=== PATIENT | male | born 1935 | race African-American/Black ===

== ENCOUNTER 2016-10-10 08:58 | Inpatient (IN) | payer OTHER, MEDICARE ==
--- NOTE | 2016-10-10 09:45 | PDOC ---
Attending Attestation - Resident Resident Name: Jamarcus Francisco - ED Attending Attestation I have performed the following: I have examined & evaluated the patient, The case was reviewed & discussed with the resident - HPI HPI: 10/10/16 09:41 80 yo M with h;o CAD ( stents) COPD, recent thyroidectomy ( 06/20), HTN COPD prior PE, here today with episodic bradycardia at physical therapy. pt was found to be bradycardic in 30's at physical therapy. did feel mild sob, but has had sob ever since his thyroid surgery. no recent leg swelling, no f/c no cough. no syncope. no chest pain. pt had recent cardiac cath around time of his surgery and stent was patent. 06/20. pt also on coumadin for h/o PE, had subdural many years ago 2003. 10/10/16 10:01 10/10/16 10:[address] Perez, and David ( supervisor advice) - Physicial Exam PE: 10/10/16 09:47 awake alert lungs clear heart regular, occas irreg beat. abd soft NT ND. skin warm and dry. nuero alert oriented x 3. - Medical Decision Making 10/10/16 09:48 differential: hypothyroid, electrolyte abnormality, heart block. med side effect from beta [place], [place], plan labs cxr coags. tsh. john admit to tele 10/10/16 10:01 Heart Score/ECG Review #1 ECG reviewed & interpreted by me at: 09:00 General ECG Interpretation: Sinus Rhythm, Normal Rate (97, occas pvc), Normal Intervals, No acute ischemic changes Compared to previous ECG there are: No significant change (TWI I, AVL, V4 - V6)
[2016-10-10 10:27] LABS: BASOPHIL 0.3 % (0-2.0); EOSINOPHIL 0.8 % (0-4.5); MCH 27.5 pg (25.7-33.7); MCHC 31.7 g/dl (32.0-35.9); MEAN CELL VOLUME 86.9 fl (80-96); MEAN PLT VOLUME 9.4 fl (7.5-11.1); NEUTROPHILS 79.1 % (42.8-82.8); PLATELET COUNT 163 K/MM3 (134-434); RDW 18.8 % (11.9-15.9)
[2016-10-10 10:42] LABS: INR 2.22 (0.82-1.09); PROTHROMBIN TIME (PATIENT) 24.8 SEC (9.98-11.88)
[2016-10-10 10:45] LABS: ACTIVATED PTT 32.8 SECONDS (26.9-34.4)
--- NOTE | 2016-10-10 11:20 | PDOC ---
History of Present Illness <Radha Montes - Last Filed: 10/10/16 12:36> - General History Source: Patient Exam Limitations: No Limitations - History of Present Illness Presenting Symptoms: Short of Breath, Other (weakness) Timing/Duration: reports: intermittent <Jamarcus Francisco - Last Filed: 10/10/16 14:21> - General Chief Complaint: Irregular Heart Beat Stated Complaint: IRREGULAR HEART RATE Time Seen by Provider: 10/10/16 09:07 - History of Present Illness Initial Comments: 10/10/16 11:13 80M with pmh of HTN COPD PE s/p lobectomy, CAD s/p CABG and thyroidectomy present with recent onset of generalized weakness and sent to ED by PT this morning for episode of bradycardia at 30bpm. PAtient denies dizziness, chest pain, confusion, sweating, fever, recent medication change. (Jamarcus Francisco) Past History <Radha Montes - Last Filed: 10/10/16 12:36> - Travel Traveled outside of the country in the last 30 days: No - Past Medical History Asthma: Yes Cardiac Disorders: Yes (CAD, S/P PTCI) COPD: Yes (2LPM N/C CONTINUOUS.) GI Disorders: Yes (GERD) HTN: Yes Hypercholesterolemia: Yes Suicide Attempt (Hx): No Other medical history: Pneumonia, Subdural hematoma(2003), PE, total thyroidectomy - Surgical History Abdominal Surgery: Yes (h.hernia, ing.hernia with a mass) Cardiac Surgery: Yes (angioplasty with stent 2003) Lung Surgery: Yes (LOBECTOMY) - Psycho/Social/Smoking Cessation Hx Anxiety: No Suicidal Ideation: No Smoking History: Former smoker Have you smoked in the past 12 months: No Number of Cigarettes Smoked Daily: 0 If you are a former smoker, when did you quit?: 1980 Information on smoking cessation initiated: No 'Breaking Loose' booklet given: 09/08/13 Hx Alcohol Use: No Drug/Substance Use Hx: No Hx Substance Use Treatment: No <Jamarcus Francisco - Last Filed: 10/10/16 14:21> - Past Medical History Allergies/Adverse Reactions: Allergies Allergy/AdvReac Type Severity Reaction Status Date / Time No Known Allergies Allergy Verified 10/10/16 09:00 Home Medications: Ambulatory Orders Albuterol 2.5/Ipratropium 0.5 [Duoneb -] 1 neb IH QID 09/06/13 Aspirin [ASA -] 81 mg PO DAILY 09/06/13 Potassium Chloride [K-Dur] 20 meq PO BID 09/06/13 Allopurinol [Zyloprim -] 100 mg PO DAILY 01/21/14 Esomeprazole Mag Trihydrate [Nexium] 40 mg PO DAILY 01/21/14 Furosemide [Lasix -] 40 mg PO DAILY 01/21/14 Simvastatin [Zocor -] 40 mg PO HS 01/21/14 Metoprolol Succinate [Toprol Xl -] 25 mg PO DAILY 10/10/16 Valsartan [Diovan] 160 mg PO DAILY 10/10/16 Warfarin Na [Coumadin -] 2.5 mg PO Q2D 10/10/16 Warfarin Sodium [Coumadin] 5 mg PO Q2D 10/10/16 Review of Systems - Review of Systems Able to Perform ROS?: Yes Constitutional: No: Diaphoresis, Fever, Loss of Appetite, Night Sweats, Unexplained wgt Loss HEENTM: No: Recent change in vision Respiratory: Yes: See HPI. No: Cough Cardiac (ROS): Yes: See HPI. No: Lightheadedness, Palpitations Musculoskeletal: Yes: Muscle Weakness <Jamarcus Francisco - Last Filed: 10/10/16 14:21> *Physical Exam - Physical Exam General Appearance: Yes: Nourished, Appropriately Dressed HEENT: positive: EOMI Respiratory/Chest: positive: Crackles (b/l). negative: Chest Tender Cardiovascular: positive: Regular Rhythm, Regular Rate, S1, S2 Vascular Pulses: Dorsalis-Pedis (R): 1+, Doralis-Pedis (L): 1+ Gastrointestinal/Abdominal: positive: Normal Bowel Sounds, Distended Integumentary: positive: Normal Color <Jamarcus Francisco - Last Filed: 10/10/16 14:21> - Vital Signs Last Vital Signs Temp Pulse Resp BP Pulse Ox 97.9 F 97 H 22 109/56 98 10/10/16 09:00 10/10/16 12:20 10/10/16 12:20 10/10/16 12:20 10/10/16 12:20 ED Treatment Course - LABORATORY CBC & Chemistry Diagram: 10/10/16 10:15 10/10/16 10:15 <Radha Montes - Last Filed: 10/10/16 12:36> - LABORATORY CBC & Chemistry Diagram: 10/10/16 10:15 10/10/16 10:15 <Jamarcus Francisco - Last Filed: 10/10/16 14:21> - ADDITIONAL ORDERS Additional order review: Laboratory Results 10/10/16 10/10/16 10/10/16 10:15 10:15 10:15 INR 2.22 H D PTT (Actin FS) 32.8 Sodium 142 Potassium 4.4 Chloride 107 Carbon Dioxide 25 Anion Gap 10 BUN 27 H Creatinine 1.2 Creat Clearance w eGFR 58.26 Random Glucose 105 D Calcium 8.5 Total Bilirubin 0.5 D AST 19 D ALT 45 D Alkaline Phosphatase 70 Creatine Kinase Cancelled 141 Troponin I Cancelled 0.04 D Total Protein 6.1 L Albumin 3.4 TSH 0.13 L 10/10/16 10:15 RBC 4.62 MCV 86.9 MCHC 31.7 L RDW 18.8 H MPV 9.4 Neutrophils % 79.1 D Lymphocytes % 11.5 D Monocytes % 8.3 Eosinophils % 0.8 Basophils % 0.3 Medical Decision Making <Radha Montes - Last Filed: 10/10/16 12:36> <Jamarcus Francisco - Last Filed: 10/10/16 14:21> - Medical Decision Making 10/10/16 12:[address] perez, requested ED evaluation by his hog counter dr. Hernandez. awaiting call back. THS low, will add free T4 (Radha Montes) 10/10/16 11:54 80M with pmh of HTN COPD PE s/p lobectomy, CAD s/p CABG and thyroidectomy present with episode of 30bpm bradycardia. Evaluated for Hypothyroidism, medication error, Electrolyte imbalance, IL on diff. EKG unchanged from previous. Ordered labs, lytes and chest xray. Low TSH.. 12:13 Call to Chris 12:15 Dr Hernandez paged overhead 12:30 Dr Hernandez 2nd page overhead 12:37 Paged [facility] office Spoke to Dr Perez and David who to let him know Mr. Rodriguez is to be admitted to Dr Diaz to be admitted for observation in telemetry 10/10/16 14:20 (Jamarcus Francisco) *DC/Admit/Observation/Transfer <Radha Montes - Last Filed: 10/10/16 12:36> - Discharge Dispostion Admit: Yes <Jamarcus Francisco - Last Filed: 10/10/16 14:21> Diagnosis at time of Disposition: Bradycardia - Discharge Dispostion Decision to Admit order Date/Time: Decision to Admit Order Category Date Time Status Decision to Admit to Hospital Routine Admission 10/10/16 14:18 Active - Referrals Referrals: Boris Perez MD [Primary Care Provider] -
[2016-10-10 11:32] LABS: ALK PHOS 70 U/L (45-117); TROPONIN I 0.04 ng/ml (0.00-0.05)
[2016-10-10 11:33] LABS: ALBUMIN 3.4 g/dl (3.4-5.0); ANION GAP 10 (8-16); BILIRUBIN,TOTAL 0.5 mg/dL (0.2-1.0); CALCIUM 8.5 mg/dL (8.5-10.1); CO2 25 mmol/L (21-32); CREATININE 1.2 mg/dL (0.7-1.3); GLUCOSE,RANDOM 105 mg/dL (74-106); SGOT/AST 19 U/L (15-37); SGPT/ALT 45 U/L (12-78); TOT PROT 6.1 g/dl (6.4-8.2)
[2016-10-10 11:41] LABS: THYROID STIMULATING HORMONE 0.13 uIU/ml (0.358-3.74)
[2016-10-10] MEDS ORDERED: ONDANSETRON 4 MG/2 ML VIAL IVPB PRN (14:55)
[2016-10-10] MEDS ORDERED: ACETAMINOPHEN 325 MG TABLET (FP) PO PRN (14:55)
--- NOTE | 2016-10-10 15:02 | HP ---
Admitting History and Physical - Primary Care Physician PCP: Boris Perez - Admission Chief Complaint: My heart rate was low History of Present Illness: Mr Rodriguez is a pleasant 80 year old male who comes in with symptomatic bradycardia. He was at PT today when he began to feel short of breath and lightheaded. He says his heart rate was checked by machines and it was fluctuating between the 30s-40s. It was confirmed with a second machine and also manually. Because of that he was sent to the ED. His symptoms had resolved when he presented to the ED and he was more tachycardic here. He denies fevers, chills, lightheadedness, dizziness, passing out, chest pain, abdominal pain, nausea, vomiting, diarrhea, constipation, difficulty or pain on urination, or swelling. He says he feels fine currently. History Source: Patient Limitations to Obtaining History: No Limitations - Past Medical History Cardiovascular: Yes: CAD (s/p PTCI), HTN, Hyperlipdemia Pulmonary: Yes: COPD, Pneumonia (s/p lobectomy for lung abscess), Pulmonary Embolus Gastrointestinal: Yes: GERD - Past Surgical History Past Surgical History: Yes: Joint Replacement (knee) - Smoking History Smoking history: Former smoker Have you smoked in the past 12 months: No Aproximately how many cigarettes per day: 0 If you are a former smoker, when did you quit?: 1980 - Alcohol/Substance Use Hx Alcohol Use: No - Social History Usual Living Arrangement: Yes: With Spouse ADL: Independent 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, 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 [employer] History of Recent Travel: No Home Medications - Allergies Allergies/Adverse Reactions: Allergies Allergy/AdvReac Type Severity Reaction Status Date / Time No Known Allergies Allergy Verified 10/10/16 09:00 - Home Medications Home Medications: Ambulatory Orders Albuterol 2.5/Ipratropium 0.5 [Duoneb -] 1 neb IH QID 09/06/13 Aspirin [ASA -] 81 mg PO DAILY 09/06/13 Potassium Chloride [K-Dur] 20 meq PO BID 09/06/13 Allopurinol [Zyloprim -] 100 mg PO DAILY 01/21/14 Esomeprazole Mag Trihydrate [Nexium] 40 mg PO DAILY 01/21/14 Furosemide [Lasix -] 40 mg PO DAILY 01/21/14 Simvastatin [Zocor -] 40 mg PO HS 01/21/14 Levothyroxine [Synthroid -] 150 mcg PO DAILY 10/10/16 Metoprolol Succinate [Toprol Xl -] 25 mg PO DAILY 10/10/16 Montelukast Na [Singulair -] 10 mg PO HS 10/10/16 Prednisone 15 mg PO DAILY 10/10/16 Theophylline Anhydrous [Theophylline] 300 tablet PO BID 10/10/16 Valsartan [Diovan] 160 mg PO DAILY 10/10/16 Warfarin Na [Coumadin -] 2.5 mg PO Q2D 10/10/16 Warfarin Sodium [Coumadin] 5 mg PO Q2D 10/10/16 Family Disease History - Family Disease History Family Disease History: Other: Father ( of GSW when patient was 3 mos old), Mother ( in car accident when patient was 16 yo) Review of Systems Findings/Remarks: full review of systems obtained, as per HPI and otherwise negative Physical Examination Vital Signs: Vital Signs Temperature 97.9 F 10/10/16 09:00 Pulse Rate 97 H 10/10/16 12:20 Respiratory Rate 22 10/10/16 12:20 Blood Pressure 109/56 10/10/16 12:20 O2 Sat by Pulse Oximetry (%) 98 10/10/16 12:20 Constitutional: Yes: No Distress, Calm, Obese Eyes: Yes: Conjunctiva Clear, EOM Intact, PERRL HENT: Yes: Atraumatic, Normocephalic Cardiovascular: Yes: Tachycardia, Pulse Irregular. No: Gallop, Murmur, Rub Respiratory: Yes: Regular, CTA Bilaterally. No: Rales, Rhonchi, Wheezes Gastrointestinal: Yes: Normal Bowel Sounds, Soft. No: Distention, Tenderness Extremities: Yes: WNL Edema: No Labs: Laboratory Results - last 24 hr 10/10/16 10/10/16 10/10/16 10:15 10:15 10:15 WBC 8.0 RBC 4.62 Hgb 12.7 Hct 40.1 MCV 86.9 MCHC 31.7 L RDW 18.8 H Plt Count 163 MPV 9.4 Neutrophils % 79.1 D Lymphocytes % 11.5 D Monocytes % 8.3 Eosinophils % 0.8 Basophils % 0.3 INR 2.22 H D PTT (Actin FS) 32.8 Sodium 142 Potassium 4.4 Chloride 107 Carbon Dioxide 25 Anion Gap 10 BUN 27 H Creatinine 1.2 Creat Clearance w eGFR 58.26 Random Glucose 105 D Calcium 8.5 Total Bilirubin 0.5 D AST 19 D ALT 45 D Alkaline Phosphatase 70 Creatine Kinase 141 Troponin I 0.04 D Total Protein 6.1 L Albumin 3.4 TSH 0.13 L 10/10/16 10:15 WBC RBC Hgb Hct MCV MCHC RDW Plt Count MPV Neutrophils % Lymphocytes % Monocytes % Eosinophils % Basophils % INR PTT (Actin FS) Sodium Potassium Chloride Carbon Dioxide Anion Gap BUN Creatinine Creat Clearance w eGFR Random Glucose Calcium Total Bilirubin AST ALT Alkaline Phosphatase Creatine Kinase Cancelled Troponin I Cancelled Total Protein Albumin TSH Imaging - Results Chest X-ray: Report Reviewed, Image Reviewed EKG: Report Reviewed Problem List - Problems (1) Bradycardia Assessment/Plan: -patient presented with symptomatic bradycardia -now in afib with slight tachycardia -symptoms resolved -cardiology aware and will see the patent -admit under observation to telemetry Code(s): R00.1 - BRADYCARDIA, UNSPECIFIED (2) Coronary artery disease Assessment/Plan: -without complaint of chest pain -first set cardiac enzymes negative -will check 3 sets -continue home regimen Code(s): I25.10 - ATHSCL HEART DISEASE OF [place] CORONARY ARTERY W/O ANG PCTRS (3) GERD (gastroesophageal reflux disease) Assessment/Plan: -stable -continue PPI Code(s): K21.9 - GASTRO-ESOPHAGEAL REFLUX DISEASE WITHOUT ESOPHAGITIS (4) HTN (hypertension) Assessment/Plan: -well controlled -continue diovan, toprol xl, and lasix Code(s): I10 - ESSENTIAL (PRIMARY) HYPERTENSION (5) Pulmonary embolism Assessment/Plan: -continue coumadin at home dose -daily INR Code(s): I26.99 - OTHER PULMONARY EMBOLISM WITHOUT ACUTE COR PULMONALE (6) Renal insufficiency, mild Assessment/Plan: -at baseline Code(s): N28.9 - DISORDER OF KIDNEY AND URETER, UNSPECIFIED (7) COPD (chronic obstructive pulmonary disease) Assessment/Plan: -continue home regimen -not in exacerbation Code(s): 496 - CHR AIRWAY OBSTRUCT NEC (8) Hypothyroid Assessment/Plan: -secondary to thyroidectomy -TSH very depressed, ? to high synthroid dose -awaiting FT4 results -continue home dose currently -would expect tachycardia and not bradycardia if hyperthyroid Code(s): E03.9 - HYPOTHYROIDISM, UNSPECIFIED Assessment/Plan Dispo -possible discharge tomorrow pending cardiology recommendations
--- NOTE | 2016-10-10 15:48 | EKG ---
Test Reason : Blood Pressure : / mmHG Vent. Rate : 097 BPM Atrial Rate : 097 BPM P-R Int : 156 ms QRS Dur : 102 ms QT Int : 364 ms P-R-T Axes : 054 -21 100 degrees QTc Int : 462 ms SINUS RHYTHM WITH OCCASIONAL PREMATURE VENTRICULAR COMPLEXES BIATRIAL ENLARGEMENT T WAVE ABNORMALITY, CONSIDER ANTEROLATERAL ISCHEMIA ABNORMAL ECG WHEN COMPARED WITH ECG OF 25-APR-2016 11:03, T WAVE INVERSION MORE EVIDENT IN ANTERIOR LEADS T WAVE INVERSION LESS EVIDENT IN LATERAL LEADS Confirmed by CASH SANTOS MD ([id number]) on 10/10/2016 3:47:26 PM Referred By: Confirmed By:CASH SANTOS MD
[2016-10-10 16:37] VITALS: BMI 30.9
[2016-10-10] MEDS: WARFARIN NA 2.5 MG TABLET (FP) PO SCH (17:05)
[2016-10-10] MEDS: ALBUTEROL SO4 2.5/IPRATROPIUM 0.5 INH SOL 3 ML VIAL.NEB. NEB SCH ×2 (18:00→23:10)
[2016-10-10 18:57] LABS: TROPONIN I 0.03 ng/ml (0.00-0.05)
[2016-10-10] MEDS: ATORVASTATIN CA 20 MG TABLET (FP) PO SCH (21:32)
[2016-10-10] MEDS: METOPROLOL SUCCINATE 25 MG TAB.SR.24H (FP) PO SCH (21:32)
[2016-10-10] MEDS: POTASSIUM CHLORIDE TABS 20 MEQ TABLET.ER (FP) PO SCH (21:32)
[2016-10-10] MEDS ORDERED: MONTELUKAST NA 5 MG TAB.CHEW PO SCH (22:00)
[2016-10-10] MEDS ORDERED: THEOPHYLLINE ANHYDROUS 200 MG PO SCH (22:00)
[2016-10-10] MEDS ORDERED: PATIENT'S OWN MEDICATION (NON-FORMULARY) (Simvastatin 40 MG) PO SCH (22:00)
[2016-10-10] MEDS: THEOPHYLLINE ANHYDROUS 100 MG CAP.ER.24H PO SCH (22:05)
[2016-10-10] MEDS ORDERED: MONTELUKAST NA 10 MG TABLET PO SCH (22:42)
[2016-10-11] MEDS: ALBUTEROL SO4 2.5/IPRATROPIUM 0.5 INH SOL 3 ML VIAL.NEB. NEB SCH ×4 (06:44→23:57)
[2016-10-11] MEDS ORDERED: LEVOTHYROXINE NA 150 MCG TABLET PO SCH (07:00)
[2016-10-11 07:45] LABS: BASOPHIL 0.4 % (0-2.0); EOSINOPHIL 1.7 % (0-4.5); MCH 28.1 pg (25.7-33.7); MCHC 32.7 g/dl (32.0-35.9); MEAN CELL VOLUME 86.1 fl (80-96); MEAN PLT VOLUME 9.4 fl (7.5-11.1); NEUTROPHILS 62.8 % (42.8-82.8); PLATELET COUNT 170 K/MM3 (134-434); RDW 18.5 % (11.9-15.9); WHITE BLOOD COUNT 9.4 K/mm3 (4.0-10.0)
[2016-10-11 08:03] LABS: INR 2.34 (0.82-1.09); PROTHROMBIN TIME (PATIENT) 26.2 SEC (9.98-11.88)
[2016-10-11 08:09] LABS: ANION GAP 7 (8-16); CALCIUM 7.8 mg/dL (8.5-10.1); CO2 27 mmol/L (21-32); CREATININE 1.1 mg/dL (0.7-1.3); GLUCOSE,RANDOM 94 mg/dL (74-106); MAGNESIUM 2.5 mg/dL (1.8-2.4); PHOSPHOROUS 4.8 mg/dL (2.5-4.9)
[2016-10-11 08:11] LABS: TROPONIN I 0.05 ng/ml (0.00-0.05)
--- NOTE | 2016-10-11 09:00 | PN ---
Progress Note (short form) - Note Progress Note: PATIENT ADMITTED FROM PT RX WITH WEAKNESS / BRADYCARDIA. WHEN IN ER EKG SHOWED NSR / HR 93 WITH PVC'S. HE HAS A GENERALIZED WEAK FEELING / FEELS FATIGUED . ADMITTED TO TELEMETRY FOR OBSERVATION. HE HAS COUGH / HY OF COPD FOLLOWED BY PULMONARY DR TOMLIN. CARDIOLOGY CONSULT HAS BEEN PLACED AND AWAITING EVALUATION. HE HAS HYPOTHYROIDISM ON SYNTHROID . TSH WAS LOW WITH ELEVATED FREE T4 ON ADMISSION. Selected Entries 10/11/16 10/11/16 05:00 06:00 Temperature 97.9 F Pulse Rate 100 H Respiratory 21 Rate Blood Pressure 98/68 O2 Sat by Pulse 94 L Oximetry (%) Laboratory Tests 10/10/16 10/10/16 10/10/16 10:15 13:40 17:15 WBC RBC Hgb Hct Plt Count INR Sodium Potassium Chloride Carbon Dioxide Anion Gap BUN Creatinine Random Glucose Calcium Phosphorus Magnesium Creatine Kinase 141 112 Troponin I 0.04 D 0.03 Free T4 Gregory 1.84 H TSH 0.13 L 10/11/16 10/11/16 10/11/16 06:00 06:00 06:00 WBC 9.4 RBC 4.41 Hgb 12.4 Hct 38.0 Plt Count 170 INR Sodium 142 Potassium 4.2 Chloride 108 H Carbon Dioxide 27 Anion Gap 7 L BUN 31 H Creatinine 1.1 Random Glucose 94 Calcium 7.8 L Phosphorus 4.8 D Magnesium 2.5 H Creatine Kinase 127 Troponin I 0.05 D Free T4 Gregory TSH 10/11/16 06:00 WBC RBC Hgb Hct Plt Count INR 2.34 H Sodium Potassium Chloride Carbon Dioxide Anion Gap BUN Creatinine Random Glucose Calcium Phosphorus Magnesium Creatine Kinase Troponin I Free T4 Gregory TSH P/E <> AWAKE / NO DISTRESS HEENT <> NECK SUPPLE / NO CAROTID BRUITS COR <> S 1 S 2 HS DISTANT / NSR CHEST <> RHONCHI AT BASES . ABD <> SOFT / OBESE / NONTENDER. EXT <> NO CALF TENDERNESS IMP : BRADYCARDIA REPORTED AT PHYSICAL RX . CAD PAF HTN / LOW BP COPD CKD HYPOTHYROIDISM PLAN : AWAIT CARDIOLOGY EVALUATION MONITOR ON TELEMETRY LOWER SYNTHROID DOSE TO 125 MCG DAILY. ENDOCRINE CONSULT WITH DR CALIX. A/C WITH COUMADIN / MONITOR INR PULMONARY CONSULT WITH COPD DECREASE DIOVAN TO 80 MG OD . MONITOR BP .
[2016-10-11] MEDS: PANTOPRAZOLE 40 MG TABLET (FP) PO SCH (09:17)
[2016-10-11] MEDS: POTASSIUM CHLORIDE TABS 20 MEQ TABLET.ER (FP) PO SCH (09:17)
[2016-10-11] MEDS: ASPIRIN 81 MG CHEWABLE TABLETS PO SCH (09:17)
[2016-10-11] MEDS: ALLOPURINOL 100 MG TABLET (FP) PO SCH (09:17)
[2016-10-11] MEDS: predniSONE 10 MG TABLET (UD) PO SCH (09:18)
[2016-10-11] MEDS: VALSARTAN 80 MG TABLET (UD) PO SCH (09:18)
[2016-10-11] MEDS: THEOPHYLLINE ANHYDROUS 100 MG CAP.ER.24H PO SCH ×2 (09:43→23:10)
[2016-10-11] MEDS ORDERED: FUROSEMIDE 40 MG TABLET (FP) PO SCH (10:00)
[2016-10-11] MEDS ORDERED: VALSARTAN 160 MG TABLET (UD) PO SCH (10:00)
[2016-10-11] MEDS ORDERED: PATIENT'S OWN MEDICATION (NON-FORMULARY) (Esomeprazole Mag Trihydrate [Nexium] 40 MG) PO SCH (10:00)
[2016-10-11] MEDS ORDERED: METOPROLOL SUCCINATE 25 MG TAB.SR.24H (FP) PO SCH (10:00)
--- NOTE | 2016-10-11 13:57 | CON.CARD ---
Cardiology Consult (text) - Consultation Consultation Note: CC: bradycardia 80 yo with h/o CAD (s/p PCI), systolic cardiomyopathy, mild asc ao dilation, mod mr, htn, hl, hypothyroid, COPD, Pneumonia (s/p lobectomy for lung abscess), Pulmonary Embolus on coumadin p/w bradycardia. Patient states before starting PT on routine vitals, he was noted to have HR's in the 30's-40's. No EKG done. Walked over to ER and minutes later EKG not c/ w bradycardia. Per family on telemetry, HR's intermittently reading low in the 30's -50's for seconds at a time and then going back up to 70's-100's. On arrival to PT always with weakness and sob that improves as he does PT. SOB has recently been worse due to humidity. Weakness stable. + sx's mainly with changing position and improve with ongoing ambulation. No additional symptoms above baseline while HR's low. Patient with worsened weakness and sob since thyroid surgery earlier this year. He denies fevers, chills, sweats, abdominal pain, nausea, vomiting, diarrhea, rashes, cough, congestion, decreased po intake. No chest pain, orthopnea, pnd, le edema, palps, claudication, bleeding. PMHx/PShx: per hpi, Joint Replacement (knee) Social hx: Former smoker, Independent Family Disease History: Father ( of GSW when patient was 3 mos old), Mother ( in car accident when patient was 16 yo) ROS: Per hpi Ambulatory Orders Albuterol 2.5/Ipratropium 0.5 [Duoneb -] 1 neb IH QID 09/06/13 Aspirin [ASA -] 81 mg PO DAILY 09/06/13 Potassium Chloride [K-Dur] 20 meq PO BID 09/06/13 Allopurinol [Zyloprim -] 100 mg PO DAILY 01/21/14 Esomeprazole Mag Trihydrate [Nexium] 40 mg PO DAILY 01/21/14 Furosemide [Lasix -] 40 mg PO DAILY 01/21/14 Simvastatin [Zocor -] 40 mg PO HS 01/21/14 Levothyroxine [Synthroid -] 150 mcg PO DAILY 10/10/16 Metoprolol Succinate [Toprol Xl -] 25 mg PO DAILY 10/10/16 Montelukast Na [Singulair -] 10 mg PO HS 10/10/16 Prednisone 15 mg PO DAILY 10/10/16 Theophylline Anhydrous [Theophylline] 300 tablet PO BID 10/10/16 Valsartan [Diovan] 160 mg PO DAILY 10/10/16 Warfarin Na [Coumadin -] 2.5 mg PO Q2D 10/10/16 Warfarin Sodium [Coumadin] 5 mg PO Q2D 10/10/16 Current Medications Acetaminophen (Tylenol -) 650 mg PO Q4H PRN PRN Reason: FEVER OR PAIN Albuterol/Ipratropium (Duoneb -) 1 amp NEB QIDR [facility] Last Admin: 10/11/16 11:21 Dose: 1 amp Allopurinol (Zyloprim -) 100 mg PO DAILY [facility] Last Admin: 10/11/16 09:17 Dose: 100 mg Aspirin (Asa -) 81 mg PO DAILY [facility] Last Admin: 10/11/16 09:17 Dose: 81 mg Atorvastatin Calcium (Lipitor -) 20 mg PO [facility] Last Admin: 10/10/16 21:32 Dose: 20 mg Furosemide (Lasix -) 40 mg PO DAILY [facility] Last Admin: 10/11/16 09:17 Dose: 40 mg Levothyroxine Sodium (Synthroid -) 125 mcg PO DAILY@0700 [facility] Metoprolol Succinate (Toprol Xl -) 25 mg PO [facility] Last Admin: 10/10/16 21:32 Dose: 25 mg Montelukast Sodium (Singulair -) 10 mg PO [facility] Ondansetron HCl (Zofran Injection) 4 mg IVPB Q6H PRN PRN Reason: NAUSEA Pantoprazole Sodium (Protonix -) 40 mg PO DAILY [facility] Last Admin: 10/11/16 09:17 Dose: 40 mg Potassium Chloride (K-Dur -) 20 meq PO BID [facility] Last Admin: 10/11/16 09:17 Dose: 20 meq Prednisone (Deltasone -) 15 mg PO DAILY [facility] Last Admin: 10/11/16 09:18 Dose: 15 mg Theophylline (Shai-24) 300 mg PO BID [facility] Last Admin: 10/11/16 09:43 Dose: 300 mg Valsartan (Diovan -) 80 mg PO DAILY [facility] Last Admin: 10/11/16 09:18 Dose: Not Given Warfarin Sodium (Coumadin -) 2.5 mg PO Q2D@1800 [facility] Last Admin: 10/10/16 17:05 Dose: 2.5 mg Warfarin Sodium (Coumadin -) 5 mg PO Q2D@1800 [facility] Vital Signs - 24 hr 10/10/16 10/10/16 10/10/16 15:00 15:02 17:39 Temperature 98.2 F 97.6 F 97.9 F Pulse Rate 96 H 101 H Pulse Rate [ 92 H Apical] Respiratory 20 22 18 Rate Blood Pressure 113/70 126/69 Blood Pressure 105/66 [Right Arm] O2 Sat by Pulse 98 100 Oximetry (%) 10/10/16 10/10/16 10/10/16 21:00 22:00 22:56 Temperature 97.8 F Pulse Rate 100 H Pulse Rate [ Apical] Respiratory 20 18 Rate Blood Pressure 113/54 Blood Pressure [Right Arm] O2 Sat by Pulse 94 L 94 L Oximetry (%) 10/11/16 10/11/16 10/11/16 01:00 05:00 06:00 Temperature 98.1 F 97.9 F Pulse Rate 106 H 100 H Pulse Rate [ Apical] Respiratory 20 21 21 Rate Blood Pressure 124/84 98/68 Blood Pressure [Right Arm] O2 Sat by Pulse 94 L Oximetry (%) 10/11/16 09:00 Temperature 98.1 F Pulse Rate 93 H Pulse Rate [ Apical] Respiratory 18 Rate Blood Pressure 101/61 Blood Pressure [Right Arm] O2 Sat by Pulse 95 Oximetry (%) Intake & Output 10/09/16 10/10/16 10/11/16 10/12/16 07:59 07:59 07:59 07:59 Intake Total 70 350 Balance 70 350 Weight 203 lb NAD, calm jvd flat, neck supple diminished breath sounds, nl effort RRR nl s1, s2 2/6 murmur at sternal border and apex + bs soft nt nd ext without e/c/c + dp/pt aaox3 no carotid bruits no jaundice, diaphoresis CBC, BMP 10/11/16 06:00 10/11/16 06:00 Laboratory Tests 10/10/16 10/10/16 10/10/16 10:15 10:15 13:40 INR 2.22 H D Calcium Magnesium Total Bilirubin 0.5 D AST 19 D ALT 45 D Alkaline Phosphatase 70 Troponin I 0.04 D Albumin 3.4 Free T4 1.84 H TSH 0.13 L 10/10/16 10/11/16 10/11/16 17:15 06:00 06:00 INR Calcium 7.8 L Magnesium 2.5 H Total Bilirubin AST ALT Alkaline Phosphatase Troponin I 0.03 0.05 D Albumin Free T4 Himrod TSH 10/11/16 06:00 INR 2.34 H Calcium Magnesium Total Bilirubin AST ALT Alkaline Phosphatase Troponin I Albumin Free T4 TSH EKG: sr, 97 bpm. anterolateral twi. Previously twi more prominent in lateral leads. tele: SR, Sinus tach. Frequent pvc's. 09/2016 office echo: Moderate global HK, EF 40%. nl rv. mod mr, CXR: wnl Had preop cath 05/2016 at [facility] and per dc summary the cath showed patent prior stents and non obs residual dz. LHC/PCI 2010: prox RCA NICOLE, residual OM1 50-60%, patent mid LAD stent, normal right heart pressures, normal LVF Dobut Stress MPI 08/2010: small, mild apical anterior and LV apex ischemia--( PCI after this) MIBI 12/13: small/mild infer ischemia vs GI tracer confounding, EF 41% ct chest 02/2016: ascd aorta 4.3 cm 80 yo with h/o CAD (s/p PCI), systolic cardiomyopathy, mild asc ao dilation, mod mr, htn, hl, hypothyroid, COPD, Pneumonia (s/p lobectomy for lung abscess), Pulmonary Embolus on coumadin p/w bradycardia. bradycardia - Based on history it does not appeart that patient was symptomatic beyond his baseline symptoms during episode. - No documentation of bradycardia on tele or ekg. May have been artifactual reading but need to rule out true bradyarrhythmia. Recommend telemetry monitoring for a full 24 hours and then can d/c home with holter tomorrow if no arrhythmias detected on tele. - OK to continue low dose metoprolol for now as patient remains borderline tachycardic on theophylline. - Recent cath in May with no residual disease so low suspicion for ischemic bradyarrhythmia. - had recent echo in September that was stable, no need to repeat. weakness/dizziness - Con't to monitor for bradyarrhythmia as above - + orthostatics. would decrease dose of lasix. (decrease potassium dose as well). Diovan dose decreased here due to low bp's. In light of cardiomyopathy would uptitrate again once bp improves. - stable echo as mentioned. CAD (s/p PCI) - Con't medical therapy with ASA, statin. Stable. No angina. CE's negative here and recent cath in may with no residual disease syst chf: - Over the years his echos have shown variations in lvef, at times reduced. Recent echo at [facility] 05/2016 reports lvef 20% (per dc summary). During that admit he was seen by cardio and had repeat cath showing patent stents and non obs residual dz. He was noted to have NSVT on tele there and given lifevest but pt/ declined. Was started on toprol as well. He has been on bb/arb for several mos now so will send for updated echo to monitor lvef. - euvolemic/hypovolemic. Decreasing lasix as mentioned. HTN, - adjustments as above Hyperlipdemia, - con't statin COPD, - on home o2 and theophylline. sob stable. mgm't per pmd PE 2010 - coumadin. dosing per inr. ascending thoracic aneurysm, small: - Stable on recent ct scan. Cont bb. thyroid abnormalities - per pmd If no events on tele. Ok to d/c tomorrow from CV perspective after holter monitor is placed.
[2016-10-11] MEDS: WARFARIN NA 5 MG TABLET (UD) PO SCH (17:27)
[2016-10-11] MEDS ORDERED: PT OWN MED DRAWER 7, Y5N ONE ×2 (20:01→23:01)
[2016-10-11] MEDS: MONTELUKAST NA 5 MG TAB.CHEW PO SCH (23:09)
[2016-10-11] MEDS: METOPROLOL SUCCINATE 25 MG TAB.SR.24H (FP) PO SCH (23:09)
[2016-10-11] MEDS: ATORVASTATIN CA 20 MG TABLET (FP) PO SCH (23:09)
[2016-10-12] MEDS: ALBUTEROL SO4 2.5/IPRATROPIUM 0.5 INH SOL 3 ML VIAL.NEB. NEB SCH ×3 (06:46→17:19)
[2016-10-12] MEDS: LEVOTHYROXINE NA 125 MCG TABLET (FP) PO SCH (06:54)
--- NOTE | 2016-10-12 08:41 | PN ---
Progress Note (short form) - Note Progress Note: PATIENT FEELS BETTER . WEAKNESS IMPROVED. BP STILL LOW . DR COATS'S NOTE APPRECIATED . NO DOCUMENTED BRADYCARDIA. PER DR COATS'S NOTE BRADYCARDIA ON EKG AT PHYSIOTHERAPY MAY HAVE BEEN AN ARTIFACT. Selected Entries 10/12/16 06:00 Temperature 97.9 F Pulse Rate 101 H Respiratory 18 Rate Blood Pressure 96/61 Laboratory Tests 10/11/16 10/11/16 10/11/16 06:00 06:00 06:00 WBC 9.4 RBC 4.41 Hgb 12.4 Hct 38.0 Plt Count 170 Sodium 142 Potassium 4.2 Chloride 108 H Carbon Dioxide 27 Anion Gap 7 L BUN 31 H Creatinine 1.1 Random Glucose 94 Calcium 7.8 L Phosphorus 4.8 D Magnesium 2.5 H Creatine Kinase 127 Troponin I 0.05 D Laboratory Tests P/E <> AWAKE / ALERT / NO DISTRESS HEENT <> NECK SUPPLE / NO CAROTID BRUITS COR <> S 1 S 2 HS DISTANT / NSR CHEST <> SCATTERED RHONCHI AT BASES . ABD <> SOFT / NONTENDER. EXT <> NO CALF TENDERNESS IMP : BRADYCARDIA REPORTED AT PT. CAD PAF HTN <> PRESENTLY WITH LOW BP COPD CKD HYPOTHYROIDISM PLAN : CONTINUE TO MONITOR ON TELEMETRY HOLD DIOVAN TODAY . OBSERVE BP . CONTINUE WITH LOWER SYNTHROID DOSE . REPEAT TSH OUT PATIENT. ENDOCRINE CONSULT PENDING. MONITOR INR ON COUMADIN. THEOPHYLLINE LEVEL ORDERED. PULMONARY CONSULT REQUESTED.
[2016-10-12] MEDS ORDERED: POTASSIUM CHLORIDE TABS 20 MEQ TABLET.ER (FP) PO SCH (10:00)
[2016-10-12] MEDS ORDERED: FUROSEMIDE 20 MG TABLET (FP) PO SCH (10:00)
[2016-10-12] MEDS: ALLOPURINOL 100 MG TABLET (FP) PO SCH (10:27)
[2016-10-12] MEDS: predniSONE 10 MG TABLET (UD) PO SCH (10:27)
[2016-10-12] MEDS: PANTOPRAZOLE 40 MG TABLET (FP) PO SCH (10:27)
[2016-10-12] MEDS: ASPIRIN 81 MG CHEWABLE TABLETS PO SCH (10:27)
[2016-10-12] MEDS: THEOPHYLLINE ANHYDROUS 100 MG CAP.ER.24H PO SCH ×2 (10:29→22:07)
--- NOTE | 2016-10-12 13:25 | PN ---
Progress Note (short form) - Note Progress Note: CC: bradycardia S: Bp con't to be low. diovan dose decreased yesterday. lasix also decreased (first lower dose received this am). No chest pain, palps, dizziness. cp and weakness at baseline. denies infectious symptoms. holter monitor placed this am. Current Medications Acetaminophen (Tylenol -) 650 mg PO Q4H PRN PRN Reason: FEVER OR PAIN Albuterol/Ipratropium (Duoneb -) 1 amp NEB QIDR [facility] Last Admin: 10/12/16 11:03 Dose: 1 amp Allopurinol (Zyloprim -) 100 mg PO DAILY [facility] Last Admin: 10/12/16 10:27 Dose: 100 mg Aspirin (Asa -) 81 mg PO DAILY [facility] Last Admin: 10/12/16 10:27 Dose: 81 mg Atorvastatin Calcium (Lipitor -) 20 mg PO [facility] Last Admin: 10/11/16 23:09 Dose: 20 mg Furosemide (Lasix -) 20 mg PO DAILY [facility] Last Admin: 10/12/16 10:27 Dose: 20 mg Levothyroxine Sodium (Synthroid -) 125 mcg PO DAILY@0700 [facility] Last Admin: 10/12/16 06:54 Dose: 125 mcg Metoprolol Succinate (Toprol Xl -) 25 mg PO HS [facility] Last Admin: 10/11/16 23:09 Dose: 25 mg Montelukast Sodium (Singulair -) 10 mg PO HS [facility] Last Admin: 10/11/16 23:09 Dose: 10 mg Ondansetron HCl (Zofran Injection) 4 mg IVPB Q6H PRN PRN Reason: NAUSEA Pantoprazole Sodium (Protonix -) 40 mg PO DAILY [facility] Last Admin: 10/12/16 10:27 Dose: 40 mg Potassium Chloride (K-Dur -) 20 meq PO DAILY [facility] Last Admin: 10/12/16 10:27 Dose: 20 meq Prednisone (Deltasone -) 15 mg PO DAILY [facility] Last Admin: 10/12/16 10:27 Dose: 15 mg Theophylline (Shai-24) 300 mg PO BID [facility] Last Admin: 10/12/16 10:29 Dose: 300 mg Valsartan (Diovan -) 80 mg PO DAILY [facility] Last Admin: 10/11/16 09:18 Dose: Not Given Warfarin Sodium (Coumadin -) 2.5 mg PO Q2D@1800 [facility] Last Admin: 10/10/16 17:05 Dose: 2.5 mg Warfarin Sodium (Coumadin -) 5 mg PO Q2D@1800 [facility] Last Admin: 10/11/16 17:27 Dose: 5 mg Vital Signs - 24 hr 10/11/16 10/12/16 10/12/16 22:00 01:38 06:00 Temperature 97.7 F 98.3 F 97.9 F Pulse Rate 101 H 98 H 101 H Respiratory 18 18 18 Rate Blood Pressure 105/67 97/69 96/61 O2 Sat by Pulse 95 Oximetry (%) 10/12/16 10/12/16 10/12/16 10:00 14:00 15:01 Temperature 98.5 F 98.7 F Pulse Rate 105 H 112 H Respiratory 18 18 18 Rate Blood Pressure 112/75 119/62 O2 Sat by Pulse 95 Oximetry (%) 10/12/16 17:14 Temperature 98.6 F Pulse Rate 105 H Respiratory 20 Rate Blood Pressure 101/67 O2 Sat by Pulse Oximetry (%) Intake & Output 10/10/16 10/11/16 10/12/16 10/13/16 07:59 07:59 07:59 07:59 Intake Total 70 1010 Balance 70 1010 Weight 203 lb 203 lb 4 oz NAD, calm jvd flat, neck supple diminished breath sounds/exp wheezes, nl effort tachycardic, regular nl s1, s2 2/6 murmur at sternal border and apex + bs soft nt nd ext without e/c/c. + varicosities + dp/pt aaox3 no carotid bruits no jaundice, diaphoresis CBC, BMP 10/11/16 06:00 10/11/16 06:00 Laboratory Tests 10/12/16 12:05 INR 2.49 H EKG: sr, 97 bpm. anterolateral twi. Previously twi more prominent in lateral leads. tele: Sinus tach up to the 120's. Frequent pvc's. recurrent nsvt, mostly 5- beat runs. 09/2016 office echo: Moderate global HK, EF 40%. nl rv. mod mr, CXR: wnl Had preop cath 05/2016 at [facility] and per dc summary the cath showed patent prior stents and non obs residual dz. LHC/PCI 2010: prox RCA NICOLE, residual OM1 50-60%, patent mid LAD stent, normal right heart pressures, normal LVF Dobut Stress MPI 08/2010: small, mild apical anterior and LV apex ischemia--( PCI after this) MIBI 12/13: small/mild infer ischemia vs GI tracer confounding, EF 41% ct chest 02/2016: ascd aorta 4.3 cm 80 yo with h/o CAD (s/p PCI), systolic cardiomyopathy, mild asc ao dilation, mod mr, htn, hl, hypothyroid, COPD, Pneumonia (s/p lobectomy for lung abscess), Pulmonary Embolus on coumadin p/w bradycardia. bradycardia - Based on history it does not appear that patient was symptomatic beyond his baseline symptoms during episode. - No documentation of bradycardia on tele or ekg. May have been artifactual reading but need to rule out true bradyarrhythmia. s/p telemetry monitoring x 48 hours with frequent ventricular ectopy and nsvt, but no bradyarrhythmia. In anticipation of d/c today ordered holter monitor. - OK to continue outpatient low dose metoprolol for now as tachycardia slightly worse today and patient with cardiomyopathy. Of note patient chronically bline tachycardic (HR 100's) on theophylline. - Recent cath in May with no residual disease so low suspicion for ischemic bradyarrhythmia. - had recent echo in September that was stable, no need to repeat. weakness/dizziness - monitoring for bradyarrhythmia as above - stable echo as mentioned. - 10/11 + orthostatics. would decrease dose of lasix. (decrease potassium dose as well). Diovan dose decreased here due to low bp's. In light of cardiomyopathy would uptitrate again once bp improves. - 10/12: bp continues to trend down. will hold lasix dose. CAD (s/p PCI) - Con't medical therapy with ASA, statin. Stable. No angina. CE's negative here and recent cath in may with no residual disease syst chf/nsvt: - Over the years his echos have shown variations in lvef, at times reduced. Recent echo at [facility] 05/2016 reports lvef 20% (per dc summary). During that admit he was seen by cardio and had repeat cath showing patent stents and non obs residual dz. He was noted to have NSVT on tele there and given lifevest but pt/ declined. Was started on toprol as well. He has been on bb/arb for several mos now --> improvement in EF --> cont - 10/12 with increased frequency of nsvt. (has prior hx as mentioned) recent ischemic and structural eval unremarkable as mentioned. con't to monitor. can consider uptitration of metoprolol if bp improves tomorrow and no bradyarrhythmia. - euvolemic/hypovolemic. stopping lasix as mentioned - thyroid abnormalities per pmd - lyte repletion prn HTN, - adjustments as above. - new hypotension, orthostatic vitals + on admit. monitor for improvement with stopping diuresis. Hyperlipdemia, - con't statin COPD, - on home o2 and theophylline. sob stable. mgm't per pmd PE 2010 - coumadin. dosing per inr. hgb stable even with additional asa. - if tachycardia/hypotension persists tomorrow despite stopping lasix, need to consider whether need to look for recurrent PE. Otherwise low suspicion, recent echo with nl RV. INR's have been well controlled. ascending thoracic aneurysm, small: - Stable on recent ct scan. Cont bb. thyroid abnormalities - per pmd
[2016-10-12 16:39] LABS: INR 2.49 (0.82-1.09); PROTHROMBIN TIME (PATIENT) 27.9 SEC (9.98-11.88)
[2016-10-12] MEDS: WARFARIN NA 2.5 MG TABLET (FP) PO SCH (18:21)
[2016-10-12] MEDS ORDERED: PT OWN MED DRAWER 7, Y5N ONE (21:38)
[2016-10-12] MEDS: ATORVASTATIN CA 20 MG TABLET (FP) PO SCH (21:42)
[2016-10-12] MEDS: METOPROLOL SUCCINATE 25 MG TAB.SR.24H (FP) PO SCH (21:42)
[2016-10-12] MEDS: MONTELUKAST NA 5 MG TAB.CHEW PO SCH (21:43)
[2016-10-13] MEDS: ALBUTEROL SO4 2.5/IPRATROPIUM 0.5 INH SOL 3 ML VIAL.NEB. NEB SCH ×5 (00:28→23:48)
[2016-10-13] MEDS: LEVOTHYROXINE NA 125 MCG TABLET (FP) PO SCH (06:18)
[2016-10-13 07:21] LABS: BASOPHIL 0.2 % (0-2.0); MCHC 32.2 g/dl (32.0-35.9); MEAN PLT VOLUME 9.3 fl (7.5-11.1); NEUTROPHILS 64.2 % (42.8-82.8); PLATELET COUNT 176 K/MM3 (134-434); RDW 18.4 % (11.9-15.9); WHITE BLOOD COUNT 9.3 K/mm3 (4.0-10.0)
[2016-10-13 07:45] LABS: ALBUMIN 3.2 g/dl (3.4-5.0); ANION GAP 8 (8-16); BILIRUBIN,TOTAL 0.5 mg/dL (0.2-1.0); CALCIUM 7.8 mg/dL (8.5-10.1); CO2 26 mmol/L (21-32); CREATININE 1.1 mg/dL (0.7-1.3); GLUCOSE,RANDOM 91 mg/dL (74-106); MAGNESIUM 2.4 mg/dL (1.8-2.4); SGOT/AST 15 U/L (15-37); SGPT/ALT 32 U/L (12-78); TOT PROT 5.6 g/dl (6.4-8.2)
[2016-10-13 07:46] LABS: ALK PHOS 63 U/L (45-117)
[2016-10-13 07:53] LABS: INR 2.59 (0.82-1.09)
[2016-10-13] MEDS ORDERED: PT OWN MED DRAWER 7, Y5N ONE ×2 (09:17→21:56)
[2016-10-13] MEDS: ASPIRIN 81 MG CHEWABLE TABLETS PO SCH (09:25)
[2016-10-13] MEDS: predniSONE 10 MG TABLET (UD) PO SCH (09:25)
--- NOTE | 2016-10-13 09:25 | PN ---
Progress Note, Physician Chief Complaint: bradycardia History of Present Illness: phlegmy cough frequently--feels like his asthma no cp, no sob otherwise, no syncope - Current Medication List Current Medications: Active Medications Acetaminophen (Tylenol -) 650 mg PO Q4H PRN PRN Reason: FEVER OR PAIN Albuterol/Ipratropium (Duoneb -) 1 amp NEB QIDR [facility] Last Admin: 10/13/16 06:49 Dose: 1 amp Allopurinol (Zyloprim -) 100 mg PO DAILY [facility] Last Admin: 10/12/16 10:27 Dose: 100 mg Aspirin (Asa -) 81 mg PO DAILY [facility] Last Admin: 10/12/16 10:27 Dose: 81 mg Atorvastatin Calcium (Lipitor -) 20 mg PO [facility] Last Admin: 10/12/16 21:42 Dose: 20 mg Levothyroxine Sodium (Synthroid -) 125 mcg PO DAILY@0700 [facility] Last Admin: 10/13/16 06:18 Dose: 125 mcg Metoprolol Succinate (Toprol Xl -) 25 mg PO [facility] Last Admin: 10/12/16 21:42 Dose: 25 mg Montelukast Sodium (Singulair -) 10 mg PO [facility] Last Admin: 10/12/16 21:43 Dose: 10 mg Ondansetron HCl (Zofran Injection) 4 mg IVPB Q6H PRN PRN Reason: NAUSEA Pantoprazole Sodium (Protonix -) 40 mg PO DAILY [facility] Last Admin: 10/12/16 10:27 Dose: 40 mg Prednisone (Deltasone -) 15 mg PO DAILY [facility] Last Admin: 10/12/16 10:27 Dose: 15 mg Theophylline (Shai-24) 300 mg PO BID [facility] Last Admin: 10/12/16 22:07 Dose: 300 mg Valsartan (Diovan -) 80 mg PO DAILY [facility] Last Admin: 10/11/16 09:18 Dose: Not Given Warfarin Sodium (Coumadin -) 2.5 mg PO Q2D@1800 [facility] Last Admin: 10/12/16 18:21 Dose: 2.5 mg Warfarin Sodium (Coumadin -) 5 mg PO Q2D@1800 [facility] Last Admin: 10/11/16 17:27 Dose: 5 mg - Objective Vital Signs: Vital Signs Temperature 98.1 F 10/13/16 05:34 Pulse Rate 101 H 10/13/16 05:34 Respiratory Rate 18 10/13/16 05:34 Blood Pressure 110/64 10/13/16 05:34 O2 Sat by Pulse Oximetry (%) 98 10/13/16 05:31 Constitutional: Yes: Well Nourished, No Distress, Calm Cardiovascular: Yes: Regular Rate and Rhythm, JVD, S1, S2. No: Gallop, Murmur Respiratory: Yes: Regular, CTA Bilaterally. No: Accessory Muscle Use, Rales, Wheezes Extremities: No: Cold Edema: No Neurological: Yes: Alert, Oriented Psychiatric: No: Agitated Labs: CBC, BMP 10/13/16 05:40 10/13/16 05:40 INR, PTT INR 2.59 (0.82-1.09) H 10/13/16 05:40 - ....Imaging EKG: Other (tele: NSR with sinus tach) Assessment/Plan EKG: sr, 97 bpm. anterolateral twi. Previously twi more prominent in lateral leads. Echo 09/2016 office: Moderate global HK, EF 40%. nl rv. mod mr, CXR: wnl LHC 05/2016 at [facility]--per dc summary, patent prior stents and non obs residual dz. LHC/PCI 2010: prox RCA NICOLE, residual OM1 50-60%, patent mid LAD stent, normal right heart pressures, normal LVF Dobut Stress MPI 08/2010: small, mild apical anterior and LV apex ischemia--( PCI after this) MIBI 12/13: small/mild infer ischemia vs GI tracer confounding, EF 41% ct chest 02/2016: ascd aorta 4.3 cm bradycardia - no ekg documentation of episodes. (on routine vitals prior to starting P.T. he was noted to have HR's in the 30's-40's-->to ER where normal HR. per family on telemetry in ER, HR's intermittently were reading 30's -50's for seconds at a time and then going back up to 70's-100's.) - doubt artifactual from PVCs, given was also apparently reading low HR on tele in ER (no strips) - pt states noted to have same problem 05/23 when preop for thyroid in [facility] and cardio had to clear him first, that was apparently resolved to everyone's satisfaction--will review those records - he had no sx's at home or here of presyncope/syncope (generalized weakness on DOA is apparently a chronic, stable condition which improves acutely with PT) - recent cath unremarkable, echo in september EF 40%, stable vs priors apparently - telemetry monitoring x > 48 hours has shown no bradyarrhythmia (frequent ventricular ectopy and nsvt). - home low dose metoprolol continued in hospital weakness, orthostatic hypotension - 10/11 + orthostatics-->decreased dose of lasix and diovan (at times resting BPs low trend here). - 10/12: lasix held for low bp's - bp stable at rest--observe BP and sx's with upright position and ambulation prior to discharge CAD (s/p PCI) - Con't medical therapy with ASA, statin. Stable. No angina. CE's negative here and recent cath in may with no residual disease syst chf/nsvt: - Over the years his echos have shown variations in lvef, at times reduced. Recent echo at [facility] 05/2016 reports lvef 20% (per dc summary). During that admit he was seen by cardio and had repeat cath showing patent stents and non obs residual dz. He was noted to have NSVT on tele there and given lifevest but pt/ declined. Was started on toprol as well. He has been on bb/arb for several mos now --> improvement in EF --> cont - wt 203 yest, 206 today (office wts vary 195-210 since 04/22). - lasix held here over weekend for + orthostatics - JVD noted on exam today - will give dose of lasix IV today and assess labs and wt in am - cont home metoprolol 25mg (doubt contributing to asthma) - cont reduced diovan dose as doing for now, though will change 80 qd to 40 bid for syst chf dosing (orthostasis, though unclear he's been symptomatic or had profound systolic bp drops ever) - cont monitoring orthostatics - mgmt of thyroid abnormalities per pmd HTN, - adjustments as above. - baseline office bp's run 105-110 systolic - new hypotension, orthostatic vitals + on admit. monitor for improvement with stopping diuresis. Hyperlipdemia, - con't statin a.e. COPD - on home o2 and theophylline - per pmd PE 2010 - coumadin. dosing per inr. hgb stable even with additional asa. - tachycardia is chronic (likely related to theophylline and standing RCT duonebs here at least), ranging 105-109 on office visits since 04/22--INR therapeutic here, no other s/sx suggestive of PE--extremely unlikely dx so no need further w/u ascending thoracic aneurysm, small: - Stable on recent ct scan. Cont bb. thyroid abnormalities - per pmd
[2016-10-13] MEDS: ALLOPURINOL 100 MG TABLET (FP) PO SCH (09:26)
[2016-10-13] MEDS: VALSARTAN 80 MG TABLET (UD) PO SCH (09:26)
[2016-10-13] MEDS: PANTOPRAZOLE 40 MG TABLET (FP) PO SCH (09:26)
[2016-10-13] MEDS: THEOPHYLLINE ANHYDROUS 100 MG CAP.ER.24H PO SCH ×2 (09:27→21:58)
--- NOTE | 2016-10-13 09:45 | PN ---
Progress Note, Physician Chief Complaint: Coughing and some SOB. History of Present Illness: Patient with admission for ossible Bradycardia while in respiratory PT not troubled by Tachycardia but he is also complaining of Coughing, mild SOB and some wheezing. He is treated for COPD and Bronchiectasis in the past. With possible new infiltrate I will call Pulmonary MD and start antibiotic. Re: thoughts of ?PE by Dr. Vieira he is therapeutic on Coumadin and ? what would change re: current Rx. he had V. Tach at time of recent Thyroid surgery. - Current Medication List Current Medications: Active Medications Acetaminophen (Tylenol -) 650 mg PO Q4H PRN PRN Reason: FEVER OR PAIN Albuterol/Ipratropium (Duoneb -) 1 amp NEB QIDR [facility] Last Admin: 10/13/16 06:49 Dose: 1 amp Allopurinol (Zyloprim -) 100 mg PO DAILY [facility] Last Admin: 10/13/16 09:26 Dose: 100 mg Aspirin (Asa -) 81 mg PO DAILY [facility] Last Admin: 10/13/16 09:25 Dose: 81 mg Atorvastatin Calcium (Lipitor -) 20 mg PO [facility] Last Admin: 10/12/16 21:42 Dose: 20 mg Levothyroxine Sodium (Synthroid -) 125 mcg PO DAILY@0700 [facility] Last Admin: 10/13/16 06:18 Dose: 125 mcg Metoprolol Succinate (Toprol Xl -) 25 mg PO [facility] Last Admin: 10/12/16 21:42 Dose: 25 mg Montelukast Sodium (Singulair -) 10 mg PO [facility] Last Admin: 10/12/16 21:43 Dose: 10 mg Ondansetron HCl (Zofran Injection) 4 mg IVPB Q6H PRN PRN Reason: NAUSEA Pantoprazole Sodium (Protonix -) 40 mg PO DAILY [facility] Last Admin: 10/13/16 09:26 Dose: 40 mg Prednisone (Deltasone -) 15 mg PO DAILY [facility] Last Admin: 10/13/16 09:25 Dose: 15 mg Theophylline (Shai-24) 300 mg PO BID [facility] Last Admin: 10/13/16 09:27 Dose: 300 mg Valsartan (Diovan -) 80 mg PO DAILY [facility] Last Admin: 10/13/16 09:26 Dose: 80 mg Warfarin Sodium (Coumadin -) 2.5 mg PO Q2D@1800 [facility] Last Admin: 10/12/16 18:21 Dose: 2.5 mg Warfarin Sodium (Coumadin -) 5 mg PO Q2D@1800 [facility] Last Admin: 10/11/16 17:27 Dose: 5 mg - Objective Vital Signs: Vital Signs Temperature 98.1 F 10/13/16 05:34 Pulse Rate 101 H 10/13/16 05:34 Respiratory Rate 18 10/13/16 05:34 Blood Pressure 110/64 10/13/16 05:34 O2 Sat by Pulse Oximetry (%) 98 10/13/16 05:31 Constitutional: Yes: Anxious Cardiovascular: No: Murmur Respiratory: Yes: Cough, On Nasal O2, Rhonchi, Wheezes Gastrointestinal: Yes: Soft Genitourinary: No: Carpenter Present Edema: No Neurological: Yes: Alert Labs: CBC, BMP 10/13/16 05:40 10/13/16 05:40 INR, PTT INR 2.59 (0.82-1.09) H 10/13/16 05:40 Problem List - Problems (1) COPD (chronic obstructive pulmonary disease) Assessment/Plan: Possible acute exacerbation but ? RLL infiltrate. Will have Pulmonary ID see patient and add Rocephin. Code(s): 496 - CHR AIRWAY OBSTRUCT NEC (2) HTN (hypertension) Assessment/Plan: Stable on lower dose Valsartan. Code(s): I10 - ESSENTIAL (PRIMARY) HYPERTENSION (3) Murali-tachy syndrome Assessment/Plan: ? will need EP studies Code(s): I49.5 - SICK SINUS SYNDROME (4) Pneumonia Assessment/Plan: Possible RLL infiltrate. WBC OK Cough worse; will treat. Code(s): J18.9 - PNEUMONIA, UNSPECIFIED ORGANISM
[2016-10-13] MEDS ORDERED: FUROSEMIDE 40 MG/4 ML INJECTABLE VIAL IVPUSH ONE (11:06)
[2016-10-13] MEDS: CEFTRIAXONE 100 ML IVPB SCH (11:52)
--- NOTE | 2016-10-13 14:14 | CON.PULM ---
Consult Consult Specialty:: PULMONARY Referred by:: Dr. Perez Reason for Consultation:: COPD - History of Present Illness Chief Complaint: shortness of breath History of Present Illness: 80yo male with h/o HTN, COPD, CAD, h/o PE who was sent from rehab after he was found to be bradycardic to 30s during the vitals check. He denies any chest pain but did experience leg weakness and shortness of breath. No fevers, chills or sweats. Reports a cough productive of brown sputum and wheezing. 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 Also maintained on Breo, Singulair and albuterol MDI/nebulizers at home. Was previously on Advair which he felt better on. - History Source History Provided By: Patient, Family Member, Medical Record Limitations to Obtaining History: No Limitations - Past Medical History Cardio/Vascular: Yes: CAD (s/p PTCI), HTN, Hyperlipdemia Pulmonary: Yes: COPD, Pneumonia (s/p lobectomy for lung abscess), Pulmonary Embolus Gastrointestinal: Yes: GERD - Past Surgical History Past Surgical History: Yes: Joint Replacement (knee) - Alcohol/Substance Use Hx Alcohol Use: No - Smoking History Smoking history: Former smoker Have you smoked in the past 12 months: No Aproximately how many cigarettes per day: 0 If you are a former smoker, when did you quit?: 1980 - Social History ADL: Independent 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, 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 [employer] History of Recent Travel: No Home Medications - Allergies Allergies/Adverse Reactions: Allergies Allergy/AdvReac Type Severity Reaction Status Date / Time No Known Allergies Allergy Verified 10/10/16 09:00 - Home Medications Home Medications: Ambulatory Orders Albuterol 2.5/Ipratropium 0.5 [Duoneb -] 1 neb IH QID 09/06/13 Aspirin [ASA -] 81 mg PO DAILY 09/06/13 Potassium Chloride [K-Dur] 20 meq PO BID 09/06/13 Allopurinol [Zyloprim -] 100 mg PO DAILY 01/21/14 Esomeprazole Mag Trihydrate [Nexium] 40 mg PO DAILY 01/21/14 Furosemide [Lasix -] 40 mg PO DAILY 01/21/14 Simvastatin [Zocor -] 40 mg PO HS 01/21/14 Levothyroxine [Synthroid -] 150 mcg PO DAILY 10/10/16 Metoprolol Succinate [Toprol Xl -] 25 mg PO DAILY 10/10/16 Montelukast Na [Singulair -] 10 mg PO HS 10/10/16 Prednisone 15 mg PO DAILY 10/10/16 Theophylline Anhydrous [Theophylline] 300 tablet PO BID 10/10/16 Valsartan [Diovan] 160 mg PO DAILY 10/10/16 Warfarin Na [Coumadin -] 2.5 mg PO Q2D 10/10/16 Warfarin Sodium [Coumadin] 5 mg PO Q2D 10/10/16 Family Disease History - Family Disease History Family Disease History: Other: Father ( of GSW when patient was 3 mos old), Mother ( in car accident when patient was 16 yo) Review of Systems - Review of Systems Constitutional: reports: Weakness. denies: Chills, Fever Eyes: denies: Recent Change in Vision HENT: denies: Nasal Congestion, Throat Pain Neck: denies: Stiffness, Tenderness Cardiovascular: reports: Shortness of Breath. denies: Chest Pain, Edema, Palpitations Respiratory: reports: Cough, Exercise Intolerance, SOB on Exertion, Wheezing. denies: Hemoptysis Gastrointestinal: denies: Abdominal Pain, Nausea, Vomiting Genitourinary: denies: Dysuria, Hematuria Neurological: denies: Dizziness, Headache Endocrine: denies: Unexplained Weight Gain, Unexplained Weight Loss Physical Exam Vital Sings: Vital Signs Temperature 98.5 F 10/13/16 10:00 Pulse Rate 107 H 10/13/16 10:20 Respiratory Rate 20 10/13/16 10:00 Blood Pressure 113/62 10/13/16 10:00 O2 Sat by Pulse Oximetry (%) 95 10/13/16 10:20 Constitutional: Yes: No Distress, Calm Eyes: Yes: Conjunctiva Clear, EOM Intact HENT: Yes: Atraumatic, Normocephalic Neck: Yes: Supple, Trachea Midline Cardiovascular: Yes: Regular Rate and Rhythm Respiratory: Yes: Rhonchi (scattered), Wheezes (scattered) ...Clubbing: No Gastrointestinal: Yes: Normal Bowel Sounds, Soft. No: Tenderness Edema: No Neurological: Yes: Alert, Oriented Labs: CBC, BMP 10/13/16 05:40 10/13/16 05:40 Imaging - Results Chest X-ray: Report Reviewed, Image Reviewed (RLL infiltrate) Problem List - Problems (1) Bradycardia Code(s): R00.1 - BRADYCARDIA, UNSPECIFIED (2) Pneumonia Code(s): J18.9 - PNEUMONIA, UNSPECIFIED ORGANISM (3) COPD exacerbation Code(s): J44.1 - CHRONIC OBSTRUCTIVE PULMONARY DISEASE W (ACUTE) EXACERBATION (4) Coronary artery disease Code(s): I25.10 - ATHSCL HEART DISEASE OF [place] CORONARY ARTERY W/O ANG PCTRS (5) HTN (hypertension) Code(s): I10 - ESSENTIAL (PRIMARY) HYPERTENSION Assessment/Plan Bradycardia Acute COPD Exacerbation r/o Pneumonia vs Acute Bronchitis LV Systolic Dysfunction CAD h/o PE - agree with antibiotics - send sputum culture - will change prednisone to medrol 40mg q8h - will reassess daily need for medrol pending clinical course - inhaled bronchodilators - O2 to keep SpO2 >90% - repeat CXR in AM - continue anticoagulation Thank you for this consult Shahid Yao MD
[2016-10-13] MEDS: WARFARIN NA 5 MG TABLET (UD) PO SCH (18:13)
[2016-10-13] MEDS: methylPREDNISolone NA SUCC 40 MG/1 ML VIAL IVPB SCH (18:14)
[2016-10-13] MEDS: METOPROLOL SUCCINATE 25 MG TAB.SR.24H (FP) PO SCH (21:58)
[2016-10-13] MEDS: MONTELUKAST NA 5 MG TAB.CHEW PO SCH (21:59)
[2016-10-13] MEDS: ATORVASTATIN CA 20 MG TABLET (FP) PO SCH (21:59)
[2016-10-13] MEDS: VALSARTAN 40 MG TABLET (FP) PO SCH (21:59)
[2016-10-14] MEDS: methylPREDNISolone NA SUCC 40 MG/1 ML VIAL IVPB SCH ×3 (03:00→17:04)
[2016-10-14] MEDS: LEVOTHYROXINE NA 125 MCG TABLET (FP) PO SCH (06:37)
[2016-10-14] MEDS: ALBUTEROL SO4 2.5/IPRATROPIUM 0.5 INH SOL 3 ML VIAL.NEB. NEB SCH ×4 (06:44→23:22)
[2016-10-14 07:09] LABS: BASOPHIL 0.2 % (0-2.0); MCH 27.6 pg (25.7-33.7); MCHC 31.9 g/dl (32.0-35.9); MEAN CELL VOLUME 86.4 fl (80-96); MEAN PLT VOLUME 9.1 fl (7.5-11.1); NEUTROPHILS 89.8 % (42.8-82.8); PLATELET COUNT 178 K/MM3 (134-434); RDW 18.6 % (11.9-15.9); WHITE BLOOD COUNT 7.1 K/mm3 (4.0-10.0)
[2016-10-14 07:51] LABS: CALCIUM 8.1 mg/dL (8.5-10.1)
[2016-10-14 07:59] LABS: ANION GAP 9 (8-16); CO2 24 mmol/L (21-32); CREATININE 1.2 mg/dL (0.7-1.3); FREE T4 1.25 ng/dl (0.76-1.16); GLUCOSE,RANDOM 145 mg/dL (74-106)
[2016-10-14 08:35] LABS: INR 2.49 (0.82-1.09); PROTHROMBIN TIME (PATIENT) 27.9 SEC (9.98-11.88)
[2016-10-14] MEDS ORDERED: PT OWN MED DRAWER 7, Y5N ONE ×2 (08:49→21:21)
[2016-10-14] MEDS: ASPIRIN 81 MG CHEWABLE TABLETS PO SCH (09:04)
[2016-10-14] MEDS: VALSARTAN 40 MG TABLET (FP) PO SCH ×2 (09:04→21:24)
[2016-10-14] MEDS: PANTOPRAZOLE 40 MG TABLET (FP) PO SCH (09:04)
[2016-10-14] MEDS: ALLOPURINOL 100 MG TABLET (FP) PO SCH (09:04)
[2016-10-14] MEDS: CEFTRIAXONE 100 ML IVPB SCH (09:04)
[2016-10-14] MEDS: THEOPHYLLINE ANHYDROUS 100 MG CAP.ER.24H PO SCH ×2 (09:04→21:24)
--- NOTE | 2016-10-14 10:23 | PN ---
Progress Note (short form) - Note Progress Note: CC: bradycardia History of Present Illness: sob improving, weakness stable. no cp, no palps s/p lasix 40 mg IV x 1 yesterday. cr very slightly up today. Current Medications Acetaminophen (Tylenol -) 650 mg PO Q4H PRN PRN Reason: FEVER OR PAIN Albuterol Sulfate (Ventolin 0.083% Nebulizer Soln -) 1 amp NEB Q4H PRN PRN Reason: SHORT OF BREATH/WHEEZING Albuterol/Ipratropium (Duoneb -) 1 amp NEB QIDR [facility] Last Admin: 10/14/16 06:44 Dose: 1 amp Allopurinol (Zyloprim -) 100 mg PO DAILY [facility] Last Admin: 10/14/16 09:04 Dose: 100 mg Aspirin (Asa -) 81 mg PO DAILY [facility] Last Admin: 10/14/16 09:04 Dose: 81 mg Atorvastatin Calcium (Lipitor -) 20 mg PO HS [facility] Last Admin: 10/13/16 21:59 Dose: 20 mg Ceftriaxone Sodium (Rocephin 2gm Ivpb (Pre-Docked)) 100 mls @ 200 mls/hr IVPB DAILY [facility] Last Admin: 10/14/16 09:04 Dose: 200 mls/hr Levothyroxine Sodium (Synthroid -) 125 mcg PO DAILY@0700 [facility] Last Admin: 10/14/16 06:37 Dose: 125 mcg Methylprednisolone Sodium Succinate (Solu-Medrol -) 40 mg IVPB Q8H-IV [facility] Last Admin: 10/14/16 09:04 Dose: 40 mg Metoprolol Succinate (Toprol Xl -) 25 mg PO [facility] Last Admin: 10/13/16 21:58 Dose: 25 mg Montelukast Sodium (Singulair -) 10 mg PO [facility] Ondansetron HCl (Zofran Injection) 4 mg IVPB Q6H PRN PRN Reason: NAUSEA Pantoprazole Sodium (Protonix -) 40 mg PO DAILY [facility] Last Admin: 10/14/16 09:04 Dose: 40 mg Theophylline (Shai-24) 300 mg PO BID [facility] Last Admin: 10/14/16 09:04 Dose: 300 mg Valsartan (Diovan -) 40 mg PO BID [facility] Last Admin: 10/14/16 09:04 Dose: 40 mg Warfarin Sodium (Coumadin -) 2.5 mg PO Q2D@1800 [facility] Last Admin: 10/12/16 18:21 Dose: 2.5 mg Warfarin Sodium (Coumadin -) 5 mg PO Q2D@1800 [facility] Last Admin: 10/13/16 18:13 Dose: 5 mg Vital Signs - 24 hr 10/13/16 10/13/16 10/13/16 10:20 14:00 17:29 Temperature 97.9 F 98 F Pulse Rate 107 H 104 H Pulse Rate [ 114 H Right side Sitting] Pulse Rate [ 122 H Right side Standing] Pulse Rate [ 110 H Right side Supine] Respiratory 20 Rate Blood Pressure 112/67 Blood Pressure 102/72 [Right side Sitting] Blood Pressure 115/65 [Right side Standing] Blood Pressure 93/60 [Right side Supine] O2 Sat by Pulse 95 96 Oximetry (%) 10/13/16 10/14/16 10/14/16 22:00 02:00 06:00 Temperature 97.7 F 97.6 F 98.2 F Pulse Rate 107 H 106 H 98 H Pulse Rate [ Right side Sitting] Pulse Rate [ Right side Standing] Pulse Rate [ Right side Supine] Respiratory 18 20 20 Rate Blood Pressure 137/67 139/78 115/62 Blood Pressure [Right side Sitting] Blood Pressure [Right side Standing] Blood Pressure [Right side Supine] O2 Sat by Pulse 96 Oximetry (%) Intake & Output 10/12/16 10/13/16 10/14/16 10/15/16 07:59 07:59 07:59 07:59 Intake Total 1010 210 Balance 1010 210 Weight 203 lb 4 oz 206 lb 2 oz 206 lb 6.4 oz NAD, calm jvd flat, neck supple diminished breath sounds/exp wheezes, nl effort tachycardic, regular nl s1, s2 2/6 murmur at sternal border and apex + bs soft nt nd ext without e/c/c. + varicosities + dp/pt aaox3 no carotid bruits no jaundice, diaphoresis Labs: CBC, BMP 10/14/16 05:35 10/14/16 05:35 - ....Imaging EKG: Other (tele: NSR with sinus tach, trigeminy, frequent pvcs) Assessment/Plan EKG: sr, 97 bpm. anterolateral twi. Previously twi more prominent in lateral leads. Echo 09/2016 office: Moderate global HK, EF 40%. nl rv. mod mr, CXR: wnl C 05/2016 at [facility]--per dc summary, patent prior stents and non obs residual dz. LHC/PCI 2010: prox RCA NICOLE, residual OM1 50-60%, patent mid LAD stent, normal right heart pressures, normal LVF Dobut Stress MPI 08/2010: small, mild apical anterior and LV apex ischemia--( PCI after this) MIBI 12/13: small/mild infer ischemia vs GI tracer confounding, EF 41% ct chest 02/2016: ascd aorta 4.3 cm 80 yo with h/o CAD (s/p PCI), systolic cardiomyopathy, mild asc ao dilation, mod mr, htn, hl, hypothyroid, COPD, Pneumonia (s/p lobectomy for lung abscess), Pulmonary Embolus on coumadin p/w bradycardia. bradycardia - no ekg documentation of episodes. (on routine vitals prior to starting P.T. he was noted to have HR's in the 30's-40's-->to ER where normal HR. per family on telemetry in ER, HR's intermittently were reading 30's -50's for seconds at a time and then going back up to 70's-100's.) - ? artifactual has known h/o sinus tach and has remained in sinus tach here. - he had no sx's at home or here of presyncope/syncope (generalized weakness on DOA is apparently a chronic, stable condition which improves acutely with PT) - recent cath unremarkable, echo in september EF 40%, stable vs priors apparently - telemetry monitoring x > 48 hours has shown no bradyarrhythmia (frequent ventricular ectopy and nsvt). Holter monitor report still pending but prelim review shows high burden of ventricular ectopy (13%). 48 episodes of 3-5 beat runs of nsvt. minimum HR 88. no pauses - home low dose metoprolol continued in hospital. considering high burden of ectopy on holter and known cardiomyopathy there may be benefit to uptitrating metoprolol. Will defer to pt outpatient cards Dr. Hernandez who will be seeing patient tomorrow. weakness, orthostatic hypotension - 7/8 + orthostatics-->decreased dose of lasix and diovan (at times resting BPs low trend here). - 10/12: lasix held for low bp's - 10/13: bp stable at rest. orthostatics neg. given IV lasix. - 10/14: bp stable, will resume po lasix at lower dose tomorrow. CAD (s/p PCI) - Con't medical therapy with ASA, statin. Stable. No angina. CE's negative here and recent cath in may with no residual disease syst chf/nsvt: - Over the years his echos have shown variations in lvef, at times reduced. Recent echo at [facility] 05/2016 reports lvef 20% (per dc summary). During that admit he was seen by cardio and had repeat cath showing patent stents and non obs residual dz. He was noted to have NSVT on tele there and given lifevest but pt/ declined. Was started on toprol as well. He has been on bb/arb for several mos now --> improvement in EF --> cont - wt 203 yest, 206 today (office wts vary 195-210 since 04/22). - lasix held here over weekend for + orthostatics - 10/13 JVD noted on exam --> lasix 40 mg IV x 1 - 10/14: resume po lasix as above - cont home metoprolol 25mg (doubt contributing to asthma) - cont reduced diovan dose as doing for now, --> note changed 80 qd to 40 bid for syst chf dosing (orthostasis, though unclear he's been symptomatic or had profound systolic bp drops ever) - orthostatic vitals now negative. - mgmt of thyroid abnormalities per pmd HTN, - baseline office bp's run 105-110 systolic - new hypotension, orthostatic vitals + on admit improved with adjustment downtitration of diuretics. Hyperlipdemia, - con't statin a.e. COPD - on home o2 and theophylline - per pmd, pulm PE 2010 - coumadin. dosing per inr. hgb stable even with additional asa. - tachycardia is chronic (likely related to theophylline and standing RCT duonebs here at least), ranging 105-109 on office visits since 04/22--INR therapeutic here, no other s/sx suggestive of PE--extremely unlikely dx so no need further w/u ascending thoracic aneurysm, small: - Stable on recent ct scan. Cont bb. thyroid abnormalities - per pmd
--- NOTE | 2016-10-14 11:30 | PN ---
Progress Note, Physician History of Present Illness: PULMONARY ALERT,FEELING BETTER,LESS DYSPNEIC,OOB-CHAIR - Current Medication List Current Medications: Active Medications Acetaminophen (Tylenol -) 650 mg PO Q4H PRN PRN Reason: FEVER OR PAIN Albuterol Sulfate (Ventolin 0.083% Nebulizer Soln -) 1 amp NEB Q4H PRN PRN Reason: SHORT OF BREATH/WHEEZING Albuterol/Ipratropium (Duoneb -) 1 amp NEB QIDR [facility] Last Admin: 10/14/16 06:44 Dose: 1 amp Allopurinol (Zyloprim -) 100 mg PO DAILY [facility] Last Admin: 10/14/16 09:04 Dose: 100 mg Aspirin (Asa -) 81 mg PO DAILY [facility] Last Admin: 10/14/16 09:04 Dose: 81 mg Atorvastatin Calcium (Lipitor -) 20 mg PO HS [facility] Last Admin: 10/13/16 21:59 Dose: 20 mg Ceftriaxone Sodium (Rocephin 2gm Ivpb (Pre-Docked)) 100 mls @ 200 mls/hr IVPB DAILY [facility] Last Admin: 10/14/16 09:04 Dose: 200 mls/hr Levothyroxine Sodium (Synthroid -) 100 mcg PO DAILY@0700 [facility] Methylprednisolone Sodium Succinate (Solu-Medrol -) 40 mg IVPB Q8H-IV [facility] Last Admin: 10/14/16 09:04 Dose: 40 mg Metoprolol Succinate (Toprol Xl -) 25 mg PO HS [facility] Last Admin: 10/13/16 21:58 Dose: 25 mg Montelukast Sodium (Singulair -) 10 mg PO [facility] Ondansetron HCl (Zofran Injection) 4 mg IVPB Q6H PRN PRN Reason: NAUSEA Pantoprazole Sodium (Protonix -) 40 mg PO DAILY [facility] Last Admin: 10/14/16 09:04 Dose: 40 mg Theophylline (Shai-24) 300 mg PO BID [facility] Last Admin: 10/14/16 09:04 Dose: 300 mg Valsartan (Diovan -) 40 mg PO BID [facility] Last Admin: 10/14/16 09:04 Dose: 40 mg Warfarin Sodium (Coumadin -) 2.5 mg PO Q2D@1800 [facility] Last Admin: 10/12/16 18:21 Dose: 2.5 mg Warfarin Sodium (Coumadin -) 5 mg PO Q2D@1800 [facility] Last Admin: 10/13/16 18:13 Dose: 5 mg - Objective Vital Signs: Vital Signs Temperature 98.2 F 10/14/16 06:00 Pulse Rate 98 H 10/14/16 06:00 Respiratory Rate 20 10/14/16 06:00 Blood Pressure 115/62 10/14/16 06:00 O2 Sat by Pulse Oximetry (%) 96 10/13/16 22:00 Constitutional: Yes: Well Nourished, Calm Eyes: Yes: WNL HENT: Yes: WNL Neck: Yes: WNL Cardiovascular: Yes: Pulse Irregular, S1, S2 Respiratory: Yes: Rhonchi (FEW SCATTTERED RHONCHI) Gastrointestinal: Yes: Normal Bowel Sounds, Soft Extremities: Yes: WNL Edema: No Labs: CBC, BMP 10/14/16 05:35 10/14/16 05:35 INR, PTT INR 2.49 (0.82-1.09) H 10/14/16 07:20 Assessment/Plan Imaging - Results Chest X-ray: Report Reviewed, Image Reviewed (RLL infiltrate) Problem List - Problems (1) Bradycardia Code(s): R00.1 - BRADYCARDIA, UNSPECIFIED (2) Pneumonia Code(s): J18.9 - PNEUMONIA, UNSPECIFIED ORGANISM (3) COPD exacerbation Code(s): J44.1 - CHRONIC OBSTRUCTIVE PULMONARY DISEASE W (ACUTE) EXACERBATION (4) Coronary artery disease Code(s): I25.10 - ATHSCL HEART DISEASE OF [place] CORONARY ARTERY W/O ANG PCTRS (5) HTN (hypertension) Code(s): I10 - ESSENTIAL (PRIMARY) HYPERTENSION Assessment/Plan Bradycardia Acute COPD Exacerbation r/o Pneumonia vs Acute Bronchitis LV Systolic Dysfunction CAD h/o PE - antibiotics - medrol 40mg q8h - inhaled bronchodilators - O2 to keep SpO2 >90% - continue anticoagulation DR DORADO
--- NOTE | 2016-10-14 12:33 | PN ---
Progress Note, Physician Chief Complaint: Less SOB and coughing after IV antibiotics and IV Steroids added yesterday. History of Present Illness: Patient was admitted with possible Bradycardia and hypoxia while in Respiratory PT. In hospital he has been tachycardic with multiple PVC's. O2 Sat 96 today. CXR showed possible infiltrate right base and he was placed on antibiotics with CXR slightly improved today. Sitting at bedside. Seen by Pulmonary and Cardiology. - Current Medication List Current Medications: Active Medications Acetaminophen (Tylenol -) 650 mg PO Q4H PRN PRN Reason: FEVER OR PAIN Albuterol Sulfate (Ventolin 0.083% Nebulizer Soln -) 1 amp NEB Q4H PRN PRN Reason: SHORT OF BREATH/WHEEZING Albuterol/Ipratropium (Duoneb -) 1 amp NEB QIDR [facility] Last Admin: 10/14/16 11:33 Dose: 1 amp Allopurinol (Zyloprim -) 100 mg PO DAILY [facility] Last Admin: 10/14/16 09:04 Dose: 100 mg Aspirin (Asa -) 81 mg PO DAILY [facility] Last Admin: 10/14/16 09:04 Dose: 81 mg Atorvastatin Calcium (Lipitor -) 20 mg PO HS [facility] Last Admin: 10/13/16 21:59 Dose: 20 mg Ceftriaxone Sodium (Rocephin 2gm Ivpb (Pre-Docked)) 100 mls @ 200 mls/hr IVPB DAILY [facility] Last Admin: 10/14/16 09:04 Dose: 200 mls/hr Levothyroxine Sodium (Synthroid -) 100 mcg PO DAILY@0700 [facility] Methylprednisolone Sodium Succinate (Solu-Medrol -) 40 mg IVPB Q8H-IV [facility] Last Admin: 10/14/16 09:04 Dose: 40 mg Metoprolol Succinate (Toprol Xl -) 25 mg PO HS [facility] Last Admin: 10/13/16 21:58 Dose: 25 mg Montelukast Sodium (Singulair -) 10 mg PO HS [facility] Ondansetron HCl (Zofran Injection) 4 mg IVPB Q6H PRN PRN Reason: NAUSEA Pantoprazole Sodium (Protonix -) 40 mg PO DAILY [facility] Last Admin: 10/14/16 09:04 Dose: 40 mg Theophylline (Shai-24) 300 mg PO BID [facility] Last Admin: 10/14/16 09:04 Dose: 300 mg Valsartan (Diovan -) 40 mg PO BID [facility] Last Admin: 10/14/16 09:04 Dose: 40 mg Warfarin Sodium (Coumadin -) 2.5 mg PO Q2D@1800 [facility] Last Admin: 10/12/16 18:21 Dose: 2.5 mg Warfarin Sodium (Coumadin -) 5 mg PO Q2D@1800 [facility] Last Admin: 10/13/16 18:13 Dose: 5 mg - Objective Vital Signs: Vital Signs Temperature 99.1 F 10/14/16 10:00 Pulse Rate 78 10/14/16 11:32 Respiratory Rate 20 10/14/16 10:00 Blood Pressure 113/75 10/14/16 10:00 O2 Sat by Pulse Oximetry (%) 97 10/14/16 11:32 Constitutional: Yes: Calm Cardiovascular: Yes: Pulse Irregular Respiratory: Yes: Diminished, Rhonchi (few rhonchi at the bases) Gastrointestinal: Yes: Soft. No: Tenderness Genitourinary: No: Carpenter Present Edema: No Neurological: Yes: Alert, Oriented Labs: CBC, BMP 10/14/16 05:35 10/14/16 05:35 INR, PTT INR 2.49 (0.82-1.09) H 10/14/16 07:20 - ....Imaging Chest X-ray: Report Reviewed Problem List - Problems (1) COPD (chronic obstructive pulmonary disease) Assessment/Plan: Better on aerosols, IV Steroids and antibiotics Code(s): 496 - CHR AIRWAY OBSTRUCT NEC (2) HTN (hypertension) Assessment/Plan: Stable on Rx. Code(s): I10 - ESSENTIAL (PRIMARY) HYPERTENSION (3) Murali-tachy syndrome Assessment/Plan: Currently tachycardic with pvc's but thyroid function labs are elevated post thyoidectomy and I will lower dose synthroid from 125mcg to 100mcg a day. Code(s): I49.5 - SICK SINUS SYNDROME (4) Pneumonia Assessment/Plan: RLL infiltrate improved on today's CXR.+ Code(s): J18.9 - PNEUMONIA, UNSPECIFIED ORGANISM (5) Bronchiectasis with (acute) exacerbation Assessment/Plan: On IV antibiotics and aerosol Rx and IV steroids with improvement. He occ visits [employer] Ro[employer] Helper: Lily Lynch MD in [place]. Code(s): J47.1 - BRONCHIECTASIS WITH (ACUTE) EXACERBATION
[2016-10-14] MEDS: WARFARIN NA 2.5 MG TABLET (FP) PO SCH (17:04)
[2016-10-14] MEDS: ATORVASTATIN CA 20 MG TABLET (FP) PO SCH (21:24)
[2016-10-14] MEDS: MONTELUKAST NA 10 MG TABLET PO SCH (21:24)
[2016-10-14] MEDS: METOPROLOL SUCCINATE 25 MG TAB.SR.24H (FP) PO SCH (21:24)
[2016-10-15] MEDS: methylPREDNISolone NA SUCC 40 MG/1 ML VIAL IVPB SCH ×3 (01:59→17:20)
[2016-10-15] MEDS: ALBUTEROL SO4 2.5/IPRATROPIUM 0.5 INH SOL 3 ML VIAL.NEB. NEB SCH ×4 (06:18→21:52)
[2016-10-15] MEDS: LEVOTHYROXINE NA 100 MCG TABLET (FP) PO SCH (06:29)
[2016-10-15 08:37] LABS: ANION GAP 13 (8-16); CALCIUM 8.1 mg/dL (8.5-10.1); CO2 23 mmol/L (21-32); GLUCOSE,RANDOM 182 mg/dL (74-106)
[2016-10-15 08:38] LABS: CREATININE 1.2 mg/dL (0.7-1.3)
--- NOTE | 2016-10-15 08:46 | PN ---
Progress Note, Physician Chief Complaint: Slept better; coughing less. History of Present Illness: Patient with admission for ? Bradycardia not documented and probable pulmonary infiltrate and COPD and Bronchiectasis is improved on IV antibiotics and steroids. Tachycardia has been noted and Thyroid function tests were elevated so dose of synthroid was lowered to 100mcg a day. Followed by Pulmonary and Cardiology MD's. - Current Medication List Current Medications: Active Medications Acetaminophen (Tylenol -) 650 mg PO Q4H PRN PRN Reason: FEVER OR PAIN Albuterol Sulfate (Ventolin 0.083% Nebulizer Soln -) 1 amp NEB Q4H PRN PRN Reason: SHORT OF BREATH/WHEEZING Albuterol/Ipratropium (Duoneb -) 1 amp NEB QIDR [facility] Last Admin: 10/15/16 06:18 Dose: 1 amp Allopurinol (Zyloprim -) 100 mg PO DAILY [facility] Last Admin: 10/14/16 09:04 Dose: 100 mg Aspirin (Asa -) 81 mg PO DAILY [facility] Last Admin: 10/14/16 09:04 Dose: 81 mg Atorvastatin Calcium (Lipitor -) 20 mg PO HS [facility] Last Admin: 10/14/16 21:24 Dose: 20 mg Ceftriaxone Sodium (Rocephin 2gm Ivpb (Pre-Docked)) 100 mls @ 200 mls/hr IVPB DAILY [facility] Last Admin: 10/14/16 09:04 Dose: 200 mls/hr Levothyroxine Sodium (Synthroid -) 100 mcg PO DAILY@0700 [facility] Last Admin: 10/15/16 06:29 Dose: 100 mcg Methylprednisolone Sodium Succinate (Solu-Medrol -) 40 mg IVPB Q8H-IV [facility] Last Admin: 10/15/16 01:59 Dose: 40 mg Metoprolol Succinate (Toprol Xl -) 25 mg PO HS [facility] Last Admin: 10/14/16 21:24 Dose: 25 mg Montelukast Sodium (Singulair -) 10 mg PO HS [facility] Last Admin: 10/14/16 21:24 Dose: 10 mg Ondansetron HCl (Zofran Injection) 4 mg IVPB Q6H PRN PRN Reason: NAUSEA Pantoprazole Sodium (Protonix -) 40 mg PO DAILY [facility] Last Admin: 10/14/16 09:04 Dose: 40 mg Theophylline (Shai-24) 300 mg PO BID [facility] Last Admin: 10/14/16 21:24 Dose: 300 mg Valsartan (Diovan -) 40 mg PO BID [facility] Last Admin: 10/14/16 21:24 Dose: 40 mg Warfarin Sodium (Coumadin -) 2.5 mg PO Q2D@1800 [facility] Last Admin: 10/14/16 17:04 Dose: 2.5 mg Warfarin Sodium (Coumadin -) 5 mg PO Q2D@1800 [facility] Last Admin: 10/13/16 18:13 Dose: 5 mg - Objective Vital Signs: Vital Signs Temperature 97.9 F 10/15/16 06:00 Pulse Rate 104 H 10/15/16 06:00 Respiratory Rate 20 10/15/16 06:00 Blood Pressure 106/70 10/15/16 06:00 O2 Sat by Pulse Oximetry (%) 96 10/14/16 21:00 Constitutional: Yes: Calm Eyes: Yes: Conjunctiva Clear Cardiovascular: Yes: Regular Rate and Rhythm Respiratory: Yes: Diminished, Rhonchi (few rhonchi at bases.). No: Wheezes Gastrointestinal: Yes: Soft. No: Tenderness Genitourinary: No: Carpenter Present Edema: No Neurological: Yes: Alert, Oriented Labs: CBC, BMP 10/14/16 05:35 10/15/16 05:35 INR, PTT INR 2.49 (0.82-1.09) H 10/14/16 07:20 Problem List - Problems (1) COPD (chronic obstructive pulmonary disease) Assessment/Plan: Improved on IV steroids and antibiotics. Code(s): 496 - CHR AIRWAY OBSTRUCT NEC (2) HTN (hypertension) Assessment/Plan: On RX and stable Code(s): I10 - ESSENTIAL (PRIMARY) HYPERTENSION (3) Murali-tachy syndrome Assessment/Plan: Still tachycardiabut dose of synthroid lowered; ? Increase metoprolol dose? Code(s): I49.5 - SICK SINUS SYNDROME (4) Pneumonia Assessment/Plan: On IV Ceftriaxone Code(s): J18.9 - PNEUMONIA, UNSPECIFIED ORGANISM (5) Bronchiectasis with (acute) exacerbation Assessment/Plan: ON aerosol, antibiotics and steroids. Sputum C/S ordered Pulmonary MD seeing patient. Code(s): J47.1 - BRONCHIECTASIS WITH (ACUTE) EXACERBATION
--- NOTE | 2016-10-15 10:02 | PN ---
Progress Note (short form) - Note Progress Note: History of Present Illness: sob improving, no cp, no palps no dizzy Current Medications Generic Name Dose Route Start Last Admin Trade Name Freq PRN Reason Stop Dose Admin Acetaminophen 650 mg 10/10/16 14:55 Tylenol - PO Q4H PRN FEVER OR PAIN Albuterol Sulfate 1 amp 10/13/16 14:18 Ventolin 0.083% Nebulizer Soln - NEB Q4H PRN SHORT OF BREATH/WHEEZING Albuterol/Ipratropium 1 amp 10/10/16 18:00 10/15/16 06:18 Duoneb - NEB 1 amp QIDR [facility] Administration Allopurinol 100 mg 10/11/16 10:00 10/14/16 09:04 Zyloprim - PO 100 mg DAILY [facility] Administration Aspirin 81 mg 10/11/16 10:00 10/14/16 09:04 Asa - PO 81 mg DAILY [facility] Administration Atorvastatin Calcium 20 mg 10/10/16 22:00 10/14/16 21:24 Lipitor - PO 20 mg HS [facility] Administration Furosemide 20 mg 10/15/16 10:00 Lasix - PO DAILY [facility] Ceftriaxone Sodium 100 mls @ 200 mls/hr 10/13/16 10:45 10/14/16 09:04 Rocephin 2gm Ivpb (Pre-Docked) IVPB 200 mls/hr DAILY [facility] Administration Levothyroxine Sodium 100 mcg 10/15/16 07:00 10/15/16 06:29 Synthroid - PO 100 mcg DAILY@0700 [facility] Administration Methylprednisolone Sodium Succinate 40 mg 10/13/16 18:00 10/15/16 01:59 Solu-Medrol - IVPB 40 mg Q8H-IV [facility] Administration Metoprolol Succinate 25 mg 10/10/16 22:00 10/14/16 21:24 Toprol Xl - PO 25 mg HS [facility] Administration Montelukast Sodium 10 mg 10/14/16 22:00 10/14/16 21:24 Singulair - PO 10 mg HS [facility] Administration Ondansetron HCl 4 mg 10/10/16 14:55 Zofran Injection IVPB Q6H PRN NAUSEA Pantoprazole Sodium 40 mg 10/11/16 10:00 10/14/16 09:04 Protonix - PO 40 mg DAILY [facility] Administration Theophylline 300 mg 10/10/16 22:00 10/14/16 21:24 Shai-24 PO 300 mg BID [facility] Administration Valsartan 40 mg 10/13/16 22:00 10/14/16 21:24 Diovan - PO 40 mg BID [facility] Administration Warfarin Sodium 2.5 mg 10/10/16 18:00 10/14/16 17:04 Coumadin - PO 2.5 mg Q2D@1800 [facility] Administration Warfarin Sodium 5 mg 10/11/16 18:00 10/13/16 18:13 Coumadin - PO 5 mg Q2D@1800 [facility] Administration Vital Signs Period Temp Pulse Resp BP Sys/Martinez Pulse Ox Last 24 Hr 97.6 F-99.1 F 78-106 18-20 106-119/54-75 96-97 NAD, calm jvd flat, neck supple diminished breath sounds/exp wheezes, nl effort tachycardic, regular nl s1, s2 2/6 murmur at sternal border and apex + bs soft nt nd ext without e/c/c. + varicosities aaox3 no jaundice, diaphoresis CBC, BMP 10/14/16 05:35 10/15/16 05:35 - ....Imaging EKG: Other (tele: SR with sinus tach, occ pvcs) EKG: sr, 97 bpm. anterolateral twi. Previously twi more prominent in lateral leads. Echo 09/2016 office: Moderate global HK, EF 40%. nl rv. mod mr, CXR: wnl [facility] 05/2016 at [facility]--per dc summary, patent prior stents and non obs residual dz. LHC/PCI 2010: prox RCA NICOLE, residual OM1 50-60%, patent mid LAD stent, normal right heart pressures, normal LVF Dobut Stress MPI 08/2010: small, mild apical anterior and LV apex ischemia--( PCI after this) MIBI 12/13: small/mild infer ischemia vs GI tracer confounding, EF 41% ct chest 02/2016: ascd aorta 4.3 cm a/p: 80 yo with h/o CAD (s/p PCI), systolic cardiomyopathy, mild asc ao dilation, mod mr, htn, hl, hypothyroid, COPD, Pneumonia (s/p lobectomy for lung abscess), Pulmonary Embolus on coumadin p/w bradycardia. bradycardia - no ekg documentation of episodes. (on routine vitals prior to starting P.T. he was noted to have HR's in the 30's-40's-->to ER where normal HR. per family on telemetry in ER, HR's intermittently were reading 30's -50's for seconds at a time and then going back up to 70's-100's.) - ? artifactual has known h/o sinus tach and has remained in sinus tach here. - he had no sx's at home or here of presyncope/syncope (generalized weakness on DOA is apparently a chronic, stable condition which improves acutely with PT) - recent cath unremarkable, echo in september EF 40%, stable vs priors apparently - telemetry monitoring x > 48 hours has shown no bradyarrhythmia (frequent ventricular ectopy and nsvt). Holter monitor report still pending but prelim review shows high burden of ventricular ectopy (13%). 48 episodes of 3-5 beat runs of nsvt. minimum HR 88. no pauses - home low dose metoprolol continued in hospital. weakness, orthostatic hypotension - 10/11 + orthostatics-->decreased dose of lasix and diovan (at times resting BPs low trend here). - 10/12: lasix held for low bp's - 10/13: bp stable at rest. orthostatics neg. given IV lasix. - 10/14: bp stable, will resume po lasix at lower dose tomorrow. - 10/15: resumed lasix 20 po qd CAD (s/p PCI) - Con't medical therapy with ASA, statin. Stable. No angina. CE's negative here and recent cath in may with no residual disease syst chf/nsvt: - Over the years his echos have shown variations in lvef, at times reduced. Recent echo at [facility] 05/2016 reports lvef 20% (per dc summary). During that admit he was seen by cardio and had repeat cath showing patent stents and non obs residual dz. He was noted to have NSVT on tele there and given lifevest but pt/ declined. Was started on toprol as well. He has been on bb/arb for several mos now --> improvement in EF --> cont - wt 203 yest, 206 today (office wts vary 195-210 since 04/22). - lasix held here over weekend for + orthostatics - 10/13 JVD noted on exam --> lasix 40 mg IV x 1 - 10/14-12: resumed po lasix as above - cont home metoprolol 25mg - cont reduced diovan dose as doing for now, --> note changed 80 qd to 40 bid for syst chf dosing HTN: - new hypotension, orthostatic vitals + on admit improved with downtitration of diuretics. Hyperlipdemia, - con't statin a.e. COPD - on home o2 and theophylline - on abx, steroids, pulm following PE 2010 - coumadin. dosing per inr. hgb stable even with additional asa. - tachycardia is chronic (likely related to theophylline and standing RCT duonebs here at least), ranging 105-109 on office visits since 04/22--INR therapeutic here, no other s/sx suggestive of PE--extremely unlikely dx so no need further w/u ascending thoracic aneurysm, small: - Stable on recent ct scan. Cont bb.
[2016-10-15] MEDS: FUROSEMIDE 20 MG TABLET (FP) PO SCH (10:04)
[2016-10-15] MEDS: PANTOPRAZOLE 40 MG TABLET (FP) PO SCH (10:04)
[2016-10-15] MEDS: VALSARTAN 40 MG TABLET (FP) PO SCH ×2 (10:04→21:14)
[2016-10-15] MEDS: ASPIRIN 81 MG CHEWABLE TABLETS PO SCH (10:04)
[2016-10-15] MEDS: ALLOPURINOL 100 MG TABLET (FP) PO SCH (10:04)
[2016-10-15] MEDS: THEOPHYLLINE ANHYDROUS 100 MG CAP.ER.24H PO SCH ×2 (10:05→21:14)
[2016-10-15] MEDS: CEFTRIAXONE 100 ML IVPB SCH (10:05)
[2016-10-15 10:37] LABS: INR 2.76 (0.82-1.09)
[2016-10-15] MEDS ORDERED: PT OWN MED DRAWER 7, Y5N ONE ×2 (10:51→21:02)
[2016-10-15] MEDS: WARFARIN NA 5 MG TABLET (UD) PO SCH (17:20)
[2016-10-15] MEDS: guaiFENesin/CODEINE 5 ML UNIT-DOSE CUPS PO PRN (17:20)
[2016-10-15] MEDS: ATORVASTATIN CA 20 MG TABLET (FP) PO SCH (21:14)
[2016-10-15] MEDS: MONTELUKAST NA 10 MG TABLET PO SCH (21:14)
[2016-10-15] MEDS: METOPROLOL SUCCINATE 25 MG TAB.SR.24H (FP) PO SCH (21:14)
[2016-10-16] MEDS: guaiFENesin/CODEINE 5 ML UNIT-DOSE CUPS PO PRN ×2 (01:14→21:04)
[2016-10-16] MEDS: methylPREDNISolone NA SUCC 40 MG/1 ML VIAL IVPB SCH ×2 (01:14→09:43)
[2016-10-16] MEDS: ALBUTEROL SO4 0.083% IH SOL 2.5 MG/3 ML VIAL.NEB. NEB PRN (02:39)
[2016-10-16] MEDS: LEVOTHYROXINE NA 100 MCG TABLET (FP) PO SCH (06:01)
--- NOTE | 2016-10-16 07:22 | HOL ---
Hook-up date: 2016-10-12 10:03:00 Duration: 24:00:00 Test Indications: BRADYCARDIA Medications: 379135 QRS complexes 45175 Ventricular ectopics which represent 12 % of total QRS comp. 186 Supraventricular ectopics which represent <1 % of total QRS comp. * Paced QRS complexs which represent % of total QRS comp. * % of Time Classified as Noise VENTRICULAR ECTOPY 38282 Isolated 12 Bigeminal Cycles 295 Couplets 48 Runs 148 Beats in Runs 5 Beats LONGEST at 131 BPM at 12:47:50 2016-10-12 3 Beats FASTEST at 163 BPM at 18:37:51 2016-10-12 SUPRAVENTRICULAR ECTOPY 160 Isolated 3 Couplets 3 Runs 20 Beats in Runs 14 Beats LONGEST at 165 BPM at 17:46:20 2016-10-12 3 Beats FASTEST at 178 BPM at 02:30:48 2016-10-13 HEART RATES 88 MIN at 05:17:55 2016-10-13 108 AVG 132 MAX at 23:22:01 2016-10-12 LONGEST RR 0.976 secs at 05:47:58 2016-10-13 SCANNED BY RAMAN ELKINS 10/14/2016 1. Basic rhythm was sinus tachyycardia with minimum heart rate of 88 BPM and maximum of 132 BPM . Average heart rate was 108 BPM 2. There were very frequent VPB's at times successive, 3 in a row, bidirectional and 5 in a row at 12:47 3. There were occasional SPB's at times successive, 3 in a row and a run of SVT at 17:46 consisting of 14 beats in a row at a rate of [address] -T abnormalitieis were recorded and were more pronounced during rapid heart rate. 5. No diary was submitted. Confirmed by ESPERANZA ENGEL MD ([id number]), content editor SHANE YOST ([id number]) on 10/16/2016 7:22:04 AM Referred By: Overread By: ESPERANZA ENGEL MD
[2016-10-16 07:48] LABS: ANION GAP 13 (8-16); CO2 23 mmol/L (21-32); CREATININE 1.3 mg/dL (0.7-1.3); GLUCOSE,RANDOM 162 mg/dL (74-106)
[2016-10-16 07:53] LABS: INR 3.25 (0.82-1.09); PROTHROMBIN TIME (PATIENT) 36.6 SEC (9.98-11.88)
--- NOTE | 2016-10-16 08:48 | PN ---
Progress Note, Physician Chief Complaint: Couldn't sleep well last nite with cough. History of Present Illness: Patient with chronic Bronchiectasis and pulmonary infiltrate is still having some issues with coughing and SOB and couldn't sleep well last nite.Also asking for O2 in shower. Weight higher and moving bowels ? fluid accumulation. On IV Cetriaxone and IV steroids. Will repeat CXR and switch Lasix to IV 40mg for 1 day and observe weight and breathing. - Current Medication List Current Medications: Active Medications Acetaminophen (Tylenol -) 650 mg PO Q4H PRN PRN Reason: FEVER OR PAIN Albuterol Sulfate (Ventolin 0.083% Nebulizer Soln -) 1 amp NEB Q4H PRN PRN Reason: SHORT OF BREATH/WHEEZING Last Admin: 10/16/16 02:39 Dose: 1 amp Albuterol/Ipratropium (Duoneb -) 1 amp NEB QID [facility] Last Admin: 10/15/16 21:52 Dose: 1 amp Allopurinol (Zyloprim -) 100 mg PO DAILY [facility] Last Admin: 10/15/16 10:04 Dose: 100 mg Aspirin (Asa -) 81 mg PO DAILY [facility] Last Admin: 10/15/16 10:04 Dose: 81 mg Atorvastatin Calcium (Lipitor -) 20 mg PO HS [facility] Last Admin: 10/15/16 21:14 Dose: 20 mg Furosemide (Lasix -) 20 mg PO DAILY [facility] Last Admin: 10/15/16 10:04 Dose: 20 mg Guaifenesin/Codeine Phosphate (Robitussin Ac -) 5 ml PO TID PRN PRN Reason: COUGH Last Admin: 10/16/16 01:14 Dose: 5 ml Ceftriaxone Sodium (Rocephin 2gm Ivpb (Pre-Docked)) 100 mls @ 200 mls/hr IVPB DAILY [facility] Last Admin: 10/15/16 10:05 Dose: 200 mls/hr Levothyroxine Sodium (Synthroid -) 100 mcg PO DAILY@0700 [facility] Last Admin: 10/16/16 06:01 Dose: 100 mcg Methylprednisolone Sodium Succinate (Solu-Medrol -) 40 mg IVPB Q8H-IV [facility] Last Admin: 10/16/16 01:14 Dose: 40 mg Metoprolol Succinate (Toprol Xl -) 25 mg PO HS [facility] Last Admin: 10/15/16 21:14 Dose: 25 mg Montelukast Sodium (Singulair -) 10 mg PO HS [facility] Last Admin: 10/15/16 21:14 Dose: 10 mg Ondansetron HCl (Zofran Injection) 4 mg IVPB Q6H PRN PRN Reason: NAUSEA Pantoprazole Sodium (Protonix -) 40 mg PO DAILY [facility] Last Admin: 10/15/16 10:04 Dose: 40 mg Theophylline (Shai-24) 300 mg PO BID [facility] Last Admin: 10/15/16 21:14 Dose: 300 mg Valsartan (Diovan -) 40 mg PO BID [facility] Last Admin: 10/15/16 21:14 Dose: 40 mg Warfarin Sodium (Coumadin -) 2.5 mg PO Q2D@1800 [facility] - Objective Vital Signs: Vital Signs Temperature 97.8 F 10/16/16 06:00 Pulse Rate 101 H 10/16/16 06:00 Respiratory Rate 20 10/16/16 06:00 Blood Pressure 107/61 10/16/16 06:00 O2 Sat by Pulse Oximetry (%) 95 10/15/16 20:42 Constitutional: Yes: Mild Distress Eyes: Yes: Conjunctiva Clear Cardiovascular: Yes: Regular Rate and Rhythm, Other (occ. PVC's) Respiratory: Yes: Dullness, Rales (few rales at bases) Gastrointestinal: Yes: Soft Genitourinary: No: Carpenter Present Edema: LLE: Trace, RLE: Trace Neurological: Yes: Alert, Oriented Labs: CBC, BMP 10/14/16 05:35 10/16/16 05:35 INR, PTT INR 3.25 (0.82-1.09) H 10/16/16 05:35 Problem List - Problems (1) COPD (chronic obstructive pulmonary disease) Assessment/Plan: On Aerosol and IV steroids; still some coughing and SOB. Code(s): 496 - CHR AIRWAY OBSTRUCT NEC (2) HTN (hypertension) Assessment/Plan: Stable BP 107/61 Code(s): I10 - ESSENTIAL (PRIMARY) HYPERTENSION (3) Murali-tachy syndrome Assessment/Plan: Just seeing multiple pvc's on monitor Code(s): I49.5 - SICK SINUS SYNDROME (4) Pneumonia Assessment/Plan: Will compare CXR today. Code(s): J18.9 - PNEUMONIA, UNSPECIFIED ORGANISM (5) Bronchiectasis with (acute) exacerbation Assessment/Plan: Chronic with acute exacerbation; on aerosol and steroids with antibiotics. Code(s): J47.1 - BRONCHIECTASIS WITH (ACUTE) EXACERBATION
[2016-10-16] MEDS ORDERED: FUROSEMIDE 40 MG/4 ML INJECTABLE VIAL IVPUSH ONE (09:15)
--- NOTE | 2016-10-16 09:35 | PN ---
Progress Note, Physician History of Present Illness: Recent events reviewed. Pt this A.M. says he feels better with decreased dyspnea and sputum production. Sputum which was yellow is now white. No chest pain or palpitations. - Current Medication List Current Medications: Active Medications Acetaminophen (Tylenol -) 650 mg PO Q4H PRN PRN Reason: FEVER OR PAIN Albuterol Sulfate (Ventolin 0.083% Nebulizer Soln -) 1 amp NEB Q4H PRN PRN Reason: SHORT OF BREATH/WHEEZING Last Admin: 10/16/16 02:39 Dose: 1 amp Albuterol/Ipratropium (Duoneb -) 1 amp NEB QID [facility] Last Admin: 10/15/16 21:52 Dose: 1 amp Allopurinol (Zyloprim -) 100 mg PO DAILY [facility] Last Admin: 10/15/16 10:04 Dose: 100 mg Aspirin (Asa -) 81 mg PO DAILY [facility] Last Admin: 10/15/16 10:04 Dose: 81 mg Atorvastatin Calcium (Lipitor -) 20 mg PO HS [facility] Last Admin: 10/15/16 21:14 Dose: 20 mg Furosemide (Lasix -) 20 mg PO DAILY [facility] Last Admin: 10/15/16 10:04 Dose: 20 mg Guaifenesin/Codeine Phosphate (Robitussin Ac -) 5 ml PO TID PRN PRN Reason: COUGH Last Admin: 10/16/16 01:14 Dose: 5 ml Ceftriaxone Sodium (Rocephin 2gm Ivpb (Pre-Docked)) 100 mls @ 200 mls/hr IVPB DAILY [facility] Last Admin: 10/15/16 10:05 Dose: 200 mls/hr Levothyroxine Sodium (Synthroid -) 100 mcg PO DAILY@0700 [facility] Last Admin: 10/16/16 06:01 Dose: 100 mcg Methylprednisolone Sodium Succinate (Solu-Medrol -) 40 mg IVPB Q8H-IV [facility] Last Admin: 10/16/16 01:14 Dose: 40 mg Metoprolol Succinate (Toprol Xl -) 25 mg PO HS [facility] Last Admin: 10/15/16 21:14 Dose: 25 mg Montelukast Sodium (Singulair -) 10 mg PO HS [facility] Last Admin: 10/15/16 21:14 Dose: 10 mg Ondansetron HCl (Zofran Injection) 4 mg IVPB Q6H PRN PRN Reason: NAUSEA Pantoprazole Sodium (Protonix -) 40 mg PO DAILY [facility] Last Admin: 10/15/16 10:04 Dose: 40 mg Theophylline (Shai-24) 300 mg PO BID [facility] Last Admin: 10/15/16 21:14 Dose: 300 mg Valsartan (Diovan -) 40 mg PO BID [facility] Warfarin Sodium (Coumadin -) 2.5 mg PO Q2D@1800 [facility] - Objective Vital Signs: Vital Signs Temperature 97.8 F 10/16/16 06:00 Pulse Rate 101 H 10/16/16 06:00 Respiratory Rate 20 10/16/16 06:00 Blood Pressure 107/61 10/16/16 06:00 O2 Sat by Pulse Oximetry (%) 95 10/15/16 20:42 Constitutional: Yes: No Distress Eyes: No: Sclera Icterus HENT: Yes: Atraumatic Neck: Yes: Trachea Midline Cardiovascular: Yes: Regular Rate and Rhythm. No: JVD Respiratory: Yes: CTA Bilaterally Gastrointestinal: Yes: Soft. No: Tenderness Edema: Yes Edema: LLE: 1+, RLE: 1+ Neurological: Yes: Alert, Oriented Labs: CBC, BMP 10/14/16 05:35 10/16/16 05:35 INR, PTT INR 3.25 (0.82-1.09) H 10/16/16 05:35 - ....Imaging Chest X-ray: Report Reviewed, Image Reviewed (No infiltrates or CHF. Compared to 10/12 the coarse markings at right baser have cleared.) Assessment/Plan Assessment: Transient bradycardia-improved. Acute bronchitis/pneumonia: improved. Respiratory status is also better with no wheezing on exam. Pt does have mild pedal edema. Plan: Decrease steroid and switch to P.O. Prednisone as steroids may be contributing to fluid retention. Lasix today Continue antibiotic, bronchodilators O2 to maintain SaO2>90
[2016-10-16] MEDS: CEFTRIAXONE 100 ML IVPB SCH (09:42)
[2016-10-16] MEDS: VALSARTAN 40 MG TABLET (FP) PO SCH ×2 (09:42→21:04)
[2016-10-16] MEDS: THEOPHYLLINE ANHYDROUS 100 MG CAP.ER.24H PO SCH ×2 (09:43→21:05)
[2016-10-16] MEDS: ALLOPURINOL 100 MG TABLET (FP) PO SCH (09:43)
[2016-10-16] MEDS: PANTOPRAZOLE 40 MG TABLET (FP) PO SCH (09:43)
[2016-10-16] MEDS: ASPIRIN 81 MG CHEWABLE TABLETS PO SCH (09:43)
[2016-10-16] MEDS: ALBUTEROL SO4 2.5/IPRATROPIUM 0.5 INH SOL 3 ML VIAL.NEB. NEB SCH ×4 (09:45→22:40)
--- NOTE | 2016-10-16 10:19 | PN ---
Progress Note (short form) - Note Progress Note: History of Present Illness: sob improving, no cp, no palps no dizzy Current Medications Generic Name Dose Route Start Last Admin Trade Name Freq PRN Reason Stop Dose Admin Acetaminophen 650 mg 10/10/16 14:55 Tylenol - PO Q4H PRN FEVER OR PAIN Albuterol Sulfate 1 amp 10/13/16 14:18 10/16/16 02:39 Ventolin 0.083% Nebulizer Soln - NEB 1 amp Q4H PRN Administration SHORT OF BREATH/WHEEZING Albuterol/Ipratropium 1 amp 10/15/16 22:00 10/15/16 21:52 Duoneb - NEB 1 amp QID FAM Administration Allopurinol 100 mg 10/11/16 10:00 10/16/16 09:43 Zyloprim - PO 100 mg DAILY FAM Administration Aspirin 81 mg 10/11/16 10:00 10/16/16 09:43 Asa - PO 81 mg DAILY FAM Administration Atorvastatin Calcium 20 mg 10/10/16 22:00 10/15/16 21:14 Lipitor - PO 20 mg HS FAM Administration Furosemide 20 mg 10/15/16 10:00 10/15/16 10:04 Lasix - PO 20 mg DAILY FAM Administration Guaifenesin/Codeine Phosphate 5 ml 10/15/16 14:20 10/16/16 01:14 Robitussin Ac - PO 5 ml TID PRN Administration COUGH Ceftriaxone Sodium 100 mls @ 200 mls/hr 10/13/16 10:45 10/16/16 09:42 Rocephin 2gm Ivpb (Pre-Docked) IVPB 200 mls/hr DAILY FAM Administration Levothyroxine Sodium 100 mcg 10/15/16 07:00 10/16/16 06:01 Synthroid - PO 100 mcg DAILY@0700 FAM Administration Metoprolol Succinate 25 mg 10/10/16 22:00 10/15/16 21:14 Toprol Xl - PO 25 mg HS FAM Administration Montelukast Sodium 10 mg 10/14/16 22:00 10/15/16 21:14 Singulair - PO 10 mg HS FAM Administration Ondansetron HCl 4 mg 10/10/16 14:55 Zofran Injection IVPB Q6H PRN NAUSEA Pantoprazole Sodium 40 mg 10/11/16 10:00 10/16/16 09:43 Protonix - PO 40 mg DAILY FAM Administration Prednisone 40 mg 10/16/16 10:00 Deltasone - PO DAILY FAM Theophylline 300 mg 10/10/16 22:00 10/16/16 09:43 Shai-24 PO 300 mg BID FAM Administration Valsartan 40 mg 10/16/16 08:56 10/16/16 09:42 Diovan - PO Not Given BID [facility] Warfarin Sodium 2.5 mg 10/16/16 18:00 Coumadin - PO Q2D@1800 [facility] Vital Signs Period Temp Pulse Resp BP Sys/Martinez Pulse Ox Last 24 Hr 97.4 F-98.7 F 98-107 18- 101-133/60-72 95 NAD, calm jvd flat, neck supple diminished breath sounds/exp wheezes, nl effort tachycardic, regular nl s1, s2 2/6 murmur at sternal border and apex + bs soft nt nd ext without e/c/c. + varicosities aaox3 no jaundice, diaphoresis CBC, BMP 10/14/16 05:35 10/16/16 05:35 - ....Imaging EKG: Other (tele: SR with sinus tach, occ pvcs) EKG: sr, 97 bpm. anterolateral twi. Previously twi more prominent in lateral leads. Echo 09/2016 office: Moderate global HK, EF 40%. nl rv. mod mr, CXR: wnl [facility] 05/2016 at [facility]--per dc summary, patent prior stents and non obs residual dz. LHC/PCI 2010: prox RCA NICOLE, residual OM1 50-60%, patent mid LAD stent, normal right heart pressures, normal LVF Dobut Stress MPI 08/2010: small, mild apical anterior and LV apex ischemia--( PCI after this) MIBI 12/13: small/mild infer ischemia vs GI tracer confounding, EF 41% ct chest 02/2016: ascd aorta 4.3 cm a/p: 80 yo with h/o CAD (s/p PCI), systolic cardiomyopathy, mild asc ao dilation, mod mr, htn, hl, hypothyroid, COPD, Pneumonia (s/p lobectomy for lung abscess), Pulmonary Embolus on coumadin p/w bradycardia. bradycardia - no ekg documentation of episodes. (on routine vitals prior to starting P.T. he was noted to have HR's in the 30's-40's-->to ER where normal HR. per family on telemetry in ER, HR's intermittently were reading 30's -50's for seconds at a time and then going back up to 70's-100's.) - ? artifactual has known h/o sinus tach and has remained in sinus tach here. - he had no sx's at home or here of presyncope/syncope (generalized weakness on DOA is apparently a chronic, stable condition which improves acutely with PT) - recent cath unremarkable, echo in september EF 40%, stable vs priors apparently - telemetry monitoring x > 48 hours has shown no bradyarrhythmia (frequent ventricular ectopy and nsvt). Holter monitor shows high burden of ventricular ectopy (13%). 48 episodes of 3-5 beat runs of nsvt. minimum HR 88. no pauses - home low dose metoprolol continued in hospital. weakness, orthostatic hypotension - 10/11 + orthostatics-->decreased dose of lasix and diovan (at times resting BPs low trend here). - 10/12: lasix held for low bp's - 10/13: bp stable at rest. orthostatics neg. given IV lasix. - 10/14: bp stable, will resume po lasix at lower dose tomorrow. - 10/15-13: cont lasix 20 po qd CAD (s/p PCI) - Con't medical therapy with ASA, statin. Stable. No angina. CE's negative here and recent cath in may with no residual disease syst chf/nsvt: - Over the years his echos have shown variations in lvef, at times reduced. Recent echo at [facility] 05/2016 reports lvef 20% (per dc summary). During that admit he was seen by cardio and had repeat cath showing patent stents and non obs residual dz. He was noted to have NSVT on tele there and given lifevest but pt/ declined. Was started on toprol as well. He has been on bb/arb for several mos now --> improvement in EF --> cont - wt 203 yest, 206 today (office wts vary 195-210 since 04/22). - lasix held here over weekend for + orthostatics - 10/13 JVD noted on exam --> lasix 40 mg IV x 1 - 10/14-13: resumed po lasix as above - cont home metoprolol 25mg - cont reduced diovan dose as doing for now, --> note changed 80 qd to 40 bid for syst chf dosing HTN: - new hypotension, orthostatic vitals + on admit improved with downtitration of diuretics. Hyperlipdemia, - con't statin a.e. COPD - on home o2 and theophylline - on abx, steroids, pulm following, symptoms improving PE 2010 - coumadin. dosing per inr. hgb stable even with additional asa. - tachycardia is chronic (likely related to theophylline and standing RCT duonebs here at least), ranging 105-109 on office visits since 04/22--INR therapeutic here, no other s/sx suggestive of PE--extremely unlikely dx so no need further w/u ascending thoracic aneurysm, small: - Stable on recent ct scan. Cont bb.
[2016-10-16] MEDS: predniSONE 20 MG TABLET (UD) PO SCH (10:49)
[2016-10-16] MEDS ORDERED: WARFARIN NA 2.5 MG TABLET (FP) PO SCH (18:00)
[2016-10-16] MEDS ORDERED: PT OWN MED DRAWER 7, Y5N ONE (20:54)
[2016-10-16] MEDS: METOPROLOL SUCCINATE 25 MG TAB.SR.24H (FP) PO SCH (21:04)
[2016-10-16] MEDS: MONTELUKAST NA 10 MG TABLET PO SCH (21:04)
[2016-10-16] MEDS: ATORVASTATIN CA 20 MG TABLET (FP) PO SCH (21:04)
[2016-10-17] MEDS: ALBUTEROL SO4 0.083% IH SOL 2.5 MG/3 ML VIAL.NEB. NEB PRN (02:02)
[2016-10-17] MEDS: LEVOTHYROXINE NA 100 MCG TABLET (FP) PO SCH (06:28)
[2016-10-17 06:36] LABS: BASOPHIL 0.1 % (0-2.0); MCH 27.5 pg (25.7-33.7); MEAN CELL VOLUME 85.8 fl (80-96); MEAN PLT VOLUME 8.9 fl (7.5-11.1); NEUTROPHILS 83.4 % (42.8-82.8); PLATELET COUNT 190 K/MM3 (134-434); RDW 18.4 % (11.9-15.9); WHITE BLOOD COUNT 12.5 K/mm3 (4.0-10.0)
[2016-10-17 06:45] LABS: INR 3.96 (0.82-1.09); PROTHROMBIN TIME (PATIENT) 44.8 SEC (9.98-11.88)
[2016-10-17 06:53] LABS: ANION GAP 9 (8-16); CO2 26 mmol/L (21-32); CREATININE 1.6 mg/dL (0.7-1.3); GLUCOSE,RANDOM 142 mg/dL (74-106)
--- NOTE | 2016-10-17 07:10 | PN ---
Progress Note (short form) - Note Progress Note: Pt's theophylline level 12.446. While the "official" therapeutic level is listed at 10-20, toxicity increases at these levels (especially in elderly patients with heart disease) and there is little added therapeutic effect with serum levels higher than single digits. There is a subset of COPD and asthmatic patients who derive benefit from Theophylline as a supplemental drug to control symptoms but I would keep the serum level below 8. Plan: Theophylline discontinued. Check Theophylline level today. If Theophylline is eventually re-introduced would use lower doses and check serum levels and keep the level below 8.
--- NOTE | 2016-10-17 09:32 | PN ---
Progress Note (short form) - Note Progress Note: Patient having some Coughing again with some wheezing today. CXR shows clearing of infiltrate. Will D/C antibiotics. INR 3.96: to hold coumadin and BUN rising so I will decrease valsartan to 40mg daily.Dr. Franco's notes reviewed; he also switched patient to PO steroids. On Exam: Vital Signs Temp 98.0 F 10/17/16 06:00 Pulse 103 H 10/17/16 06:00 Resp 16 10/17/16 06:00 BP 109/66 10/17/16 06:00 Pulse Ox 95 10/16/16 22:00 Intake & Output 10/16/16 10/16/16 10/17/16 11:59 23:59 11:59 Intake Total 370 520 240 Balance 370 520 240 Weight 210 lb 212 lb 8 oz Intake: Oral 370 520 240 Other: Voiding Method Toilet Toilet # Unmeasured Voids Void 1 1 1 Bowel Movement No No Weight Measurement Method Standing Scale Standing Scale Alert Some coughing Chest: a few wheezes bilaterally Cor :Occ irregular Ext:Trace edema Bilaterally Abnormal Lab Results 10/16/16 10/17/16 10/17/16 05:35 05:40 05:40 WBC 12.5 H D Hgb 11.5 L RDW 18.4 H Neutrophils % 83.4 H Lymphocytes % 4.8 L Monocytes % 11.7 H D INR Chloride 108 H BUN 52 H Creatinine 1.6 H D Random Glucose 142 H Hemoglobin A1c % 6.6 H D Calcium 8.0 L 10/17/16 05:40 WBC Hgb RDW Neutrophils % Lymphocytes % Monocytes % INR 3.96 H Chloride BUN Creatinine Random Glucose Hemoglobin A1c % Calcium IMP: Bronchiectasis and COPD with acute exacerbation Pulmonary Infiltrate resolved Hx:PE ASHD Renal failure PVC's Mild pedal edema and weight gain TAA Plan: F/U Lab Renal MD Hold Coumadin Aerosol Rx. Problem List - Problems (1) COPD (chronic obstructive pulmonary disease) Code(s): 496 - CHR AIRWAY OBSTRUCT NEC (2) HTN (hypertension) Code(s): I10 - ESSENTIAL (PRIMARY) HYPERTENSION (3) Murali-tachy syndrome Code(s): I49.5 - SICK SINUS SYNDROME (4) Pneumonia Code(s): J18.9 - PNEUMONIA, UNSPECIFIED ORGANISM (5) Bronchiectasis with (acute) exacerbation Code(s): J47.1 - BRONCHIECTASIS WITH (ACUTE) EXACERBATION
[2016-10-17] MEDS: ASPIRIN 81 MG CHEWABLE TABLETS PO SCH (09:43)
[2016-10-17] MEDS: predniSONE 20 MG TABLET (UD) PO SCH (09:44)
[2016-10-17] MEDS: PANTOPRAZOLE 40 MG TABLET (FP) PO SCH (09:44)
[2016-10-17] MEDS: ALLOPURINOL 100 MG TABLET (FP) PO SCH (09:44)
[2016-10-17] MEDS ORDERED: VALSARTAN 40 MG TABLET (FP) PO SCH (10:00)
[2016-10-17] MEDS: ALBUTEROL SO4 2.5/IPRATROPIUM 0.5 INH SOL 3 ML VIAL.NEB. NEB SCH ×4 (10:20→22:05)
--- NOTE | 2016-10-17 10:48 | PN ---
Progress Note (short form) - Note Progress Note: History of Present Illness: sob persists no cp, no palps no dizzy increased le edema Current Medications Generic Name Dose Route Start Last Admin Trade Name Freq PRN Reason Stop Dose Admin Acetaminophen 650 mg 10/10/16 14:55 Tylenol - PO Q4H PRN FEVER OR PAIN Albuterol Sulfate 1 amp 10/13/16 14:18 10/17/16 02:02 Ventolin 0.083% Nebulizer Soln - NEB 1 amp Q4H PRN Administration SHORT OF BREATH/WHEEZING Albuterol/Ipratropium 1 amp 10/15/16 22:00 10/16/16 22:40 Duoneb - NEB 1 amp QID FAM Administration Allopurinol 100 mg 10/11/16 10:00 10/17/16 09:44 Zyloprim - PO 100 mg DAILY FAM Administration Aspirin 81 mg 10/11/16 10:00 10/17/16 09:43 Asa - PO 81 mg DAILY FAM Administration Atorvastatin Calcium 20 mg 10/10/16 22:00 10/16/16 21:04 Lipitor - PO 20 mg HS FAM Administration Furosemide 20 mg 10/15/16 10:00 10/15/16 10:04 Lasix - PO 20 mg DAILY FAM Administration Guaifenesin/Codeine Phosphate 5 ml 10/17/16 09:22 Robitussin Ac - PO Q4H PRN COUGH Levothyroxine Sodium 100 mcg 10/15/16 07:00 10/17/16 06:28 Synthroid - PO 100 mcg DAILY@0700 FAM Administration Metoprolol Succinate 25 mg 10/10/16 22:00 10/16/16 21:04 Toprol Xl - PO 25 mg HS FAM Administration Montelukast Sodium 10 mg 10/14/16 22:00 10/16/16 21:04 Singulair - PO 10 mg HS FAM Administration Ondansetron HCl 4 mg 10/10/16 14:55 Zofran Injection IVPB Q6H PRN NAUSEA Pantoprazole Sodium 40 mg 10/11/16 10:00 10/17/16 09:44 Protonix - PO 40 mg DAILY FAM Administration Prednisone 40 mg 10/16/16 10:00 10/17/16 09:44 Deltasone - PO 40 mg DAILY FAM Administration Valsartan 40 mg 10/17/16 10:00 10/17/16 09:44 Diovan - PO Not Given DAILY [facility] Warfarin Sodium 2.5 mg 10/16/16 18:00 Coumadin - PO Q2D@1800 [facility] Vital Signs Period Temp Pulse Resp BP Sys/Martinez Pulse Ox Last 24 Hr 97.4 F-98.6 F 88-113 16-22 109-121/65-75 95-98 NAD, calm jvd flat, neck supple diminished breath sounds/exp wheezes, nl effort tachycardic, regular nl s1, s2 2/6 murmur at sternal border and apex + bs soft nt nd 1+ le edema bl aaox3 no jaundice, diaphoresis CBC, BMP 10/17/16 05:40 10/17/16 05:40 - ....Imaging EKG: Other (tele: SR, occ pvcs) EKG: sr, 97 bpm. anterolateral twi. Previously twi more prominent in lateral leads. Echo 09/2016 office: Moderate global HK, EF 40%. nl rv. mod mr, LHC 05/2016 at [facility]--per dc summary, patent prior stents and non obs residual dz. LHC/PCI 2010: prox RCA NICOLE, residual OM1 50-60%, patent mid LAD stent, normal right heart pressures, normal LVF Dobut Stress MPI 08/2010: small, mild apical anterior and LV apex ischemia--( PCI after this) MIBI 12/13: small/mild infer ischemia vs GI tracer confounding, EF 41% ct chest 02/2016: ascd aorta 4.3 cm a/p: 80 yo with h/o CAD (s/p PCI), systolic cardiomyopathy, mild asc ao dilation, mod mr, htn, hl, hypothyroid, COPD, Pneumonia (s/p lobectomy for lung abscess), Pulmonary Embolus on coumadin p/w bradycardia. bradycardia - no ekg documentation of episodes. (on routine vitals prior to starting P.T. he was noted to have HR's in the 30's-40's-->to ER where normal HR. per family on telemetry in ER, HR's intermittently were reading 30's -50's for seconds at a time and then going back up to 70's-100's.) - ? artifactual has known h/o sinus tach and has remained in sinus tach here. - he had no sx's at home or here of presyncope/syncope (generalized weakness on DOA is apparently a chronic, stable condition which improves acutely with PT) - recent cath unremarkable, echo in september EF 40%, stable vs priors apparently - telemetry monitoring x > 48 hours has shown no bradyarrhythmia (frequent ventricular ectopy and nsvt). Holter monitor shows high burden of ventricular ectopy (13%). 48 episodes of 3-5 beat runs of nsvt. minimum HR 88. no pauses - home low dose metoprolol continued in hospital. weakness, orthostatic hypotension -improving CAD (s/p PCI) - Con't medical therapy with ASA, statin. Stable. No angina. CE's negative here and recent cath in may with no residual disease syst chf/nsvt: - Over the years his echos have shown variations in lvef, at times reduced. Recent echo at [facility] 05/2016 reports lvef 20% (per dc summary). During that admit he was seen by cardio and had repeat cath showing patent stents and non obs residual dz. He was noted to have NSVT on tele there and given lifevest but pt/ declined. Was started on toprol as well. He has been on bb/arb for several mos now --> improvement in EF --> cont - wt 203 yest, 206 today (office wts vary 195-210 since 04/22). - lasix held here over weekend for + orthostatics - 10/13 JVD noted on exam --> lasix 40 mg IV x 1 - 10/14-13: resumed po lasix as above - 10/17: wt rising and starting to develop le edema. Got lasix 40 iv yesterday and today still vol up and cr bumped up. Given that he appears volume up he may need more iv lasix which may help cr as well. Renal consulted today, will discuss. - cont home metoprolol 25mg - cont reduced diovan dose as doing for now, --> note changed 80 qd to 40 bid for syst chf dosing HTN: - new hypotension, orthostatic vitals + on admit, now improved Hyperlipdemia, - con't statin a.e. COPD - on home o2 and theophylline - on abx, steroids, pulm following, symptoms improving PE 2010 - coumadin. dosing per inr. hgb stable even with additional asa. - tachycardia is chronic (likely related to theophylline and standing RCT duonebs here at least), ranging 105-109 on office visits since 04/22--INR therapeutic here, no other s/sx suggestive of PE--extremely unlikely dx so no need further w/u ascending thoracic aneurysm, small: - Stable on recent ct scan. Cont bb.
[2016-10-17] MEDS: FUROSEMIDE 20 MG TABLET (FP) PO SCH (11:00)
--- NOTE | 2016-10-17 12:19 | CONSULT ---
Consult Consult Specialty:: Nephrology ( [place]/ [place]) Referred by:: Dr. Perez Reason for Consultation:: Abnormal kidney functions - History of Present Illness Chief Complaint: Many thanks for the kind courtesy of this consult. This is an 80 y/o male admitted with symptomatic bradycardia. History of Present Illness: The patient has severe COPD, Coronary artery disease, HLD, Pneumonia, Lung abscess, s/p Pulmonary lobectomy, Pulmonary Embolism, Hypothyroidism. Has h/o Systolic heart failure. The patient was treated with IV steroids, and now switched to oral steroids. The patient's respiratory symptoms worse since switching to Prednisone. Was given one dose of Lasix yesterday, and 20 mg of Lasix orally today. The patient's urine output reportedly declined since the past 48 hours. Denies any chest pain. Has some degree of abdominal discomfort. - History Source History Provided By: Patient, Medical Record - Past Medical History Cardio/Vascular: Yes: CAD (s/p PTCI), HTN, Hyperlipdemia Pulmonary: Yes: COPD, Pneumonia (s/p lobectomy for lung abscess), Pulmonary Embolus Gastrointestinal: Yes: GERD, Other (Feeling of fullness) Infectious Disease: Yes: Other - Past Surgical History Past Surgical History: Yes: Joint Replacement (knee) - Alcohol/Substance Use Hx Alcohol Use: No - Smoking History Smoking history: Former smoker Have you smoked in the past 12 months: No Aproximately how many cigarettes per day: 0 If you are a former smoker, when did you quit?: 1980 - Social History ADL: Independent 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, 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 [employer] History of Recent Travel: No Home Medications - Allergies Allergies/Adverse Reactions: Allergies Allergy/AdvReac Type Severity Reaction Status Date / Time No Known Allergies Allergy Verified 10/10/16 09:00 - Home Medications Home Medications: Ambulatory Orders Albuterol 2.5/Ipratropium 0.5 [Duoneb -] 1 neb IH QID 09/06/13 Aspirin [ASA -] 81 mg PO DAILY 09/06/13 Potassium Chloride [K-Dur] 20 meq PO BID 09/06/13 Allopurinol [Zyloprim -] 100 mg PO DAILY 01/21/14 Esomeprazole Mag Trihydrate [Nexium] 40 mg PO DAILY 01/21/14 Furosemide [Lasix -] 40 mg PO DAILY 01/21/14 Simvastatin [Zocor -] 40 mg PO HS 01/21/14 Levothyroxine [Synthroid -] 150 mcg PO DAILY 10/10/16 Metoprolol Succinate [Toprol Xl -] 25 mg PO DAILY 10/10/16 Montelukast Na [Singulair -] 10 mg PO HS 10/10/16 Prednisone 15 mg PO DAILY 10/10/16 Theophylline Anhydrous [Theophylline] 300 tablet PO BID 10/10/16 Valsartan [Diovan] 160 mg PO DAILY 10/10/16 Warfarin Na [Coumadin -] 2.5 mg PO Q2D 10/10/16 Warfarin Sodium [Coumadin] 5 mg PO Q2D 10/10/16 Family Disease History - Family Disease History Family Disease History: Other: Father ( of GSW when patient was 3 mos old), Mother ( in car accident when patient was 16 yo) Review of Systems - Review of Systems Constitutional: reports: Loss of Appetite, Malaise, Weakness Neck: reports: No Symptoms Cardiovascular: reports: Edema, Shortness of Breath Respiratory: reports: Cough, Exercise Intolerance, Orthopnea, SOB, SOB on Exertion Gastrointestinal: reports: Abdominal Pain. denies: Diarrhea, Nausea, Vomiting Genitourinary: reports: Pain, Other (oliguria) Musculoskeletal: reports: Back Pain Integumentary: reports: No Symptoms Neurological: reports: No Symptoms Physical Exam Vital Signs: Vital Signs Temperature 98.0 F 10/17/16 06:00 Pulse Rate 103 H 10/17/16 06:00 Respiratory Rate 16 10/17/16 06:00 Blood Pressure 109/66 10/17/16 06:00 O2 Sat by Pulse Oximetry (%) 95 10/16/16 22:00 Constitutional: Yes: Anxious, Moderate Distress HENT: Yes: Normocephalic Neck: Yes: Supple Cardiovascular: Yes: Regular Rate and Rhythm, S1, S2 Respiratory: Yes: Accessory Muscle Use, Cough, Hyperresonant, On Nasal O2, Poor Air Entry, Rales, Rhonchi, SOB, Tachypnea, Wheezes Gastrointestinal: Yes: Distention, Other (There is marked dullness from the suprapubic to the umbilicus region. ? Bladder. The rest of the abdomen is tympanic.) Renal/: Yes: Oliguria. No: CVA Tenderness - Left, CVA Tenderness - Right Musculoskeletal: Yes: Back Pain Edema: Yes Edema: LLE: 1+, RLE: 1+ Neurological: Yes: Alert, Oriented Labs: CBC, BMP 10/17/16 05:40 10/17/16 05:40 Problem List - Problems (1) COPD exacerbation Code(s): J44.1 - CHRONIC OBSTRUCTIVE PULMONARY DISEASE W (ACUTE) EXACERBATION (2) Coronary artery disease Code(s): I25.10 - ATHSCL HEART DISEASE OF [place] CORONARY ARTERY W/O ANG PCTRS (3) HTN (hypertension) Code(s): I10 - ESSENTIAL (PRIMARY) HYPERTENSION (4) Hypothyroid Code(s): E03.9 - HYPOTHYROIDISM, UNSPECIFIED (5) Pneumonia Code(s): J18.9 - PNEUMONIA, UNSPECIFIED ORGANISM (6) Renal failure Code(s): 586 - RENAL FAILURE NOS (7) Acute kidney failure Code(s): N17.9 - ACUTE KIDNEY FAILURE, UNSPECIFIED (8) Obstructive uropathy Code(s): N13.9 - OBSTRUCTIVE AND REFLUX UROPATHY, UNSPECIFIED Assessment/Plan Mr Rodriguez is an 80 y/o male with 1. Exacerbation of COPD, was on IV steroids. Now on PO Prednisone. 2. Acute Oliguric Renal failure: Possibly multifactorial in etiology. With the h/o reduced urine output, and the finding of suprapubic fullness and dullness, I am hard pressed to believe that he has an obstructive component to the acute renal failure. Also the the patient's tendency for hypotension, and being on ARB, was a pefect scenario fro renal Hypoperfusion. Some degree of azotemia is Steroid dependent. Plan: Bladder scan. If significant urine retention, will try voiding trial..> Straight cath.....> ? Carpenter cath. D/C Diovan. ?? Restart IV Solumedrol. If the dyspnea gets worse, will try IV Lasix infusion. But would prefer this after placement of the Carpenter catheter. Discussed with the patient and family. Discussd with Dr. Perez. Thank you. Will follow with you. Devora Hannah MD
[2016-10-17] MEDS: guaiFENesin/CODEINE 5 ML UNIT-DOSE CUPS PO PRN ×2 (12:25→21:08)
[2016-10-17] MEDS: MONTELUKAST NA 10 MG TABLET PO SCH (21:08)
[2016-10-17] MEDS: ATORVASTATIN CA 20 MG TABLET (FP) PO SCH (21:08)
[2016-10-17] MEDS: METOPROLOL SUCCINATE 25 MG TAB.SR.24H (FP) PO SCH (21:08)
[2016-10-18] MEDS: LEVOTHYROXINE NA 100 MCG TABLET (FP) PO SCH (06:15)
[2016-10-18 08:04] LABS: INR 3.53 (0.82-1.09); PROTHROMBIN TIME (PATIENT) 39.8 SEC (9.98-11.88)
[2016-10-18 08:07] LABS: ALBUMIN 3.1 g/dl (3.4-5.0); ALK PHOS 78 U/L (45-117); ANION GAP 9 (8-16); BILIRUBIN,TOTAL 0.3 mg/dL (0.2-1.0); CALCIUM 8.5 mg/dL (8.5-10.1); CO2 25 mmol/L (21-32); CREATININE 1.4 mg/dL (0.7-1.3); GLUCOSE,RANDOM 103 mg/dL (74-106); MAGNESIUM 2.9 mg/dL (1.8-2.4); SGOT/AST 21 U/L (15-37); SGPT/ALT 63 U/L (12-78); TOT PROT 5.7 g/dl (6.4-8.2); URIC ACID 8.5 mg/dL (2.6-7.2)
[2016-10-18] MEDS ORDERED: PT OWN MED DRAWER 7, Y5N ONE (08:55)
[2016-10-18] MEDS: ALLOPURINOL 100 MG TABLET (FP) PO SCH (09:40)
[2016-10-18] MEDS: ASPIRIN 81 MG CHEWABLE TABLETS PO SCH (09:40)
[2016-10-18] MEDS: predniSONE 20 MG TABLET (UD) PO SCH (09:40)
[2016-10-18] MEDS: PANTOPRAZOLE 40 MG TABLET (FP) PO SCH (09:40)
[2016-10-18] MEDS: FUROSEMIDE 20 MG TABLET (FP) PO SCH (09:40)
--- NOTE | 2016-10-18 10:03 | PN ---
Progress Note (short form) - Note Progress Note: Patient feels better today; urinating better and less SOB. Yesterday there was a new problem with rising BUN and increased pedal edema. Renal and Cardiology evaluated the patient. His Diovan 40mg BID was hels and only Lasix 20mg was given yet today his lab, edema and urinary output is better. On exam: Vital Signs Temp 97.9 F 10/18/16 06:00 Pulse 98 H 10/18/16 06:00 Resp 18 10/18/16 06:00 BP 125/71 10/18/16 06:00 Pulse Ox 96 10/17/16 21:00 Intake & Output 10/17/16 10/17/16 10/18/16 11:59 23:59 11:59 Intake Total 240 150 Output Total 1100 550 Balance 240 -1100 -400 Weight 212 lb 8 oz 212 lb 4 oz Intake: Oral 240 150 Output: Urine 1100 550 Void 1100 550 Other: Voiding Method Toilet Urinal # Unmeasured Voids Void 1 Bowel Movement No No Weight Measurement Method Standing Scale Standing Scale Alert Chest: few rhonchi at bases Cor: Occ pvc's Abd :Nontender Ext: Trace edema only Abnormal Lab Results 10/18/16 10/18/16 06:00 06:00 INR 3.53 H Chloride 109 H BUN 47 H Creatinine 1.4 H Uric Acid 8.5 H D Magnesium 2.9 H D Total Protein 5.7 L Albumin 3.1 L IMP: COPD and Bronchiectasis with acute exacerbation Renal Failure Hx PE PVC's ASHD Hypertension TAA PLAN: F/U lab Monitor Iand O Hold Coumadin again. Hole ARB for now Problem List - Problems (1) COPD (chronic obstructive pulmonary disease) Code(s): 496 - CHR AIRWAY OBSTRUCT NEC (2) HTN (hypertension) Code(s): I10 - ESSENTIAL (PRIMARY) HYPERTENSION (3) Murali-tachy syndrome Code(s): I49.5 - SICK SINUS SYNDROME (4) Pneumonia Code(s): J18.9 - PNEUMONIA, UNSPECIFIED ORGANISM (5) Bronchiectasis with (acute) exacerbation Code(s): J47.1 - BRONCHIECTASIS WITH (ACUTE) EXACERBATION
[2016-10-18] MEDS: ALBUTEROL SO4 2.5/IPRATROPIUM 0.5 INH SOL 3 ML VIAL.NEB. NEB SCH ×4 (10:27→22:10)
--- NOTE | 2016-10-18 10:42 | PN ---
Progress Note (short form) - Note Progress Note: History of Present Illness: sob better no cp, no palps no dizzy le edema better Current Medications Generic Name Dose Route Start Last Admin Trade Name Freq PRN Reason Stop Dose Admin Acetaminophen 650 mg 10/10/16 14:55 Tylenol - PO Q4H PRN FEVER OR PAIN Albuterol Sulfate 1 amp 10/13/16 14:18 10/17/16 02:02 Ventolin 0.083% Nebulizer Soln - NEB 1 amp Q4H PRN Administration SHORT OF BREATH/WHEEZING Albuterol/Ipratropium 1 amp 10/15/16 22:00 10/18/16 10:27 Duoneb - NEB 1 amp QID FAM Administration Allopurinol 100 mg 10/11/16 10:00 10/18/16 09:40 Zyloprim - PO 100 mg DAILY FAM Administration Aspirin 81 mg 10/11/16 10:00 10/18/16 09:40 Asa - PO 81 mg DAILY FAM Administration Atorvastatin Calcium 20 mg 10/10/16 22:00 10/17/16 21:08 Lipitor - PO 20 mg HS FAM Administration Furosemide 20 mg 10/15/16 10:00 10/18/16 09:40 Lasix - PO 20 mg DAILY FAM Administration Guaifenesin/Codeine Phosphate 5 ml 10/17/16 09:22 10/17/16 21:08 Robitussin Ac - PO 5 ml Q4H PRN Administration COUGH Levothyroxine Sodium 100 mcg 10/15/16 07:00 10/18/16 06:15 Synthroid - PO 100 mcg DAILY@0700 FAM Administration Metoprolol Succinate 25 mg 10/10/16 22:00 10/17/16 21:08 Toprol Xl - PO 25 mg HS FAM Administration Montelukast Sodium 10 mg 10/14/16 22:00 10/17/16 21:08 Singulair - PO 10 mg HS FAM Administration Ondansetron HCl 4 mg 10/10/16 14:55 Zofran Injection IVPB Q6H PRN NAUSEA Pantoprazole Sodium 40 mg 10/11/16 10:00 10/18/16 09:40 Protonix - PO 40 mg DAILY FAM Administration Prednisone 40 mg 10/16/16 10:00 10/18/16 09:40 Deltasone - PO 40 mg DAILY FAM Administration Warfarin Sodium 2.5 mg 10/16/16 18:00 Coumadin - PO Q2D@1800 [facility] Vital Signs Period Temp Pulse Resp BP Sys/Martinez Pulse Ox Last 24 Hr 97.8 F-98.4 F 95-104 16-20 106-128/66-76 96 NAD, calm jvd flat, neck supple diminished breath sounds/exp wheezes (improved), nl effort tachycardic, regular nl s1, s2 2/6 murmur at sternal border and apex + bs soft nt nd trace le edema bl aaox3 no jaundice, diaphoresis CBC, BMP 10/17/16 05:40 10/18/16 06:00 - ....Imaging EKG: Other (tele: SR, occ pvcs) EKG: sr, 97 bpm. anterolateral twi. Previously twi more prominent in lateral leads. Echo 09/2016 office: Moderate global HK, EF 40%. nl rv. mod mr, LHC 05/2016 at [facility]--per dc summary, patent prior stents and non obs residual dz. LHC/PCI 2010: prox RCA NICOLE, residual OM1 50-60%, patent mid LAD stent, normal right heart pressures, normal LVF Dobut Stress MPI 08/2010: small, mild apical anterior and LV apex ischemia--( PCI after this) MIBI 12/13: small/mild infer ischemia vs GI tracer confounding, EF 41% ct chest 02/2016: ascd aorta 4.3 cm a/p: 80 yo with h/o CAD (s/p PCI), systolic cardiomyopathy, mild asc ao dilation, mod mr, htn, hl, hypothyroid, COPD, Pneumonia (s/p lobectomy for lung abscess), Pulmonary Embolus on coumadin p/w bradycardia. bradycardia - no ekg documentation of episodes. (on routine vitals prior to starting P.T. he was noted to have HR's in the 30's-40's-->to ER where normal HR. per family on telemetry in ER, HR's intermittently were reading 30's -50's for seconds at a time and then going back up to 70's-100's.) - ? artifactual has known h/o sinus tach and has remained in sinus tach here. - he had no sx's at home or here of presyncope/syncope (generalized weakness on DOA is apparently a chronic, stable condition which improves acutely with PT) - recent cath unremarkable, echo in september EF 40%, stable vs priors apparently - telemetry monitoring x > 48 hours has shown no bradyarrhythmia (frequent ventricular ectopy and nsvt). Holter monitor shows high burden of ventricular ectopy (13%). 48 episodes of 3-5 beat runs of nsvt. minimum HR 88. no pauses - home metoprolol continued in hospital. weakness, orthostatic hypotension -improving CAD (s/p PCI) - Con't medical therapy with ASA, statin. Stable. No angina. CE's negative here and recent cath in may with no residual disease syst chf/nsvt: - Over the years his echos have shown variations in lvef, at times reduced. Recent echo at [facility] 05/2016 reports lvef 20% (per dc summary). During that admit he was seen by cardio and had repeat cath showing patent stents and non obs residual dz. He was noted to have NSVT on tele there and given lifevest but pt/ declined. Was started on toprol as well. He has been on bb/arb for several mos now --> improvement in EF --> cont - wt 203 yest, 206 today (office wts vary 195-210 since 04/22). - lasix held here over weekend for + orthostatics - 10/13 JVD noted on exam --> lasix 40 mg IV x 1 - 10/14-13: resumed po lasix as above - 10/17: wt rising and starting to develop le edema. Got lasix 40 iv yesterday and today still vol up and cr bumped up. Given that he appears volume up he may need more iv lasix which may help cr as well. Renal consulted today, will discuss. -10/18: seen by renal, rec'd stopping arb and monitoring for now w/o aggressive diuresis. Today le edema improved and cr improved. Cont with po lasix for now. - cont home metoprolol 25mg HTN: - stable Hyperlipdemia, - con't statin a.e. COPD - on home o2 and theophylline - on abx, steroids, pulm following, symptoms improving PE 2010 - coumadin. dosing per inr. hgb stable even with additional asa. - tachycardia is chronic (likely related to theophylline and standing RCT duonebs here at least), ranging 105-109 on office visits since 04/22--INR therapeutic here, no other s/sx suggestive of PE--extremely unlikely dx so no need further w/u ascending thoracic aneurysm, small: - Stable on recent ct scan. Cont bb.
[2016-10-18 12:56] LABS: BASOPHIL 0.3 % (0-2.0); EOSINOPHIL 0.1 % (0-4.5); MCH 27.4 pg (25.7-33.7); MCHC 31.4 g/dl (32.0-35.9); MEAN CELL VOLUME 87.3 fl (80-96); MEAN PLT VOLUME 9.2 fl (7.5-11.1); NEUTROPHILS 84.1 % (42.8-82.8); PLATELET COUNT 202 K/MM3 (134-434); RDW 18.7 % (11.9-15.9)
--- NOTE | 2016-10-18 13:22 | PN ---
Progress Note (short form) - Note Progress Note: Renal Follow up for MARIAM Pt seen and examined at the bedside awake and alert no acute complaints reports that he is voiding, nurse confirmed no chest pain, abd pain, N/V/D Vital Signs Temperature 98.4 F 10/18/16 10:00 Pulse Rate 95 H 10/18/16 10:00 Respiratory Rate 18 10/18/16 10:00 Blood Pressure 121/76 10/18/16 10:00 O2 Sat by Pulse Oximetry (%) 96 10/17/16 21:00 Intake & Output 10/15/16 10/16/16 10/17/16 10/18/16 23:59 23:59 23:59 23:59 Intake Total 1710 890 240 150 Output Total 1100 550 Balance 1710 890 -860 -400 Weight 209 lb 4 oz 210 lb 212 lb 8 oz 212 lb 4 oz Gen: NAD CVS: RRR Lungs: dec BS at lung bases Abd: soft NT/ND, No bladder distension Ext: trace to 1+ edema CBC, BMP 10/18/16 12:50 10/18/16 06:00 Current Medications Acetaminophen (Tylenol -) 650 mg PO Q4H PRN PRN Reason: FEVER OR PAIN Albuterol Sulfate (Ventolin 0.083% Nebulizer Soln -) 1 amp NEB Q4H PRN PRN Reason: SHORT OF BREATH/WHEEZING Last Admin: 10/17/16 02:02 Dose: 1 amp Albuterol/Ipratropium (Duoneb -) 1 amp NEB QID [facility] Last Admin: 10/18/16 10:27 Dose: 1 amp Allopurinol (Zyloprim -) 100 mg PO DAILY [facility] Last Admin: 10/18/16 09:40 Dose: 100 mg Aspirin (Asa -) 81 mg PO DAILY [facility] Last Admin: 10/18/16 09:40 Dose: 81 mg Atorvastatin Calcium (Lipitor -) 20 mg PO HS [facility] Last Admin: 10/17/16 21:08 Dose: 20 mg Furosemide (Lasix -) 20 mg PO DAILY [facility] Last Admin: 10/18/16 09:40 Dose: 20 mg Guaifenesin/Codeine Phosphate (Robitussin Ac -) 5 ml PO Q4H PRN PRN Reason: COUGH Last Admin: 10/17/16 21:08 Dose: 5 ml Levothyroxine Sodium (Synthroid -) 100 mcg PO DAILY@0700 [facility] Last Admin: 10/18/16 06:15 Dose: 100 mcg Metoprolol Succinate (Toprol Xl -) 25 mg PO HS [facility] Last Admin: 10/17/16 21:08 Dose: 25 mg Montelukast Sodium (Singulair -) 10 mg PO HS [facility] Last Admin: 10/17/16 21:08 Dose: 10 mg Ondansetron HCl (Zofran Injection) 4 mg IVPB Q6H PRN PRN Reason: NAUSEA Pantoprazole Sodium (Protonix -) 40 mg PO DAILY [facility] Last Admin: 10/18/16 09:40 Dose: 40 mg Prednisone (Deltasone -) 40 mg PO DAILY [facility] Last Admin: 10/18/16 09:40 Dose: 40 mg Warfarin Sodium (Coumadin -) 2.5 mg PO Q2D@1800 [facility] A/P 80 year old gentleman with PMhx of severe COPD, Coronary artery disease, HLD, Pneumonia, Lung abscess, s/p Pulmonary lobectomy, Pulmonary Embolism, Hypothyroidism p/w sob secondary to COPD/CHF with MARIAM with Cr 1.6 #MARIAM Etiology likely multifactoiral (Urinary retention +/- hemodymaic changes during CHF/Diuresis) BUN/Cr improved today and pt reports volume is also improved agree with continued oral lasix Check Bladder US and access prostate size start flomax 0.4mg DAily Trend BUN/Cr Thank you Neo Castro DO
[2016-10-18] MEDS: METOPROLOL SUCCINATE 25 MG TAB.SR.24H (FP) PO SCH (21:15)
[2016-10-18] MEDS: ATORVASTATIN CA 20 MG TABLET (FP) PO SCH (21:15)
[2016-10-18] MEDS: guaiFENesin/CODEINE 5 ML UNIT-DOSE CUPS PO PRN (21:15)
[2016-10-18] MEDS: MONTELUKAST NA 10 MG TABLET PO SCH (21:15)
[2016-10-19] MEDS: LEVOTHYROXINE NA 100 MCG TABLET (FP) PO SCH (06:04)
[2016-10-19 07:29] LABS: BASOPHIL 0.2 % (0-2.0); EOSINOPHIL 0.3 % (0-4.5); MCH 27.9 pg (25.7-33.7); MCHC 32.3 g/dl (32.0-35.9); MEAN CELL VOLUME 86.3 fl (80-96); MEAN PLT VOLUME 9.1 fl (7.5-11.1); NEUTROPHILS 77.5 % (42.8-82.8); PLATELET COUNT 206 K/MM3 (134-434); RDW 18.2 % (11.9-15.9)
[2016-10-19 07:36] LABS: INR 2.74 (0.82-1.09); PROTHROMBIN TIME (PATIENT) 30.8 SEC (9.98-11.88)
[2016-10-19 07:51] LABS: ALK PHOS 110 U/L (45-117); ANION GAP 8 (8-16); BILIRUBIN,TOTAL 0.4 mg/dL (0.2-1.0); CALCIUM 8.2 mg/dL (8.5-10.1); CO2 26 mmol/L (21-32); CREATININE 1.3 mg/dL (0.7-1.3); GLUCOSE,RANDOM 117 mg/dL (74-106); MAGNESIUM 2.9 mg/dL (1.8-2.4); PHOSPHOROUS 4.4 mg/dL (2.5-4.9); SGOT/AST 44 U/L (15-37); SGPT/ALT 105 U/L (12-78); TOT PROT 5.5 g/dl (6.4-8.2)
--- NOTE | 2016-10-19 08:08 | PN ---
Progress Note (short form) - Note Progress Note: Renal Follow up for MARIAM Pt seen and examined at the bedside awake and alert no acute complaints able to void w/o difficulty no sob, chest pain, abd pain Vital Signs Temperature 98.2 F 10/19/16 06:00 Pulse Rate 91 H 10/19/16 06:00 Respiratory Rate 20 10/19/16 06:00 Blood Pressure 106/69 10/19/16 06:00 O2 Sat by Pulse Oximetry (%) 95 10/18/16 21:00 Intake & Output 10/16/16 10/17/16 10/18/16 10/19/16 23:59 23:59 23:59 23:59 Intake Total 890 240 200 Output Total 1100 550 750 Balance 890 -860 -350 -750 Weight 210 lb 212 lb 8 oz 212 lb 4 oz 214 lb 4 oz Gen: NAD CVS: RRR Lungs: dec BS at lung bases Abd: soft NT/ND, No bladder distension Ext: trace to 1+ edema CBC, BMP 10/19/16 06:10 Laboratory Tests 10/18/16 10/19/16 06:00 06:10 Uric Acid 8.5 H D Calcium 8.5 8.2 L Phosphorus 4.4 Magnesium 2.9 H D 2.9 H Albumin 3.1 L 3.0 L Current Medications Acetaminophen (Tylenol -) 650 mg PO Q4H PRN PRN Reason: FEVER OR PAIN Albuterol Sulfate (Ventolin 0.083% Nebulizer Soln -) 1 amp NEB Q4H PRN PRN Reason: SHORT OF BREATH/WHEEZING Last Admin: 10/17/16 02:02 Dose: 1 amp Albuterol/Ipratropium (Duoneb -) 1 amp NEB QID [facility] Last Admin: 10/18/16 22:10 Dose: 1 amp Allopurinol (Zyloprim -) 100 mg PO DAILY [facility] Last Admin: 10/18/16 09:40 Dose: 100 mg Aspirin (Asa -) 81 mg PO DAILY [facility] Last Admin: 10/18/16 09:40 Dose: 81 mg Atorvastatin Calcium (Lipitor -) 20 mg PO HS [facility] Last Admin: 10/18/16 21:15 Dose: 20 mg Furosemide (Lasix -) 20 mg PO DAILY [facility] Last Admin: 10/18/16 09:40 Dose: 20 mg Guaifenesin/Codeine Phosphate (Robitussin Ac -) 5 ml PO Q4H PRN PRN Reason: COUGH Last Admin: 10/18/16 21:15 Dose: 5 ml Levothyroxine Sodium (Synthroid -) 100 mcg PO DAILY@0700 [facility] Last Admin: 10/19/16 06:04 Dose: 100 mcg Metoprolol Succinate (Toprol Xl -) 25 mg PO HS [facility] Last Admin: 10/18/16 21:15 Dose: 25 mg Montelukast Sodium (Singulair -) 10 mg PO HS [facility] Last Admin: 10/18/16 21:15 Dose: 10 mg Ondansetron HCl (Zofran Injection) 4 mg IVPB Q6H PRN PRN Reason: NAUSEA Pantoprazole Sodium (Protonix -) 40 mg PO DAILY [facility] Last Admin: 10/18/16 09:40 Dose: 40 mg Prednisone (Deltasone -) 40 mg PO DAILY [facility] Last Admin: 10/18/16 09:40 Dose: 40 mg Tamsulosin HCl (Flomax -) 0.4 mg PO DAILY@0830 [facility] Warfarin Sodium (Coumadin -) 2.5 mg PO Q2D@1800 [facility] Last Admin: 10/18/16 21:48 Dose: Not Given A/P 80 year old gentleman with PMhx of severe COPD, Coronary artery disease, HLD, Pneumonia, Lung abscess, s/p Pulmonary lobectomy, Pulmonary Embolism, Hypothyroidism p/w sob secondary to COPD/CHF with MARIAM with Cr 1.6 #MARIAM Etiology likely multifactoiral (Urinary retention +/- hemodymaic changes during CHF/Diuresis) Renal function with significant improvement continue Lasix at lower dose, if renal function remains stable can titrate up to achieve evolemia continue flomax daily as bladder us showed mildly enlarged prostate avoid nsaids trend BUN/Cr daily Thank you Neo Castro DO
[2016-10-19] MEDS: ALBUTEROL SO4 2.5/IPRATROPIUM 0.5 INH SOL 3 ML VIAL.NEB. NEB SCH ×4 (09:15→22:38)
[2016-10-19] MEDS: ASPIRIN 81 MG CHEWABLE TABLETS PO SCH (09:28)
[2016-10-19] MEDS: predniSONE 20 MG TABLET (UD) PO SCH (09:28)
[2016-10-19] MEDS: PANTOPRAZOLE 40 MG TABLET (FP) PO SCH (09:28)
[2016-10-19] MEDS: ALLOPURINOL 100 MG TABLET (FP) PO SCH (09:28)
[2016-10-19] MEDS: guaiFENesin/CODEINE 5 ML UNIT-DOSE CUPS PO PRN ×2 (09:28→21:55)
[2016-10-19] MEDS: FUROSEMIDE 20 MG TABLET (FP) PO SCH (09:28)
[2016-10-19] MEDS: TAMSULOSIN HCL 0.4 MG CAP.ER.24H (FP) PO SCH (09:29)
--- NOTE | 2016-10-19 10:14 | PN ---
Progress Note, Physician Chief Complaint: Paroxysmal coughing since after breakfast. History of Present Illness: Patient improving from admission but this morning after breakfast he started with paroxysms of coughing feeling he cant clear some mucus. He denies aspiration during swallowing at breakfast. Nurse gave Steroid dose and aerosol treatment and I gave him several minutes of chest PT. It may have settled down a bit but await pulmonary followup. - Current Medication List Current Medications: Active Medications Acetaminophen (Tylenol -) 650 mg PO Q4H PRN PRN Reason: FEVER OR PAIN Albuterol Sulfate (Ventolin 0.083% Nebulizer Soln -) 1 amp NEB Q4H PRN PRN Reason: SHORT OF BREATH/WHEEZING Last Admin: 10/17/16 02:02 Dose: 1 amp Albuterol/Ipratropium (Duoneb -) 1 amp NEB QID [facility] Last Admin: 10/19/16 09:15 Dose: 1 amp Allopurinol (Zyloprim -) 100 mg PO DAILY [facility] Last Admin: 10/19/16 09:28 Dose: 100 mg Aspirin (Asa -) 81 mg PO DAILY [facility] Last Admin: 10/19/16 09:28 Dose: 81 mg Atorvastatin Calcium (Lipitor -) 20 mg PO HS [facility] Last Admin: 10/18/16 21:15 Dose: 20 mg Furosemide (Lasix -) 20 mg PO DAILY [facility] Last Admin: 10/19/16 09:28 Dose: 20 mg Guaifenesin/Codeine Phosphate (Robitussin Ac -) 5 ml PO Q4H PRN PRN Reason: COUGH Last Admin: 10/19/16 09:28 Dose: 5 ml Levothyroxine Sodium (Synthroid -) 100 mcg PO DAILY@0700 [facility] Last Admin: 10/19/16 06:04 Dose: 100 mcg Metoprolol Succinate (Toprol Xl -) 25 mg PO HS [facility] Last Admin: 10/18/16 21:15 Dose: 25 mg Montelukast Sodium (Singulair -) 10 mg PO [facility] Last Admin: 10/18/16 21:15 Dose: 10 mg Ondansetron HCl (Zofran Injection) 4 mg IVPB Q6H PRN PRN Reason: NAUSEA Pantoprazole Sodium (Protonix -) 40 mg PO DAILY [facility] Last Admin: 10/19/16 09:28 Dose: 40 mg Prednisone (Deltasone -) 40 mg PO DAILY [facility] Last Admin: 10/19/16 09:28 Dose: 40 mg Tamsulosin HCl (Flomax -) 0.4 mg PO DAILY@0830 [facility] Last Admin: 10/19/16 09:29 Dose: 0.4 mg Warfarin Sodium (Coumadin -) 2.5 mg PO Q2D@1800 [facility] Last Admin: 10/18/16 21:48 Dose: Not Given - Objective Vital Signs: Vital Signs Temperature 98.2 F 10/19/16 06:00 Pulse Rate 99 H 10/19/16 09:10 Respiratory Rate 20 10/19/16 06:00 Blood Pressure 106/69 10/19/16 06:00 O2 Sat by Pulse Oximetry (%) 93 L 10/19/16 09:10 Constitutional: Yes: Mild Distress Eyes: Yes: Tearing (Due to coughing) HENT: Yes: Other (No uvula; no obvious blockage in pharynx.) Respiratory: Yes: On Nasal O2, Rhonchi (some rhonchi at both bases), Tachypnea Gastrointestinal: Yes: Soft Genitourinary: No: Carpenter Present Edema: LLE: Trace, RLE: Trace Neurological: Yes: Alert Labs: CBC, BMP 10/19/16 06:10 10/19/16 06:10 INR, PTT INR 2.74 (0.82-1.09) H 10/19/16 06:10 Problem List - Problems (1) Bronchiectasis with (acute) exacerbation Assessment/Plan: Coughing paroxysms this AM; maybe some aspiration during breakfast but he denies that. Code(s): J47.1 - BRONCHIECTASIS WITH (ACUTE) EXACERBATION (2) COPD (chronic obstructive pulmonary disease) Assessment/Plan: On Aerosol and steroid Rx. May add Cipro Rx. Code(s): 496 - CHR AIRWAY OBSTRUCT NEC (3) HTN (hypertension) Assessment/Plan: Stable off ARB Code(s): I10 - ESSENTIAL (PRIMARY) HYPERTENSION (4) Murali-tachy syndrome Assessment/Plan: PVC's and tachycardic due to coughing spells Code(s): I49.5 - SICK SINUS SYNDROME (5) Pneumonia Assessment/Plan: Cleared Code(s): J18.9 - PNEUMONIA, UNSPECIFIED ORGANISM (6) Cough Assessment/Plan: Sudden paroxysms this AM after breakfast. Throat clear. Responded to some chest PT Code(s): R05 - COUGH
--- NOTE | 2016-10-19 10:46 | PN ---
Progress Note (short form) - Note Progress Note: History of Present Illness: sob persists and now with cough no cp, no palps no dizzy le edema better Current Medications Generic Name Dose Route Start Last Admin Trade Name Freq PRN Reason Stop Dose Admin Acetaminophen 650 mg 10/10/16 14:55 Tylenol - PO Q4H PRN FEVER OR PAIN Albuterol Sulfate 1 amp 10/13/16 14:18 10/17/16 02:02 Ventolin 0.083% Nebulizer Soln - NEB 1 amp Q4H PRN Administration SHORT OF BREATH/WHEEZING Albuterol/Ipratropium 1 amp 10/15/16 22:00 10/19/16 09:15 Duoneb - NEB 1 amp QID FAM Administration Allopurinol 100 mg 10/11/16 10:00 10/19/16 09:28 Zyloprim - PO 100 mg DAILY [facility] Administration Aspirin 81 mg 10/11/16 10:00 10/19/16 09:28 Asa - PO 81 mg DAILY [facility] Administration Atorvastatin Calcium 20 mg 10/10/16 22:00 10/18/16 21:15 Lipitor - PO 20 mg HS FAM Administration Benzocaine/Menthol 1 each 10/19/16 10:20 Cepacol Lozenge - MM PRN PRN SORE THROAT Furosemide 20 mg 10/15/16 10:00 10/19/16 09:28 Lasix - PO 20 mg DAILY [facility] Administration Guaifenesin/Codeine Phosphate 5 ml 10/17/16 09:22 10/19/16 09:28 Robitussin Ac - PO 5 ml Q4H PRN Administration COUGH Levofloxacin 250 mg 10/19/16 12:00 Levaquin - PO DAILY@0600 [facility] Levothyroxine Sodium 100 mcg 10/15/16 07:00 10/19/16 06:04 Synthroid - PO 100 mcg DAILY@0700 [facility] Administration Metoprolol Succinate 25 mg 10/10/16 22:00 10/18/16 21:15 Toprol Xl - PO 25 mg HS FAM Administration Montelukast Sodium 10 mg 10/14/16 22:00 10/18/16 21:15 Singulair - PO 10 mg HS [facility] Administration Pantoprazole Sodium 40 mg 10/11/16 10:00 10/19/16 09:28 Protonix - PO 40 mg DAILY [facility] Administration Prednisone 40 mg 10/16/16 10:00 10/19/16 09:28 Deltasone - PO 40 mg DAILY [facility] Administration Tamsulosin HCl 0.4 mg 10/19/16 08:30 10/19/16 09:29 Flomax - PO 0.4 mg DAILY@0830 [facility] Administration Warfarin Sodium 2.5 mg 10/16/16 18:00 10/18/16 21:48 Coumadin - PO Not Given Q2D@1800 [facility] Vital Signs Period Temp Pulse Resp BP Sys/Martinez Pulse Ox Last 24 Hr 97.8 F-98.3 F 86-116 18-20 106-127/69-86 93-95 NAD, calm jvd flat, neck supple diminished breath sounds/exp wheezes, nl effort tachycardic, regular nl s1, s2 2/6 murmur at sternal border and apex + bs soft nt nd trace le edema bl aaox3 no jaundice, diaphoresis CBC, BMP 10/19/16 06:10 10/19/16 06:10 - ....Imaging EKG: Other (tele: SR, pvcs) EKG: sr, 97 bpm. anterolateral twi. Previously twi more prominent in lateral leads. Echo 09/2016 office: Moderate global HK, EF 40%. nl rv. mod mr, LHC 05/[address] [facility]--per dc summary, patent prior stents and non obs residual dz. LHC/PCI 2010: prox RCA NICOLE, residual OM1 50-60%, patent mid LAD stent, normal right heart pressures, normal LVF Dobut Stress MPI 08/2010: small, mild apical anterior and LV apex ischemia--( PCI after this) MIBI 12/13: small/mild infer ischemia vs GI tracer confounding, EF 41% ct chest 02/2016: ascd aorta 4.3 cm a/p: 80 yo with h/o CAD (s/p PCI), systolic cardiomyopathy, mild asc ao dilation, mod mr, htn, hl, hypothyroid, COPD, Pneumonia (s/p lobectomy for lung abscess), Pulmonary Embolus on coumadin p/w bradycardia. bradycardia - no ekg documentation of episodes. (on routine vitals prior to starting P.T. he was noted to have HR's in the 30's-40's-->to ER where normal HR. per family on telemetry in ER, HR's intermittently were reading 30's -50's for seconds at a time and then going back up to 70's-100's.) - ? artifactual has known h/o sinus tach and has remained in sinus tach here. - he had no sx's at home or here of presyncope/syncope (generalized weakness on DOA is apparently a chronic, stable condition which improves acutely with PT) - recent cath unremarkable, echo in september EF 40%, stable vs priors apparently - telemetry monitoring x > 48 hours has shown no bradyarrhythmia (frequent ventricular ectopy and nsvt). Holter monitor shows high burden of ventricular ectopy (13%). 48 episodes of 3-5 beat runs of nsvt. minimum HR 88. no pauses - home metoprolol continued in hospital. weakness, orthostatic hypotension -improving CAD (s/p PCI) - Con't medical therapy with ASA, statin. Stable. No angina. CE's negative here and recent cath in may with no residual disease syst chf/nsvt: - Over the years his echos have shown variations in lvef, at times reduced. Recent echo at [facility] 05/2016 reports lvef 20% (per dc summary). During that admit he was seen by cardio and had repeat cath showing patent stents and non obs residual dz. He was noted to have NSVT on tele there and given lifevest but pt/ declined. Was started on toprol as well. He has been on bb/arb for several mos now --> improvement in EF --> cont - wt 203 yest, 206 today (office wts vary 195-210 since 04/22). - lasix held here over weekend for + orthostatics - 10/13 JVD noted on exam --> lasix 40 mg IV x 1 - 10/14-13: resumed po lasix as above - 10/17: wt rising and starting to develop le edema. Got lasix 40 iv yesterday and today still vol up and cr bumped up. Given that he appears volume up he may need more iv lasix which may help cr as well. Renal consulted today, will discuss. -10/18: seen by renal, rec'd stopping arb and monitoring for now w/o aggressive diuresis. Today le edema improved and cr improved. Cont with po lasix for now. -10/19: cr continues to improve, back to baseline. Given that his cr bumped up after iv lasix and then improved after stopping iv lasix, it seems that he does not need aggressive diuresis at this time. Cont po lasix for maintenance. Now that off iv steroids le edema should improve. - cont home metoprolol 25mg HTN: - stable Hyperlipdemia, - con't statin a.e. COPD - on home o2 and theophylline - on abx, steroids, pulm following PE 2010 - coumadin. dosing per inr. hgb stable even with additional asa. - tachycardia is chronic (likely related to theophylline and standing RCT duonebs here at least), ranging 105-109 on office visits since 04/22--INR therapeutic here, no other s/sx suggestive of PE--extremely unlikely dx so no need further w/u ascending thoracic aneurysm, small: - Stable on recent ct scan. Cont bb.
[2016-10-19] MEDS: LEVOFLOXACIN 250 MG TABLET (FP) PO SCH (13:07)
[2016-10-19] MEDS: BENZOCAINE/MENTH/CETYLPYRD CL 1 EACH LOZENGE MM PRN (17:28)
[2016-10-19] MEDS ORDERED: WARFARIN NA 2 MG TABLET (UD) PO ONE (18:00)
[2016-10-19] MEDS: ATORVASTATIN CA 20 MG TABLET (FP) PO SCH (21:55)
[2016-10-19] MEDS: METOPROLOL SUCCINATE 25 MG TAB.SR.24H (FP) PO SCH (21:55)
[2016-10-19] MEDS: MONTELUKAST NA 10 MG TABLET PO SCH (21:55)
[2016-10-20] MEDS: LEVOTHYROXINE NA 100 MCG TABLET (FP) PO SCH (06:30)
[2016-10-20] MEDS: LEVOFLOXACIN 250 MG TABLET (FP) PO SCH (06:30)
[2016-10-20 07:09] LABS: INR 2.18 (0.82-1.09); PROTHROMBIN TIME (PATIENT) 24.4 SEC (9.98-11.88)
[2016-10-20 07:13] LABS: ANION GAP 9 (8-16); CALCIUM 7.9 mg/dL (8.5-10.1); CO2 26 mmol/L (21-32); CREATININE 1.3 mg/dL (0.7-1.3); GLUCOSE,RANDOM 114 mg/dL (74-106)
--- NOTE | 2016-10-20 09:24 | PN ---
Progress Note, Physician - Current Medication List Current Medications: Active Medications Acetaminophen (Tylenol -) 650 mg PO Q4H PRN PRN Reason: FEVER OR PAIN Albuterol Sulfate (Ventolin 0.083% Nebulizer Soln -) 1 amp NEB Q4H PRN PRN Reason: SHORT OF BREATH/WHEEZING Last Admin: 10/17/16 02:02 Dose: 1 amp Albuterol/Ipratropium (Duoneb -) 1 amp NEB QID [facility] Last Admin: 10/19/16 22:38 Dose: 1 amp Allopurinol (Zyloprim -) 100 mg PO DAILY [facility] Last Admin: 10/19/16 09:28 Dose: 100 mg Aspirin (Asa -) 81 mg PO DAILY [facility] Last Admin: 10/19/16 09:28 Dose: 81 mg Atorvastatin Calcium (Lipitor -) 20 mg PO HS [facility] Last Admin: 10/19/16 21:55 Dose: 20 mg Benzocaine/Menthol (Cepacol Lozenge -) 1 each MM PRN PRN PRN Reason: SORE THROAT Last Admin: 10/19/16 17:28 Dose: 1 each Furosemide (Lasix -) 20 mg PO DAILY [facility] Last Admin: 10/19/16 09:28 Dose: 20 mg Guaifenesin/Codeine Phosphate (Robitussin Ac -) 5 ml PO Q4H PRN PRN Reason: COUGH Last Admin: 10/19/16 21:55 Dose: 5 ml Levofloxacin (Levaquin -) 250 mg PO DAILY@0600 [facility] Last Admin: 10/20/16 06:30 Dose: 250 mg Levothyroxine Sodium (Synthroid -) 100 mcg PO DAILY@0700 [facility] Last Admin: 10/20/16 06:30 Dose: 100 mcg Metoprolol Succinate (Toprol Xl -) 25 mg PO HS [facility] Last Admin: 10/19/16 21:55 Dose: 25 mg Montelukast Sodium (Singulair -) 10 mg PO HS [facility] Last Admin: 10/19/16 21:55 Dose: 10 mg Pantoprazole Sodium (Protonix -) 40 mg PO DAILY [facility] Last Admin: 10/19/16 09:28 Dose: 40 mg Prednisone (Deltasone -) 40 mg PO DAILY [facility] Last Admin: 10/19/16 09:28 Dose: 40 mg Tamsulosin HCl (Flomax -) 0.4 mg PO DAILY@0830 [facility] Last Admin: 10/19/16 09:29 Dose: 0.4 mg Warfarin Sodium (Coumadin -) 2.5 mg PO Q2D@1800 [facility] Last Admin: 10/18/16 21:48 Dose: Not Given - Objective Vital Signs: Vital Signs Temperature 98 F 10/20/16 06:00 Pulse Rate 93 H 10/20/16 06:00 Respiratory Rate 20 10/20/16 06:00 Blood Pressure 93/69 10/20/16 06:00 O2 Sat by Pulse Oximetry (%) 100 10/19/16 20:02 Labs: CBC, BMP 10/19/16 06:10 10/20/16 06:00 INR, PTT INR 2.18 (0.82-1.09) H 10/20/16 06:00 Assessment/Plan Holter monitor shows high burden of ventricular ectopy (13%). 48 episodes of 3- 5 beat runs of nsvt. minimum HR 88. no pauses Echo 09/2016 office: Moderate global HK, EF 40%. nl rv. mod mr, LHC 05/2016 at [facility]--per dc summary, patent prior stents and non obs residual dz. LHC/PCI 2010: prox RCA NICOLE, residual OM1 50-60%, patent mid LAD stent, normal right heart pressures, normal LVF Dobut Stress MPI 08/2010: small, mild apical anterior and LV apex ischemia--( PCI after this) MIBI 12/13: small/mild infer ischemia vs GI tracer confounding, EF 41% ct chest 02/2016: ascd aorta 4.3 cm a/p: 80 yo with h/o CAD (s/p PCI), systolic cardiomyopathy, mild asc ao dilation, mod mr, htn, hl, hypothyroid, COPD, Pneumonia (s/p lobectomy for lung abscess), Pulmonary Embolus on coumadin p/w bradycardia. bradycardia - no ekg documentation of episodes. (on routine vitals prior to starting P.T. he was noted to have HR's in the 30's-40's-->to ER where normal HR. per family on telemetry in ER, HR's intermittently were reading 30's -50's for seconds at a time and then going back up to 70's-100's.) - ? artifactual has known h/o sinus tach and has remained in sinus tach here. - he had no sx's at home or here of presyncope/syncope (generalized weakness on DOA is apparently a chronic, stable condition which improves acutely with PT) - recent cath unremarkable, echo in september EF 40%, stable vs priors apparently - no bradyarrhythmia on telemetry here for many days. - home metoprolol continued in hospital. weakness, orthostatic hypotension -improving -observe when pt becomes more ambulatory CAD (s/p PCI) - Con't medical therapy with ASA, statin. Stable. No angina. CE's negative here and recent cath in may with no residual disease syst chf/nsvt: - Over the years his echos have shown variations in lvef, at times reduced. Recent echo at [facility] 05/2016 reports lvef 20% (per dc summary). During that admit he was seen by cardio and had repeat cath showing patent stents and non obs residual dz. He was noted to have NSVT on tele there and given lifevest but pt/ declined. Was started on toprol as well. He has been on bb/arb for several mos now --> improvement in EF --> cont - wt 203 yest, 206 today (office wts vary 195-210 since 04/22). - lasix held here over weekend for + orthostatics - 10/13 JVD noted on exam --> lasix 40 mg IV x 1 - 10/14-13: resumed po lasix as above - 10/17: wt rising and starting to develop le edema. Got lasix 40 iv yesterday and today still vol up and cr bumped up. Given that he appears volume up he may need more iv lasix which may help cr as well. Renal consulted today, will discuss. -10/18: seen by renal, rec'd stopping arb and monitoring for now w/o aggressive diuresis. Today le edema improved and cr improved. Cont with po lasix for now. -10/19: cr continues to improve, back to baseline. Given that his cr bumped up after iv lasix and then improved after stopping iv lasix, it seems that he does not need aggressive diuresis at this time. Cont po lasix for maintenance. Now that off iv steroids le edema should improve. - wt up from 203 to 215 lbs here--observe trend, consider rechallenge with increase diuresis if s/sx of chf develop - cont home metoprolol 25mg HTN: - stable Hyperlipdemia, - con't statin a.e. COPD - on home o2 and theophylline - on abx, steroids, pulm following PE 2010 - coumadin. dosing per inr. hgb stable even with additional asa. ascending thoracic aneurysm, small: - Stable on recent ct scan. Cont bb.
--- NOTE | 2016-10-20 09:33 | PN ---
Progress Note, Physician History of Present Illness: Pt redeveloped cough and sputum production (clear). No chest pain or palpitations - Current Medication List Current Medications: Active Medications Acetaminophen (Tylenol -) 650 mg PO Q4H PRN PRN Reason: FEVER OR PAIN Albuterol Sulfate (Ventolin 0.083% Nebulizer Soln -) 1 amp NEB Q4H PRN PRN Reason: SHORT OF BREATH/WHEEZING Last Admin: 10/17/16 02:02 Dose: 1 amp Albuterol/Ipratropium (Duoneb -) 1 amp NEB QID [facility] Last Admin: 10/19/16 22:38 Dose: 1 amp Allopurinol (Zyloprim -) 100 mg PO DAILY [facility] Last Admin: 10/19/16 09:28 Dose: 100 mg Aspirin (Asa -) 81 mg PO DAILY [facility] Last Admin: 10/19/16 09:28 Dose: 81 mg Atorvastatin Calcium (Lipitor -) 20 mg PO [facility] Last Admin: 10/19/16 21:55 Dose: 20 mg Benzocaine/Menthol (Cepacol Lozenge -) 1 each MM PRN PRN PRN Reason: SORE THROAT Last Admin: 10/19/16 17:28 Dose: 1 each Furosemide (Lasix -) 20 mg PO DAILY [facility] Last Admin: 10/19/16 09:28 Dose: 20 mg Guaifenesin/Codeine Phosphate (Robitussin Ac -) 5 ml PO Q4H PRN PRN Reason: COUGH Last Admin: 10/19/16 21:55 Dose: 5 ml Levofloxacin (Levaquin -) 250 mg PO DAILY@0600 [facility] Last Admin: 10/20/16 06:30 Dose: 250 mg Levothyroxine Sodium (Synthroid -) 100 mcg PO DAILY@0700 [facility] Last Admin: 10/20/16 06:30 Dose: 100 mcg Metoprolol Succinate (Toprol Xl -) 25 mg PO [facility] Last Admin: 10/19/16 21:55 Dose: 25 mg Montelukast Sodium (Singulair -) 10 mg PO HS [facility] Last Admin: 10/19/16 21:55 Dose: 10 mg Pantoprazole Sodium (Protonix -) 40 mg PO DAILY [facility] Last Admin: 10/19/16 09:28 Dose: 40 mg Prednisone (Deltasone -) 40 mg PO DAILY [facility] Last Admin: 10/19/16 09:28 Dose: 40 mg Tamsulosin HCl (Flomax -) 0.4 mg PO DAILY@0830 [facility] Last Admin: 10/19/16 09:29 Dose: 0.4 mg Warfarin Sodium (Coumadin -) 2.5 mg PO Q2D@1800 [facility] Last Admin: 10/18/16 21:48 Dose: Not Given - Objective Vital Signs: Vital Signs Temperature 98 F 10/20/16 06:00 Pulse Rate 93 H 10/20/16 06:00 Respiratory Rate 20 10/20/16 06:00 Blood Pressure 93/69 10/20/16 06:00 O2 Sat by Pulse Oximetry (%) 100 10/19/16 20:02 Constitutional: Yes: Mild Distress Eyes: No: Sclera Icterus HENT: Yes: Atraumatic, Normocephalic Neck: Yes: Supple Cardiovascular: Yes: Regular Rate and Rhythm. No: JVD Respiratory: Yes: Rhonchi, Wheezes (bilateral) Edema: LLE: 1+, RLE: 1+ Neurological: Yes: Alert, Oriented Labs: CBC, BMP 10/19/16 06:10 10/20/16 06:00 INR, PTT INR 2.18 (0.82-1.09) H 10/20/16 06:00 SaO2 92 on room air by my measurement this A.M. Shai level 19.72 on 10/17 and less than 2 today (theophylline dc'd 10/17) - ....Imaging Chest X-ray: Report Reviewed, Image Reviewed (redevelopment of right lower lung field infiltrates) Assessment/Plan Assessment: Pt's respiratory status is worse. Recurrence of infiltrate right base which could be on the basis of pneumonia and/or CHF Plan: Increase steroids. Cautious re-introduction of theophylline at low dose with monitoring of level; keep level<8 Diuretic tx per cardiology Continue antibiotic, bronchodilators O2 to maintain SaO2>90
--- NOTE | 2016-10-20 09:36 | PN ---
Progress Note (short form) - Note Progress Note: Patient had another coughing event today which he says was due to swallowing prune juice"down the wrong tube". However he is wheezing today in spite of aerosol and PO Prednisone. Dr. Franco also D/Sumit Theophyllin Rx last week wanting to have a lower than normal level but hasn't reordered that yet. Cough doesn't produce much sputum and was helped by Chest PT yesterday. On Exam: Vital Signs Temp 98 F 10/20/16 06:00 Pulse 93 H 10/20/16 06:00 Resp 20 10/20/16 06:00 BP 93/69 10/20/16 06:00 Pulse Ox 100 10/19/16 20:02 Intake & Output 10/19/16 10/19/16 10/20/16 11:59 23:59 11:59 Intake Total 410 Output Total 750 680 400 Balance -750 -270 -400 Weight 214 lb 4 oz 215 lb 2 oz Intake: IV 10 LH 22 10/19/2016 10 Oral 400 Output: Urine 750 680 400 Void 750 680 400 Other: Voiding Method Urinal Urinal # Unmeasured Voids Void 2 Bowel Movement Yes: 1 Weight Measurement Method Standing Scale Standing Scale Alert Coughing Chest: Bilateral wheezing Cor: tachycardia Abd; Nontender Ext: Trace edema Abnormal Lab Results 10/20/16 10/20/16 10/20/16 06:00 06:00 06:00 INR 2.18 H BUN 44 H Random Glucose 114 H Calcium 7.9 L Theophylline < 2.0 L* IMP: COPD with acute exacerbation Chronic Bronchiectasis ASHD TAA Hx. PE Renal Failure Plan: Stat aerosol Rx and AM Prednisone dose F/U Pulmonary MD ?Restart Theophyllin F/U Lab Problem List - Problems (1) Bronchiectasis with (acute) exacerbation Code(s): J47.1 - BRONCHIECTASIS WITH (ACUTE) EXACERBATION (2) COPD (chronic obstructive pulmonary disease) Code(s): 496 - CHR AIRWAY OBSTRUCT NEC (3) HTN (hypertension) Code(s): I10 - ESSENTIAL (PRIMARY) HYPERTENSION (4) Murali-tachy syndrome Code(s): I49.5 - SICK SINUS SYNDROME (5) Pneumonia Code(s): J18.9 - PNEUMONIA, UNSPECIFIED ORGANISM (6) Cough Code(s): R05 - COUGH
[2016-10-20] MEDS: FUROSEMIDE 20 MG TABLET (FP) PO SCH (09:45)
[2016-10-20] MEDS: ASPIRIN 81 MG CHEWABLE TABLETS PO SCH (09:46)
[2016-10-20] MEDS: guaiFENesin/CODEINE 5 ML UNIT-DOSE CUPS PO PRN ×2 (09:46→20:58)
[2016-10-20] MEDS: TAMSULOSIN HCL 0.4 MG CAP.ER.24H (FP) PO SCH (09:46)
[2016-10-20] MEDS: ALLOPURINOL 100 MG TABLET (FP) PO SCH (09:46)
[2016-10-20] MEDS: PANTOPRAZOLE 40 MG TABLET (FP) PO SCH (09:46)
[2016-10-20] MEDS: methylPREDNISolone NA SUCC 40 MG/1 ML VIAL IVPB SCH ×2 (09:48→17:36)
[2016-10-20 09:51] LABS: ALBUMIN 2.9 g/dl (3.4-5.0); BILIRUBIN,DIRECT 0.2 mg/dL (0.0-0.2); BILIRUBIN,TOTAL 0.4 mg/dL (0.2-1.0); SGOT/AST 30 U/L (15-37); SGPT/ALT 111 U/L (12-78); TOT PROT 5.4 g/dl (6.4-8.2)
[2016-10-20 09:52] LABS: ALK PHOS 111 U/L (45-117)
[2016-10-20] MEDS: ALBUTEROL SO4 2.5/IPRATROPIUM 0.5 INH SOL 3 ML VIAL.NEB. NEB SCH ×4 (11:06→22:00)
[2016-10-20] MEDS ORDERED: FUROSEMIDE 40 MG/4 ML INJECTABLE VIAL IVPUSH ONE (11:12)
--- NOTE | 2016-10-20 11:15 | PN ---
Progress Note, Physician Chief Complaint: sob History of Present Illness: sob worse, though thinks it's improved the past 2d. feels breathless with walking to bathroom no leg swelling, cp, palpit - Current Medication List Current Medications: Active Medications Acetaminophen (Tylenol -) 650 mg PO Q4H PRN PRN Reason: FEVER OR PAIN Albuterol Sulfate (Ventolin 0.083% Nebulizer Soln -) 1 amp NEB Q4H PRN PRN Reason: SHORT OF BREATH/WHEEZING Last Admin: 10/17/16 02:02 Dose: 1 amp Albuterol/Ipratropium (Duoneb -) 1 amp NEB QID [facility] Last Admin: 10/20/16 11:06 Dose: 1 amp Allopurinol (Zyloprim -) 100 mg PO DAILY [facility] Last Admin: 10/20/16 09:46 Dose: 100 mg Aspirin (Asa -) 81 mg PO DAILY [facility] Last Admin: 10/20/16 09:46 Dose: 81 mg Atorvastatin Calcium (Lipitor -) 20 mg PO [facility] Last Admin: 10/19/16 21:55 Dose: 20 mg Benzocaine/Menthol (Cepacol Lozenge -) 1 each MM PRN PRN PRN Reason: SORE THROAT Last Admin: 10/19/16 17:28 Dose: 1 each Furosemide (Lasix -) 20 mg PO DAILY [facility] Last Admin: 10/20/16 09:45 Dose: 20 mg Guaifenesin/Codeine Phosphate (Robitussin Ac -) 5 ml PO Q4H PRN PRN Reason: COUGH Last Admin: 10/20/16 09:46 Dose: 5 ml Levofloxacin (Levaquin -) 250 mg PO DAILY@0600 [facility] Last Admin: 10/20/16 06:30 Dose: 250 mg Levothyroxine Sodium (Synthroid -) 100 mcg PO DAILY@0700 [facility] Last Admin: 10/20/16 06:30 Dose: 100 mcg Methylprednisolone Sodium Succinate (Solu-Medrol -) 40 mg IVPB Q8H-IV [facility] Last Admin: 10/20/16 09:48 Dose: 40 mg Metoprolol Succinate (Toprol Xl -) 25 mg PO [facility] Last Admin: 10/19/16 21:55 Dose: 25 mg Montelukast Sodium (Singulair -) 10 mg PO [facility] Last Admin: 10/19/16 21:55 Dose: 10 mg Pantoprazole Sodium (Protonix -) 40 mg PO DAILY [facility] Last Admin: 10/20/16 09:46 Dose: 40 mg Tamsulosin HCl (Flomax -) 0.4 mg PO DAILY@0830 [facility] Last Admin: 10/20/16 09:46 Dose: 0.4 mg Theophylline (Shai-24) 100 mg PO DAILY [facility] Warfarin Sodium (Coumadin -) 2.5 mg PO DAILY@1800 [facility] - Objective Vital Signs: Vital Signs Temperature 98 F 10/20/16 06:00 Pulse Rate 92 H 10/20/16 10:35 Respiratory Rate 20 10/20/16 10:00 Blood Pressure 96/56 10/20/16 10:00 O2 Sat by Pulse Oximetry (%) 95 10/20/16 10:35 Constitutional: Yes: No Distress, Calm Eyes: No: Sclera Icterus HENT: No: Nasal Congestion Cardiovascular: Yes: Regular Rate and Rhythm, JVD (to jaw (left neck)), S1, S2, Other (PMI non diplaced). No: Gallop, Murmur Respiratory: Yes: CTA Bilaterally, Rhonchi, Wheezes. No: Accessory Muscle Use, Rales Gastrointestinal: Yes: Normal Bowel Sounds, Soft. No: Tenderness Musculoskeletal: Yes: Other (No kyphosis) Extremities: No: Cold Edema: No Integumentary: No: Jaundice Neurological: Yes: Alert, Oriented (x3) Psychiatric: No: Agitated Labs: CBC, BMP 10/19/16 06:10 10/20/16 06:00 INR, PTT INR 2.18 (0.82-1.09) H 10/20/16 06:00 - ....Imaging EKG: Other (tele: NSR, PVCs) Assessment/Plan Holter monitor shows high burden of ventricular ectopy (13%). 48 episodes of 3- 5 beat runs of nsvt. minimum HR 88. no pauses Echo 09/2016 office: Moderate global HK, EF 40%. nl rv. mod mr, C 05/2016 at [facility]--per dc summary, patent prior stents and non obs residual dz. LHC/PCI 2010: prox RCA NICOLE, residual OM1 50-60%, patent mid LAD stent, normal right heart pressures, normal LVF Dobut Stress MPI 08/2010: small, mild apical anterior and LV apex ischemia--( PCI after this) MIBI 12/13: small/mild infer ischemia vs GI tracer confounding, EF 41% ct chest 02/2016: ascd aorta 4.3 cm CXR 10/19 my read: interstitial pattern worse at bases, ? redistribution vasculature--similar to 10/16, worse vs 10/14 a/p: 80 yo with h/o CAD (s/p PCI), systolic cardiomyopathy, mild asc ao dilation, mod mr, htn, hl, hypothyroid, COPD, Pneumonia (s/p lobectomy for lung abscess), Pulmonary Embolus on coumadin p/w bradycardia. bradycardia - no ekg documentation of episodes. (on routine vitals prior to starting P.T. he was noted to have HR's in the 30's-40's-->to ER where normal HR. per family on telemetry in ER, HR's intermittently were reading 30's -50's for seconds at a time and then going back up to 70's-100's.) - ? artifactual has known h/o sinus tach and has remained in sinus tach here. - he had no sx's at home or here of presyncope/syncope (generalized weakness on DOA is apparently a chronic, stable condition which improves acutely with PT) - recent cath unremarkable, echo in september EF 40%, stable vs priors apparently - no bradyarrhythmia on telemetry here for many days. - home metoprolol continued in hospital. weakness, orthostatic hypotension -improving -observe when pt becomes more ambulatory CAD (s/p PCI) - Con't medical therapy with ASA, statin. Stable. No angina. CE's negative here and recent cath in may with no residual disease syst chf/nsvt: - Over the years his echos have shown variations in lvef, at times reduced. Recent echo at [facility] 05/2016 reports lvef 20% (per dc summary). During that admit he was seen by cardio and had repeat cath showing patent stents and non obs residual dz. He was noted to have NSVT on tele there and given lifevest but pt/ declined. Was started on toprol as well. He has been on bb/arb for several mos now --> improvement in EF --> cont - wt 203 yest, 206 today (office wts vary 195-210 since 04/22). - lasix held here over weekend for + orthostatics - 10/13 JVD noted on exam --> lasix 40 mg IV x 1 - 10/14-13: resumed po lasix as above - 10/17: wt rising and starting to develop le edema. Got lasix 40 iv yesterday and today still vol up and cr bumped up. Given that he appears volume up he may need more iv lasix which may help cr as well. Renal consulted today, will discuss. -10/18: seen by renal, rec'd stopping arb and monitoring for now w/o aggressive diuresis. Today le edema improved and cr improved. Cont with po lasix for now. -10/19: cr continues to improve, back to baseline. Given that his cr bumped up after iv lasix and then improved after stopping iv lasix, it seems that he does not need aggressive diuresis at this time. Cont po lasix for maintenance. Now that off iv steroids le edema should improve. - wt up from 203 to 215 lbs here, breathing worsening ? chf vs asthma. JVD impressive (likely to jaw on left) - check bnp; dose lasix IV (40mg), assess wt, cxr and labs in am - cont home metoprolol 25mg HTN: - stable Hyperlipdemia, - con't statin a.e. COPD - on home o2 and theophylline - on abx, steroids, pulm following PE 2010 - coumadin. dosing per inr. hgb stable even with additional asa. ascending thoracic aneurysm, small: - Stable on recent ct scan. Cont bb.
[2016-10-20] MEDS ORDERED: FUROSEMIDE 40 MG/4 ML INJECTABLE VIAL ONE (11:49)
[2016-10-20] MEDS: THEOPHYLLINE ANHYDROUS 100 MG CAP.ER.24H PO SCH (12:02)
--- NOTE | 2016-10-20 16:03 | PN ---
Progress Note (short form) - Note Progress Note: Renal Follow up for MARIAM Pt seen and examined at the bedside has some mild dyspnea no chest pain given IV lasix this am Vital Signs Temperature 98.3 F 10/20/16 15:26 Pulse Rate 103 H 10/20/16 15:26 Respiratory Rate 20 10/20/16 15:26 Blood Pressure 115/66 10/20/16 15:26 O2 Sat by Pulse Oximetry (%) 95 10/20/16 10:35 Intake & Output 10/17/16 10/18/16 10/19/16 10/20/16 23:59 23:59 23:59 23:59 Intake Total 240 200 410 Output Total 7397 925 1288 1650 Balance -860 -350 -1020 -1650 Weight 212 lb 8 oz 212 lb 4 oz 214 lb 4 oz 215 lb 2 oz Gen: NAD CVS: RRR Lungs: dec BS at lung bases Abd: soft NT/ND, No bladder distension Ext: trace to 1+ edema A/P 80 year old gentleman with PMhx of severe COPD, Coronary artery disease, HLD, Pneumonia, Lung abscess, s/p Pulmonary lobectomy, Pulmonary Embolism, Hypothyroidism p/w sob secondary to COPD/CHF with MARIAM with Cr 1.6 #MARIAM Etiology likely multifactoiral (Urinary retention +/- hemodymaic changes during CHF/Diuresis) Renal function is improved but pt with signs of volume overload agree with IV Lasix trend BUN/Cr Thank you Neo Castro DO
[2016-10-20] MEDS: WARFARIN NA 2.5 MG TABLET (FP) PO SCH (17:36)
[2016-10-20] MEDS: METOPROLOL SUCCINATE 25 MG TAB.SR.24H (FP) PO SCH (20:59)
[2016-10-20] MEDS: MONTELUKAST NA 10 MG TABLET PO SCH (20:59)
[2016-10-21] MEDS: methylPREDNISolone NA SUCC 40 MG/1 ML VIAL IVPB SCH ×3 (02:15→17:12)
[2016-10-21] MEDS: LEVOFLOXACIN 250 MG TABLET (FP) PO SCH (05:48)
[2016-10-21] MEDS: LEVOTHYROXINE NA 100 MCG TABLET (FP) PO SCH (05:59)
[2016-10-21 07:33] LABS: INR 2.19 (0.82-1.09); PROTHROMBIN TIME (PATIENT) 24.5 SEC (9.98-11.88)
[2016-10-21 07:51] LABS: ANION GAP 10 (8-16); CALCIUM 7.6 mg/dL (8.5-10.1); CO2 27 mmol/L (21-32); CREATININE 1.2 mg/dL (0.7-1.3); GLUCOSE,RANDOM 159 mg/dL (74-106); MAGNESIUM 2.8 mg/dL (1.8-2.4); PHOSPHOROUS 4.6 mg/dL (2.5-4.9)
[2016-10-21] MEDS ORDERED: PT OWN MED DRAWER 7, Y5N ONE (09:00)
[2016-10-21] MEDS: ASPIRIN 81 MG CHEWABLE TABLETS PO SCH (09:12)
[2016-10-21] MEDS: ALLOPURINOL 100 MG TABLET (FP) PO SCH (09:12)
[2016-10-21] MEDS: PANTOPRAZOLE 40 MG TABLET (FP) PO SCH (09:12)
[2016-10-21] MEDS: TAMSULOSIN HCL 0.4 MG CAP.ER.24H (FP) PO SCH (09:12)
[2016-10-21] MEDS: THEOPHYLLINE ANHYDROUS 100 MG CAP.ER.24H PO SCH (09:13)
[2016-10-21] MEDS: ALBUTEROL SO4 2.5/IPRATROPIUM 0.5 INH SOL 3 ML VIAL.NEB. NEB SCH ×4 (09:30→21:35)
[2016-10-21] MEDS: FUROSEMIDE 40 MG/4 ML INJECTABLE VIAL IVPUSH SCH (09:41)
--- NOTE | 2016-10-21 10:49 | PN ---
Progress Note (short form) - Note Progress Note: History of Present Illness: sob better today no cp, no palps no dizzy le edema same Current Medications Generic Name Dose Route Start Last Admin Trade Name Silvia PRN Reason Stop Dose Admin Acetaminophen 650 mg 10/10/16 14:55 Tylenol - PO Q4H PRN FEVER OR PAIN Albuterol Sulfate 1 amp 10/13/16 14:18 10/17/16 02:02 Ventolin 0.083% Nebulizer Soln - NEB 1 amp Q4H PRN Administration SHORT OF BREATH/WHEEZING Albuterol/Ipratropium 1 amp 10/15/16 22:00 10/21/16 09:30 Duoneb - NEB 1 amp QID FAM Administration Allopurinol 100 mg 10/11/16 10:00 10/21/16 09:12 Zyloprim - PO 100 mg DAILY FAM Administration Aspirin 81 mg 10/11/16 10:00 10/21/16 09:12 Asa - PO 81 mg DAILY FAM Administration Atorvastatin Calcium 20 mg 10/10/16 22:00 10/19/16 21:55 Lipitor - PO 20 mg HS FAM Administration Benzocaine/Menthol 1 each 10/19/16 10:20 10/19/16 17:28 Cepacol Lozenge - MM 1 each PRN PRN Administration SORE THROAT Furosemide 40 mg 10/21/16 10:00 10/21/16 09:41 Lasix Injection - IVPUSH 40 mg DAILY FAM Administration Guaifenesin/Codeine Phosphate 5 ml 10/17/16 09:22 10/20/16 20:58 Robitussin Ac - PO 5 ml Q4H PRN Administration COUGH Levofloxacin 250 mg 10/19/16 12:00 10/21/16 05:48 Levaquin - PO 250 mg DAILY@0600 FAM Administration Levothyroxine Sodium 100 mcg 10/15/16 07:00 10/21/16 05:59 Synthroid - PO 100 mcg DAILY@0700 FAM Administration Methylprednisolone Sodium Succinate 40 mg 10/20/16 10:00 10/21/16 09:13 Solu-Medrol - IVPB 40 mg Q8H-IV FAM Administration Metoprolol Succinate 25 mg 10/10/16 22:00 10/20/16 20:59 Toprol Xl - PO 25 mg HS FAM Administration Montelukast Sodium 10 mg 10/14/16 22:00 10/20/16 20:59 Singulair - PO 10 mg HS FAM Administration Pantoprazole Sodium 40 mg 10/11/16 10:00 10/21/16 09:12 Protonix - PO 40 mg DAILY FAM Administration Tamsulosin HCl 0.4 mg 10/19/16 08:30 10/21/16 09:12 Flomax - PO 0.4 mg DAILY@0830 FAM Administration Theophylline 100 mg 10/20/16 10:00 10/21/16 09:13 Shai-24 PO 100 mg DAILY FAM Administration Warfarin Sodium 2.5 mg 10/20/16 18:00 10/20/16 17:36 Coumadin - PO 2.5 mg DAILY@1800 FAM Administration Vital Signs Period Temp Pulse Resp BP Sys/Martinez Pulse Ox Last 24 Hr 97 F-98.3 F 93-103 18-20 115-147/66-82 96-98 NAD, calm jvd flat, neck supple diminished breath sounds/exp wheezes, nl effort tachycardic, regular nl s1, s2 2/6 murmur at sternal border and apex + bs soft nt nd trace le edema bl aaox3 no jaundice, diaphoresis CBC, BMP 10/19/16 06:10 10/21/16 05:35 - ....Imaging EKG: Other (tele: SR, pvcs) EKG: sr, 97 bpm. anterolateral twi. Previously twi more prominent in lateral leads. Echo 09/2016 office: Moderate global HK, EF 40%. nl rv. mod mr, LHC 05/2016 at [facility]--per dc summary, patent prior stents and non obs residual dz. LHC/PCI 2010: prox RCA NICOLE, residual OM1 50-60%, patent mid LAD stent, normal right heart pressures, normal LVF Dobut Stress MPI 08/2010: small, mild apical anterior and LV apex ischemia--( PCI after this) MIBI 12/13: small/mild infer ischemia vs GI tracer confounding, EF 41% ct chest 02/2016: ascd aorta 4.3 cm a/p: 80 yo with h/o CAD (s/p PCI), systolic cardiomyopathy, mild asc ao dilation, mod mr, htn, hl, hypothyroid, COPD, Pneumonia (s/p lobectomy for lung abscess), Pulmonary Embolus on coumadin p/w bradycardia. a/p: 80 yo with h/o CAD (s/p PCI), systolic cardiomyopathy, mild asc ao dilation, mod mr, htn, hl, hypothyroid, COPD, Pneumonia (s/p lobectomy for lung abscess), Pulmonary Embolus on coumadin p/w bradycardia. bradycardia - no ekg documentation of episodes. (on routine vitals prior to starting P.T. he was noted to have HR's in the 30's-40's-->to ER where normal HR. per family on telemetry in ER, HR's intermittently were reading 30's -50's for seconds at a time and then going back up to 70's-100's.) - ? artifactual has known h/o sinus tach and has remained in sinus tach here. - he had no sx's at home or here of presyncope/syncope (generalized weakness on DOA is apparently a chronic, stable condition which improves acutely with PT) - recent cath unremarkable, echo in september EF 40%, stable vs priors apparently - no bradyarrhythmia on telemetry here for many days. - home metoprolol continued in hospital. weakness, orthostatic hypotension -improving -observe when pt becomes more ambulatory CAD (s/p PCI) - Con't medical therapy with ASA, statin. Stable. No angina. CE's negative here and recent cath in may with no residual disease syst chf/nsvt: - Over the years his echos have shown variations in lvef, at times reduced. Recent echo at [facility] 05/2016 reports lvef 20% (per dc summary). During that admit he was seen by cardio and had repeat cath showing patent stents and non obs residual dz. He was noted to have NSVT on tele there and given lifevest but pt/ declined. Was started on toprol as well. He has been on bb/arb for several mos now --> improvement in EF --> cont - wt 203 yest, 206 today (office wts vary 195-210 since 04/22). - lasix held here over weekend for + orthostatics - 10/13 JVD noted on exam --> lasix 40 mg IV x 1 - 10/14-13: resumed po lasix as above - 10/17: wt rising and starting to develop le edema. Got lasix 40 iv yesterday and today still vol up and cr bumped up. Given that he appears volume up he may need more iv lasix which may help cr as well. Renal consulted today, will discuss. -10/18: seen by renal, rec'd stopping arb and monitoring for now w/o aggressive diuresis. Today le edema improved and cr improved. Cont with po lasix for now. -10/19: cr continues to improve, back to baseline. Given that his cr bumped up after iv lasix and then improved after stopping iv lasix, it seems that he does not need aggressive diuresis at this time. Cont po lasix for maintenance. Now that off iv steroids le edema should improve. -10/21: back on iv steroids and wt up still so given test dose of iv lasix yesterday. Today cr stable and diuresed well so will cont with lasix 40 iv qd for now. cxr w/o sig chf - cont home metoprolol 25mg HTN: - stable Hyperlipdemia, - con't statin a.e. COPD - on home o2 and theophylline - on abx, steroids, pulm following PE 2010 - coumadin. dosing per inr. hgb stable even with additional asa. ascending thoracic aneurysm, small: - Stable on recent ct scan. Cont bb.
--- NOTE | 2016-10-21 12:03 | PN ---
Progress Note, Physician Chief Complaint: Less SOB today. History of Present Illness: Patient with multiple medical problems especially focused on COPD with acute exacerbation and Bronchiectasis and CHF is better today back on IV Lasix, Steroids and Low dose PO theophyllin. Less coughing and wheezing. However weight 1 lb higher and some pedal edema noted and right pleural effusion on repeat CXR. Also Renal Failure stable but will be followed. - Current Medication List Current Medications: Active Medications Acetaminophen (Tylenol -) 650 mg PO Q4H PRN PRN Reason: FEVER OR PAIN Albuterol Sulfate (Ventolin 0.083% Nebulizer Soln -) 1 amp NEB Q4H PRN PRN Reason: SHORT OF BREATH/WHEEZING Last Admin: 10/17/16 02:02 Dose: 1 amp Albuterol/Ipratropium (Duoneb -) 1 amp NEB QID [facility] Last Admin: 10/21/16 09:30 Dose: 1 amp Allopurinol (Zyloprim -) 100 mg PO DAILY [facility] Last Admin: 10/21/16 09:12 Dose: 100 mg Aspirin (Asa -) 81 mg PO DAILY [facility] Last Admin: 10/21/16 09:12 Dose: 81 mg Atorvastatin Calcium (Lipitor -) 20 mg PO HS [facility] Last Admin: 10/19/16 21:55 Dose: 20 mg Benzocaine/Menthol (Cepacol Lozenge -) 1 each MM PRN PRN PRN Reason: SORE THROAT Last Admin: 10/19/16 17:28 Dose: 1 each Furosemide (Lasix Injection -) 40 mg IVPUSH DAILY [facility] Last Admin: 10/21/16 09:41 Dose: 40 mg Guaifenesin/Codeine Phosphate (Robitussin Ac -) 5 ml PO Q4H PRN PRN Reason: COUGH Last Admin: 10/20/16 20:58 Dose: 5 ml Levofloxacin (Levaquin -) 250 mg PO DAILY@0600 [facility] Last Admin: 10/21/16 05:48 Dose: 250 mg Levothyroxine Sodium (Synthroid -) 100 mcg PO DAILY@0700 [facility] Last Admin: 10/21/16 05:59 Dose: 100 mcg Methylprednisolone Sodium Succinate (Solu-Medrol -) 40 mg IVPB Q8H-IV [facility] Last Admin: 10/21/16 09:13 Dose: 40 mg Metoprolol Succinate (Toprol Xl -) 25 mg PO [facility] Last Admin: 10/20/16 20:59 Dose: 25 mg Montelukast Sodium (Singulair -) 10 mg PO [facility] Last Admin: 10/20/16 20:59 Dose: 10 mg Pantoprazole Sodium (Protonix -) 40 mg PO DAILY [facility] Last Admin: 10/21/16 09:12 Dose: 40 mg Tamsulosin HCl (Flomax -) 0.4 mg PO DAILY@0830 [facility] Last Admin: 10/21/16 09:12 Dose: 0.4 mg Theophylline (Shai-24) 100 mg PO DAILY [facility] Last Admin: 10/21/16 09:13 Dose: 100 mg Warfarin Sodium (Coumadin -) 2.5 mg PO DAILY@1800 [facility] Last Admin: 10/20/16 17:36 Dose: 2.5 mg - Objective Vital Signs: Vital Signs Temperature 97 F L 10/21/16 06:00 Pulse Rate 103 H 10/21/16 09:30 Respiratory Rate 18 10/21/16 06:00 Blood Pressure 147/77 10/21/16 06:00 O2 Sat by Pulse Oximetry (%) 98 10/21/16 09:30 Constitutional: Yes: Calm Cardiovascular: Yes: Other (occ pvc's) Respiratory: Yes: Diminished, Rhonchi (some basilar rhonchi; no wheezes) Gastrointestinal: Yes: Soft (Had BM.) Genitourinary: No: Carpenter Present Edema: LLE: 1+, RLE: 1+ Neurological: Yes: Alert, Oriented Labs: CBC, BMP 10/19/16 06:10 10/21/16 05:35 INR, PTT INR 2.19 (0.82-1.09) H 10/21/16 05:35 Problem List - Problems (1) Acute CHF (congestive heart failure) Assessment/Plan: Still gained 1 lb on IV Lasix: may need mor Lasix. Code(s): I50.9 - HEART FAILURE, UNSPECIFIED (2) COPD (chronic obstructive pulmonary disease) Assessment/Plan: with acute exacerbation On Theophyllin low dose, IV steroids and aerosol Rx. Code(s): 496 - CHR AIRWAY OBSTRUCT NEC (3) Bronchiectasis with (acute) exacerbation Assessment/Plan: On IV steroids. Antibiotic ordered. Code(s): J47.1 - BRONCHIECTASIS WITH (ACUTE) EXACERBATION (4) HTN (hypertension) Assessment/Plan: Lower readings. ; last reading 93/68 Diovan being held. Code(s): I10 - ESSENTIAL (PRIMARY) HYPERTENSION (5) Murali-tachy syndrome Assessment/Plan: Only pvc's noted on monitor Code(s): I49.5 - SICK SINUS SYNDROME (6) Pneumonia Assessment/Plan: Resolved Code(s): J18.9 - PNEUMONIA, UNSPECIFIED ORGANISM (7) Cough Assessment/Plan: improved. Code(s): R05 - COUGH (8) Renal failure (ARF), acute on chronic Assessment/Plan: BUN and creatinine stable at 43/ 1.2 Code(s): N17.9 - ACUTE KIDNEY FAILURE, UNSPECIFIED N18.9 - CHRONIC KIDNEY DISEASE, UNSPECIFIED
--- NOTE | 2016-10-21 12:38 | PN ---
Progress Note (short form) - Note Progress Note: Renal Follow up for MARIAM Pt seen and examined at the bedside feels better dyspnea is improved no chest pain, abd pain, N/V/D able to void well Vital Signs Temperature 98.2 F 10/21/16 10:00 Pulse Rate 108 H 10/21/16 10:00 Respiratory Rate 18 10/21/16 10:00 Blood Pressure 122/79 10/21/16 10:00 O2 Sat by Pulse Oximetry (%) 98 10/21/16 10:00 Intake & Output 10/18/16 10/19/16 10/20/16 10/21/16 23:59 23:59 23:59 23:59 Intake Total 200 410 680 450 Output Total 550 1430 2450 Balance -350 -1020 -1770 450 Weight 212 lb 4 oz 214 lb 4 oz 215 lb 2 oz 216 lb 9.6 oz Gen: NAD CVS: RRR Lungs: dec BS at lung bases Abd: soft NT/ND, No bladder distension Ext: trace to 1+ edema CBC, BMP 10/19/16 06:10 10/21/16 05:35 Current Medications Acetaminophen (Tylenol -) 650 mg PO Q4H PRN PRN Reason: FEVER OR PAIN Albuterol Sulfate (Ventolin 0.083% Nebulizer Soln -) 1 amp NEB Q4H PRN PRN Reason: SHORT OF BREATH/WHEEZING Last Admin: 10/17/16 02:02 Dose: 1 amp Albuterol/Ipratropium (Duoneb -) 1 amp NEB QID [facility] Last Admin: 10/21/16 09:30 Dose: 1 amp Allopurinol (Zyloprim -) 100 mg PO DAILY [facility] Last Admin: 10/21/16 09:12 Dose: 100 mg Aspirin (Asa -) 81 mg PO DAILY [facility] Last Admin: 10/21/16 09:12 Dose: 81 mg Atorvastatin Calcium (Lipitor -) 20 mg PO HS [facility] Last Admin: 10/19/16 21:55 Dose: 20 mg Benzocaine/Menthol (Cepacol Lozenge -) 1 each MM PRN PRN PRN Reason: SORE THROAT Last Admin: 10/19/16 17:28 Dose: 1 each Furosemide (Lasix Injection -) 40 mg IVPUSH DAILY [facility] Last Admin: 10/21/16 09:41 Dose: 40 mg Guaifenesin/Codeine Phosphate (Robitussin Ac -) 5 ml PO Q4H PRN PRN Reason: COUGH Last Admin: 10/20/16 20:58 Dose: 5 ml Levofloxacin (Levaquin -) 250 mg PO DAILY@0600 [facility] Last Admin: 10/21/16 05:48 Dose: 250 mg Levothyroxine Sodium (Synthroid -) 100 mcg PO DAILY@0700 [facility] Last Admin: 10/21/16 05:59 Dose: 100 mcg Methylprednisolone Sodium Succinate (Solu-Medrol -) 40 mg IVPB Q8H-IV [facility] Last Admin: 10/21/16 09:13 Dose: 40 mg Metoprolol Succinate (Toprol Xl -) 25 mg PO HS [facility] Last Admin: 10/20/16 20:59 Dose: 25 mg Montelukast Sodium (Singulair -) 10 mg PO [facility] Last Admin: 10/20/16 20:59 Dose: 10 mg Pantoprazole Sodium (Protonix -) 40 mg PO DAILY [facility] Last Admin: 10/21/16 09:12 Dose: 40 mg Tamsulosin HCl (Flomax -) 0.4 mg PO DAILY@0830 [facility] Last Admin: 10/21/16 09:12 Dose: 0.4 mg Theophylline (Shai-24) 100 mg PO DAILY [facility] Last Admin: 10/21/16 09:13 Dose: 100 mg Warfarin Sodium (Coumadin -) 2.5 mg PO DAILY@1800 [facility] Last Admin: 10/20/16 17:36 Dose: 2.5 mg A/P 80 year old gentleman with PMhx of severe COPD, Coronary artery disease, HLD, Pneumonia, Lung abscess, s/p Pulmonary lobectomy, Pulmonary Embolism, Hypothyroidism p/w sob secondary to COPD/CHF with MARIAM with Cr 1.6 #MARIAM Etiology likely multifactoiral (Urinary retention +/- hemodymaic changes during CHF/Diuresis) Renal function improved and stable at this time currently on IV diuretics trend BUN/Cr and electrolytes while on IV diuretics no indication for [employer] Dose all meds for Cr Cl less then 60 Thank you Neo Castro DO
[2016-10-21] MEDS: WARFARIN NA 2.5 MG TABLET (FP) PO SCH (17:12)
[2016-10-21] MEDS: BENZOCAINE/MENTH/CETYLPYRD CL 1 EACH LOZENGE MM PRN (20:56)
[2016-10-21] MEDS: guaiFENesin/CODEINE 5 ML UNIT-DOSE CUPS PO PRN (20:56)
[2016-10-21] MEDS: MONTELUKAST NA 10 MG TABLET PO SCH (21:00)
[2016-10-21] MEDS: ATORVASTATIN CA 20 MG TABLET (FP) PO SCH (21:01)
[2016-10-21] MEDS: METOPROLOL SUCCINATE 25 MG TAB.SR.24H (FP) PO SCH (21:01)
[2016-10-22] MEDS: methylPREDNISolone NA SUCC 40 MG/1 ML VIAL IVPB SCH ×3 (02:05→17:40)
[2016-10-22] MEDS: BENZOCAINE/MENTH/CETYLPYRD CL 1 EACH LOZENGE MM PRN (02:13)
[2016-10-22] MEDS: guaiFENesin/CODEINE 5 ML UNIT-DOSE CUPS PO PRN (02:13)
[2016-10-22] MEDS: ALBUTEROL SO4 0.083% IH SOL 2.5 MG/3 ML VIAL.NEB. NEB PRN (04:17)
[2016-10-22] MEDS: LEVOTHYROXINE NA 100 MCG TABLET (FP) PO SCH (06:00)
[2016-10-22] MEDS: LEVOFLOXACIN 250 MG TABLET (FP) PO SCH (06:00)
[2016-10-22 06:54] LABS: ANION GAP 9 (8-16); CO2 26 mmol/L (21-32); CREATININE 1.4 mg/dL (0.7-1.3); GLUCOSE,RANDOM 159 mg/dL (74-106); MAGNESIUM 2.8 mg/dL (1.8-2.4)
[2016-10-22 06:58] LABS: INR 2.32 (0.82-1.09)
--- NOTE | 2016-10-22 08:31 | PN ---
Progress Note (short form) - Note Progress Note: Patient seems to be worse clinically today with more SOB; insomnia; incessant coughing and worsened pedal edema in spite of IV Steroids, Lasix 40mg daily and aerosol. BNP was elevated yesterday but his renal function has worsened. ??CHF or complication of his COPD and Bronchiectasis. Gained another pound. ? will need 24 hr drip of Lasix and/ or dobutamine. ? more steroids? On Exam: Vital Signs Temp 97.6 F 10/22/16 06:00 Pulse 93 H 10/22/16 06:00 Resp 18 10/22/16 06:00 BP 100/70 10/22/16 06:00 Pulse Ox 97 10/21/16 21:00 Intake & Output 10/21/16 10/21/16 10/22/16 11:59 23:59 11:59 Intake Total 450 700 100 Output Total 1250 Balance 450 -550 100 Weight 216 lb 9.6 oz 217 lb Intake: Oral 450 700 100 Output: Urine 1250 Void 1250 Other: Voiding Method Toilet Toilet # Unmeasured Voids Void 3 Bowel Movement Yes # Bowel Movements 2 Weight Measurement Method Standing Scale Standing Scale SOB even when walking 4-5 steps from bathroom Chest: Decreased breath sounds and some wheezes and rhonchi Cor: Occ PVC's Abd: sl. distended Ext: Increased to 2+ pedal edema IMP: Increasing SOB COPD with Acute exacerbation Acute CHF renal failure TAA H: PE PLAN: Followup Cardiology and Pulmonary MD ? med Changes F/U Lab ID consult ?CAT scan Chest Problem List - Problems (1) Acute CHF (congestive heart failure) Code(s): I50.9 - HEART FAILURE, UNSPECIFIED (2) COPD (chronic obstructive pulmonary disease) Code(s): 496 - CHR AIRWAY OBSTRUCT NEC (3) Bronchiectasis with (acute) exacerbation Code(s): J47.1 - BRONCHIECTASIS WITH (ACUTE) EXACERBATION (4) HTN (hypertension) Code(s): I10 - ESSENTIAL (PRIMARY) HYPERTENSION (5) Murali-tachy syndrome Code(s): I49.5 - SICK SINUS SYNDROME (6) Pneumonia Code(s): J18.9 - PNEUMONIA, UNSPECIFIED ORGANISM (7) Cough Code(s): R05 - COUGH (8) Renal failure (ARF), acute on chronic Code(s): N17.9 - ACUTE KIDNEY FAILURE, UNSPECIFIED N18.9 - CHRONIC KIDNEY DISEASE, UNSPECIFIED
[2016-10-22 09:14] LABS: TROPONIN I 0.08 ng/ml (0.00-0.05)
[2016-10-22] MEDS: PANTOPRAZOLE 40 MG TABLET (FP) PO SCH (09:48)
[2016-10-22] MEDS: ALLOPURINOL 100 MG TABLET (FP) PO SCH (09:48)
[2016-10-22] MEDS: TAMSULOSIN HCL 0.4 MG CAP.ER.24H (FP) PO SCH (09:48)
[2016-10-22] MEDS: FUROSEMIDE 40 MG/4 ML INJECTABLE VIAL IVPUSH SCH (09:48)
[2016-10-22] MEDS: ASPIRIN 81 MG CHEWABLE TABLETS PO SCH (09:48)
[2016-10-22] MEDS: THEOPHYLLINE ANHYDROUS 100 MG CAP.ER.24H PO SCH (09:49)
--- NOTE | 2016-10-22 10:40 | PN ---
Progress Note (short form) - Note Progress Note: History of Present Illness: sob persists no cp, no palps no dizzy le edema same Current Medications Generic Name Dose Route Start Last Admin Trade Name Freq PRN Reason Stop Dose Admin Acetaminophen 650 mg 10/10/16 14:55 Tylenol - PO Q4H PRN FEVER OR PAIN Albuterol Sulfate 1 amp 10/13/16 14:18 10/22/16 04:17 Ventolin 0.083% Nebulizer Soln - NEB 1 amp Q4H PRN Administration SHORT OF BREATH/WHEEZING Albuterol/Ipratropium 1 amp 10/15/16 22:00 10/21/16 21:35 Duoneb - NEB 1 amp QID FAM Administration Allopurinol 100 mg 10/11/16 10:00 10/22/16 09:48 Zyloprim - PO 100 mg DAILY [facility] Administration Aspirin 81 mg 10/11/16 10:00 10/22/16 09:48 Asa - PO 81 mg DAILY [facility] Administration Atorvastatin Calcium 20 mg 10/10/16 22:00 10/21/16 21:01 Lipitor - PO Not Given HS FAM Benzocaine/Menthol 1 each 10/19/16 10:20 10/22/16 02:13 Cepacol Lozenge - MM 1 each PRN PRN Administration SORE THROAT Furosemide 40 mg 10/22/16 10:45 Lasix Injection - IVPUSH 10/22/16 10:46 ONCE ONE Furosemide 80 mg 10/22/16 10:30 Lasix Injection - IVPUSH DAILY [facility] Guaifenesin/Codeine Phosphate 5 ml 10/17/16 09:22 10/22/16 02:13 Robitussin Ac - PO 5 ml Q4H PRN Administration COUGH Levofloxacin 250 mg 10/19/16 12:00 10/22/16 06:00 Levaquin - PO 250 mg DAILY@0600 [facility] Administration Levothyroxine Sodium 100 mcg 10/15/16 07:00 10/22/16 06:00 Synthroid - PO 100 mcg DAILY@0700 [facility] Administration Methylprednisolone Sodium Succinate 40 mg 10/20/16 10:00 10/22/16 09:47 Solu-Medrol - IVPB 40 mg Q8H-IV [facility] Administration Metoprolol Succinate 25 mg 10/10/16 22:00 10/21/16 21:01 Toprol Xl - PO 25 mg HS FAM Administration Montelukast Sodium 10 mg 10/14/16 22:00 10/21/16 21:00 Singulair - PO 10 mg HS FAM Administration Pantoprazole Sodium 40 mg 10/11/16 10:00 10/22/16 09:48 Protonix - PO 40 mg DAILY [facility] Administration Tamsulosin HCl 0.4 mg 10/19/16 08:30 10/22/16 09:48 Flomax - PO 0.4 mg DAILY@0830 [facility] Administration Theophylline 100 mg 10/20/16 10:00 10/22/16 09:49 Shai-24 PO 100 mg DAILY [facility] Administration Warfarin Sodium 2.5 mg 10/20/16 18:00 10/21/16 17:12 Coumadin - PO 2.5 mg DAILY@1800 [facility] Administration Vital Signs Period Temp Pulse Resp BP Sys/Martinez Pulse Ox Last 24 Hr 97.6 F-98.4 F 93-117 18-18 100-156/69-93 96-98 NAD, calm jvd flat, neck supple diminished breath sounds/exp wheezes, nl effort tachycardic, regular nl s1, s2 2/6 murmur at sternal border and apex + bs soft nt nd 1+ le edema bl aaox3 no jaundice, diaphoresis CBC, BMP 10/19/16 06:10 10/22/16 05:48 - ....Imaging EKG: Other (tele: SR, pvcs) EKG: sr, 97 bpm. anterolateral twi. Previously twi more prominent in lateral leads. Echo 09/2016 office: Moderate global HK, EF 40%. nl rv. mod mr, LHC 05/2016 at [facility]--per dc summary, patent prior stents and non obs residual dz. LHC/PCI 2010: prox RCA NICOLE, residual OM1 50-60%, patent mid LAD stent, normal right heart pressures, normal LVF Dobut Stress MPI 08/2010: small, mild apical anterior and LV apex ischemia--( PCI after this) MIBI 12/13: small/mild infer ischemia vs GI tracer confounding, EF 41% ct chest 02/2016: ascd aorta 4.3 cm a/p: 80 yo with h/o CAD (s/p PCI), systolic cardiomyopathy, mild asc ao dilation, mod mr, htn, hl, hypothyroid, COPD, Pneumonia (s/p lobectomy for lung abscess), Pulmonary Embolus on coumadin p/w bradycardia. bradycardia - no ekg documentation of episodes. (on routine vitals prior to starting P.T. he was noted to have HR's in the 30's-40's-->to ER where normal HR. per family on telemetry in ER, HR's intermittently were reading 30's -50's for seconds at a time and then going back up to 70's-100's.) - ? artifactual has known h/o sinus tach and has remained in sinus tach here. - he had no sx's at home or here of presyncope/syncope (generalized weakness on DOA is apparently a chronic, stable condition which improves acutely with PT) - recent cath unremarkable, echo in september EF 40%, stable vs priors apparently - no bradyarrhythmia on telemetry here for many days. - home metoprolol continued in hospital. weakness, orthostatic hypotension -observe when pt becomes more ambulatory CAD (s/p PCI) - Con't medical therapy with ASA, statin. Stable. No angina. CE's negative here and recent cath in may with no residual disease syst chf/nsvt: - Over the years his echos have shown variations in lvef, at times reduced. Recent echo at [facility] 05/2016 reports lvef 20% (per dc summary). During that admit he was seen by cardio and had repeat cath showing patent stents and non obs residual dz. He was noted to have NSVT on tele there and given lifevest but pt/ declined. Was started on toprol as well. He has been on bb/arb for several mos now --> improvement in EF --> cont - wt 203 yest, 206 today (office wts vary 195-210 since 04/22). - lasix held here over weekend for + orthostatics - 10/13 JVD noted on exam --> lasix 40 mg IV x 1 - 10/14-13: resumed po lasix as above - 10/17: wt rising and starting to develop le edema. Got lasix 40 iv yesterday and today still vol up and cr bumped up. Given that he appears volume up he may need more iv lasix which may help cr as well. Renal consulted today, will discuss. -10/18: seen by renal, rec'd stopping arb and monitoring for now w/o aggressive diuresis. Today le edema improved and cr improved. Cont with po lasix for now. -10/19: cr continues to improve, back to baseline. Given that his cr bumped up after iv lasix and then improved after stopping iv lasix, it seems that he does not need aggressive diuresis at this time. Cont po lasix for maintenance. Now that off iv steroids le edema should improve. -10/21: back on iv steroids and wt up still so given test dose of iv lasix yesterday. Today cr stable and diuresed well so will cont with lasix 40 iv qd for now -10/22: still with vol overload and wt up so will increase lasix to 80 iv qd - cont home metoprolol 25mg HTN: - stable Hyperlipdemia, - con't statin a.e. COPD - on home o2 and theophylline - on abx, steroids, pulm following PE 2010 - coumadin. dosing per inr. hgb stable even with additional asa. ascending thoracic aneurysm, small: - Stable on recent ct scan. Cont bb.
[2016-10-22] MEDS: ALBUTEROL SO4 2.5/IPRATROPIUM 0.5 INH SOL 3 ML VIAL.NEB. NEB SCH ×4 (10:45→22:35)
[2016-10-22] MEDS ORDERED: FUROSEMIDE 40 MG/4 ML INJECTABLE VIAL IVPUSH ONE (10:45)
--- NOTE | 2016-10-22 12:20 | PN ---
Progress Note (short form) - Note Progress Note: Renal Follow up for MARIAM Pt seen and examined at the bedside says that his sob is worse today, LE edema persists on IV Lasix, increased to 80mg this am making a good amt of urine no N/V/D Vital Signs Temperature 98.2 F 10/22/16 10:00 Pulse Rate 101 H 10/22/16 10:11 Respiratory Rate 18 10/22/16 10:00 Blood Pressure 139/71 10/22/16 10:00 O2 Sat by Pulse Oximetry (%) 95 10/22/16 10:11 Intake & Output 10/19/16 10/20/16 10/21/16 10/22/16 23:59 23:59 23:59 23:59 Intake Total 089 593 7317 100 Output Total 1430 2450 1250 Balance -1020 -1770 -100 100 Weight 214 lb 4 oz 215 lb 2 oz 216 lb 9.6 oz 217 lb Gen: NAD CVS: RRR Lungs: dec BS at lung bases Abd: soft NT/ND, No bladder distension Ext:1+ LE edema CBC, BMP 10/19/16 06:10 10/22/16 05:48 Laboratory Tests 10/20/16 10/22/16 06:00 05:48 Calcium 7.9 L 8.0 L Magnesium 2.8 H AST 30 D ALT 111 H CK-MB (CK-2) 5.390 H Troponin I 0.08 H D Albumin 2.9 L Current Medications Acetaminophen (Tylenol -) 650 mg PO Q4H PRN PRN Reason: FEVER OR PAIN Albuterol Sulfate (Ventolin 0.083% Nebulizer Soln -) 1 amp NEB Q4H PRN PRN Reason: SHORT OF BREATH/WHEEZING Last Admin: 10/22/16 04:17 Dose: 1 amp Albuterol/Ipratropium (Duoneb -) 1 amp NEB QID [facility] Last Admin: 10/22/16 10:45 Dose: 1 amp Allopurinol (Zyloprim -) 100 mg PO DAILY [facility] Last Admin: 10/22/16 09:48 Dose: 100 mg Aspirin (Asa -) 81 mg PO DAILY [facility] Last Admin: 10/22/16 09:48 Dose: 81 mg Atorvastatin Calcium (Lipitor -) 20 mg PO HS [facility] Last Admin: 10/21/16 21:01 Dose: Not Given Benzocaine/Menthol (Cepacol Lozenge -) 1 each MM PRN PRN PRN Reason: SORE THROAT Last Admin: 10/22/16 02:13 Dose: 1 each Furosemide (Lasix Injection -) 80 mg IVPUSH DAILY [facility] Guaifenesin/Codeine Phosphate (Robitussin Ac -) 5 ml PO Q4H PRN PRN Reason: COUGH Last Admin: 10/22/16 02:13 Dose: 5 ml Levofloxacin (Levaquin -) 250 mg PO DAILY@0600 [facility] Last Admin: 10/22/16 06:00 Dose: 250 mg Levothyroxine Sodium (Synthroid -) 100 mcg PO DAILY@0700 [facility] Last Admin: 10/22/16 06:00 Dose: 100 mcg Methylprednisolone Sodium Succinate (Solu-Medrol -) 40 mg IVPB Q8H-IV [facility] Last Admin: 10/22/16 09:47 Dose: 40 mg Metoprolol Succinate (Toprol Xl -) 25 mg PO [facility] Last Admin: 10/21/16 21:01 Dose: 25 mg Montelukast Sodium (Singulair -) 10 mg PO [facility] Last Admin: 10/21/16 21:00 Dose: 10 mg Pantoprazole Sodium (Protonix -) 40 mg PO DAILY [facility] Last Admin: 10/22/16 09:48 Dose: 40 mg Tamsulosin HCl (Flomax -) 0.4 mg PO DAILY@0830 [facility] Last Admin: 10/22/16 09:48 Dose: 0.4 mg Theophylline (Shai-24) 100 mg PO DAILY [facility] Last Admin: 10/22/16 09:49 Dose: 100 mg Warfarin Sodium (Coumadin -) 2.5 mg PO DAILY@1800 [facility] Last Admin: 10/21/16 17:12 Dose: 2.5 mg A/P 80 year old gentleman with PMhx of severe COPD, Coronary artery disease, HLD, Pneumonia, Lung abscess, s/p Pulmonary lobectomy, Pulmonary Embolism, Hypothyroidism p/w sob secondary to COPD/CHF with MARIAM with Cr 1.6 #MARIAM Etiology likely multifactoiral (Urinary retention +/- hemodymaic changes during CHF/Diuresis) Renal function with initial improvement but now Cr slightly uptrending agree with increase dose of IV lasix given increased weight and edema Trend BUN/Cr no APOORVA/ARB at this time given fluctuating renal function #Dyspnea/COPD/PNA Chest CT showed upper lobe PNA on PO Levaquin, may need to titrate up diuretics Thank you Neo Castro DO
--- NOTE | 2016-10-22 14:45 | PN ---
Progress Note, Physician History of Present Illness: Increased cough and dyspnea and difficulty raising sputum. - Current Medication List Current Medications: Active Medications Acetaminophen (Tylenol -) 650 mg PO Q4H PRN PRN Reason: FEVER OR PAIN Albuterol Sulfate (Ventolin 0.083% Nebulizer Soln -) 1 amp NEB Q4H PRN PRN Reason: SHORT OF BREATH/WHEEZING Last Admin: 10/22/16 04:17 Dose: 1 amp Albuterol/Ipratropium (Duoneb -) 1 amp NEB QID [facility] Last Admin: 10/22/16 14:01 Dose: 1 amp Allopurinol (Zyloprim -) 100 mg PO DAILY [facility] Last Admin: 10/22/16 09:48 Dose: 100 mg Aspirin (Asa -) 81 mg PO DAILY [facility] Last Admin: 10/22/16 09:48 Dose: 81 mg Atorvastatin Calcium (Lipitor -) 20 mg PO HS [facility] Last Admin: 10/21/16 21:01 Dose: Not Given Benzocaine/Menthol (Cepacol Lozenge -) 1 each MM PRN PRN PRN Reason: SORE THROAT Last Admin: 10/22/16 02:13 Dose: 1 each Furosemide (Lasix Injection -) 80 mg IVPUSH DAILY [facility] Guaifenesin/Codeine Phosphate (Robitussin Ac -) 5 ml PO Q4H PRN PRN Reason: COUGH Last Admin: 10/22/16 02:13 Dose: 5 ml Levofloxacin (Levaquin -) 250 mg PO DAILY@0600 [facility] Last Admin: 10/22/16 06:00 Dose: 250 mg Levothyroxine Sodium (Synthroid -) 100 mcg PO DAILY@0700 [facility] Last Admin: 10/22/16 06:00 Dose: 100 mcg Methylprednisolone Sodium Succinate (Solu-Medrol -) 40 mg IVPB Q8H-IV [facility] Last Admin: 10/22/16 09:47 Dose: 40 mg Metoprolol Succinate (Toprol Xl -) 25 mg PO HS [facility] Last Admin: 10/21/16 21:01 Dose: 25 mg Montelukast Sodium (Singulair -) 10 mg PO HS [facility] Last Admin: 10/21/16 21:00 Dose: 10 mg Pantoprazole Sodium (Protonix -) 40 mg PO DAILY [facility] Last Admin: 10/22/16 09:48 Dose: 40 mg Tamsulosin HCl (Flomax -) 0.4 mg PO DAILY@0830 [facility] Last Admin: 10/22/16 09:48 Dose: 0.4 mg Theophylline (Shai-24) 100 mg PO DAILY [facility] Last Admin: 10/22/16 09:49 Dose: 100 mg Warfarin Sodium (Coumadin -) 2.5 mg PO DAILY@1800 [facility] Last Admin: 10/21/16 17:12 Dose: 2.5 mg - Objective Vital Signs: Vital Signs Temperature 98.2 F 10/22/16 10:00 Pulse Rate 101 H 10/22/16 10:11 Respiratory Rate 18 10/22/16 10:00 Blood Pressure 139/71 10/22/16 10:00 O2 Sat by Pulse Oximetry (%) 95 10/22/16 10:11 Constitutional: Yes: Mild Distress Eyes: Yes: Conjunctiva Clear. No: Sclera Icterus HENT: Yes: Atraumatic, Normocephalic Neck: Yes: Supple, Trachea Midline Cardiovascular: Yes: Regular Rate and Rhythm. No: JVD Respiratory: Yes: Rhonchi (bilateral) Gastrointestinal: Yes: Soft. No: Tenderness Extremities: No: Calf Tenderness Edema: LLE: 2+, RLE: 2+ Neurological: Yes: Alert, Oriented Labs: CBC, BMP 10/19/16 06:10 10/22/16 05:48 INR, PTT INR 2.32 (0.82-1.09) H 10/22/16 05:48 - ....Imaging Cat Scan: Report Reviewed, Image Reviewed (bilateral consolidations) Assessment/Plan Assessment: Pt's respiratory status is worse. On Ct Chest:Bilateral consolidations (acquired while in hospital and while on Levaquin). Plan: I.D. consult-will need broadened antibiotic coverage. Call placed to Dr. Graham and case discussed with Dr. Perez. Diuretic tx per cardiology Bronchodilators O2 to maintain SaO2>90 Steroids-to try to start tapering next 24 hours if pt's condition permits
--- NOTE | 2016-10-22 14:50 | EKG ---
Test Reason : Blood Pressure : / mmHG Vent. Rate : 100 BPM Atrial Rate : 100 BPM P-R Int : 152 ms QRS Dur : 100 ms QT Int : 390 ms P-R-T Axes : 042 -29 099 degrees QTc Int : 503 ms SINUS RHYTHM WITH FREQUENT PREMATURE VENTRICULAR COMPLEXES POSSIBLE LEFT ATRIAL ENLARGEMENT LEFT VENTRICULAR HYPERTROPHY PROLONGED QT ABNORMAL ECG WHEN COMPARED WITH ECG OF 10-OCT-2016 09:13, T WAVE INVERSION MORE EVIDENT IN LATERAL LEADS Confirmed by TEMO CALDERON, MURALI ([id number]) on 10/22/2016 2:50:27 PM Referred By: Nigel HERZOG Confirmed By:MURALI PLASCENCIA MD
[2016-10-22] MEDS ORDERED: VANCOMYCIN 1,250 MG in DEXTROSE 5%-WATER - 250 ML IVPB ONE (17:16)
[2016-10-22] MEDS ORDERED: PIPERACILLIN/TAZOB 3.375 GM/50 ML PRE-DOCKED IVPB ONE (17:30)
[2016-10-22] MEDS: WARFARIN NA 2.5 MG TABLET (FP) PO SCH (17:40)
[2016-10-22] MEDS ORDERED: PIPERACILLIN/TAZOB 3.375 GM 50 ML IVPB SCH (18:00)
--- NOTE | 2016-10-22 18:10 | PN ---
Teaching Attending Note Name of Resident: Jono Penn ATTENDING PHYSICIAN STATEMENT I saw and evaluated the patient. I reviewed the resident's note and discussed the case with the resident. I agree with the resident's findings and plan as documented. SUBJECTIVE: progressive SOB and dry cough- nonproductive +weight gain OBJECTIVE: Vital Signs Period Temp Pulse Resp BP Sys/Martinez Pulse Ox Last 24 Hr 97.6 F-98.2 F 93-101 18-18 100-156/64-82 95-98 cor-rrr lungs bilateral wheezes, rhonchi abd soft,nt ext +edema CBC, BMP 10/19/16 06:10 10/22/16 05:[address]- bilateral patchy infiltrates ASSESSMENT AND PLAN: pneumonia chf HCAP vancomycin and zosyn cultures urinary antigens d/w patients
--- NOTE | 2016-10-22 18:56 | CONSULT ---
Consultation: REQUESTING PROVIDER: CONSULT REQUEST: We have been asked to medically evaluate this patient for suspected PNA. HISTORY OF PRESENT ILLNESS: Pt is an 80 yo man w/ pmh of COPD (on home O2), CAD (s/p PCI; 3 stents), R lobectomy for lung abscess, GERD, HTN, HLD, who initially presented 12 days ago due with symptomatic bradycardia during pulmonary rehab session, now with worsening respiratory status and suspected PNA. 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 Pt was treated as outpt for PNA by tape folding machine operator at [facility] for respiratory symptoms in may/ and improved. Again treated for PNA as outpt in June for similar symptoms of worsening cough and SOB with similar resolution. Pt was later hospitalized in June/July? for cardiac issue (possibly symptomatic bradycardia ) and received a LHC, which was normal, however post-discharge course notable for steadily declining exercise tolerance and respiratory status. Pt was receiving pulmonary pt for past few months prior to admission and was admitted after symptomatic bradycardia in most recent visit. Since admission, pt endorses a continual non-productive cough which has worsened over the past few days. He similarly endorses increased WOB, SOB and worsening dyspnea on exertion, now unable to walk to door without becoming SOB. Patient denies BARNES, fever, chills, CP, palpitations, N/V, abdominal pain, dysuria , diarrhea, constipation. He endorses BL LE edema, cough that wakes him up at night and chest congestion. Pt has been hospitalized numerous times for PNAs/COPD exacerbations. He is currently on standard tx regimen for COPD. He has never been intubated. No recent travel or sick contacts. PMH - CAD - received PCI HTN HLD Afib - Currently on coumadin COPD - Home O2 PRN. outpt f/u w/ tape folding machine operator at [facility] Multiple admission for PNA PE GERD PSHx PCI; 3 stents - unknown date Lung resection for abscess; 2003 Knee replacement - date unknown Thyroidectomy - Apr 2016 Allergies NKDA Fam Hx Parents both , father from [place], mother from car accident. Social Hx No drugs or alcohol. Former smoker, quit in 1980, 20 years/2-3 cigs per day. Lives at home with , former nurse. 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 REVIEW OF SYSTEMS: CONSTITUTIONAL: Weight gain Absent: fever, chills, diaphoresis, generalized weakness, malaise HEENT: Absent: rhinorrhea, nasal congestion, throat pain, throat swelling, ear pain, eye pain, visual changes CARDIOVASCULAR: peripheral edema Absent: chest pain, syncope, palpitations, irregular heart rate, lightheadedness , RESPIRATORY: cough, shortness of breath, dyspnea with exertion Absent: orthopnea, wheezing, stridor, hemoptysis GASTROINTESTINAL: abdominal distension Absent: abdominal pain, nausea, vomiting, diarrhea, constipation, GENITOURINARY: Absent: dysuria, frequency, urgency, hesitancy, hematuria MUSCULOSKELETAL: Absent: myalgia, arthralgia, back pain SKIN: Absent: rash HEMATOLOGIC/IMMUNOLOGIC: Absent: easy bleeding, easy bruising NEUROLOGIC: Absent: headache, focal weakness or paresthesias, dizziness, unsteady gait PHYSICAL EXAMINATION Vital Signs - 24 hr 10/21/16 10/21/16 10/22/16 21:00 22:00 02:00 Temperature 98.0 F 97.9 F Pulse Rate 100 H 97 H Respiratory 18 18 18 Rate Blood Pressure 123/69 156/82 O2 Sat by Pulse 97 Oximetry (%) 10/22/16 10/22/16 10/22/16 06:00 08:26 10:00 Temperature 97.6 F 98.2 F Pulse Rate 93 H 96 H Respiratory 18 18 18 Rate Blood Pressure 100/70 139/71 O2 Sat by Pulse 98 96 Oximetry (%) 10/22/16 10/22/16 10:11 14:00 Temperature 98.1 F Pulse Rate 101 H 100 H Respiratory 18 Rate Blood Pressure 103/64 O2 Sat by Pulse 95 Oximetry (%) GENERAL: Awake, alert, and fully oriented, in no acute distress. Seated on NC. HEAD: Normal with no signs of trauma. EYES: Pupils equal, round and reactive to light, extraocular movements intact, sclera anicteric, conjunctiva clear. No lid lag. Arcus senilis noted. EARS, NOSE, THROAT: Ears normal, nares patent, oropharynx clear without exudates. Moist mucous membranes. Dried blood on lips. NECK: Supple without lymphadenopathy, JVD, or masses. LUNGS: Decreased lung sounds, L>R. Trace midline expiratory wheeze. No crackles. No accessory muscle use. No tactile fremitus. HEART: Grade 2/6 systolic blowing murmur at RUSB. Regular rate and rhythm, normal S1 and S2 without rub or gallop. ABDOMEN: Soft, nontender, significantly distended. Umbilical hernia noted. Normoactive bowel sounds, no guarding, no masses. No hepatomegaly or splenomegaly. MUSCULOSKELETAL: No bony deformities or tenderness. No CVA tenderness. UPPER EXTREMITIES: 2+ pulses, warm, well-perfused. No cyanosis. No clubbing. Cap refill <2 seconds. No peripheral edema. LOWER EXTREMITIES: 2+ pulses, warm, well-perfused. No calf tenderness. 2+ pitting edema BL up to knee with accompanying stasis dermatitis. Multiple healed ecchymoses on anterior aspect of mid alcala bilateral. NEUROLOGICAL: Cranial nerves II-XII intact. Normal speech. Normal gait. PSYCHIATRIC: Cooperative. Good eye contact. Appropriate mood and affect. SKIN: Warm, dry, normal turgor. No rash noted. Laboratory Results - last 24 hr CBC, BMP 10/19/16 06:10 10/22/16 05:48 10/22/16 10/22/16 10/22/16 05:48 05:48 05:48 INR 2.32 H Sodium 140 Potassium 4.3 Chloride 105 Carbon Dioxide 26 Anion Gap 9 BUN 51 H Creatinine 1.4 H Random Glucose 159 H Calcium 8.0 L Magnesium 2.8 H Creatine Kinase 212 D Creatine Kinase Index 2.5 CK-MB (CK-2) 5.390 H CK-MB (CK-2) Rel Index Cancelled Troponin I 0.08 H D 10/22/16 06:00 INR Sodium Potassium Chloride Carbon Dioxide Anion Gap BUN Creatinine Random Glucose Calcium Magnesium Creatine Kinase Cancelled Creatine Kinase Index CK-MB (CK-2) CK-MB (CK-2) Rel Index Troponin I Cancelled Microbiology 10/14/16 06:00 Sputum - Expectorated Sputum Culture - Final NORMAL RESPIRATORY YOKASTA CXR (10/21): Per radiologist read - BL increased interstitial markings. R pleural effusion Chest CT scan: (10/22) - LLL pneumonia. Trace R pleural effusion. Airspace dz in BILL, RML and RLL, w/ air brochograms. EKG (10/22): NSR w/ multiple PVCs. LVH. Prolonged QT. TWI in lateral leads. Active Medications Generic Name Dose Route Start Last Admin Trade Name Freq PRN Reason Stop Dose Admin Acetaminophen 650 mg 10/10/16 14:55 Tylenol - PO Q4H PRN FEVER OR PAIN Albuterol Sulfate 1 amp 10/13/16 14:18 10/22/16 04:17 Ventolin 0.083% Nebulizer Soln - NEB 1 amp Q4H PRN Administration SHORT OF BREATH/WHEEZING Albuterol/Ipratropium 1 amp 10/15/16 22:00 10/22/16 14:01 Duoneb - NEB 1 amp QID [facility] Administration Allopurinol 100 mg 10/11/16 10:00 10/22/16 09:48 Zyloprim - PO 100 mg DAILY [facility] Administration Aspirin 81 mg 10/11/16 10:00 10/22/16 09:48 Asa - PO 81 mg DAILY [facility] Administration Atorvastatin Calcium 20 mg 10/10/16 22:00 10/21/16 21:01 Lipitor - PO Not Given HS FAM Benzocaine/Menthol 1 each 10/19/16 10:20 10/22/16 02:13 Cepacol Lozenge - MM 1 each PRN PRN Administration SORE THROAT Furosemide 80 mg 10/22/16 10:30 Lasix Injection - IVPUSH DAILY [facility] Guaifenesin/Codeine Phosphate 5 ml 10/17/16 09:22 10/22/16 02:13 Robitussin Ac - PO 5 ml Q4H PRN Administration COUGH Vancomycin HCl 1,250 mg/ 250 mls @ 166.667 mls/hr 10/22/16 17:16 Dextrose IVPB 10/22/16 18:45 ONCE ONE Protocol Piperacillin Sod/Tazobactam Sod 50 mls @ 100 mls/hr 10/23/16 02:00 Zosyn 3.375gm Ivpb (Pre-Docked) IVPB Q8H-IV FAM Protocol Levothyroxine Sodium 100 mcg 10/15/16 07:00 10/22/16 06:00 Synthroid - PO 100 mcg DAILY@0700 [facility] Administration Methylprednisolone Sodium Succinate 40 mg 10/20/16 10:00 10/22/16 17:40 Solu-Medrol - IVPB 40 mg Q8H-IV [facility] Administration Metoprolol Succinate 25 mg 10/10/16 22:00 10/21/16 21:01 Toprol Xl - PO 25 mg HS [facility] Administration Montelukast Sodium 10 mg 10/14/16 22:00 10/21/16 21:00 Singulair - PO 10 mg HS [facility] Administration Pantoprazole Sodium 40 mg 10/11/16 10:00 10/22/16 09:48 Protonix - PO 40 mg DAILY [facility] Administration Tamsulosin HCl 0.4 mg 10/19/16 08:30 10/22/16 09:48 Flomax - PO 0.4 mg DAILY@0830 [facility] Administration Theophylline 100 mg 10/20/16 10:00 10/22/16 09:49 Shai-24 PO 100 mg DAILY [facility] Administration Warfarin Sodium 2.5 mg 10/20/16 18:00 10/22/16 17:40 Coumadin - PO 2.5 mg DAILY@1800 [facility] Administration ASSESSMENT/PLAN: Assessment: Pt is an 80 yo man w/ pmh of COPD (on home O2), CAD (s/p PCI; 3 stents), R lobectomy for lung abscess, GERD, HTN, HLD, who initially presented 12 days ago due with symptomatic bradycardia during pulmonary rehab session, now with worsening respiratory status and suspected PNA. PE notable for afebrile status, expiratory wheeze, decreased lung sounds BL, and significantly BL LE edema to knee. Labs notable for recent elevated BNP 5128 (10/20), elevated Trop/CKMB, no WBC count. Imaging notable for suspected LLL PNA on CT and diffuse airspace disease BL, likely due to air trapping from upper airway congestion. Pt with suspect HCAP PNA given extended stay in hospital, prior Hx and findings on CT. Respiratory status and clinical condition further complicated by chronic CHF and COPD symptoms. Recommend standard coverage for HCAP PNA, zepeda-culture and continual monitoring of respiratory and infectious status. Problem List: Pneumonia Acute on chronic COPD exacerbation CHF exacerbation Plan: #Pneumonia - Panculture; sputum (if expectorating), blood, urine cx - urine legionella ag, pneumoncoccal ag - Abx for HCAP coverage -> Zosyn 3.375 Iv Q8h, 7 day course - Vanc 1250mg once time dose - Stop levaquin - Trend fever curve, WBC count - Serial CXRs - Daily Wts, vitals, CBC Jono Penn MD, PGY1 Plan Discussed with attending, Dr. Graham Dispo: We will continue to follow the patient. Thank you for this consultative opportunity. Problem List - Problems (1) Acute CHF (congestive heart failure) Code(s): I50.9 - HEART FAILURE, UNSPECIFIED (2) Bronchiectasis with (acute) exacerbation Code(s): J47.1 - BRONCHIECTASIS WITH (ACUTE) EXACERBATION (3) COPD exacerbation Code(s): J44.1 - CHRONIC OBSTRUCTIVE PULMONARY DISEASE W (ACUTE) EXACERBATION (4) Pneumonia Code(s): J18.9 - PNEUMONIA, UNSPECIFIED ORGANISM Visit type - Emergency Visit Emergency Visit: No - New Patient This patient is new to me today: Yes Date on this admission: 10/22/16 - Critical Care Critical Care patient: No
[2016-10-22] MEDS: ATORVASTATIN CA 20 MG TABLET (FP) PO SCH (21:42)
[2016-10-22] MEDS: METOPROLOL SUCCINATE 25 MG TAB.SR.24H (FP) PO SCH (21:42)
[2016-10-22] MEDS: MONTELUKAST NA 10 MG TABLET PO SCH (21:42)
[2016-10-23] MEDS: methylPREDNISolone NA SUCC 40 MG/1 ML VIAL IVPB SCH ×4 (01:02→18:04)
[2016-10-23] MEDS: PIPERACILLIN/TAZOB 3.375 GM 50 ML IVPB SCH ×3 (01:02→17:53)
[2016-10-23] MEDS: LEVOTHYROXINE NA 100 MCG TABLET (FP) PO SCH (06:03)
[2016-10-23 07:16] LABS: INR 2.44 (0.82-1.09); PROTHROMBIN TIME (PATIENT) 27.3 SEC (9.98-11.88)
--- NOTE | 2016-10-23 07:41 | PN ---
Physical Exam: SUBJECTIVE: Patient to be seen by me this AM - Blood cx's pending. Urine Cx pending. Legionella, strep Ag pending - No change in respiratory status since yesterday. Still with cough, SOB, dyspnea on exertion. Notes improvement in nasal congestion. - Weight increasing. Afebrile. - Vanc given one time dose yesterday - No recent CBC OBJECTIVE: Vital Signs Period Temp Pulse Resp BP Sys/Martinez Pulse Ox Last 24 Hr 97.8 F-98.2 F 89-101 18-20 103-145/54-75 95-98 GENERAL: Awake, alert, and fully oriented, in no acute distress. Seated on NC. HEAD: Normal with no signs of trauma. EYES: Pupils equal, round and reactive to light, extraocular movements intact, sclera anicteric, conjunctiva clear. No lid lag. Arcus senilis noted. EARS, NOSE, THROAT: Ears normal, nares patent, oropharynx clear without exudates. Moist mucous membranes. Dried blood on lips. NECK: Supple without lymphadenopathy, JVD, or masses. LUNGS: Decreased lung sounds, L>R. Trace midline expiratory wheeze. No crackles. No accessory muscle use. No tactile fremitus. HEART: Grade 2/6 systolic blowing murmur at RUSB. Regular rate and rhythm, normal S1 and S2 without rub or gallop. ABDOMEN: Soft, nontender, significantly distended. Umbilical hernia noted. Normoactive bowel sounds, no guarding, no masses. No hepatomegaly or splenomegaly. MUSCULOSKELETAL: No bony deformities or tenderness. No CVA tenderness. UPPER EXTREMITIES: 2+ pulses, warm, well-perfused. No cyanosis. No clubbing. Cap refill <2 seconds. No peripheral edema. LOWER EXTREMITIES: 2+ pulses, warm, well-perfused. No calf tenderness. 2+ pitting edema BL up to knee with accompanying stasis dermatitis. Multiple healed ecchymoses on anterior aspect of mid [place]cal[place] bilateral. NEUROLOGICAL: Cranial nerves II-XII intact. Normal speech. Normal gait. PSYCHIATRIC: Cooperative. Good eye contact. Appropriate mood and affect. SKIN: Warm, dry, normal turgor. No rash noted. Laboratory Results - last 24 hr CBC, BMP 10/19/16 06:10 10/22/16 10/22/16 10/22/16 05:48 05:48 05:48 INR 2.32 H Sodium 140 Potassium 4.3 Chloride 105 Carbon Dioxide 26 Anion Gap 9 BUN 51 H Creatinine 1.4 H Random Glucose 159 H Calcium 8.0 L Magnesium 2.8 H Creatine Kinase 212 D Creatine Kinase Index 2.5 CK-MB (CK-2) 5.390 H CK-MB (CK-2) Rel Index Cancelled Troponin I 0.08 H D 10/22/16 10/23/16 06:00 05:35 INR 2.44 H Sodium Potassium Chloride Carbon Dioxide Anion Gap BUN Creatinine Random Glucose Calcium Magnesium Creatine Kinase Cancelled Creatine Kinase Index CK-MB (CK-2) CK-MB (CK-2) Rel Index Troponin I Cancelled Microbiology 10/14/16 06:00 Sputum - Expectorated Sputum Culture - Final NORMAL RESPIRATORY [facility] Active Medications Generic Name Dose Route Start Last Admin Trade Name Freq PRN Reason Stop Dose Admin Acetaminophen 650 mg 10/10/16 14:55 Tylenol - PO Q4H PRN FEVER OR PAIN Albuterol Sulfate 1 amp 10/13/16 14:18 10/22/16 04:17 Ventolin 0.083% Nebulizer Soln - NEB 1 amp Q4H PRN Administration SHORT OF BREATH/WHEEZING Albuterol/Ipratropium 1 amp 10/15/16 22:00 10/22/16 22:35 Duoneb - NEB 1 amp QID FAM Administration Allopurinol 100 mg 10/11/16 10:00 10/22/16 09:48 Zyloprim - PO 100 mg DAILY FAM Administration Aspirin 81 mg 10/11/16 10:00 10/22/16 09:48 Asa - PO 81 mg DAILY FAM Administration Atorvastatin Calcium 20 mg 10/10/16 22:00 10/22/16 21:42 Lipitor - PO 20 mg HS FAM Administration Benzocaine/Menthol 1 each 10/19/16 10:20 10/22/16 02:13 Cepacol Lozenge - MM 1 each PRN PRN Administration SORE THROAT Furosemide 80 mg 10/22/16 10:30 Lasix Injection - IVPUSH DAILY FAM Guaifenesin/Codeine Phosphate 5 ml 10/17/16 09:22 10/22/16 02:13 Robitussin Ac - PO 5 ml Q4H PRN Administration COUGH Piperacillin Sod/Tazobactam Sod 50 mls @ 100 mls/hr 10/23/16 02:00 10/23/16 01: 02 Zosyn 3.375gm Ivpb (Pre-Docked) IVPB 100 mls/hr Q8H-IV FAM Administration Protocol Levothyroxine Sodium 100 mcg 10/15/16 07:00 10/23/16 06:03 Synthroid - PO 100 mcg DAILY@0700 FAM Administration Methylprednisolone Sodium Succinate 40 mg 10/20/16 10:00 10/23/16 01:02 Solu-Medrol - IVPB 40 mg Q8H-IV FAM Administration Metoprolol Succinate 25 mg 10/10/16 22:00 10/22/16 21:42 Toprol Xl - PO 25 mg HS FAM Administration Montelukast Sodium 10 mg 10/14/16 22:00 10/22/16 21:42 Singulair - PO 10 mg HS FAM Administration Pantoprazole Sodium 40 mg 10/11/16 10:00 10/22/16 09:48 Protonix - PO 40 mg DAILY FAM Administration Tamsulosin HCl 0.4 mg 10/19/16 08:30 10/22/16 09:48 Flomax - PO 0.4 mg DAILY@0830 FAM Administration Theophylline 100 mg 10/20/16 10:00 10/22/16 09:49 Shai-24 PO 100 mg DAILY FAM Administration Warfarin Sodium 2.5 mg 10/20/16 18:00 10/22/16 17:40 Coumadin - PO 2.5 mg DAILY@1800 FAM Administration CXR (10/21): Per radiologist read - BL increased interstitial markings. R pleural effusion Chest CT scan: (10/22) - LLL pneumonia. Trace R pleural effusion. Airspace dz in BILL, RML and RLL, w/ air brochograms. EKG (10/22): NSR w/ multiple PVCs. LVH. Prolonged QT. TWI in lateral leads. ASSESSMENT/PLAN: Assessment: Pt is an 80 yo man w/ pmh of COPD (on home O2), CAD (s/p PCI; 3 stents), R lobectomy for lung abscess, GERD, HTN, HLD, who initially presented 12 days ago due with symptomatic bradycardia during pulmonary rehab session, now with worsening respiratory status and suspected PNA. No significant interval change in cough, SOB. Remains afebrile. Continue standard coverage for HCAP PNA, f/u cultures and continued monitoring of respiratory and infectious status. Problem List: Pneumonia Acute on chronic COPD exacerbation CHF exacerbation Plan: #Pneumonia - Sputum cx neg - f/u blood, urine cx - urine legionella ag, pneumoncoccal ag neg - Abx for HCAP coverage -> Zosyn 3.375 Iv Q8h, 7 day course - levaquin stopped - Trend fever curve, WBC count - Serial CXRs - Daily Wts, vitals, CBC #SOB - Consult cardiology for ECHO - Weight uptrending 217->218.3 since yesterday - Consider inotrope assisted- diuresis Jono Penn MD, PGY1 Plan discussed with attending, Dr. Graham Will continue to follow Problem List - Problems (1) Acute CHF (congestive heart failure) Code(s): I50.9 - HEART FAILURE, UNSPECIFIED (2) Bronchiectasis with (acute) exacerbation Code(s): J47.1 - BRONCHIECTASIS WITH (ACUTE) EXACERBATION (3) COPD exacerbation Code(s): J44.1 - CHRONIC OBSTRUCTIVE PULMONARY DISEASE W (ACUTE) EXACERBATION (4) Pneumonia Code(s): J18.9 - PNEUMONIA, UNSPECIFIED ORGANISM Visit type - Emergency Visit Emergency Visit: No - New Patient This patient is new to me today: No - Critical Care Critical Care patient: No
[2016-10-23 07:47] LABS: ANION GAP 12 (8-16); CALCIUM 7.6 mg/dL (8.5-10.1); CO2 26 mmol/L (21-32); CREATININE 1.5 mg/dL (0.7-1.3); GLUCOSE,RANDOM 201 mg/dL (74-106)
--- NOTE | 2016-10-23 08:22 | PN ---
Progress Note (short form) - Note Progress Note: Patient was very SOB yesterday and further testing including Chest CT, EKG, Troponin and F/U lab were completed. Patient was found to have several pulmonary infiltrates, EKG T wave changes and mildly elevated troponin. He was seen by MARBELLA CALDERON and is now on IV Zosyn and Vanco. He is now on 8omg of Lasix with weight gain and pedal edema. Today he is still congested and coughing but feels a little better. Any movement OOB even to a chair is stressful and causes increased SOB. On Exam: Vital Signs Temp 98.2 F 10/23/16 06:00 Pulse 97 H 10/23/16 06:00 Resp 20 10/23/16 06:00 BP 107/71 10/23/16 06:00 Pulse Ox 98 10/22/16 21:00 Intake & Output 10/22/16 10/22/16 10/23/16 11:59 23:59 11:59 Intake Total 100 550 Output Total 900 Balance 100 -350 Weight 217 lb 218 lb 3.2 oz Intake: IVPB 250 Oral 100 300 Output: Urine 900 Void 900 Other: Voiding Method Toilet Toilet # Unmeasured Voids Void 1 Bowel Movement No No Weight Measurement Method Standing Scale Alert Chest: a few scattered fine wheezes bilaterally but breath sounds are not diminished Cor : reg Abd: distended; non tender Ext: 1-2+ edema Abnormal Lab Results 10/22/16 10/23/16 10/23/16 05:48 05:35 05:35 INR 2.44 H BUN 51 H 54 H Creatinine 1.4 H 1.5 H Random Glucose 159 H 201 H D Calcium 8.0 L 7.6 L Magnesium 2.8 H CK-MB (CK-2) 5.390 H Troponin I 0.08 H D IMP: Acute Pneumonia COPD with acute Exacerbation Probable CHF with contued weight gain Brtonchiectasis ASHD with Stents Elevated Troponion Acute on Chronic Renal Failure Hx: PE Plan: Followup Cardiology, Pulmonary, Renal and MARBELLA CALDERON's Repeat troponin F/U lab Continue IV Antibiotics ?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 Daily weights Problem List - Problems (1) Acute CHF (congestive heart failure) Code(s): I50.9 - HEART FAILURE, UNSPECIFIED (2) COPD (chronic obstructive pulmonary disease) Code(s): 496 - CHR AIRWAY OBSTRUCT NEC (3) Bronchiectasis with (acute) exacerbation Code(s): J47.1 - BRONCHIECTASIS WITH (ACUTE) EXACERBATION (4) HTN (hypertension) Code(s): I10 - ESSENTIAL (PRIMARY) HYPERTENSION (5) Murali-tachy syndrome Code(s): I49.5 - SICK SINUS SYNDROME (6) Pneumonia Code(s): J18.9 - PNEUMONIA, UNSPECIFIED ORGANISM (7) Cough Code(s): R05 - COUGH (8) Renal failure (ARF), acute on chronic Code(s): N17.9 - ACUTE KIDNEY FAILURE, UNSPECIFIED N18.9 - CHRONIC KIDNEY DISEASE, UNSPECIFIED
[2016-10-23] MEDS ORDERED: PT OWN MED DRAWER 7, Y5N ONE (08:57)
[2016-10-23 09:07] LABS: TROPONIN I 0.09 ng/ml (0.00-0.05)
[2016-10-23] MEDS: FUROSEMIDE 40 MG/4 ML INJECTABLE VIAL IVPUSH SCH (09:13)
[2016-10-23] MEDS: ASPIRIN 81 MG CHEWABLE TABLETS PO SCH (09:14)
[2016-10-23] MEDS: ALLOPURINOL 100 MG TABLET (FP) PO SCH (09:14)
[2016-10-23] MEDS: PANTOPRAZOLE 40 MG TABLET (FP) PO SCH (09:14)
[2016-10-23] MEDS: TAMSULOSIN HCL 0.4 MG CAP.ER.24H (FP) PO SCH (09:14)
[2016-10-23] MEDS: THEOPHYLLINE ANHYDROUS 100 MG CAP.ER.24H PO SCH (09:15)
[2016-10-23] MEDS: guaiFENesin/CODEINE 5 ML UNIT-DOSE CUPS PO PRN (09:18)
[2016-10-23] MEDS: ALBUTEROL SO4 0.083% IH SOL 2.5 MG/3 ML VIAL.NEB. NEB PRN (09:30)
--- NOTE | 2016-10-23 10:33 | PN ---
Progress Note (short form) - Note Progress Note: History of Present Illness: sob persists no cp, no palps no dizzy le edema same Current Medications Generic Name Dose Route Start Last Admin Trade Name Freq PRN Reason Stop Dose Admin Acetaminophen 650 mg 10/10/16 14:55 Tylenol - PO Q4H PRN FEVER OR PAIN Albuterol Sulfate 1 amp 10/13/16 14:18 10/23/16 09:30 Ventolin 0.083% Nebulizer Soln - NEB 1 amp Q4H PRN Administration SHORT OF BREATH/WHEEZING Albuterol/Ipratropium 1 amp 10/23/16 07:51 Duoneb - NEB QIDR FAM Allopurinol 100 mg 10/11/16 10:00 10/23/16 09:14 Zyloprim - PO 100 mg DAILY FAM Administration Aspirin 81 mg 10/11/16 10:00 10/23/16 09:14 Asa - PO 81 mg DAILY FAM Administration Atorvastatin Calcium 20 mg 10/10/16 22:00 10/22/16 21:42 Lipitor - PO 20 mg HS FAM Administration Benzocaine/Menthol 1 each 10/19/16 10:20 10/22/16 02:13 Cepacol Lozenge - MM 1 each PRN PRN Administration SORE THROAT Furosemide 80 mg 10/22/16 10:30 10/23/16 09:13 Lasix Injection - IVPUSH 80 mg DAILY FAM Administration Guaifenesin/Codeine Phosphate 5 ml 10/17/16 09:22 10/23/16 09:18 Robitussin Ac - PO 5 ml Q4H PRN Administration COUGH Piperacillin Sod/Tazobactam Sod 50 mls @ 100 mls/hr 10/23/16 02:00 10/23/16 09: 15 Zosyn 3.375gm Ivpb (Pre-Docked) IVPB 100 mls/hr Q8H-IV FAM Administration Protocol Levothyroxine Sodium 100 mcg 10/15/16 07:00 10/23/16 06:03 Synthroid - PO 100 mcg DAILY@0700 FAM Administration Methylprednisolone Sodium Succinate 40 mg 10/20/16 10:00 10/23/16 09:13 Solu-Medrol - IVPB 40 mg Q8H-IV FAM Administration Metoprolol Succinate 25 mg 10/10/16 22:00 10/22/16 21:42 Toprol Xl - PO 25 mg HS FAM Administration Montelukast Sodium 10 mg 10/14/16 22:00 10/22/16 21:42 Singulair - PO 10 mg HS FAM Administration Pantoprazole Sodium 40 mg 10/11/16 10:00 10/23/16 09:14 Protonix - PO 40 mg DAILY FAM Administration Tamsulosin HCl 0.4 mg 10/19/16 08:30 10/23/16 09:14 Flomax - PO 0.4 mg DAILY@0830 FAM Administration Theophylline 100 mg 10/20/16 10:00 10/23/16 09:15 Shai-24 PO 100 mg DAILY FAM Administration Warfarin Sodium 2.5 mg 10/20/16 18:00 10/22/16 17:40 Coumadin - PO 2.5 mg DAILY@1800 FAM Administration Vital Signs Period Temp Pulse Resp BP Sys/Martinez Pulse Ox Last 24 Hr 97.8 F-98.2 F 86-100 18-20 103-145/54-75 96-98 NAD, calm jvd flat, neck supple diminished breath sounds/exp wheezes, nl effort tachycardic, regular nl s1, s2 2/6 murmur at sternal border and apex + bs soft nt nd 1+ le edema bl aaox3 no jaundice, diaphoresis CBC, BMP 10/19/16 06:10 10/23/16 05:35 - ....Imaging EKG: Other (tele: SR, pvcs, brief atrial run) EKG: sr, 97 bpm. anterolateral twi. Previously twi more prominent in lateral leads. Echo 09/2016 office: Moderate global HK, EF 40%. nl rv. mod mr, LHC 05/2016 at [facility]--per dc summary, patent prior stents and non obs residual dz. LHC/PCI 2010: prox RCA NICOLE, residual OM1 50-60%, patent mid LAD stent, normal right heart pressures, normal LVF Dobut Stress MPI 08/2010: small, mild apical anterior and LV apex ischemia--( PCI after this) MIBI 12/13: small/mild infer ischemia vs GI tracer confounding, EF 41% ct chest 02/2016: ascd aorta 4.3 cm a/p: 80 yo with h/o CAD (s/p PCI), systolic cardiomyopathy, mild asc ao dilation, mod mr, htn, hl, hypothyroid, COPD, Pneumonia (s/p lobectomy for lung abscess), Pulmonary Embolus on coumadin p/w bradycardia. bradycardia - no ekg documentation of episodes. (on routine vitals prior to starting P.T. he was noted to have HR's in the 30's-40's-->to ER where normal HR. per family on telemetry in ER, HR's intermittently were reading 30's -50's for seconds at a time and then going back up to 70's-100's.) - ? artifactual has known h/o sinus tach and has remained in sinus tach here. - he had no sx's at home or here of presyncope/syncope (generalized weakness on DOA is apparently a chronic, stable condition which improves acutely with PT) - recent cath unremarkable, echo in september EF 40%, stable vs priors apparently - no bradyarrhythmia on telemetry here for many days. - home metoprolol continued in hospital. weakness, orthostatic hypotension -observe when pt becomes more ambulatory CAD (s/p PCI) - Con't medical therapy with ASA, statin. Stable. No angina. CE's negative here and recent cath in may with no residual disease syst chf/nsvt: - Over the years his echos have shown variations in lvef, at times reduced. Recent echo at [facility] 05/2016 reports lvef 20% (per dc summary). During that admit he was seen by cardio and had repeat cath showing patent stents and non obs residual dz. He was noted to have NSVT on tele there and given lifevest but pt/ declined. Was started on toprol as well. He has been on bb/arb for several mos now --> improvement in EF --> cont - wt 203 yest, 206 today (office wts vary 195-210 since 04/22). - lasix held here over weekend for + orthostatics - 10/13 JVD noted on exam --> lasix 40 mg IV x 1 - 10/14-13: resumed po lasix as above - 10/17: wt rising and starting to develop le edema. Got lasix 40 iv yesterday and today still vol up and cr bumped up. Given that he appears volume up he may need more iv lasix which may help cr as well. Renal consulted today, will discuss. -10/18: seen by renal, rec'd stopping arb and monitoring for now w/o aggressive diuresis. Today le edema improved and cr improved. Cont with po lasix for now. -10/19: cr continues to improve, back to baseline. Given that his cr bumped up after iv lasix and then improved after stopping iv lasix, it seems that he does not need aggressive diuresis at this time. Cont po lasix for maintenance. Now that off iv steroids le edema should improve. -10/21: back on iv steroids and wt up still so given test dose of iv lasix yesterday. Today cr stable and diuresed well so will cont with lasix 40 iv qd for now -10/22: still with vol overload and wt up so will increase lasix to 80 iv qd -10/23: still vol up, cr stable. Needs further diuresis. Discussed with renal and plan will be to continue lasix 80 iv daily but give additional evening dose of 40 iv and monitor response tomorrow. - cont home metoprolol 25mg HTN: - stable Hyperlipdemia, - con't statin a.e. COPD, PNA: - on home o2 and theophylline - on steroids, pulm following - abx per ID PE 2010 - coumadin. dosing per inr. hgb stable even with additional asa. ascending thoracic aneurysm, small: - Stable on recent ct scan. Cont bb. trop elevation: -borderline trop elevation with flat trend and nl ckmb fraction, not consistent with acs. Likely due to alon/pna/chf
--- NOTE | 2016-10-23 10:55 | PN ---
Progress Note (short form) - Note Progress Note: Renal Follow up for MARIAM Pt seen and examined at the bedside continues to have dyspnea no chest pain LE edema persists Vital Signs Temperature 98.2 F 10/23/16 06:00 Pulse Rate 86 10/23/16 09:15 Respiratory Rate 20 10/23/16 06:00 Blood Pressure 107/71 10/23/16 06:00 O2 Sat by Pulse Oximetry (%) 96 10/23/16 09:15 Intake & Output 10/20/16 10/21/16 10/22/16 10/23/16 23:59 23:59 23:59 23:59 Intake Total 680 1150 650 Output Total 2450 1250 900 Balance -1770 -100 -250 Weight 215 lb 2 oz 216 lb 9.6 oz 217 lb 218 lb 3.2 oz Gen: NAD CVS: RRR Lungs: dec BS at lung bases Abd: soft NT/ND, No bladder distension Ext:1+ LE edema CBC, BMP 10/19/16 06:10 10/23/16 05:35 Current Medications Acetaminophen (Tylenol -) 650 mg PO Q4H PRN PRN Reason: FEVER OR PAIN Albuterol Sulfate (Ventolin 0.083% Nebulizer Soln -) 1 amp NEB Q4H PRN PRN Reason: SHORT OF BREATH/WHEEZING Last Admin: 10/23/16 09:30 Dose: 1 amp Albuterol/Ipratropium (Duoneb -) 1 amp NEB QIDR FAM Allopurinol (Zyloprim -) 100 mg PO DAILY [facility] Last Admin: 10/23/16 09:14 Dose: 100 mg Aspirin (Asa -) 81 mg PO DAILY [facility] Last Admin: 10/23/16 09:14 Dose: 81 mg Atorvastatin Calcium (Lipitor -) 20 mg PO HS [facility] Last Admin: 10/22/16 21:42 Dose: 20 mg Benzocaine/Menthol (Cepacol Lozenge -) 1 each MM PRN PRN PRN Reason: SORE THROAT Last Admin: 10/22/16 02:13 Dose: 1 each Furosemide (Lasix Injection -) 80 mg IVPUSH DAILY [facility] Last Admin: 10/23/16 09:13 Dose: 80 mg Furosemide (Lasix Injection -) 40 mg IVPUSH ONCE ONE Stop: 10/23/16 16:01 Guaifenesin/Codeine Phosphate (Robitussin Ac -) 5 ml PO Q4H PRN PRN Reason: COUGH Last Admin: 10/23/16 09:18 Dose: 5 ml Piperacillin Sod/Tazobactam Sod (Zosyn 3.375gm Ivpb (Pre-Docked)) 50 mls @ 100 mls/hr IVPB Q8H-IV FAM PRN Reason: Protocol Last Admin: 10/23/16 09:15 Dose: 100 mls/hr Levothyroxine Sodium (Synthroid -) 100 mcg PO DAILY@0700 [facility] Last Admin: 10/23/16 06:03 Dose: 100 mcg Methylprednisolone Sodium Succinate (Solu-Medrol -) 40 mg IVPB Q8H-IV [facility] Last Admin: 10/23/16 09:13 Dose: 40 mg Metoprolol Succinate (Toprol Xl -) 25 mg PO HS [facility] Last Admin: 10/22/16 21:42 Dose: 25 mg Montelukast Sodium (Singulair -) 10 mg PO [facility] Last Admin: 10/22/16 21:42 Dose: 10 mg Pantoprazole Sodium (Protonix -) 40 mg PO DAILY [facility] Last Admin: 10/23/16 09:14 Dose: 40 mg Tamsulosin HCl (Flomax -) 0.4 mg PO DAILY@0830 [facility] Last Admin: 10/23/16 09:14 Dose: 0.4 mg Theophylline (Shai-24) 100 mg PO DAILY [facility] Last Admin: 10/23/16 09:15 Dose: 100 mg Warfarin Sodium (Coumadin -) 2.5 mg PO DAILY@1800 [facility] Last Admin: 10/22/16 17:40 Dose: 2.5 mg A/P 80 year old gentleman with PMhx of severe COPD, Coronary artery disease, HLD, Pneumonia, Lung abscess, s/p Pulmonary lobectomy, Pulmonary Embolism, Hypothyroidism p/w sob secondary to COPD/CHF with MARIAM with Cr 1.6 #MARIAM Renal function stable with mild up trend in Cr with IV diuretics pt continues to show signs of volume overload and further diuretics are warranted Trend BUN/Cr will give extra 40mg IV of lasix this evening (as discussed with cardiology) #Dyspnea/COPD/PNA Chest CT showed upper lobe PNA Abx changed to Zosyn Thank you Neo Castro DO
[2016-10-23] MEDS: ALBUTEROL SO4 2.5/IPRATROPIUM 0.5 INH SOL 3 ML VIAL.NEB. NEB SCH ×3 (13:01→23:20)
[2016-10-23] MEDS ORDERED: FUROSEMIDE 40 MG/4 ML INJECTABLE VIAL IVPUSH ONE (16:00)
--- NOTE | 2016-10-23 16:31 | EKG ---
Test Reason : Blood Pressure : / mmHG Vent. Rate : 091 BPM Atrial Rate : 091 BPM P-R Int : 162 ms QRS Dur : 098 ms QT Int : 400 ms P-R-T Axes : 037 -30 018 degrees QTc Int : 492 ms SINUS RHYTHM WITH OCCASIONAL PREMATURE VENTRICULAR COMPLEXES AND PREMATURE ATRIAL COMPLEXES POSSIBLE LEFT ATRIAL ENLARGEMENT LEFT AXIS DEVIATION T WAVE ABNORMALITY, CONSIDER ANTEROLATERAL ISCHEMIA PROLONGED QT ABNORMAL ECG WHEN COMPARED WITH ECG OF 22-OCT-2016 09:28, PREMATURE ATRIAL COMPLEXES ARE NOW PRESENT Confirmed by NANI CARMONA MD ([id number]) on 10/23/2016 4:30:50 PM Referred By: TEMI HERZOG Confirmed By:NANI CARMONA MD
--- NOTE | 2016-10-23 17:02 | PN ---
Teaching Attending Note ATTENDING PHYSICIAN STATEMENT I saw and evaluated the patient. I reviewed the resident's note and discussed the case with the resident. I agree with the resident's findings and plan as documented. SUBJECTIVE: OBJECTIVE: ASSESSMENT AND PLAN:
--- NOTE | 2016-10-23 17:44 | PN ---
Progress Note, Physician History of Present Illness: Dyspnea and cough mildly improved. No chest pain or palpitations. - Current Medication List Current Medications: Active Medications Acetaminophen (Tylenol -) 650 mg PO Q4H PRN PRN Reason: FEVER OR PAIN Albuterol Sulfate (Ventolin 0.083% Nebulizer Soln -) 1 amp NEB Q4H PRN PRN Reason: SHORT OF BREATH/WHEEZING Last Admin: 10/23/16 09:30 Dose: 1 amp Albuterol/Ipratropium (Duoneb -) 1 amp NEB QIDR FAM Last Admin: 10/23/16 13:01 Dose: 1 amp Allopurinol (Zyloprim -) 100 mg PO DAILY [facility] Last Admin: 10/23/16 09:14 Dose: 100 mg Aspirin (Asa -) 81 mg PO DAILY [facility] Last Admin: 10/23/16 09:14 Dose: 81 mg Atorvastatin Calcium (Lipitor -) 20 mg PO HS [facility] Last Admin: 10/22/16 21:42 Dose: 20 mg Benzocaine/Menthol (Cepacol Lozenge -) 1 each MM PRN PRN PRN Reason: SORE THROAT Last Admin: 10/22/16 02:13 Dose: 1 each Furosemide (Lasix Injection -) 80 mg IVPUSH DAILY [facility] Last Admin: 10/23/16 09:13 Dose: 80 mg Guaifenesin/Codeine Phosphate (Robitussin Ac -) 5 ml PO Q4H PRN PRN Reason: COUGH Last Admin: 10/23/16 09:18 Dose: 5 ml Piperacillin Sod/Tazobactam Sod (Zosyn 3.375gm Ivpb (Pre-Docked)) 50 mls @ 100 mls/hr IVPB Q8H-IV FAM PRN Reason: Protocol Last Admin: 10/23/16 09:15 Dose: 100 mls/hr Levothyroxine Sodium (Synthroid -) 100 mcg PO DAILY@0700 [facility] Last Admin: 10/23/16 06:03 Dose: 100 mcg Methylprednisolone Sodium Succinate (Solu-Medrol -) 40 mg IVPB Q8H-IV FAM Last Admin: 10/23/16 09:13 Dose: 40 mg Metoprolol Succinate (Toprol Xl -) 25 mg PO HS [facility] Last Admin: 10/22/16 21:42 Dose: 25 mg Montelukast Sodium (Singulair -) 10 mg PO HS [facility] Last Admin: 10/22/16 21:42 Dose: 10 mg Pantoprazole Sodium (Protonix -) 40 mg PO DAILY [facility] Last Admin: 10/23/16 09:14 Dose: 40 mg Tamsulosin HCl (Flomax -) 0.4 mg PO DAILY@0830 [facility] Last Admin: 10/23/16 09:14 Dose: 0.4 mg Theophylline (Shai-24) 100 mg PO DAILY [facility] Last Admin: 10/23/16 09:15 Dose: 100 mg Warfarin Sodium (Coumadin -) 2.5 mg PO DAILY@1800 [facility] Last Admin: 10/22/16 17:40 Dose: 2.5 mg - Objective Vital Signs: Vital Signs Temperature 97.6 F 10/23/16 14:00 Pulse Rate 78 10/23/16 14:00 Respiratory Rate 20 10/23/16 14:00 Blood Pressure 105/57 10/23/16 14:00 O2 Sat by Pulse Oximetry (%) 94 L 10/23/16 10:00 Constitutional: Yes: No Distress Eyes: No: Sclera Icterus HENT: Yes: Atraumatic Neck: Yes: Supple, Trachea Midline Cardiovascular: Yes: Regular Rate and Rhythm. No: JVD Respiratory: Yes: Diminished (bilateral) Gastrointestinal: Yes: Soft. No: Tenderness Extremities: No: Calf Tenderness Edema: LLE: 2+, RLE: 2+ Neurological: Yes: Alert, Oriented Labs: CBC, BMP 10/19/16 06:10 10/23/16 05:35 INR, PTT INR 2.44 (0.82-1.09) H 10/23/16 05:35 Assessment/Plan Assessment: Pt's respiratory status somewhat improved post change in antibiotic and increased dosage diuretic. Case discussed with patient's . Plan: Taper steroids Bronchodilators O2 to maintain SaO2>90 Antibiotics Diuretic
[2016-10-23] MEDS: WARFARIN NA 2.5 MG TABLET (FP) PO SCH (17:52)
[2016-10-23] MEDS: MONTELUKAST NA 10 MG TABLET PO SCH (22:08)
[2016-10-23] MEDS: ATORVASTATIN CA 20 MG TABLET (FP) PO SCH (22:08)
[2016-10-23] MEDS: METOPROLOL SUCCINATE 25 MG TAB.SR.24H (FP) PO SCH (22:08)
[2016-10-24] MEDS: methylPREDNISolone NA SUCC 40 MG/1 ML VIAL IVPB SCH ×3 (02:09→17:08)
[2016-10-24] MEDS: PIPERACILLIN/TAZOB 3.375 GM 50 ML IVPB SCH ×3 (02:09→17:07)
[2016-10-24] MEDS: LEVOTHYROXINE NA 100 MCG TABLET (FP) PO SCH (06:02)
[2016-10-24] MEDS: ALBUTEROL SO4 2.5/IPRATROPIUM 0.5 INH SOL 3 ML VIAL.NEB. NEB SCH ×4 (06:25→23:45)
--- NOTE | 2016-10-24 07:26 | PN ---
Physical Exam: SUBJECTIVE: Patient seen by me this PM - Breathing much improved. No major complaints or overnight events. Denies fever , chills, CP, N/V, dysuria, diarrhea, or rashes. States he feels much better. - States he can walk to the door w/o feeling SOB - Afebrile, non-productive cough w/ mild chest congestion Other updates: - CBC elevated 14.5 - Blood, urine, sputum cx's neg - Legionella, strep urine ag neg OBJECTIVE: Vital Signs Period Temp Pulse Resp BP Sys/Martinez Pulse Ox Last 24 Hr 97.6 F-97.9 F 78-99 18-20 100-110/57-71 94-96 GENERAL: Awake, alert, and fully oriented, in no acute distress. Seated on NC. HEAD: Normal with no signs of trauma. EYES: extraocular movements intact, sclera anicteric, conjunctiva clear. No lid lag. Arcus senilis noted. NECK: Supple without lymphadenopathy, JVD, or masses. LUNGS: Decreased breath sounds at bases. Trace midline expiratory wheeze across all lung rader. No crackles. No accessory muscle use. No tactile fremitus. HEART: Grade 2/6 systolic blowing murmur at RUSB. Regular rate and rhythm, normal S1 and S2 without rub or gallop. ABDOMEN: Soft, nontender, significantly distended. Umbilical hernia noted. Normoactive bowel sounds, no guarding, no masses. No hepatomegaly or splenomegaly. UPPER EXTREMITIES: 2+ pulses, warm, well-perfused. No cyanosis. No clubbing. Cap refill <2 seconds. No peripheral edema. LOWER EXTREMITIES: 2+ pulses, warm, well-perfused. No calf tenderness. 2+ pitting edema BL up to knee with accompanying stasis dermatitis. No significant interval change. NEUROLOGICAL: Cranial nerves II-XII intact. Normal speech. Normal gait. PSYCHIATRIC: Cooperative. Good eye contact. Appropriate mood and affect. SKIN: Warm, dry, normal turgor. Laboratory Results - last 24 hr CBC, BMP 10/24/16 05:35 10/24/16 05:35 10/23/16 10/23/16 10/23/16 05:35 05:35 05:35 INR 2.44 H Sodium 141 Potassium 4.1 Chloride 103 Carbon Dioxide 26 Anion Gap 12 BUN 54 H Creatinine 1.5 H Random Glucose 201 H D Calcium 7.6 L Creatine Kinase 245 Creatine Kinase Index 2.1 CK-MB (CK-2) 5.187 H CK-MB (CK-2) Rel Index Cancelled Troponin I 0.09 H 10/23/16 08:43 INR Sodium Potassium Chloride Carbon Dioxide Anion Gap BUN Creatinine Random Glucose Calcium Creatine Kinase Cancelled Creatine Kinase Index CK-MB (CK-2) CK-MB (CK-2) Rel Index Troponin I Cancelled Microbiology 10/24/16 10:00 Sputum - Expectorated Gram Stain - Final 10/14/16 06:00 Sputum - Expectorated Gram Stain - Final 10/14/16 06:00 Sputum - Expectorated Sputum Culture - Final NORMAL RESPIRATORY YOKASTA 10/22/16 19:00 Urine - Urine Clean Catch Urine Culture - Final NO GROWTH OBTAINED 10/22/16 19:30 Blood - Peripheral Venous Blood Culture - Preliminary NO GROWTH OBTAINED AFTER 24 HOURS, INCUBATION TO CONTINUE FOR 4 DAYS. 10/22/16 19:30 Blood - Peripheral Venous Blood Culture - Preliminary NO GROWTH OBTAINED AFTER 24 HOURS, INCUBATION TO CONTINUE FOR 4 DAYS. 10/22/16 19:00 Urine For Antigen Detection Legionella Antigen - Final 10/22/16 19:00 Urine For Antigen Detection Streptococcus pneumoniae Antigen (M - Final Active Medications Generic Name Dose Route Start Last Admin Trade Name Freq PRN Reason Stop Dose Admin Acetaminophen 650 mg 10/10/16 14:55 Tylenol - PO Q4H PRN FEVER OR PAIN Albuterol Sulfate 1 amp 10/13/16 14:18 10/23/16 09:30 Ventolin 0.083% Nebulizer Soln - NEB 1 amp Q4H PRN Administration SHORT OF BREATH/WHEEZING Albuterol/Ipratropium 1 amp 10/23/16 07:51 10/24/16 06:25 Duoneb - NEB 1 amp QIDR FAM Administration Allopurinol 100 mg 10/11/16 10:00 10/23/16 09:14 Zyloprim - PO 100 mg DAILY FAM Administration Aspirin 81 mg 10/11/16 10:00 10/23/16 09:14 Asa - PO 81 mg DAILY FAM Administration Atorvastatin Calcium 20 mg 10/10/16 22:00 10/23/16 22:08 Lipitor - PO 20 mg HS FAM Administration Benzocaine/Menthol 1 each 10/19/16 10:20 10/22/16 02:13 Cepacol Lozenge - MM 1 each PRN PRN Administration SORE THROAT Furosemide 80 mg 10/22/16 10:30 10/23/16 09:13 Lasix Injection - IVPUSH 80 mg DAILY FAM Administration Guaifenesin/Codeine Phosphate 5 ml 10/17/16 09:22 10/23/16 09:18 Robitussin Ac - PO 5 ml Q4H PRN Administration COUGH Piperacillin Sod/Tazobactam Sod 50 mls @ 100 mls/hr 10/23/16 02:00 10/24/16 02: 09 Zosyn 3.375gm Ivpb (Pre-Docked) IVPB 100 mls/hr Q8H-IV FAM Administration Protocol Levothyroxine Sodium 100 mcg 10/15/16 07:00 10/24/16 06:02 Synthroid - PO 100 mcg DAILY@0700 FAM Administration Methylprednisolone Sodium Succinate 20 mg 10/23/16 17:52 10/24/16 02:09 Solu-Medrol - IVPB 20 mg Q8H-IV FAM Administration Metoprolol Succinate 25 mg 10/10/16 22:00 10/23/16 22:08 Toprol Xl - PO 25 mg HS FAM Administration Montelukast Sodium 10 mg 10/14/16 22:00 10/23/16 22:08 Singulair - PO 10 mg HS FAM Administration Pantoprazole Sodium 40 mg 10/11/16 10:00 10/23/16 09:14 Protonix - PO 40 mg DAILY FAM Administration Tamsulosin HCl 0.4 mg 10/19/16 08:30 10/23/16 09:14 Flomax - PO 0.4 mg DAILY@0830 FAM Administration Theophylline 100 mg 10/20/16 10:00 10/23/16 09:15 Shai-24 PO 100 mg DAILY FAM Administration Warfarin Sodium 2.5 mg 10/20/16 18:00 10/23/16 17:52 Coumadin - PO 2.5 mg DAILY@1800 FAM Administration CXR (10/21): Per radiologist read - BL increased interstitial markings. R pleural effusion Chest CT scan: (10/22) - LLL pneumonia. Trace R pleural effusion. Airspace dz in BILL, RML and RLL, w/ air brochograms. EKG (10/22): NSR w/ multiple PVCs. LVH. Prolonged QT. TWI in lateral leads. ASSESSMENT/PLAN: Assessment: Pt is an 80 yo man w/ pmh of COPD (on home O2), CAD (s/p PCI; 3 stents), R lobectomy for lung abscess, GERD, HTN, HLD, who initially presented 12 days ago due with symptomatic bradycardia during pulmonary rehab session, now with worsening respiratory status and suspected PNA. Breathing much improved on steroids. Remains afebrile, now with elevated WBC. Will continue standard coverage for HCAP PNA and continue monitoring of respiratory and infectious status. Problem List: Pneumonia Acute on chronic COPD exacerbation CHF exacerbation Plan: #Pneumonia - Sputum cx neg - blood, urine cx neg - urine legionella ag, pneumoncoccal ag neg - Abx for HCAP coverage -> Zosyn 3.375 Iv Q8h, day 2 of 7 day course - Trend fever curve, WBC count - Serial CXRs - Daily Wts, vitals, CBC #SOB - weight decreasing - Consult cardiology for ECHO - Consider inotrope assisted- diuresis Jono Penn MD, PGY1 Plan discussed with attending, Dr. Graham Problem List - Problems (1) Acute CHF (congestive heart failure) Code(s): I50.9 - HEART FAILURE, UNSPECIFIED (2) Bronchiectasis with (acute) exacerbation Code(s): J47.1 - BRONCHIECTASIS WITH (ACUTE) EXACERBATION (3) COPD exacerbation Code(s): J44.1 - CHRONIC OBSTRUCTIVE PULMONARY DISEASE W (ACUTE) EXACERBATION (4) Pneumonia Code(s): J18.9 - PNEUMONIA, UNSPECIFIED ORGANISM Visit type - Emergency Visit Emergency Visit: No - New Patient This patient is new to me today: No - Critical Care Critical Care patient: No
[2016-10-24 07:34] LABS: INR 2.66 (0.82-1.09); PROTHROMBIN TIME (PATIENT) 29.9 SEC (9.98-11.88)
[2016-10-24 07:50] LABS: BASOPHIL 0.1 % (0-2.0); MCH 27.5 pg (25.7-33.7); MEAN PLT VOLUME 9.6 fl (7.5-11.1); NEUTROPHILS 93.7 % (42.8-82.8); PLATELET COUNT 179 K/MM3 (134-434); RDW 18.7 % (11.9-15.9); WHITE BLOOD COUNT 14.5 K/mm3 (4.0-10.0)
[2016-10-24 07:53] LABS: ANION GAP 12 (8-16); CALCIUM 7.1 mg/dL (8.5-10.1); CO2 28 mmol/L (21-32); CREATININE 1.5 mg/dL (0.7-1.3); GLUCOSE,RANDOM 147 mg/dL (74-106); MAGNESIUM 2.6 mg/dL (1.8-2.4); PHOSPHOROUS 4.5 mg/dL (2.5-4.9)
[2016-10-24] MEDS ORDERED: PT OWN MED DRAWER 7, Y5N ONE (09:24)
[2016-10-24] MEDS: ALLOPURINOL 100 MG TABLET (FP) PO SCH (09:33)
[2016-10-24] MEDS: PANTOPRAZOLE 40 MG TABLET (FP) PO SCH (09:34)
[2016-10-24] MEDS: THEOPHYLLINE ANHYDROUS 100 MG CAP.ER.24H PO SCH (09:34)
[2016-10-24] MEDS: TAMSULOSIN HCL 0.4 MG CAP.ER.24H (FP) PO SCH (09:34)
[2016-10-24] MEDS: ASPIRIN 81 MG CHEWABLE TABLETS PO SCH (09:34)
[2016-10-24] MEDS: FUROSEMIDE 40 MG/4 ML INJECTABLE VIAL IVPUSH SCH (09:34)
--- NOTE | 2016-10-24 09:54 | PN ---
Progress Note, Physician Chief Complaint: Feeling a little better with slightly less SOB. History of Present Illness: Patient with Acute exacerbation of COPD, Pneumonia, Bronchictasis and Acute on Chronic renal failure and acute on chronic renal failure is a little improved today with less SOB when walking to bathroom and 2 lb weight loss. Creatinine stable.Getting IV Lasix (X2 yesterday) and IV antibiotics and steroids. INR therapeutic and WBC elevated due to steroids. - Current Medication List Current Medications: Active Medications Acetaminophen (Tylenol -) 650 mg PO Q4H PRN PRN Reason: FEVER OR PAIN Albuterol Sulfate (Ventolin 0.083% Nebulizer Soln -) 1 amp NEB Q4H PRN PRN Reason: SHORT OF BREATH/WHEEZING Last Admin: 10/23/16 09:30 Dose: 1 amp Albuterol/Ipratropium (Duoneb -) 1 amp NEB QIDR [facility] Last Admin: 10/24/16 06:25 Dose: 1 amp Allopurinol (Zyloprim -) 100 mg PO DAILY [facility] Last Admin: 10/24/16 09:33 Dose: 100 mg Aspirin (Asa -) 81 mg PO DAILY [facility] Last Admin: 10/24/16 09:34 Dose: 81 mg Atorvastatin Calcium (Lipitor -) 20 mg PO HS [facility] Last Admin: 10/23/16 22:08 Dose: 20 mg Benzocaine/Menthol (Cepacol Lozenge -) 1 each MM PRN PRN PRN Reason: SORE THROAT Last Admin: 10/22/16 02:13 Dose: 1 each Furosemide (Lasix Injection -) 80 mg IVPUSH DAILY [facility] Last Admin: 10/24/16 09:34 Dose: 80 mg Guaifenesin/Codeine Phosphate (Robitussin Ac -) 5 ml PO Q4H PRN PRN Reason: COUGH Last Admin: 10/23/16 09:18 Dose: 5 ml Piperacillin Sod/Tazobactam Sod (Zosyn 3.375gm Ivpb (Pre-Docked)) 50 mls @ 100 mls/hr IVPB Q8H-IV FAM PRN Reason: Protocol Last Admin: 10/24/16 09:34 Dose: 100 mls/hr Levothyroxine Sodium (Synthroid -) 100 mcg PO DAILY@0700 [facility] Last Admin: 10/24/16 06:02 Dose: 100 mcg Methylprednisolone Sodium Succinate (Solu-Medrol -) 20 mg IVPB Q8H-IV [facility] Last Admin: 10/24/16 09:33 Dose: 20 mg Metoprolol Succinate (Toprol Xl -) 25 mg PO [facility] Last Admin: 10/23/16 22:08 Dose: 25 mg Montelukast Sodium (Singulair -) 10 mg PO [facility] Last Admin: 10/23/16 22:08 Dose: 10 mg Pantoprazole Sodium (Protonix -) 40 mg PO DAILY [facility] Last Admin: 10/24/16 09:34 Dose: 40 mg Tamsulosin HCl (Flomax -) 0.4 mg PO DAILY@0830 [facility] Last Admin: 10/24/16 09:34 Dose: 0.4 mg Theophylline (Shai-24) 100 mg PO DAILY [facility] Last Admin: 10/24/16 09:34 Dose: 100 mg Warfarin Sodium (Coumadin -) 2.5 mg PO DAILY@1800 [facility] Last Admin: 10/23/16 17:52 Dose: 2.5 mg - Objective Vital Signs: Vital Signs Temperature 97.9 F 10/24/16 06:00 Pulse Rate 99 H 10/24/16 06:00 Respiratory Rate 20 10/24/16 06:00 Blood Pressure 105/64 10/24/16 06:00 O2 Sat by Pulse Oximetry (%) 95 10/23/16 20:56 Constitutional: Yes: Mild Distress Cardiovascular: Yes: Regular Rate and Rhythm, Other (oc pvc's) Respiratory: Yes: Diminished, Rhonchi (Rhonchi and a few wheezes at the bases.) Gastrointestinal: Yes: Soft (Had BM) Genitourinary: No: Carpenter Present Edema: LLE: 1+, RLE: 1+ Neurological: Yes: Alert, Oriented Labs: CBC, BMP 10/24/16 05:35 10/24/16 05:35 INR, PTT INR 2.66 (0.82-1.09) H 10/24/16 05:35 Problem List - Problems (1) Acute CHF (congestive heart failure) Assessment/Plan: Needed 2 doses of IV Lasix yesterday. Followed by Cardiology. Code(s): I50.9 - HEART FAILURE, UNSPECIFIED (2) COPD (chronic obstructive pulmonary disease) Assessment/Plan: On IV steroids and aerosol Rx. Code(s): 496 - CHR AIRWAY OBSTRUCT NEC (3) Bronchiectasis with (acute) exacerbation Assessment/Plan: On IV antibiotics. Code(s): J47.1 - BRONCHIECTASIS WITH (ACUTE) EXACERBATION (4) HTN (hypertension) Assessment/Plan: Stable without ARB. Code(s): I10 - ESSENTIAL (PRIMARY) HYPERTENSION (5) Murali-tachy syndrome Code(s): I49.5 - SICK SINUS SYNDROME (6) Pneumonia Assessment/Plan: On Iv antibiotics; followed by ID and Pulmonary MD's Code(s): J18.9 - PNEUMONIA, UNSPECIFIED ORGANISM (7) Cough Code(s): R05 - COUGH (8) Renal failure (ARF), acute on chronic Assessment/Plan: Being followed by Renal MD and Lab Code(s): N17.9 - ACUTE KIDNEY FAILURE, UNSPECIFIED N18.9 - CHRONIC KIDNEY DISEASE, UNSPECIFIED
--- NOTE | 2016-10-24 09:58 | PN ---
Progress Note (short form) - Note Progress Note: History of Present Illness: sob persists but better today no cp, no palps no dizzy le edema a little better Current Medications Generic Name Dose Route Start Last Admin Trade Name Freq PRN Reason Stop Dose Admin Acetaminophen 650 mg 10/10/16 14:55 Tylenol - PO Q4H PRN FEVER OR PAIN Albuterol Sulfate 1 amp 10/13/16 14:18 10/23/16 09:30 Ventolin 0.083% Nebulizer Soln - NEB 1 amp Q4H PRN Administration SHORT OF BREATH/WHEEZING Albuterol/Ipratropium 1 amp 10/23/16 07:51 10/24/16 06:25 Duoneb - NEB 1 amp QIDR FAM Administration Allopurinol 100 mg 10/11/16 10:00 10/24/16 09:33 Zyloprim - PO 100 mg DAILY FAM Administration Aspirin 81 mg 10/11/16 10:00 10/24/16 09:34 Asa - PO 81 mg DAILY FAM Administration Atorvastatin Calcium 20 mg 10/10/16 22:00 10/23/16 22:08 Lipitor - PO 20 mg HS FAM Administration Benzocaine/Menthol 1 each 10/19/16 10:20 10/22/16 02:13 Cepacol Lozenge - MM 1 each PRN PRN Administration SORE THROAT Furosemide 80 mg 10/22/16 10:30 10/24/16 09:34 Lasix Injection - IVPUSH 80 mg DAILY FAM Administration Furosemide 40 mg 10/24/16 16:00 Lasix Injection - IVPUSH 10/24/16 16:01 ONCE ONE Guaifenesin/Codeine Phosphate 5 ml 10/17/16 09:22 10/23/16 09:18 Robitussin Ac - PO 5 ml Q4H PRN Administration COUGH Piperacillin Sod/Tazobactam Sod 50 mls @ 100 mls/hr 10/23/16 02:00 10/24/16 09: 34 Zosyn 3.375gm Ivpb (Pre-Docked) IVPB 100 mls/hr Q8H-IV FAM Administration Protocol Levothyroxine Sodium 100 mcg 10/15/16 07:00 10/24/16 06:02 Synthroid - PO 100 mcg DAILY@0700 FAM Administration Methylprednisolone Sodium Succinate 20 mg 10/23/16 17:52 10/24/16 09:33 Solu-Medrol - IVPB 20 mg Q8H-IV FAM Administration Metoprolol Succinate 25 mg 10/10/16 22:00 10/23/16 22:08 Toprol Xl - PO 25 mg HS FAM Administration Montelukast Sodium 10 mg 10/14/16 22:00 10/23/16 22:08 Singulair - PO 10 mg HS FAM Administration Pantoprazole Sodium 40 mg 10/11/16 10:00 10/24/16 09:34 Protonix - PO 40 mg DAILY FAM Administration Tamsulosin HCl 0.4 mg 10/19/16 08:30 10/24/16 09:34 Flomax - PO 0.4 mg DAILY@0830 FAM Administration Theophylline 100 mg 10/20/16 10:00 10/24/16 09:34 Shai-24 PO 100 mg DAILY FAM Administration Warfarin Sodium 2.5 mg 10/20/16 18:00 10/23/16 17:52 Coumadin - PO 2.5 mg DAILY@1800 FAM Administration Vital Signs Period Temp Pulse Resp BP Sys/Martinez Pulse Ox Last 24 Hr 97.6 F-97.9 F 78-99 18-20 100-110/57-71 94-95 NAD, calm jvd flat, neck supple diminished breath sounds/exp wheezes, nl effort tachycardic, regular nl s1, s2 2/6 murmur at sternal border and apex + bs soft nt nd 1+ le edema bl aaox3 no jaundice, diaphoresis CBC, BMP 10/24/16 05:35 10/24/16 05:35 - ....Imaging EKG: Other (tele: SR, pvcs) EKG: sr, 97 bpm. anterolateral twi. Previously twi more prominent in lateral leads. Echo 09/2016 office: Moderate global HK, EF 40%. nl rv. mod mr, C 05/2016 at [facility]--per dc summary, patent prior stents and non obs residual dz. LHC/PCI 2010: prox RCA NICOLE, residual OM1 50-60%, patent mid LAD stent, normal right heart pressures, normal LVF Dobut Stress MPI 08/2010: small, mild apical anterior and LV apex ischemia--( PCI after this) MIBI 12/13: small/mild infer ischemia vs GI tracer confounding, EF 41% ct chest 02/2016: ascd aorta 4.3 cm a/p: 80 yo with h/o CAD (s/p PCI), systolic cardiomyopathy, mild asc ao dilation, mod mr, htn, hl, hypothyroid, COPD, Pneumonia (s/p lobectomy for lung abscess), Pulmonary Embolus on coumadin p/w bradycardia. bradycardia - no ekg documentation of episodes. (on routine vitals prior to starting P.T. he was noted to have HR's in the 30's-40's-->to ER where normal HR. per family on telemetry in ER, HR's intermittently were reading 30's -50's for seconds at a time and then going back up to 70's-100's.) - ? artifactual has known h/o sinus tach and has remained in sinus tach here. - he had no sx's at home or here of presyncope/syncope (generalized weakness on DOA is apparently a chronic, stable condition which improves acutely with PT) - recent cath unremarkable, echo in september EF 40%, stable vs priors apparently - no bradyarrhythmia on telemetry here for many days. - home metoprolol continued in hospital. weakness, orthostatic hypotension -observe when pt becomes more ambulatory CAD (s/p PCI) - Con't medical therapy with ASA, statin. Stable. No angina. CE's negative here and recent cath in may with no residual disease syst chf/nsvt: - Over the years his echos have shown variations in lvef, at times reduced. Recent echo at [facility] 05/2016 reports lvef 20% (per dc summary). During that admit he was seen by cardio and had repeat cath showing patent stents and non obs residual dz. He was noted to have NSVT on tele there and given lifevest but pt/ declined. Was started on toprol as well. He has been on bb/arb for several mos now --> improvement in EF --> cont - wt 203 yest, 206 today (office wts vary 195-210 since 04/22). - lasix held here over weekend for + orthostatics - 10/13 JVD noted on exam --> lasix 40 mg IV x 1 - 10/14-13: resumed po lasix as above - 10/17: wt rising and starting to develop le edema. Got lasix 40 iv yesterday and today still vol up and cr bumped up. Given that he appears volume up he may need more iv lasix which may help cr as well. Renal consulted today, will discuss. -10/18: seen by renal, rec'd stopping arb and monitoring for now w/o aggressive diuresis. Today le edema improved and cr improved. Cont with po lasix for now. -10/19: cr continues to improve, back to baseline. Given that his cr bumped up after iv lasix and then improved after stopping iv lasix, it seems that he does not need aggressive diuresis at this time. Cont po lasix for maintenance. Now that off iv steroids le edema should improve. -10/21: back on iv steroids and wt up still so given test dose of iv lasix yesterday. Today cr stable and diuresed well so will cont with lasix 40 iv qd for now -10/22: still with vol overload and wt up so will increase lasix to 80 iv qd -10/23: still vol up, cr stable. Needs further diuresis. Discussed with renal and plan will be to continue lasix 80 iv daily but give additional evening dose of 40 iv and monitor response tomorrow. -10/24: seemed to respond well to lasix iv 80/40 yesterday with stable cr and wt down, will cont same today. - cont home metoprolol 25mg HTN: - stable Hyperlipdemia, - con't statin a.e. COPD, PNA: - on home o2 and theophylline - on steroids, pulm following - abx per ID PE 2010 - coumadin. dosing per inr. hgb stable even with additional asa. ascending thoracic aneurysm, small: - Stable on recent ct scan. Cont bb. trop elevation: -borderline trop elevation with flat trend and nl ckmb fraction, not consistent with acs. Likely due to alon/pna/chf
--- NOTE | 2016-10-24 12:22 | PN ---
Progress Note (short form) - Note Progress Note: Renal Follow up for MARIAM Pt seen and examined at the bedside feels better today lost 2lbs from yesterday Vital Signs Temperature 98.6 F 10/24/16 10:00 Pulse Rate 86 10/24/16 11:18 Respiratory Rate 20 10/24/16 10:00 Blood Pressure 107/63 10/24/16 10:00 O2 Sat by Pulse Oximetry (%) 98 10/24/16 11:18 Intake & Output 10/21/16 10/22/16 10/23/16 10/24/16 23:59 23:59 23:59 23:59 Intake Total 1150 650 500 Output Total 9128 347 2711 950 Balance -100 -250 -6210 -450 Weight 216 lb 9.6 oz 217 lb 218 lb 3.2 oz 216 lb Gen: NAD CVS: RRR Lungs: dec BS at lung bases Abd: soft NT/ND, No bladder distension Ext:1+ LE edema CBC, BMP 10/24/16 05:35 10/24/16 05:35 Current Medications Acetaminophen (Tylenol -) 650 mg PO Q4H PRN PRN Reason: FEVER OR PAIN Albuterol Sulfate (Ventolin 0.083% Nebulizer Soln -) 1 amp NEB Q4H PRN PRN Reason: SHORT OF BREATH/WHEEZING Last Admin: 10/23/16 09:30 Dose: 1 amp Albuterol/Ipratropium (Duoneb -) 1 amp NEB QIDR [facility] Last Admin: 10/24/16 11:18 Dose: 1 amp Allopurinol (Zyloprim -) 100 mg PO DAILY [facility] Last Admin: 10/24/16 09:33 Dose: 100 mg Aspirin (Asa -) 81 mg PO DAILY [facility] Last Admin: 10/24/16 09:34 Dose: 81 mg Atorvastatin Calcium (Lipitor -) 20 mg PO HS [facility] Last Admin: 10/23/16 22:08 Dose: 20 mg Benzocaine/Menthol (Cepacol Lozenge -) 1 each MM PRN PRN PRN Reason: SORE THROAT Last Admin: 10/22/16 02:13 Dose: 1 each Furosemide (Lasix Injection -) 80 mg IVPUSH DAILY [facility] Last Admin: 10/24/16 09:34 Dose: 80 mg Furosemide (Lasix Injection -) 40 mg IVPUSH ONCE ONE Stop: 10/24/16 16:01 Guaifenesin/Codeine Phosphate (Robitussin Ac -) 5 ml PO Q4H PRN PRN Reason: COUGH Last Admin: 10/23/16 09:18 Dose: 5 ml Piperacillin Sod/Tazobactam Sod (Zosyn 3.375gm Ivpb (Pre-Docked)) 50 mls @ 100 mls/hr IVPB Q8H-IV FAM PRN Reason: Protocol Last Admin: 10/24/16 09:34 Dose: 100 mls/hr Levothyroxine Sodium (Synthroid -) 100 mcg PO DAILY@0700 [facility] Last Admin: 10/24/16 06:02 Dose: 100 mcg Methylprednisolone Sodium Succinate (Solu-Medrol -) 20 mg IVPB Q8H-IV [facility] Last Admin: 10/24/16 09:33 Dose: 20 mg Metoprolol Succinate (Toprol Xl -) 25 mg PO HS [facility] Last Admin: 10/23/16 22:08 Dose: 25 mg Montelukast Sodium (Singulair -) 10 mg PO [facility] Last Admin: 10/23/16 22:08 Dose: 10 mg Pantoprazole Sodium (Protonix -) 40 mg PO DAILY [facility] Last Admin: 10/24/16 09:34 Dose: 40 mg Tamsulosin HCl (Flomax -) 0.4 mg PO DAILY@0830 [facility] Last Admin: 10/24/16 09:34 Dose: 0.4 mg Theophylline (Shai-24) 100 mg PO DAILY [facility] Last Admin: 10/24/16 09:34 Dose: 100 mg Warfarin Sodium (Coumadin -) 2.5 mg PO DAILY@1800 [facility] Last Admin: 10/23/16 17:52 Dose: 2.5 mg A/P 80 year old gentleman with PMhx of severe COPD, Coronary artery disease, HLD, Pneumonia, Lung abscess, s/p Pulmonary lobectomy, Pulmonary Embolism, Hypothyroidism p/w sob secondary to COPD/CHF with MARIAM with Cr 1.6 #MARIAM Renal function stable and pt with continued signs of volume overload would continue BID IV lasix at this time trend BUN/Cr and electrolytes #Hypocalcemia Corrected Ca is 7.9 start oral calcium carbonate #Dyspnea/COPD/PNA Chest CT showed upper lobe PNA on IV Zosyn Thank you Neo Castro DO
[2016-10-24] MEDS: CALCIUM CARBONATE 650 MG TABLET PO SCH ×2 (12:30→21:28)
--- NOTE | 2016-10-24 14:18 | PN ---
Teaching Attending Note Name of Resident: Jono Penn ATTENDING PHYSICIAN STATEMENT I saw and evaluated the patient. I reviewed the resident's note and discussed the case with the resident. I agree with the resident's findings and plan as documented. SUBJECTIVE: feels much better much less sob OBJECTIVE: Vital Signs Period Temp Pulse Resp BP Sys/Martinez Pulse Ox Last 24 Hr 97.6 F-98.6 F 86-99 18-20 101-110/63-71 95-98 cor-rrr lungs bilateral expiratory wheezes abd soft,nt ext +edema CBC, BMP 10/24/16 05:35 10/24/16 05:35 Microbiology 10/22/16 19:00 Urine - Urine Clean Catch Urine Culture - Final NO GROWTH OBTAINED 10/22/16 19:30 Blood - Peripheral Venous Blood Culture - Preliminary NO GROWTH OBTAINED AFTER 24 HOURS, INCUBATION TO CONTINUE FOR 4 DAYS. 10/22/16 19:30 Blood - Peripheral Venous Blood Culture - Preliminary NO GROWTH OBTAINED AFTER 24 HOURS, INCUBATION TO CONTINUE FOR 4 DAYS. 10/22/16 19:00 Urine For Antigen Detection Legionella Antigen - Final 10/22/16 19:00 Urine For Antigen Detection Streptococcus pneumoniae Antigen (M - Final 10/14/16 06:00 Sputum - Expectorated Sputum Culture - Final NORMAL RESPIRATORY YOKASTA ASSESSMENT AND PLAN: pneumonia- on zosyn day #2 improved, f/u cultures chf- improved today Problem List - Problems (1) Pneumonia Code(s): J18.9 - PNEUMONIA, UNSPECIFIED ORGANISM (2) Acute CHF (congestive heart failure) Code(s): I50.9 - HEART FAILURE, UNSPECIFIED
[2016-10-24] MEDS ORDERED: FUROSEMIDE 40 MG/4 ML INJECTABLE VIAL IVPUSH ONE (16:00)
[2016-10-24] MEDS: WARFARIN NA 2.5 MG TABLET (FP) PO SCH (17:08)
[2016-10-24] MEDS: MONTELUKAST NA 10 MG TABLET PO SCH (21:27)
[2016-10-24] MEDS: ATORVASTATIN CA 20 MG TABLET (FP) PO SCH (21:27)
[2016-10-24] MEDS: METOPROLOL SUCCINATE 25 MG TAB.SR.24H (FP) PO SCH (21:28)
[2016-10-25] MEDS: PIPERACILLIN/TAZOB 3.375 GM 50 ML IVPB SCH ×3 (00:59→17:08)
[2016-10-25] MEDS: methylPREDNISolone NA SUCC 40 MG/1 ML VIAL IVPB SCH ×3 (00:59→17:05)
[2016-10-25] MEDS: LEVOTHYROXINE NA 100 MCG TABLET (FP) PO SCH (06:04)
[2016-10-25 06:35] LABS: INR 2.72 (0.82-1.09); PROTHROMBIN TIME (PATIENT) 30.5 SEC (9.98-11.88)
[2016-10-25] MEDS: ALBUTEROL SO4 2.5/IPRATROPIUM 0.5 INH SOL 3 ML VIAL.NEB. NEB SCH ×4 (06:58→23:03)
[2016-10-25 07:18] LABS: ANION GAP 9 (8-16); CALCIUM 7.1 mg/dL (8.5-10.1); CO2 33 mmol/L (21-32); CREATININE 1.4 mg/dL (0.7-1.3); GLUCOSE,RANDOM 156 mg/dL (74-106); MAGNESIUM 2.5 mg/dL (1.8-2.4); PHOSPHOROUS 4.2 mg/dL (2.5-4.9)
[2016-10-25] MEDS ORDERED: PT OWN MED DRAWER 7, Y5N ONE ×2 (09:24→20:11)
[2016-10-25] MEDS: ALLOPURINOL 100 MG TABLET (FP) PO SCH (09:34)
[2016-10-25] MEDS: TAMSULOSIN HCL 0.4 MG CAP.ER.24H (FP) PO SCH (09:34)
[2016-10-25] MEDS: THEOPHYLLINE ANHYDROUS 100 MG CAP.ER.24H PO SCH (09:35)
[2016-10-25] MEDS: PANTOPRAZOLE 40 MG TABLET (FP) PO SCH (09:35)
[2016-10-25] MEDS: ASPIRIN 81 MG CHEWABLE TABLETS PO SCH (09:35)
[2016-10-25] MEDS: FUROSEMIDE 40 MG/4 ML INJECTABLE VIAL IVPUSH SCH (09:35)
[2016-10-25] MEDS: CALCIUM CARBONATE 650 MG TABLET PO SCH ×2 (09:35→21:07)
--- NOTE | 2016-10-25 09:43 | PN ---
Progress Note, Physician History of Present Illness: Feels improved this AM Able to walk in hallway No dizziness or palps Tele: NSR 100s with PVCs - Current Medication List Current Medications: Active Medications Acetaminophen (Tylenol -) 650 mg PO Q4H PRN PRN Reason: FEVER OR PAIN Albuterol Sulfate (Ventolin 0.083% Nebulizer Soln -) 1 amp NEB Q4H PRN PRN Reason: SHORT OF BREATH/WHEEZING Last Admin: 10/23/16 09:30 Dose: 1 amp Albuterol/Ipratropium (Duoneb -) 1 amp NEB QIDR FAM Last Admin: 10/25/16 06:58 Dose: 1 amp Allopurinol (Zyloprim -) 100 mg PO DAILY ON [facility] OF [facility] Last Admin: 10/24/16 09:33 Dose: 100 mg Aspirin (Asa -) 81 mg PO DAILY ON [facility] Last Admin: 10/24/16 09:34 Dose: 81 mg Atorvastatin Calcium (Lipitor -) 20 mg PO HS ON [facility] Last Admin: 10/24/16 21:27 Dose: 20 mg Benzocaine/Menthol (Cepacol Lozenge -) 1 each MM PRN PRN PRN Reason: SORE THROAT Last Admin: 10/22/16 02:13 Dose: 1 each Calcium Carbonate (Calcium Carbonate -) 650 mg PO BID ON [facility] Last Admin: 10/24/16 21:28 Dose: 650 mg Furosemide (Lasix Injection -) 80 mg IVPUSH DAILY ON [facility] Last Admin: 10/24/16 09:34 Dose: 80 mg Guaifenesin/Codeine Phosphate (Robitussin Ac -) 5 ml PO Q4H PRN PRN Reason: COUGH Last Admin: 10/23/16 09:18 Dose: 5 ml Piperacillin Sod/Tazobactam Sod (Zosyn 3.375gm Ivpb (Pre-Docked)) 50 mls @ 100 mls/hr IVPB Q8H-IV FAM PRN Reason: Protocol Last Admin: 10/25/16 00:59 Dose: 100 mls/hr Levothyroxine Sodium (Synthroid -) 100 mcg PO DAILY@0700 ON [facility] OF [facility] Last Admin: 10/25/16 06:04 Dose: 100 mcg Methylprednisolone Sodium Succinate (Solu-Medrol -) 20 mg IVPB Q8H-IV FAM Last Admin: 10/25/16 00:59 Dose: 20 mg Metoprolol Succinate (Toprol Xl -) 25 mg PO [facility] Last Admin: 10/24/16 21:28 Dose: 25 mg Montelukast Sodium (Singulair -) 10 mg PO [facility] Last Admin: 10/24/16 21:27 Dose: 10 mg Pantoprazole Sodium (Protonix -) 40 mg PO DAILY [facility] Last Admin: 10/24/16 09:34 Dose: 40 mg Tamsulosin HCl (Flomax -) 0.4 mg PO DAILY@0830 [facility] Last Admin: 10/24/16 09:34 Dose: 0.4 mg Theophylline (Shai-24) 100 mg PO DAILY ON [facility] Last Admin: 10/24/16 09:34 Dose: 100 mg Warfarin Sodium (Coumadin -) 2.5 mg PO DAILY@1800 [facility] Last Admin: 10/24/16 17:08 Dose: 2.5 mg - Objective Vital Signs: Vital Signs Temperature 97.8 F 10/25/16 06:00 Pulse Rate 89 10/25/16 06:00 Respiratory Rate 20 10/25/16 06:00 Blood Pressure 103/69 10/25/16 06:00 O2 Sat by Pulse Oximetry (%) 98 10/24/16 21:00 Constitutional: Yes: No Distress Eyes: Yes: WNL HENT: Yes: WNL Neck: Yes: WNL Cardiovascular: Yes: Regular Rate and Rhythm, JVD Respiratory: Yes: WNL, CTA Bilaterally Edema: Yes Edema: LLE: 2+, RLE: 2+ Labs: CBC, BMP 10/24/16 05:35 10/25/16 05:45 INR, PTT INR 2.72 (0.82-1.09) H 10/25/16 05:45 Assessment/Plan a/p: 80 yo with h/o CAD (s/p PCI), systolic cardiomyopathy, mild asc ao dilation, mod mr, htn, hl, hypothyroid, COPD, Pneumonia (s/p lobectomy for lung abscess), Pulmonary Embolus on coumadin p/w bradycardia. bradycardia - no ekg documentation of episodes. (on routine vitals prior to starting P.T. he was noted to have HR's in the 30's-40's-->to ER where normal HR. per family on telemetry in ER, HR's intermittently were reading 30's -50's for seconds at a time and then going back up to 70's-100's.) - ? artifactual has known h/o sinus tach and has remained in sinus tach here. - he had no sx's at home or here of presyncope/syncope (generalized weakness on DOA is apparently a chronic, stable condition which improves acutely with PT) - recent cath unremarkable, echo in september EF 40%, stable vs priors apparently - no bradyarrhythmia on telemetry here for many days. - home metoprolol continued in hospital. weakness, orthostatic hypotension -observe when pt becomes more ambulatory CAD (s/p PCI) - Con't medical therapy with ASA, statin. Stable. No angina. CE's negative here and recent cath in may with no residual disease syst chf/nsvt: - Over the years his echos have shown variations in lvef, at times reduced. Recent echo at [facility] 05/2016 reports lvef 20% (per dc summary). During that admit he was seen by cardio and had repeat cath showing patent stents and non obs residual dz. He was noted to have NSVT on tele there and given lifevest but pt/ declined. Was started on toprol as well. He has been on bb/arb for several mos now --> improvement in EF --> cont - wt 203 yest, 206 today (office wts vary 195-210 since 04/22). - lasix held here over weekend for + orthostatics - 10/13 JVD noted on exam --> lasix 40 mg IV x 1 - 10/14-13: resumed po lasix as above - 10/17: wt rising and starting to develop le edema. Got lasix 40 iv yesterday and today still vol up and cr bumped up. Given that he appears volume up he may need more iv lasix which may help cr as well. Renal consulted today, will discuss. -10/18: seen by renal, rec'd stopping arb and monitoring for now w/o aggressive diuresis. Today le edema improved and cr improved. Cont with po lasix for now. -10/19: cr continues to improve, back to baseline. Given that his cr bumped up after iv lasix and then improved after stopping iv lasix, it seems that he does not need aggressive diuresis at this time. Cont po lasix for maintenance. Now that off iv steroids le edema should improve. -10/21: back on iv steroids and wt up still so given test dose of iv lasix yesterday. Today cr stable and diuresed well so will cont with lasix 40 iv qd for now -10/22: still with vol overload and wt up so will increase lasix to 80 iv qd -10/23: still vol up, cr stable. Needs further diuresis. Discussed with renal and plan will be to continue lasix 80 iv daily but give additional evening dose of 40 iv and monitor response tomorrow. -10/24: seemed to respond well to lasix iv 80/40 yesterday with stable cr and wt down, will cont same today. - cont home metoprolol 25mg 10/25: Improving with furosemide. Renal function improved weight down to 210 ( from 216). Will continue Lasix 80/40 IV. Will need K replacement (3.4) HTN: - stable Hyperlipdemia, - con't statin a.e. COPD, PNA: - on home o2 and theophylline - on steroids, pulm following - abx per ID PE 2010 - coumadin. dosing per inr. hgb stable even with additional asa. INR 2.7 today continue current coumadin dosing ascending thoracic aneurysm, small: - Stable on recent ct scan. Cont bb. trop elevation: -borderline trop elevation with flat trend and nl ckmb fraction, not consistent with acs. Likely due to alon/pna/chf
[2016-10-25] MEDS ORDERED: POTASSIUM CHLORIDE ORAL LIQUID 20 MEQ/15 ML PO ONE (09:47)
--- NOTE | 2016-10-25 11:02 | PN ---
Progress Note, Physician Chief Complaint: Less SOB even when walking in [place] yesterday. History of Present Illness: Patient with a hx of COPD, Bronchiectasis,ASHD with stents,TAA and renal failure is finally improving after increased IV Lasix and IV antibiotics and IV steroids for Acute Pneumonia and exacerbation of COPD and Acute CHF. Weight had been increasing for a week but he has lost 8 lbs in the last 2 days. - Current Medication List Current Medications: Active Medications Acetaminophen (Tylenol -) 650 mg PO Q4H PRN PRN Reason: FEVER OR PAIN Albuterol Sulfate (Ventolin 0.083% Nebulizer Soln -) 1 amp NEB Q4H PRN PRN Reason: SHORT OF BREATH/WHEEZING Last Admin: 10/23/16 09:30 Dose: 1 amp Albuterol/Ipratropium (Duoneb -) 1 amp NEB QIDR [facility] Last Admin: 10/25/16 06:58 Dose: 1 amp Allopurinol (Zyloprim -) 100 mg PO DAILY [facility] Last Admin: 10/25/16 09:34 Dose: 100 mg Aspirin (Asa -) 81 mg PO DAILY [facility] Last Admin: 10/25/16 09:35 Dose: 81 mg Atorvastatin Calcium (Lipitor -) 20 mg PO HS [facility] Last Admin: 10/24/16 21:27 Dose: 20 mg Benzocaine/Menthol (Cepacol Lozenge -) 1 each MM PRN PRN PRN Reason: SORE THROAT Last Admin: 10/22/16 02:13 Dose: 1 each Calcium Carbonate (Calcium Carbonate -) 650 mg PO BID [facility] Last Admin: 10/25/16 09:35 Dose: 650 mg Furosemide (Lasix Injection -) 80 mg IVPUSH DAILY [facility] Last Admin: 10/25/16 09:35 Dose: 80 mg Furosemide (Lasix Injection -) 40 mg IVPUSH ONCE ONE Stop: 10/25/16 16:01 Guaifenesin/Codeine Phosphate (Robitussin Ac -) 5 ml PO Q4H PRN PRN Reason: COUGH Last Admin: 10/23/16 09:18 Dose: 5 ml Piperacillin Sod/Tazobactam Sod (Zosyn 3.375gm Ivpb (Pre-Docked)) 50 mls @ 100 mls/hr IVPB Q8H-IV FAM PRN Reason: Protocol Last Admin: 10/25/16 09:34 Dose: 100 mls/hr Levothyroxine Sodium (Synthroid -) 100 mcg PO DAILY@0700 [facility] Last Admin: 10/25/16 06:04 Dose: 100 mcg Methylprednisolone Sodium Succinate (Solu-Medrol -) 20 mg IVPB Q8H-IV [facility] Last Admin: 10/25/16 09:35 Dose: 20 mg Metoprolol Succinate (Toprol Xl -) 25 mg PO [facility] Last Admin: 10/24/16 21:28 Dose: 25 mg Montelukast Sodium (Singulair -) 10 mg PO [facility] Last Admin: 10/24/16 21:27 Dose: 10 mg Pantoprazole Sodium (Protonix -) 40 mg PO DAILY [facility] Last Admin: 10/25/16 09:35 Dose: 40 mg Tamsulosin HCl (Flomax -) 0.4 mg PO DAILY@0830 [facility] Last Admin: 10/25/16 09:34 Dose: 0.4 mg Theophylline (Shai-24) 100 mg PO DAILY [facility] Last Admin: 10/25/16 09:35 Dose: 100 mg Warfarin Sodium (Coumadin -) 2.5 mg PO DAILY@1800 [facility] Last Admin: 10/24/16 17:08 Dose: 2.5 mg - Objective Vital Signs: Vital Signs Temperature 97.8 F 10/25/16 06:00 Pulse Rate 89 10/25/16 06:00 Respiratory Rate 20 10/25/16 06:00 Blood Pressure 103/69 10/25/16 06:00 O2 Sat by Pulse Oximetry (%) 98 10/24/16 21:00 Constitutional: Yes: Calm Eyes: Yes: Conjunctiva Clear Cardiovascular: Yes: Regular Rate and Rhythm, Other (occ pvc's) Respiratory: Yes: Diminished, On Nasal O2, Rhonchi (few rhonchi at bases) Gastrointestinal: Yes: Soft (Had BM) Genitourinary: No: Carpenter Present Edema: LLE: 1+, RLE: 1+ Neurological: Yes: Alert, Oriented Labs: CBC, BMP 10/24/16 05:35 10/25/16 05:45 INR, PTT INR 2.72 (0.82-1.09) H 10/25/16 05:45 Problem List - Problems (1) Acute CHF (congestive heart failure) Assessment/Plan: Responding to IV Lasix BID Weight loss 6 lbs since yesterday. Code(s): I50.9 - HEART FAILURE, UNSPECIFIED (2) COPD (chronic obstructive pulmonary disease) Assessment/Plan: On IV steroids and aerosol Rx. Code(s): 496 - CHR AIRWAY OBSTRUCT NEC (3) Bronchiectasis with (acute) exacerbation Assessment/Plan: On IV Antibiotics Code(s): J47.1 - BRONCHIECTASIS WITH (ACUTE) EXACERBATION (4) HTN (hypertension) Assessment/Plan: Low normal even though diovan D/Sumit. Code(s): I10 - ESSENTIAL (PRIMARY) HYPERTENSION (5) Murali-tachy syndrome Code(s): I49.5 - SICK SINUS SYNDROME (6) Pneumonia Assessment/Plan: Documented on CAT scan. On IV antibiotics. Code(s): J18.9 - PNEUMONIA, UNSPECIFIED ORGANISM (7) Cough Code(s): R05 - COUGH (8) Renal failure (ARF), acute on chronic Assessment/Plan: Creatinine 1.5 to 1.4 in spite of IV diuretics; better perfusion with improved CHF Code(s): N17.9 - ACUTE KIDNEY FAILURE, UNSPECIFIED N18.9 - CHRONIC KIDNEY DISEASE, UNSPECIFIED
--- NOTE | 2016-10-25 12:08 | PN ---
Progress Note, Physician History of Present Illness: Awake, alert Feels better No c/o chest pain/ dyspnea/ cough No c/o fever/ chills Sputum c/s prelim staph sp - Current Medication List Current Medications: Active Medications Acetaminophen (Tylenol -) 650 mg PO Q4H PRN PRN Reason: FEVER OR PAIN Albuterol Sulfate (Ventolin 0.083% Nebulizer Soln -) 1 amp NEB Q4H PRN PRN Reason: SHORT OF BREATH/WHEEZING Last Admin: 10/23/16 09:30 Dose: 1 amp Albuterol/Ipratropium (Duoneb -) 1 amp NEB QIDR [facility] Last Admin: 10/25/16 06:58 Dose: 1 amp Allopurinol (Zyloprim -) 100 mg PO DAILY [facility] Last Admin: 10/25/16 09:34 Dose: 100 mg Aspirin (Asa -) 81 mg PO DAILY [facility] Last Admin: 10/25/16 09:35 Dose: 81 mg Atorvastatin Calcium (Lipitor -) 20 mg PO HS [facility] Last Admin: 10/24/16 21:27 Dose: 20 mg Benzocaine/Menthol (Cepacol Lozenge -) 1 each MM PRN PRN PRN Reason: SORE THROAT Last Admin: 10/22/16 02:13 Dose: 1 each Calcium Carbonate (Calcium Carbonate -) 650 mg PO BID [facility] Last Admin: 10/25/16 09:35 Dose: 650 mg Furosemide (Lasix Injection -) 80 mg IVPUSH DAILY [facility] Last Admin: 10/25/16 09:35 Dose: 80 mg Furosemide (Lasix Injection -) 40 mg IVPUSH ONCE ONE Stop: 10/25/16 16:01 Guaifenesin/Codeine Phosphate (Robitussin Ac -) 5 ml PO Q4H PRN PRN Reason: COUGH Last Admin: 10/23/16 09:18 Dose: 5 ml Piperacillin Sod/Tazobactam Sod (Zosyn 3.375gm Ivpb (Pre-Docked)) 50 mls @ 100 mls/hr IVPB Q8H-IV AFM PRN Reason: Protocol Last Admin: 10/25/16 09:34 Dose: 100 mls/hr Levothyroxine Sodium (Synthroid -) 100 mcg PO DAILY@0700 [facility] Last Admin: 10/25/16 06:04 Dose: 100 mcg Methylprednisolone Sodium Succinate (Solu-Medrol -) 20 mg IVPB Q8H-IV [facility] Last Admin: 10/25/16 09:35 Dose: 20 mg Metoprolol Succinate (Toprol Xl -) 25 mg PO HS [facility] Last Admin: 10/24/16 21:28 Dose: 25 mg Montelukast Sodium (Singulair -) 10 mg PO HS [facility] Last Admin: 10/24/16 21:27 Dose: 10 mg Pantoprazole Sodium (Protonix -) 40 mg PO DAILY [facility] Last Admin: 10/25/16 09:35 Dose: 40 mg Tamsulosin HCl (Flomax -) 0.4 mg PO DAILY@0830 [facility] Last Admin: 10/25/16 09:34 Dose: 0.4 mg Theophylline (Shai-24) 100 mg PO DAILY [facility] Last Admin: 10/25/16 09:35 Dose: 100 mg Warfarin Sodium (Coumadin -) 2.5 mg PO DAILY@1800 [facility] Last Admin: 10/24/16 17:08 Dose: 2.5 mg - Objective Vital Signs: Vital Signs Temperature 98.1 F 10/25/16 10:00 Pulse Rate 95 H 10/25/16 10:00 Respiratory Rate 20 10/25/16 10:00 Blood Pressure 121/55 10/25/16 10:00 O2 Sat by Pulse Oximetry (%) 97 10/25/16 09:00 Constitutional: Yes: No Distress Eyes: Yes: Conjunctiva Clear Cardiovascular: Yes: Regular Rate and Rhythm, S1, S2 Respiratory: Yes: Other (+ bronchial BS bilaterally) Gastrointestinal: Yes: Normal Bowel Sounds, Soft. No: Tenderness Edema: Yes Edema: LLE: 1+, RLE: 1+ Labs: CBC, BMP 10/24/16 05:35 10/25/16 05:45 INR, PTT INR 2.72 (0.82-1.09) H 10/25/16 05:45 Assessment/Plan Pneumonia COPD CHF Continue empiric zosyn Await sputum c/s
--- NOTE | 2016-10-25 12:35 | PN ---
Progress Note, Physician Chief Complaint: The patient seen in his room. Sitting by the bed. Denies chest pain. Respiratory status improving. Maintains good urine output. History of Present Illness: The patient has severe COPD, Coronary artery disease, HLD, Pneumonia, Lung abscess, s/p Pulmonary lobectomy, Pulmonary Embolism, Hypothyroidism. Has h/o Systolic heart failure. - Current Medication List Current Medications: Active Medications Acetaminophen (Tylenol -) 650 mg PO Q4H PRN PRN Reason: FEVER OR PAIN Albuterol Sulfate (Ventolin 0.083% Nebulizer Soln -) 1 amp NEB Q4H PRN PRN Reason: SHORT OF BREATH/WHEEZING Last Admin: 10/23/16 09:30 Dose: 1 amp Albuterol/Ipratropium (Duoneb -) 1 amp NEB QIDR [facility] Last Admin: 10/25/16 06:58 Dose: 1 amp Allopurinol (Zyloprim -) 100 mg PO DAILY [facility] Last Admin: 10/25/16 09:34 Dose: 100 mg Aspirin (Asa -) 81 mg PO DAILY [facility] Last Admin: 10/25/16 09:35 Dose: 81 mg Atorvastatin Calcium (Lipitor -) 20 mg PO HS [facility] Last Admin: 10/24/16 21:27 Dose: 20 mg Benzocaine/Menthol (Cepacol Lozenge -) 1 each MM PRN PRN PRN Reason: SORE THROAT Last Admin: 10/22/16 02:13 Dose: 1 each Calcium Carbonate (Calcium Carbonate -) 650 mg PO BID [facility] Last Admin: 10/25/16 09:35 Dose: 650 mg Furosemide (Lasix Injection -) 80 mg IVPUSH DAILY [facility] Last Admin: 10/25/16 09:35 Dose: 80 mg Furosemide (Lasix Injection -) 40 mg IVPUSH ONCE ONE Stop: 10/25/16 16:01 Guaifenesin/Codeine Phosphate (Robitussin Ac -) 5 ml PO Q4H PRN PRN Reason: COUGH Last Admin: 10/23/16 09:18 Dose: 5 ml Piperacillin Sod/Tazobactam Sod (Zosyn 3.375gm Ivpb (Pre-Docked)) 50 mls @ 100 mls/hr IVPB Q8H-IV FAM PRN Reason: Protocol Last Admin: 10/25/16 09:34 Dose: 100 mls/hr Levothyroxine Sodium (Synthroid -) 100 mcg PO DAILY@0700 [facility] Last Admin: 10/25/16 06:04 Dose: 100 mcg Methylprednisolone Sodium Succinate (Solu-Medrol -) 20 mg IVPB Q8H-IV [facility] Last Admin: 10/25/16 09:35 Dose: 20 mg Metoprolol Succinate (Toprol Xl -) 25 mg PO [facility] Last Admin: 10/24/16 21:28 Dose: 25 mg Montelukast Sodium (Singulair -) 10 mg PO [facility] Last Admin: 10/24/16 21:27 Dose: 10 mg Pantoprazole Sodium (Protonix -) 40 mg PO DAILY [facility] Last Admin: 10/25/16 09:35 Dose: 40 mg Tamsulosin HCl (Flomax -) 0.4 mg PO DAILY@0830 [facility] Last Admin: 10/25/16 09:34 Dose: 0.4 mg Theophylline (Shai-24) 100 mg PO DAILY [facility] Last Admin: 10/25/16 09:35 Dose: 100 mg Warfarin Sodium (Coumadin -) 2.5 mg PO DAILY@1800 [facility] Last Admin: 10/24/16 17:08 Dose: 2.5 mg - Objective Vital Signs: Vital Signs Temperature 98.1 F 10/25/16 10:00 Pulse Rate 95 H 10/25/16 10:00 Respiratory Rate 20 10/25/16 10:00 Blood Pressure 121/55 10/25/16 10:00 O2 Sat by Pulse Oximetry (%) 97 10/25/16 09:00 Constitutional: Yes: Mild Distress, Pallor Eyes: Yes: Conjunctiva Clear HENT: Yes: Atraumatic Cardiovascular: Yes: Regular Rate and Rhythm, S1, S2 Respiratory: Yes: Regular, Diminished, Rales, Rhonchi Gastrointestinal: Yes: Normal Bowel Sounds, Soft Genitourinary: No: CVA Tenderness - Left, CVA Tenderness - Right Edema: Yes Edema: LLE: 2+, RLE: 2+ Labs: CBC, BMP 10/24/16 05:35 10/25/16 05:45 INR, PTT INR 2.72 (0.82-1.09) H 10/25/16 05:45 Problem List - Problems (1) COPD exacerbation Code(s): J44.1 - CHRONIC OBSTRUCTIVE PULMONARY DISEASE W (ACUTE) EXACERBATION (2) Coronary artery disease Code(s): I25.10 - ATHSCL HEART DISEASE OF [place] CORONARY ARTERY W/O ANG PCTRS (3) HTN (hypertension) Code(s): I10 - ESSENTIAL (PRIMARY) HYPERTENSION (4) Hypothyroid Code(s): E03.9 - HYPOTHYROIDISM, UNSPECIFIED (5) Pneumonia Code(s): J18.9 - PNEUMONIA, UNSPECIFIED ORGANISM (6) Renal failure Code(s): 586 - RENAL FAILURE NOS (7) Acute kidney failure Code(s): N17.9 - ACUTE KIDNEY FAILURE, UNSPECIFIED (8) Obstructive uropathy Code(s): N13.9 - OBSTRUCTIVE AND REFLUX UROPATHY, UNSPECIFIED Assessment/Plan Mr Rodriguez is an 80 y/o male with 1. Exacerbation of COPD, was on IV steroids. 2. Acute Renal failure: Possibly multifactorial in etiology. Some degree of azotemia is steroid dependent. 3. Marked edema, and fluid restriction. Will continue Loop diuretics. PLAN: To continue the loop diuretics. Daily weights. Monitor the renal functions with you. Will follow with you. Devora Hannah MD
[2016-10-25] MEDS ORDERED: FUROSEMIDE 40 MG/4 ML INJECTABLE VIAL IVPUSH ONE (16:00)
[2016-10-25] MEDS: WARFARIN NA 2.5 MG TABLET (FP) PO SCH (17:05)
[2016-10-25] MEDS: METOPROLOL SUCCINATE 25 MG TAB.SR.24H (FP) PO SCH (21:07)
[2016-10-25] MEDS: MONTELUKAST NA 10 MG TABLET PO SCH (21:07)
[2016-10-25] MEDS: ATORVASTATIN CA 20 MG TABLET (FP) PO SCH (21:07)
[2016-10-26] MEDS: PIPERACILLIN/TAZOB 3.375 GM 50 ML IVPB SCH ×3 (02:42→18:04)
[2016-10-26] MEDS: methylPREDNISolone NA SUCC 40 MG/1 ML VIAL IVPB SCH ×3 (02:42→18:04)
[2016-10-26] MEDS: LEVOTHYROXINE NA 100 MCG TABLET (FP) PO SCH (06:26)
[2016-10-26] MEDS: ALBUTEROL SO4 2.5/IPRATROPIUM 0.5 INH SOL 3 ML VIAL.NEB. NEB SCH ×4 (06:31→23:02)
[2016-10-26 06:54] LABS: MCH 27.2 pg (25.7-33.7); MCHC 31.9 g/dl (32.0-35.9); MEAN CELL VOLUME 85.2 fl (80-96); MEAN PLT VOLUME 9.6 fl (7.5-11.1); PLATELET COUNT 174 K/MM3 (134-434); RDW 18.4 % (11.9-15.9); WHITE BLOOD COUNT 14.2 K/mm3 (4.0-10.0)
[2016-10-26 07:14] LABS: INR 2.69 (0.82-1.09); PROTHROMBIN TIME (PATIENT) 30.2 SEC (9.98-11.88)
[2016-10-26 07:49] LABS: ANION GAP 9 (8-16); CALCIUM 7.3 mg/dL (8.5-10.1); CO2 34 mmol/L (21-32); CREATININE 1.4 mg/dL (0.7-1.3); GLUCOSE,RANDOM 148 mg/dL (74-106)
--- NOTE | 2016-10-26 09:44 | PN ---
Progress Note, Physician History of Present Illness: Sputum c/s MRSA OOB in chair + cough Denies chest pain/ dyspnea No fever/ chills WBC slightly elevated - Current Medication List Current Medications: Active Medications Acetaminophen (Tylenol -) 650 mg PO Q4H PRN PRN Reason: FEVER OR PAIN Albuterol Sulfate (Ventolin 0.083% Nebulizer Soln -) 1 amp NEB Q4H PRN PRN Reason: SHORT OF BREATH/WHEEZING Last Admin: 10/23/16 09:30 Dose: 1 amp Albuterol/Ipratropium (Duoneb -) 1 amp NEB QIDR [facility] Last Admin: 10/26/16 06:31 Dose: 1 amp Allopurinol (Zyloprim -) 100 mg PO DAILY [facility] Last Admin: 10/25/16 09:34 Dose: 100 mg Aspirin (Asa -) 81 mg PO DAILY [facility] Last Admin: 10/25/16 09:35 Dose: 81 mg Atorvastatin Calcium (Lipitor -) 20 mg PO HS [facility] Last Admin: 10/25/16 21:07 Dose: 20 mg Benzocaine/Menthol (Cepacol Lozenge -) 1 each MM PRN PRN PRN Reason: SORE THROAT Last Admin: 10/22/16 02:13 Dose: 1 each Calcium Carbonate (Calcium Carbonate -) 650 mg PO BID [facility] Last Admin: 10/25/16 21:07 Dose: 650 mg Furosemide (Lasix Injection -) 80 mg IVPUSH DAILY [facility] Last Admin: 10/25/16 09:35 Dose: 80 mg Guaifenesin/Codeine Phosphate (Robitussin Ac -) 5 ml PO Q4H PRN PRN Reason: COUGH Last Admin: 10/23/16 09:18 Dose: 5 ml Piperacillin Sod/Tazobactam Sod (Zosyn 3.375gm Ivpb (Pre-Docked)) 50 mls @ 100 mls/hr IVPB Q8H-IV [facility] PRN Reason: Protocol Last Admin: 10/26/16 02:42 Dose: 100 mls/hr Levothyroxine Sodium (Synthroid -) 100 mcg PO DAILY@0700 [facility] Last Admin: 10/26/16 06:26 Dose: 100 mcg Methylprednisolone Sodium Succinate (Solu-Medrol -) 20 mg IVPB Q8H-IV [facility] Last Admin: 10/26/16 02:42 Dose: 20 mg Metoprolol Succinate (Toprol Xl -) 25 mg PO HS [facility] Last Admin: 10/25/16 21:07 Dose: 25 mg Montelukast Sodium (Singulair -) 10 mg PO [facility] Last Admin: 10/25/16 21:07 Dose: 10 mg Pantoprazole Sodium (Protonix -) 40 mg PO DAILY [facility] Last Admin: 10/25/16 09:35 Dose: 40 mg Tamsulosin HCl (Flomax -) 0.4 mg PO DAILY@0830 [facility] Last Admin: 10/25/16 09:34 Dose: 0.4 mg Theophylline (Shai-24) 100 mg PO DAILY [facility] Last Admin: 10/25/16 09:35 Dose: 100 mg Warfarin Sodium (Coumadin -) 2.5 mg PO DAILY@1800 [facility] Last Admin: 10/25/16 17:05 Dose: 2.5 mg - Objective Vital Signs: Vital Signs Temperature 98.1 F 10/26/16 06:00 Pulse Rate 89 10/26/16 06:00 Respiratory Rate 20 10/26/16 06:00 Blood Pressure 102/67 10/26/16 06:00 O2 Sat by Pulse Oximetry (%) 95 10/25/16 21:00 Constitutional: Yes: No Distress Eyes: Yes: Conjunctiva Clear Cardiovascular: Yes: Regular Rate and Rhythm, S1, S2 Respiratory: Yes: Rhonchi Gastrointestinal: Yes: Normal Bowel Sounds, Soft, Abdomen, Obese. No: Tenderness Edema: Yes Labs: CBC, BMP 10/26/16 06:05 10/26/16 06:05 INR, PTT INR 2.69 (0.82-1.09) H 10/26/16 06:05 Assessment/Plan Pneumonia + sputum MRSA COPD CHF Continue empiric zosyn Add vancomycin MRSA precautions
[2016-10-26] MEDS ORDERED: PT OWN MED DRAWER 7, Y5N ONE ×2 (10:33→22:09)
[2016-10-26] MEDS: FUROSEMIDE 40 MG/4 ML INJECTABLE VIAL IVPUSH SCH ×2 (11:00→16:12)
[2016-10-26] MEDS: ASPIRIN 81 MG CHEWABLE TABLETS PO SCH (11:02)
[2016-10-26] MEDS: TAMSULOSIN HCL 0.4 MG CAP.ER.24H (FP) PO SCH (11:02)
[2016-10-26] MEDS: ALLOPURINOL 100 MG TABLET (FP) PO SCH (11:02)
[2016-10-26] MEDS: PANTOPRAZOLE 40 MG TABLET (FP) PO SCH (11:02)
[2016-10-26] MEDS: THEOPHYLLINE ANHYDROUS 100 MG CAP.ER.24H PO SCH (11:03)
[2016-10-26] MEDS: CALCIUM CARBONATE 650 MG TABLET PO SCH ×2 (11:04→22:29)
--- NOTE | 2016-10-26 11:36 | PN ---
Progress Note, Physician History of Present Illness: No events No complaints Tele NSR in 90s with PVCs - Current Medication List Current Medications: Active Medications Acetaminophen (Tylenol -) 650 mg PO Q4H PRN PRN Reason: FEVER OR PAIN Albuterol Sulfate (Ventolin 0.083% Nebulizer Soln -) 1 amp NEB Q4H PRN PRN Reason: SHORT OF BREATH/WHEEZING Last Admin: 10/23/16 09:30 Dose: 1 amp Albuterol/Ipratropium (Duoneb -) 1 amp NEB QIDR FAM Last Admin: 10/26/16 06:31 Dose: 1 amp Allopurinol (Zyloprim -) 100 mg PO DAILY [facility] Last Admin: 10/26/16 11:02 Dose: 100 mg Aspirin (Asa -) 81 mg PO DAILY [facility] Last Admin: 10/26/16 11:02 Dose: 81 mg Atorvastatin Calcium (Lipitor -) 20 mg PO HS [facility] Last Admin: 10/25/16 21:07 Dose: 20 mg Benzocaine/Menthol (Cepacol Lozenge -) 1 each MM PRN PRN PRN Reason: SORE THROAT Last Admin: 10/22/16 02:13 Dose: 1 each Calcium Carbonate (Calcium Carbonate -) 650 mg PO BID [facility] Last Admin: 10/26/16 11:04 Dose: 650 mg Furosemide (Lasix Injection -) 80 mg IVPUSH DAILY [facility] Last Admin: 10/26/16 11:00 Dose: 80 mg Guaifenesin/Codeine Phosphate (Robitussin Ac -) 5 ml PO Q4H PRN PRN Reason: COUGH Last Admin: 10/23/16 09:18 Dose: 5 ml Piperacillin Sod/Tazobactam Sod (Zosyn 3.375gm Ivpb (Pre-Docked)) 50 mls @ 100 mls/hr IVPB Q8H-IV FAM PRN Reason: Protocol Last Admin: 10/26/16 11:09 Dose: 100 mls/hr Vancomycin HCl (Vancomycin (Pre-Docked)) 250 mls @ 166.667 mls/hr IVPB Q12H FAM Levothyroxine Sodium (Synthroid -) 100 mcg PO DAILY@0700 [facility] Last Admin: 10/26/16 06:26 Dose: 100 mcg Methylprednisolone Sodium Succinate (Solu-Medrol -) 20 mg IVPB Q8H-IV FAM Last Admin: 10/26/16 11:06 Dose: 20 mg Metoprolol Succinate (Toprol Xl -) 25 mg PO [facility] Last Admin: 10/25/16 21:07 Dose: 25 mg Montelukast Sodium (Singulair -) 10 mg PO [facility] Last Admin: 10/25/16 21:07 Dose: 10 mg Pantoprazole Sodium (Protonix -) 40 mg PO DAILY [facility] Last Admin: 10/26/16 11:02 Dose: 40 mg Tamsulosin HCl (Flomax -) 0.4 mg PO DAILY@0830 [facility] Last Admin: 10/26/16 11:02 Dose: 0.4 mg Theophylline (Shai-24) 100 mg PO DAILY [facility] Last Admin: 10/26/16 11:03 Dose: 100 mg Warfarin Sodium (Coumadin -) 2.5 mg PO DAILY@1800 [facility] Last Admin: 10/25/16 17:05 Dose: 2.5 mg - Objective Vital Signs: Vital Signs Temperature 98.3 F 10/26/16 11:00 Pulse Rate 107 H 10/26/16 11:00 Respiratory Rate 22 10/26/16 11:00 Blood Pressure 139/88 10/26/16 11:00 O2 Sat by Pulse Oximetry (%) 95 10/25/16 21:00 Constitutional: Yes: Well Nourished, No Distress, Calm Eyes: Yes: WNL, Ptosis Neck: Yes: WNL, Supple, Trachea Midline Cardiovascular: Yes: WNL, Regular Rate and Rhythm Respiratory: Yes: Regular, CTA Bilaterally Gastrointestinal: Yes: WNL, Normal Bowel Sounds Extremities: Yes: WNL Edema: LLE: 2+, RLE: 2+ Labs: CBC, BMP 10/26/16 06:05 10/26/16 06:05 INR, PTT INR 2.69 (0.82-1.09) H 10/26/16 06:05 Assessment/Plan a/p: 80 yo with h/o CAD (s/p PCI), systolic cardiomyopathy, mild asc ao dilation, mod mr, htn, hl, hypothyroid, COPD, Pneumonia (s/p lobectomy for lung abscess), Pulmonary Embolus on coumadin p/w bradycardia. bradycardia - no ekg documentation of episodes. (on routine vitals prior to starting P.T. he was noted to have HR's in the 30's-40's-->to ER where normal HR. per family on telemetry in ER, HR's intermittently were reading 30's -50's for seconds at a time and then going back up to 70's-100's.) - ? artifactual has known h/o sinus tach and has remained in sinus tach here. - he had no sx's at home or here of presyncope/syncope (generalized weakness on DOA is apparently a chronic, stable condition which improves acutely with PT) - recent cath unremarkable, echo in september EF 40%, stable vs priors apparently - no bradyarrhythmia on telemetry here for many days. - home metoprolol continued in hospital. weakness, orthostatic hypotension -observe when pt becomes more ambulatory CAD (s/p PCI) - Con't medical therapy with ASA, statin. Stable. No angina. CE's negative here and recent cath in may with no residual disease syst chf/nsvt: - Over the years his echos have shown variations in lvef, at times reduced. Recent echo at [facility] 05/2016 reports lvef 20% (per dc summary). During that admit he was seen by cardio and had repeat cath showing patent stents and non obs residual dz. He was noted to have NSVT on tele there and given lifevest but pt/ declined. Was started on toprol as well. He has been on bb/arb for several mos now --> improvement in EF --> cont - wt 203 yest, 206 today (office wts vary 195-210 since 04/22). - lasix held here over weekend for + orthostatics - 10/13 JVD noted on exam --> lasix 40 mg IV x 1 - 10/14-13: resumed po lasix as above - 10/17: wt rising and starting to develop le edema. Got lasix 40 iv yesterday and today still vol up and cr bumped up. Given that he appears volume up he may need more iv lasix which may help cr as well. Renal consulted today, will discuss. -10/18: seen by renal, rec'd stopping arb and monitoring for now w/o aggressive diuresis. Today le edema improved and cr improved. Cont with po lasix for now. -10/19: cr continues to improve, back to baseline. Given that his cr bumped up after iv lasix and then improved after stopping iv lasix, it seems that he does not need aggressive diuresis at this time. Cont po lasix for maintenance. Now that off iv steroids le edema should improve. -10/21: back on iv steroids and wt up still so given test dose of iv lasix yesterday. Today cr stable and diuresed well so will cont with lasix 40 iv qd for now -10/22: still with vol overload and wt up so will increase lasix to 80 iv qd -10/23: still vol up, cr stable. Needs further diuresis. Discussed with renal and plan will be to continue lasix 80 iv daily but give additional evening dose of 40 iv and monitor response tomorrow. -10/24: seemed to respond well to lasix iv 80/40 yesterday with stable cr and wt down, will cont same today. - cont home metoprolol 25mg 10/25: Improving with furosemide. Renal function improved weight down to 210 ( from 216). Will continue Lasix 80/40 IV. Will need K replacement (3.4) 10/26: Stable, still seems volume overloaded, weight continnues to decrease to 209. Continue lasix 80/40. Improved K. HTN: - stable Hyperlipdemia, - con't statin a.e. COPD, PNA: - on home o2 and theophylline - on steroids, pulm following - abx per ID PE 2010 - coumadin. dosing per inr. hgb stable even with additional asa. INR 2.29 today continue current coumadin dosing ascending thoracic aneurysm, small: - Stable on recent ct scan. Cont bb. trop elevation: -borderline trop elevation with flat trend and nl ckmb fraction, not consistent with acs. Likely due to alon/pna/chf
[2016-10-26] MEDS: guaiFENesin/CODEINE 5 ML UNIT-DOSE CUPS PO PRN (12:02)
--- NOTE | 2016-10-26 12:19 | PN ---
Progress Note, Physician Chief Complaint: Coughing recurred this AM when he awoke and after his shower. History of Present Illness: Patient was improved Thursday but today he was coughing on awakening and after a shower. He was also noted to remain at 210lbs after losing 6 lbs the day before. Additionally he had more pedal edema today. Will plan to order BID IV Lasix; lab including INR and renal lab is stable. - Current Medication List Current Medications: Active Medications Acetaminophen (Tylenol -) 650 mg PO Q4H PRN PRN Reason: FEVER OR PAIN Albuterol Sulfate (Ventolin 0.083% Nebulizer Soln -) 1 amp NEB Q4H PRN PRN Reason: SHORT OF BREATH/WHEEZING Last Admin: 10/23/16 09:30 Dose: 1 amp Albuterol/Ipratropium (Duoneb -) 1 amp NEB QIDR [facility] Last Admin: 10/26/16 06:31 Dose: 1 amp Allopurinol (Zyloprim -) 100 mg PO DAILY [facility] Last Admin: 10/26/16 11:02 Dose: 100 mg Aspirin (Asa -) 81 mg PO DAILY [facility] Last Admin: 10/26/16 11:02 Dose: 81 mg Atorvastatin Calcium (Lipitor -) 20 mg PO HS [facility] Last Admin: 10/25/16 21:07 Dose: 20 mg Benzocaine/Menthol (Cepacol Lozenge -) 1 each MM PRN PRN PRN Reason: SORE THROAT Last Admin: 10/22/16 02:13 Dose: 1 each Calcium Carbonate (Calcium Carbonate -) 650 mg PO BID [facility] Last Admin: 10/26/16 11:04 Dose: 650 mg Furosemide (Lasix Injection -) 80 mg IVPUSH DAILY [facility] Last Admin: 10/26/16 11:00 Dose: 80 mg Furosemide (Lasix Injection -) 40 mg IVPUSH DAILY [facility] Guaifenesin/Codeine Phosphate (Robitussin Ac -) 5 ml PO Q4H PRN PRN Reason: COUGH Last Admin: 10/26/16 12:02 Dose: 5 ml Piperacillin Sod/Tazobactam Sod (Zosyn 3.375gm Ivpb (Pre-Docked)) 50 mls @ 100 mls/hr IVPB Q8H-IV FAM PRN Reason: Protocol Last Admin: 10/26/16 11:09 Dose: 100 mls/hr Vancomycin HCl (Vancomycin (Pre-Docked)) 250 mls @ 166.667 mls/hr IVPB Q12H [facility] Levothyroxine Sodium (Synthroid -) 100 mcg PO DAILY@0700 [facility] Last Admin: 10/26/16 06:26 Dose: 100 mcg Methylprednisolone Sodium Succinate (Solu-Medrol -) 20 mg IVPB Q8H-IV [facility] Last Admin: 10/26/16 11:06 Dose: 20 mg Metoprolol Succinate (Toprol Xl -) 25 mg PO [facility] Last Admin: 10/25/16 21:07 Dose: 25 mg Montelukast Sodium (Singulair -) 10 mg PO [facility] Last Admin: 10/25/16 21:07 Dose: 10 mg Pantoprazole Sodium (Protonix -) 40 mg PO DAILY [facility] Last Admin: 10/26/16 11:02 Dose: 40 mg Tamsulosin HCl (Flomax -) 0.4 mg PO DAILY@0830 [facility] Last Admin: 10/26/16 11:02 Dose: 0.4 mg Theophylline (Shai-24) 100 mg PO DAILY [facility] Last Admin: 10/26/16 11:03 Dose: 100 mg Warfarin Sodium (Coumadin -) 2.5 mg PO DAILY@1800 [facility] Last Admin: 10/25/16 17:05 Dose: 2.5 mg - Objective Vital Signs: Vital Signs Temperature 98.3 F 10/26/16 11:00 Pulse Rate 107 H 10/26/16 11:00 Respiratory Rate 22 10/26/16 11:00 Blood Pressure 139/88 10/26/16 11:00 O2 Sat by Pulse Oximetry (%) 95 10/25/16 21:00 Constitutional: Yes: Mild Distress Eyes: Yes: Conjunctiva Clear Cardiovascular: Yes: Other (occ pvc's) Respiratory: Yes: Dullness, Rhonchi, Wheezes Gastrointestinal: Yes: Soft. No: Tenderness Genitourinary: No: Carpenter Present Edema: LLE: 2+, RLE: 2+ Neurological: Yes: Alert, Oriented Labs: CBC, BMP 10/26/16 06:05 10/26/16 06:05 INR, PTT INR 2.69 (0.82-1.09) H 10/26/16 06:05 Problem List - Problems (1) Pneumonia Assessment/Plan: ON IV antibiotics for [address] scan. Code(s): J18.9 - PNEUMONIA, UNSPECIFIED ORGANISM (2) Acute CHF (congestive heart failure) Assessment/Plan: Will order Lasix IV BID; 80mg AM and 40mg at 16A:00. F/U lab ordered. Code(s): I50.9 - HEART FAILURE, UNSPECIFIED (3) COPD (chronic obstructive pulmonary disease) Assessment/Plan: On IV steroids and aerosol. Pulmonary MD had lowered dose of IV steroids on Thursday. Code(s): 496 - CHR AIRWAY OBSTRUCT NEC (4) Bronchiectasis with (acute) exacerbation Assessment/Plan: ON IV antibiotics Code(s): J47.1 - BRONCHIECTASIS WITH (ACUTE) EXACERBATION (5) HTN (hypertension) Assessment/Plan: Stable readings but last reading 139/88; may need restart of low dose Valsartan. Code(s): I10 - ESSENTIAL (PRIMARY) HYPERTENSION (6) Murali-tachy syndrome Code(s): I49.5 - SICK SINUS SYNDROME (7) Cough Assessment/Plan: Cough Rx renewed. Code(s): R05 - COUGH (8) Renal failure (ARF), acute on chronic Code(s): N17.9 - ACUTE KIDNEY FAILURE, UNSPECIFIED N18.9 - CHRONIC KIDNEY DISEASE, UNSPECIFIED
[2016-10-26] MEDS: VANCOMYCIN 1 GRAM (PRE-DOCKED) 250 ML IVPB SCH ×2 (12:44→22:27)
[2016-10-26] MEDS: BENZOCAINE/MENTH/CETYLPYRD CL 1 EACH LOZENGE MM PRN (13:11)
[2016-10-26] MEDS: ALBUTEROL SO4 0.083% IH SOL 2.5 MG/3 ML VIAL.NEB. NEB PRN (13:46)
[2016-10-26] MEDS ORDERED: methylPREDNISolone NA SUCC 40 MG/1 ML VIAL IVPB ONE (14:00)
--- NOTE | 2016-10-26 16:14 | PN ---
Progress Note, Physician Chief Complaint: The patient seen in his room. visiting. No chest pain. Afebrile. New development of MRSA in sputum. History of Present Illness: The patient has severe COPD, Coronary artery disease, HLD, Pneumonia, Lung abscess, s/p Pulmonary lobectomy, Pulmonary Embolism, Hypothyroidism. Has h/o Systolic heart failure. Has MRSA - Current Medication List Current Medications: Active Medications Acetaminophen (Tylenol -) 650 mg PO Q4H PRN PRN Reason: FEVER OR PAIN Albuterol Sulfate (Ventolin 0.083% Nebulizer Soln -) 1 amp NEB Q4H PRN PRN Reason: SHORT OF BREATH/WHEEZING Last Admin: 10/26/16 13:46 Dose: 1 amp Albuterol/Ipratropium (Duoneb -) 1 amp NEB QIDR [facility] Last Admin: 10/26/16 11:00 Dose: 1 amp Allopurinol (Zyloprim -) 100 mg PO DAILY [facility] Last Admin: 10/26/16 11:02 Dose: 100 mg Aspirin (Asa -) 81 mg PO DAILY [facility] Last Admin: 10/26/16 11:02 Dose: 81 mg Atorvastatin Calcium (Lipitor -) 20 mg PO HS [facility] Last Admin: 10/25/16 21:07 Dose: 20 mg Benzocaine/Menthol (Cepacol Lozenge -) 1 each MM PRN PRN PRN Reason: SORE THROAT Last Admin: 10/26/16 13:11 Dose: 1 each Calcium Carbonate (Calcium Carbonate -) 650 mg PO BID [facility] Last Admin: 10/26/16 11:04 Dose: 650 mg Furosemide (Lasix Injection -) 80 mg IVPUSH DAILY [facility] Last Admin: 10/26/16 11:00 Dose: 80 mg Furosemide (Lasix Injection -) 40 mg IVPUSH DAILY@1600 [facility] Guaifenesin/Codeine Phosphate (Robitussin Ac -) 5 ml PO Q4H PRN PRN Reason: COUGH Last Admin: 10/26/16 12:02 Dose: 5 ml Piperacillin Sod/Tazobactam Sod (Zosyn 3.375gm Ivpb (Pre-Docked)) 50 mls @ 100 mls/hr IVPB Q8H-IV FAM PRN Reason: Protocol Last Admin: 10/26/16 11:09 Dose: 100 mls/hr Vancomycin HCl (Vancomycin (Pre-Docked)) 250 mls @ 166.667 mls/hr IVPB Q12H [facility] Last Admin: 10/26/16 12:44 Dose: 166.667 mls/hr Levothyroxine Sodium (Synthroid -) 100 mcg PO DAILY@0700 [facility] Last Admin: 10/26/16 06:26 Dose: 100 mcg Methylprednisolone Sodium Succinate (Solu-Medrol -) 40 mg IVPB Q8H-IV FAM Metoprolol Succinate (Toprol Xl -) 25 mg PO HS [facility] Last Admin: 10/25/16 21:07 Dose: 25 mg Montelukast Sodium (Singulair -) 10 mg PO [facility] Last Admin: 10/25/16 21:07 Dose: 10 mg Pantoprazole Sodium (Protonix -) 40 mg PO DAILY [facility] Last Admin: 10/26/16 11:02 Dose: 40 mg Tamsulosin HCl (Flomax -) 0.4 mg PO DAILY@0830 [facility] Last Admin: 10/26/16 11:02 Dose: 0.4 mg Theophylline (Shai-24) 100 mg PO DAILY [facility] Last Admin: 10/26/16 11:03 Dose: 100 mg Warfarin Sodium (Coumadin -) 2.5 mg PO DAILY@1800 [facility] Last Admin: 10/25/16 17:05 Dose: 2.5 mg - Objective Vital Signs: Vital Signs Temperature 99.2 F 10/26/16 14:00 Pulse Rate 98 H 10/26/16 14:00 Respiratory Rate 22 10/26/16 14:00 Blood Pressure 122/72 10/26/16 14:00 O2 Sat by Pulse Oximetry (%) 94 L 10/26/16 11:00 Constitutional: Yes: Moderate Distress Eyes: Yes: Conjunctiva Clear HENT: Yes: Atraumatic Neck: Yes: Trachea Midline Cardiovascular: Yes: Regular Rate and Rhythm, S1, S2 Respiratory: Yes: Regular, Diminished, Rales, Rhonchi, SOB Gastrointestinal: Yes: Normal Bowel Sounds Genitourinary: No: Bladder Distention, CVA Tenderness - Left, CVA Tenderness - Right Labs: CBC, BMP 10/26/16 06:05 10/26/16 06:05 INR, PTT INR 2.69 (0.82-1.09) H 10/26/16 06:05 Problem List - Problems (1) COPD exacerbation Code(s): J44.1 - CHRONIC OBSTRUCTIVE PULMONARY DISEASE W (ACUTE) EXACERBATION (2) Coronary artery disease Code(s): I25.10 - ATHSCL HEART DISEASE OF [place] CORONARY ARTERY W/O ANG PCTRS (3) HTN (hypertension) Code(s): I10 - ESSENTIAL (PRIMARY) HYPERTENSION (4) Hypothyroid Code(s): E03.9 - HYPOTHYROIDISM, UNSPECIFIED (5) Pneumonia Code(s): J18.9 - PNEUMONIA, UNSPECIFIED ORGANISM (6) Renal failure Code(s): 586 - RENAL FAILURE NOS (7) Acute kidney failure Code(s): N17.9 - ACUTE KIDNEY FAILURE, UNSPECIFIED (8) Obstructive uropathy Code(s): N13.9 - OBSTRUCTIVE AND REFLUX UROPATHY, UNSPECIFIED Assessment/Plan Mr Rodriguez is an 80 y/o male with 1. Exacerbation of COPD, On IV Solumedrol Agree with increased dose of the steroid. Tapering may have to be done slowly over a long period of time. 2. Acute Renal failure: Possibly multifactorial in etiology. Some degree of azotemia is steroid dependent. Renal functions seem to be stabilizing. 3. Marked edema, and fluid restriction. Will continue Loop diuretics. PLAN: Loop diuretics. IV steroids. IV antibiotics as ordered. Will follow with you. Devora Hannah MD
[2016-10-26] MEDS: WARFARIN NA 2.5 MG TABLET (FP) PO SCH (18:03)
[2016-10-26] MEDS: MONTELUKAST NA 10 MG TABLET PO SCH (22:28)
[2016-10-26] MEDS: ATORVASTATIN CA 20 MG TABLET (FP) PO SCH (22:28)
[2016-10-26] MEDS: METOPROLOL SUCCINATE 25 MG TAB.SR.24H (FP) PO SCH (22:28)
[2016-10-27] MEDS: methylPREDNISolone NA SUCC 40 MG/1 ML VIAL IVPB SCH ×3 (01:07→18:06)
[2016-10-27] MEDS: PIPERACILLIN/TAZOB 3.375 GM 50 ML IVPB SCH ×3 (01:07→18:06)
[2016-10-27] MEDS: ALBUTEROL SO4 2.5/IPRATROPIUM 0.5 INH SOL 3 ML VIAL.NEB. NEB SCH ×3 (06:24→23:30)
[2016-10-27] MEDS: LEVOTHYROXINE NA 100 MCG TABLET (FP) PO SCH (06:29)
[2016-10-27 08:11] LABS: INR 2.21 (0.82-1.09); PROTHROMBIN TIME (PATIENT) 24.7 SEC (9.98-11.88)
[2016-10-27 08:38] LABS: ANION GAP 10 (8-16); CALCIUM 7.2 mg/dL (8.5-10.1); CO2 37 mmol/L (21-32); CREATININE 1.4 mg/dL (0.7-1.3); GLUCOSE,RANDOM 176 mg/dL (74-106)
--- NOTE | 2016-10-27 09:33 | PN ---
Progress Note, Physician Chief Complaint: chf History of Present Illness: breathing much better no leg swelling no cp, palpit, presyncope ex cigs - Current Medication List Current Medications: Active Medications Acetaminophen (Tylenol -) 650 mg PO Q4H PRN PRN Reason: FEVER OR PAIN Albuterol Sulfate (Ventolin 0.083% Nebulizer Soln -) 1 amp NEB Q4H PRN PRN Reason: SHORT OF BREATH/WHEEZING Last Admin: 10/26/16 13:46 Dose: 1 amp Albuterol/Ipratropium (Duoneb -) 1 amp NEB QIDR [facility] Last Admin: 10/27/16 06:24 Dose: 1 amp Allopurinol (Zyloprim -) 100 mg PO DAILY [facility] Last Admin: 10/26/16 11:02 Dose: 100 mg Aspirin (Asa -) 81 mg PO DAILY [facility] Last Admin: 10/26/16 11:02 Dose: 81 mg Atorvastatin Calcium (Lipitor -) 20 mg PO HS [facility] Last Admin: 10/26/16 22:28 Dose: 20 mg Benzocaine/Menthol (Cepacol Lozenge -) 1 each MM PRN PRN PRN Reason: SORE THROAT Last Admin: 10/26/16 13:11 Dose: 1 each Calcium Carbonate (Calcium Carbonate -) 650 mg PO BID [facility] Last Admin: 10/26/16 22:29 Dose: 650 mg Furosemide (Lasix Injection -) 80 mg IVPUSH DAILY [facility] Last Admin: 10/26/16 11:00 Dose: 80 mg Furosemide (Lasix Injection -) 40 mg IVPUSH DAILY@1600 [facility] Last Admin: 10/26/16 16:12 Dose: 40 mg Guaifenesin/Codeine Phosphate (Robitussin Ac -) 5 ml PO Q4H PRN PRN Reason: COUGH Last Admin: 10/26/16 12:02 Dose: 5 ml Piperacillin Sod/Tazobactam Sod (Zosyn 3.375gm Ivpb (Pre-Docked)) 50 mls @ 100 mls/hr IVPB Q8H-IV FAM PRN Reason: Protocol Last Admin: 10/27/16 01:07 Dose: 100 mls/hr Vancomycin HCl (Vancomycin (Pre-Docked)) 250 mls @ 166.667 mls/hr IVPB Q12H [facility] Last Admin: 10/26/16 22:27 Dose: 166.667 mls/hr Levothyroxine Sodium (Synthroid -) 100 mcg PO DAILY@0700 [facility] Last Admin: 10/27/16 06:29 Dose: 100 mcg Methylprednisolone Sodium Succinate (Solu-Medrol -) 40 mg IVPB Q8H-IV [facility] Last Admin: 10/27/16 01:07 Dose: 40 mg Metoprolol Succinate (Toprol Xl -) 25 mg PO [facility] Last Admin: 10/26/16 22:28 Dose: 25 mg Montelukast Sodium (Singulair -) 10 mg PO [facility] Last Admin: 10/26/16 22:28 Dose: 10 mg Pantoprazole Sodium (Protonix -) 40 mg PO DAILY [facility] Last Admin: 10/26/16 11:02 Dose: 40 mg Tamsulosin HCl (Flomax -) 0.4 mg PO DAILY@0830 [facility] Last Admin: 10/26/16 11:02 Dose: 0.4 mg Theophylline (Shai-24) 100 mg PO DAILY [facility] Last Admin: 10/26/16 11:03 Dose: 100 mg Warfarin Sodium (Coumadin -) 2.5 mg PO DAILY@1800 [facility] Last Admin: 10/26/16 18:03 Dose: 2.5 mg - Objective Vital Signs: Vital Signs Temperature 98.6 F 10/27/16 05:27 Pulse Rate 85 10/27/16 05:27 Respiratory Rate 20 10/27/16 05:27 Blood Pressure 118/84 10/27/16 05:27 O2 Sat by Pulse Oximetry (%) 97 10/26/16 21:00 Constitutional: Yes: No Distress, Calm Eyes: No: Sclera Icterus HENT: No: Nasal Congestion Cardiovascular: Yes: Regular Rate and Rhythm (decr intensity heart sounds), S1, S2, Other (PMI non diplaced). No: JVD (in chair), Gallop, Murmur Respiratory: Yes: CTA Bilaterally. No: Accessory Muscle Use, Rales, Wheezes Gastrointestinal: Yes: Normal Bowel Sounds, Soft. No: Tenderness Musculoskeletal: Yes: Other (No kyphosis) Extremities: No: Cold Edema: No Integumentary: No: Jaundice Neurological: Yes: Alert, Oriented (x3) Psychiatric: No: Agitated Labs: CBC, BMP 10/26/16 06:05 10/27/16 06:10 INR, PTT INR 2.21 (0.82-1.09) H 10/27/16 06:10 - ....Imaging EKG: Other (tele: NSR, mult runs non-sustained PAT) Assessment/Plan Echo 09/2016 office: Moderate global HK, EF 40%. nl rv. mod mr, LHC 05/2016 at [facility]--per dc summary, patent prior stents and non obs residual dz. LHC/PCI 2010: prox RCA NICOLE, residual OM1 50-60%, patent mid LAD stent, normal right heart pressures, normal LVF Dobut Stress MPI 08/2010: small, mild apical anterior and LV apex ischemia--( PCI after this) MIBI 12/13: small/mild infer ischemia vs GI tracer confounding, EF 41% CT chest 10/20: 4.2cm ascending arota. bilateral airspace dz with air bronchograms RML and RLL, and BILL c/w PNA; trace R effusion a/p: 80 yo with h/o CAD (s/p PCI), systolic cardiomyopathy, mild asc ao dilation, mod mr, htn, hl, hypothyroid, COPD, Pneumonia (s/p lobectomy for lung abscess), Pulmonary Embolus on coumadin p/w bradycardia. bradycardia - no ekg documentation of episodes. (on routine vitals prior to starting P.T. he was noted to have HR's in the 30's-40's-->to ER where normal HR. per family on telemetry in ER, HR's intermittently were reading 30's -50's for seconds at a time and then going back up to 70's-100's.) - ? artifactual has known h/o sinus tach and has remained in sinus tach here. - he had no sx's at home or here of presyncope/syncope (generalized weakness on DOA is apparently a chronic, stable condition which improves acutely with PT) - recent cath unremarkable, echo in september EF 40%, stable vs priors apparently - no bradyarrhythmia on telemetry here for many days. - home metoprolol continued in hospital. acute on chronic syst chf: - Over the years his echos have shown variations in lvef, at times reduced. Recent echo at [facility] 05/2016 reports lvef 20% (per dc summary). During that admit he was seen by cardio and had repeat cath showing patent stents and non obs residual dz. He was noted to have NSVT on tele there and given lifevest but pt/ declined. Was started on toprol as well. He has been on bb/arb for several mos now --> improvement in EF --> cont - wt 203 yest, 206 today (office wts vary 195-210 since 04/22). - lasix held here over weekend for + orthostatics - 10/13 JVD noted on exam --> lasix 40 mg IV x 1 - 10/14-: resumed po lasix as above - 10/17: wt rising and starting to develop le edema. Got lasix 40 iv yesterday and today still vol up and cr bumped up. Given that he appears volume up he may need more iv lasix which may help cr as well. Renal consulted today, will discuss. -10/18: seen by renal, rec'd stopping arb and monitoring for now w/o aggressive diuresis. Today le edema improved and cr improved. Cont with po lasix for now. -10/19: cr continues to improve, back to baseline. Given that his cr bumped up after iv lasix and then improved after stopping iv lasix, it seems that he does not need aggressive diuresis at this time. Cont po lasix for maintenance. Now that off iv steroids le edema should improve. -10/21: back on iv steroids and wt up still so given test dose of iv lasix yesterday. Today cr stable and diuresed well so will cont with lasix 40 iv qd for now -10/22: still with vol overload and wt up so will increase lasix to 80 iv qd -10/23: still vol up, cr stable. Needs further diuresis. Discussed with renal and plan will be to continue lasix 80 iv daily but give additional evening dose of 40 iv and monitor response tomorrow. -10/24: seemed to respond well to lasix iv 80/40 yesterday with stable cr and wt down, will cont same today. - cont home metoprolol 25mg 10/25: Improving with furosemide. Renal function improved weight down to 210 ( from 216). Will continue Lasix 80/40 IV. Will need K replacement (3.4) 10/26: Stable, still seems volume overloaded, weight continnues to decrease to 209. Continue lasix 80/40. Improved K. -10/27: bun/creat improved with diuresis (note iv steroids dose was not decreased ). wt declining nicely (208 today). dry wt uncertain here (office wts range 195- 210, pt thinks baseline is close to 190--??). will cont same lasix until bun/ creat starts trending up, if he continues to look euvolemic PAT: -melly runs on tele -try incr metopr 25 qd to bid, observe for shelia's a.e. COPD, PNA: - on home o2 and theophylline - on steroids, pulm following - abx per ID CAD (s/p PCI) - Con't medical therapy with ASA, statin. Stable. No angina. CE's negative here and recent cath in may with no residual disease HTN: - stable Hyperlipdemia, - con't statin PE 2010 - on coumadin from before. dosing per inr. hgb stable even with additional asa. ascending thoracic aneurysm, small: - Stable on CT here (4.2cm). - bp control, BB as doing -outpt monitoring trop elevation: -borderline trop elevation with flat trend and nl ckmb fraction, not consistent with acs. Likely due to alon/pna/chf
--- NOTE | 2016-10-27 10:16 | PN ---
Physical Exam: SUBJECTIVE: Patient seen by me in AM - Continue elevated WBC count (14.2). Sputum cx (10/24) positive for MRSA - Afebrile, stable - Doing well. Endorses persistent coughing yesterday, which pt attributes to no AC in room. Breathing improved w/ no coughing today. - Denies fever, N/V, throat pain, rashes, N/V, CP, abdominal pain. Endorses improved dyspnea on exertion - Wt improving on lasix (217-> 209) OBJECTIVE: Vital Signs Period Temp Pulse Resp BP Sys/Martinez Pulse Ox Last 24 Hr 97.4 F-99.2 F 85-107 18-22 118-139/70-88 94-97 GENERAL: Awake, alert, and fully oriented, in no acute distress. Seated on NC. HEAD: Normal with no signs of trauma. EYES: extraocular movements intact, sclera anicteric, conjunctiva clear. No lid lag. Arcus senilis noted. NECK: lymphadenopathy, JVD, or masses. LUNGS: SLight decrease in breath sounds at bases. Trace midline expiratory wheeze noted in upper lung rader. No crackles. No accessory muscle use. No tactile fremitus. HEART: Grade 2/6 systolic blowing murmur at RUSB. Regular rate and rhythm, normal S1 and S2 without rub or gallop. ABDOMEN: Soft, nontender, significantly distended. Umbilical hernia noted. Normoactive bowel sounds, no guarding, no masses. No hepatomegaly or splenomegaly. UPPER EXTREMITIES: 2+ pulses, warm, well-perfused. No cyanosis. No clubbing. Cap refill <2 seconds. No peripheral edema. LOWER EXTREMITIES: 2+ pulses, warm, well-perfused. No calf tenderness. 2+ pitting edema BL up to knee with accompanying stasis dermatitis. No significant interval change. NEUROLOGICAL: Cranial nerves II-XII grossly intact. Normal speech. Gait not evaluated. PSYCHIATRIC: Cooperative. Good eye contact. Appropriate mood and affect. SKIN: Warm, dry, normal turgor. Laboratory Results - last 24 hr CBC, BMP 10/26/16 06:05 10/27/16 06:10 10/27/16 10/27/16 06:10 06:10 INR 2.21 H Sodium 143 Potassium 4.0 Chloride 96 L Carbon Dioxide 37 H Anion Gap 10 BUN 44 H Creatinine 1.4 H Random Glucose 176 H Calcium 7.2 L Microbiology 10/22/16 19:30 Blood - Peripheral Venous Blood Culture - Preliminary NO GROWTH OBTAINED AFTER 96 HOURS, INCUBATION TO CONTINUE FOR 1 DAYS. 10/22/16 19:30 Blood - Peripheral Venous Blood Culture - Preliminary NO GROWTH OBTAINED AFTER 96 HOURS, INCUBATION TO CONTINUE FOR 1 DAYS. 10/24/16 10:00 Sputum - Expectorated Gram Stain - Final 10/24/16 10:00 Sputum - Expectorated Sputum Culture - Final S Aureus 10/14/16 06:00 Sputum - Expectorated Gram Stain - Final 10/14/16 06:00 Sputum - Expectorated Sputum Culture - Final NORMAL RESPIRATORY YOKASTA 10/22/16 19:00 Urine - Urine Clean Catch Urine Culture - Final NO GROWTH OBTAINED 10/22/16 19:00 Urine For Antigen Detection Legionella Antigen - Final 10/22/16 19:00 Urine For Antigen Detection Streptococcus pneumoniae Antigen (M - Final Active Medications Generic Name Dose Route Start Last Admin Trade Name Freq PRN Reason Stop Dose Admin Acetaminophen 650 mg 10/10/16 14:55 Tylenol - PO Q4H PRN FEVER OR PAIN Albuterol Sulfate 1 amp 10/13/16 14:18 10/26/16 13:46 Ventolin 0.083% Nebulizer Soln - NEB 1 amp Q4H PRN Administration SHORT OF BREATH/WHEEZING Albuterol/Ipratropium 1 amp 10/23/16 07:51 10/27/16 06:24 Duoneb - NEB 1 amp QIDR FAM Administration Allopurinol 100 mg 10/11/16 10:00 10/26/16 11:02 Zyloprim - PO 100 mg DAILY FAM Administration Aspirin 81 mg 10/11/16 10:00 10/26/16 11:02 Asa - PO 81 mg DAILY FAM Administration Atorvastatin Calcium 20 mg 10/10/16 22:00 10/26/16 22:28 Lipitor - PO 20 mg HS FAM Administration Benzocaine/Menthol 1 each 10/19/16 10:20 10/26/16 13:11 Cepacol Lozenge - MM 1 each PRN PRN Administration SORE THROAT Calcium Carbonate 650 mg 10/24/16 12:30 10/26/16 22:29 Calcium Carbonate - PO 650 mg BID FAM Administration Furosemide 80 mg 10/22/16 10:30 10/26/16 11:00 Lasix Injection - IVPUSH 80 mg DAILY FAM Administration Furosemide 40 mg 10/26/16 16:00 10/26/16 16:12 Lasix Injection - IVPUSH 40 mg DAILY@1600 FAM Administration Guaifenesin/Codeine Phosphate 5 ml 10/17/16 09:22 10/26/16 12:02 Robitussin Ac - PO 5 ml Q4H PRN Administration COUGH Piperacillin Sod/Tazobactam Sod 50 mls @ 100 mls/hr 10/23/16 02:00 10/27/16 01: 07 Zosyn 3.375gm Ivpb (Pre-Docked) IVPB 100 mls/hr Q8H-IV FAM Administration Protocol Vancomycin HCl 250 mls @ 166.667 mls/hr 10/26/16 10:00 10/26/16 22:27 Vancomycin (Pre-Docked) IVPB 166.667 mls/hr Q12H FAM Administration Levothyroxine Sodium 100 mcg 10/15/16 07:00 10/27/16 06:29 Synthroid - PO 100 mcg DAILY@0700 FAM Administration Methylprednisolone Sodium Succinate 40 mg 10/26/16 18:00 10/27/16 01:07 Solu-Medrol - IVPB 40 mg Q8H-IV FAM Administration Metoprolol Succinate 25 mg 10/10/16 22:00 10/26/16 22:28 Toprol Xl - PO 25 mg HS FAM Administration Montelukast Sodium 10 mg 10/14/16 22:00 10/26/16 22:28 Singulair - PO 10 mg HS FAM Administration Pantoprazole Sodium 40 mg 10/11/16 10:00 10/26/16 11:02 Protonix - PO 40 mg DAILY FAM Administration Tamsulosin HCl 0.4 mg 10/19/16 08:30 10/26/16 11:02 Flomax - PO 0.4 mg DAILY@0830 FAM Administration Theophylline 100 mg 10/20/16 10:00 10/26/16 11:03 Shai-24 PO 100 mg DAILY FAM Administration Warfarin Sodium 2.5 mg 10/20/16 18:00 10/26/16 18:03 Coumadin - PO 2.5 mg DAILY@1800 FAM Administration ASSESSMENT/PLAN: Assessment: Pt is an 80 yo man w/ pmh of COPD (on home O2), CAD (s/p PCI; 3 stents), R lobectomy for lung abscess, GERD, HTN, HLD, who initially presented 12 days ago due with symptomatic bradycardia during pulmonary rehab session, now with worsening respiratory status and suspected PNA. Breathing, cough, dyspnea on exertion continues to improve. Remains afebrile, now with elevated WBC. Sputum cx positive for MRSA. Abx course expanded to Vanc/zosyn for MRSA coverage. Problem List: Pneumonia Acute on chronic COPD exacerbation CHF exacerbation Plan: #Pneumonia - Sputum cx + for MRSA (10/24) - blood, urine cx neg - urine legionella ag, pneumoncoccal ag neg - Vanc/Zosyn for suspected MRSA PNA - Continue to trend fever curve, WBC count - Serial CXRs - Daily Wts, vitals, CBC Jono Penn MD, PGY1 Plan discussed with attending, Dr. Graham Problem List - Problems (1) Acute CHF (congestive heart failure) Code(s): I50.9 - HEART FAILURE, UNSPECIFIED (2) Bronchiectasis with (acute) exacerbation Code(s): J47.1 - BRONCHIECTASIS WITH (ACUTE) EXACERBATION (3) COPD exacerbation Code(s): J44.1 - CHRONIC OBSTRUCTIVE PULMONARY DISEASE W (ACUTE) EXACERBATION (4) Pneumonia Code(s): J18.9 - PNEUMONIA, UNSPECIFIED ORGANISM Visit type - Emergency Visit Emergency Visit: No - New Patient This patient is new to me today: No - Critical Care Critical Care patient: No
[2016-10-27] MEDS: FUROSEMIDE 40 MG/4 ML INJECTABLE VIAL IVPUSH SCH ×2 (11:02→16:47)
[2016-10-27] MEDS: PANTOPRAZOLE 40 MG TABLET (FP) PO SCH (11:08)
[2016-10-27] MEDS: TAMSULOSIN HCL 0.4 MG CAP.ER.24H (FP) PO SCH (11:08)
[2016-10-27] MEDS: ASPIRIN 81 MG CHEWABLE TABLETS PO SCH (11:08)
[2016-10-27] MEDS: ALLOPURINOL 100 MG TABLET (FP) PO SCH (11:08)
[2016-10-27] MEDS: THEOPHYLLINE ANHYDROUS 100 MG CAP.ER.24H PO SCH (11:09)
[2016-10-27] MEDS: CALCIUM CARBONATE 650 MG TABLET PO SCH ×2 (11:10→22:11)
--- NOTE | 2016-10-27 11:37 | PN ---
Progress Note, Physician Chief Complaint: Mr Rodriguez says he is feeling much better today. He is not short of breath and he is not hearing wheezing. No chest pain or nausea/vomiting. Still with edema, but he says it is much improved. - Current Medication List Current Medications: Active Medications Acetaminophen (Tylenol -) 650 mg PO Q4H PRN PRN Reason: FEVER OR PAIN Albuterol Sulfate (Ventolin 0.083% Nebulizer Soln -) 1 amp NEB Q4H PRN PRN Reason: SHORT OF BREATH/WHEEZING Last Admin: 10/26/16 13:46 Dose: 1 amp Albuterol/Ipratropium (Duoneb -) 1 amp NEB QIDR [facility] Last Admin: 10/27/16 06:24 Dose: 1 amp Allopurinol (Zyloprim -) 100 mg PO DAILY [facility] Last Admin: 10/27/16 11:08 Dose: 100 mg Aspirin (Asa -) 81 mg PO DAILY [facility] Last Admin: 10/27/16 11:08 Dose: 81 mg Atorvastatin Calcium (Lipitor -) 20 mg PO HS [facility] Last Admin: 10/26/16 22:28 Dose: 20 mg Benzocaine/Menthol (Cepacol Lozenge -) 1 each MM PRN PRN PRN Reason: SORE THROAT Last Admin: 10/26/16 13:11 Dose: 1 each Calcium Carbonate (Calcium Carbonate -) 650 mg PO BID [facility] Last Admin: 10/27/16 11:10 Dose: 650 mg Furosemide (Lasix Injection -) 80 mg IVPUSH DAILY [facility] Last Admin: 10/27/16 11:02 Dose: 80 mg Furosemide (Lasix Injection -) 40 mg IVPUSH DAILY@1600 [facility] Last Admin: 10/26/16 16:12 Dose: 40 mg Guaifenesin/Codeine Phosphate (Robitussin Ac -) 5 ml PO Q4H PRN PRN Reason: COUGH Last Admin: 10/26/16 12:02 Dose: 5 ml Piperacillin Sod/Tazobactam Sod (Zosyn 3.375gm Ivpb (Pre-Docked)) 50 mls @ 100 mls/hr IVPB Q8H-IV FAM PRN Reason: Protocol Last Admin: 10/27/16 11:12 Dose: 100 mls/hr Vancomycin HCl (Vancomycin (Pre-Docked)) 250 mls @ 166.667 mls/hr IVPB Q12H [facility] Last Admin: 10/26/16 22:27 Dose: 166.667 mls/hr Levothyroxine Sodium (Synthroid -) 100 mcg PO DAILY@0700 [facility] Last Admin: 10/27/16 06:29 Dose: 100 mcg Methylprednisolone Sodium Succinate (Solu-Medrol -) 40 mg IVPB Q8H-IV [facility] Last Admin: 10/27/16 11:05 Dose: 40 mg Metoprolol Succinate (Toprol Xl -) 25 mg PO [facility] Last Admin: 10/26/16 22:28 Dose: 25 mg Montelukast Sodium (Singulair -) 10 mg PO [facility] Last Admin: 10/26/16 22:28 Dose: 10 mg Pantoprazole Sodium (Protonix -) 40 mg PO DAILY [facility] Last Admin: 10/27/16 11:08 Dose: 40 mg Tamsulosin HCl (Flomax -) 0.4 mg PO DAILY@0830 [facility] Last Admin: 10/27/16 11:08 Dose: 0.4 mg Theophylline (Shai-24) 100 mg PO DAILY [facility] Last Admin: 10/27/16 11:09 Dose: 100 mg Warfarin Sodium (Coumadin -) 2.5 mg PO DAILY@1800 [facility] Last Admin: 10/26/16 18:03 Dose: 2.5 mg - Objective Vital Signs: Vital Signs Temperature 98.6 F 10/27/16 05:27 Pulse Rate 85 10/27/16 05:27 Respiratory Rate 20 10/27/16 05:27 Blood Pressure 118/84 10/27/16 05:27 O2 Sat by Pulse Oximetry (%) 97 10/26/16 21:00 Constitutional: Yes: Well Nourished, No Distress, Calm Cardiovascular: Yes: Regular Rate and Rhythm. No: Gallop, Murmur, Rub Respiratory: Yes: Regular, Rhonchi (bibasilar, minimal). No: Rales, Wheezes Gastrointestinal: Yes: Normal Bowel Sounds, Soft. No: Distention, Tenderness Extremities: Yes: WNL Edema: Yes Edema: LLE: 1+, RLE: 1+ Labs: CBC, BMP 10/26/16 06:05 10/27/16 06:10 INR, PTT INR 2.21 (0.82-1.09) H 10/27/16 06:10 Problem List - Problems (1) Bradycardia Code(s): R00.1 - BRADYCARDIA, UNSPECIFIED (2) Coronary artery disease Code(s): I25.10 - ATHSCL HEART DISEASE OF [place] CORONARY ARTERY W/O ANG PCTRS (3) GERD (gastroesophageal reflux disease) Code(s): K21.9 - GASTRO-ESOPHAGEAL REFLUX DISEASE WITHOUT ESOPHAGITIS (4) HTN (hypertension) Code(s): I10 - ESSENTIAL (PRIMARY) HYPERTENSION (5) Pulmonary embolism Code(s): I26.99 - OTHER PULMONARY EMBOLISM WITHOUT ACUTE COR PULMONALE (6) Renal insufficiency, mild Code(s): N28.9 - DISORDER OF KIDNEY AND URETER, UNSPECIFIED (7) COPD (chronic obstructive pulmonary disease) Code(s): 496 - CHR AIRWAY OBSTRUCT NEC (8) Hypothyroid Code(s): E03.9 - HYPOTHYROIDISM, UNSPECIFIED Assessment/Plan (1) Pneumonia Assessment/Plan: -case d/w ID -continue antibiotics at this time Code(s): J18.9 - PNEUMONIA, UNSPECIFIED ORGANISM (2) Acute LV systolic CHF (congestive heart failure) Assessment/Plan: -patient feeling much improved -diuresing well, lost 10lbs -continue IV lasix per cardiology Code(s): I50.9 - HEART FAILURE, UNSPECIFIED (3) COPD (chronic obstructive pulmonary disease) Assessment/Plan: -pulmonary following -on solumedrol, defer taper to pulmonary -continue bronchodilators Code(s): 496 - CHR AIRWAY OBSTRUCT NEC (4) Bronchiectasis with (acute) exacerbation Assessment/Plan: -as above Code(s): J47.1 - BRONCHIECTASIS WITH (ACUTE) EXACERBATION (5) HTN (hypertension) Assessment/Plan: -stable -continue current management Code(s): I10 - ESSENTIAL (PRIMARY) HYPERTENSION (6) Murali-tachy syndrome -continue telemetry monitoring Code(s): I49.5 - SICK SINUS SYNDROME (7) Cough Assessment/Plan: -improving Code(s): R05 - COUGH (8) Renal failure (ARF), acute on chronic -nephrology following -renal function stable -cardiorenal, improved with diuresis Code(s): N17.9 - ACUTE KIDNEY FAILURE, UNSPECIFIED N18.9 - CHRONIC KIDNEY DISEASE, UNSPECIFIED
--- NOTE | 2016-10-27 11:38 | PN ---
Progress Note (short form) - Note Progress Note: Renal Follow up for MARIAM Pt seen and examined at the bedside feels better was able to ambulate this weekend edema has improved no sob, chest pain, fever, chills, N/V/D Vital Signs Temperature 98.6 F 10/27/16 05:27 Pulse Rate 85 10/27/16 05:27 Respiratory Rate 20 10/27/16 05:27 Blood Pressure 118/84 10/27/16 05:27 O2 Sat by Pulse Oximetry (%) 97 10/26/16 21:00 Intake & Output 10/24/16 10/25/16 10/26/16 10/27/16 23:59 23:59 23:59 23:59 Intake Total 960 1230 1020 50 Output Total 4850 2680 3050 Balance -3902 -774 50 Weight 216 lb 210 lb 209 lb 208 lb Gen: NAD CVS: RRR Lungs: CTA Abd: soft NT/ND, No bladder distension Ext:1+ LE edema CBC, BMP 10/26/16 06:05 10/27/16 06:10 Laboratory Tests 10/24/16 10/27/16 05:35 06:10 Calcium 7.1 L 7.2 L Phosphorus 4.5 Magnesium 2.6 H Current Medications Acetaminophen (Tylenol -) 650 mg PO Q4H PRN PRN Reason: FEVER OR PAIN Albuterol Sulfate (Ventolin 0.083% Nebulizer Soln -) 1 amp NEB Q4H PRN PRN Reason: SHORT OF BREATH/WHEEZING Last Admin: 10/26/16 13:46 Dose: 1 amp Albuterol/Ipratropium (Duoneb -) 1 amp NEB QIDR [facility] Last Admin: 10/27/16 06:24 Dose: 1 amp Allopurinol (Zyloprim -) 100 mg PO DAILY [facility] Last Admin: 10/27/16 11:08 Dose: 100 mg Aspirin (Asa -) 81 mg PO DAILY [facility] Last Admin: 10/27/16 11:08 Dose: 81 mg Atorvastatin Calcium (Lipitor -) 20 mg PO HS [facility] Last Admin: 10/26/16 22:28 Dose: 20 mg Benzocaine/Menthol (Cepacol Lozenge -) 1 each MM PRN PRN PRN Reason: SORE THROAT Last Admin: 10/26/16 13:11 Dose: 1 each Calcium Carbonate (Calcium Carbonate -) 650 mg PO BID [facility] Last Admin: 10/27/16 11:10 Dose: 650 mg Furosemide (Lasix Injection -) 80 mg IVPUSH DAILY [facility] Last Admin: 10/27/16 11:02 Dose: 80 mg Furosemide (Lasix Injection -) 40 mg IVPUSH DAILY@1600 [facility] Last Admin: 10/26/16 16:12 Dose: 40 mg Guaifenesin/Codeine Phosphate (Robitussin Ac -) 5 ml PO Q4H PRN PRN Reason: COUGH Last Admin: 10/26/16 12:02 Dose: 5 ml Piperacillin Sod/Tazobactam Sod (Zosyn 3.375gm Ivpb (Pre-Docked)) 50 mls @ 100 mls/hr IVPB Q8H-IV [facility] PRN Reason: Protocol Last Admin: 10/27/16 11:12 Dose: 100 mls/hr Vancomycin HCl (Vancomycin (Pre-Docked)) 250 mls @ 166.667 mls/hr IVPB Q12H [facility] Last Admin: 10/26/16 22:27 Dose: 166.667 mls/hr Levothyroxine Sodium (Synthroid -) 100 mcg PO DAILY@0700 [facility] Last Admin: 10/27/16 06:29 Dose: 100 mcg Methylprednisolone Sodium Succinate (Solu-Medrol -) 40 mg IVPB Q8H-IV [facility] Last Admin: 10/27/16 11:05 Dose: 40 mg Metoprolol Succinate (Toprol Xl -) 25 mg PO [facility] Last Admin: 10/26/16 22:28 Dose: 25 mg Montelukast Sodium (Singulair -) 10 mg PO [facility] Last Admin: 10/26/16 22:28 Dose: 10 mg Pantoprazole Sodium (Protonix -) 40 mg PO DAILY [facility] Last Admin: 10/27/16 11:08 Dose: 40 mg Tamsulosin HCl (Flomax -) 0.4 mg PO DAILY@0830 [facility] Last Admin: 10/27/16 11:08 Dose: 0.4 mg Theophylline (Shai-24) 100 mg PO DAILY [facility] Last Admin: 10/27/16 11:09 Dose: 100 mg Warfarin Sodium (Coumadin -) 2.5 mg PO DAILY@1800 [facility] Last Admin: 10/26/16 18:03 Dose: 2.5 mg A/P 80 year old gentleman with PMhx of severe COPD, Coronary artery disease, HLD, Pneumonia, Lung abscess, s/p Pulmonary lobectomy, Pulmonary Embolism, Hypothyroidism p/w sob secondary to COPD/CHF with MARIAM with Cr 1.6 #MARIAM Renal function remains above baseline but stable volume overload is improved but persists to some degree and diuretics remain warranted trend BUN/Cr and electrolytes #Elevated serum bicarb Check ABG as it could be due to CO2 retention vs metabolic alkalosis from volume contraction #Hypocalcemia Corrected Ca is 8.22 continue oral calcium carbonate #Dyspnea/COPD/PNA on Zosyn and Vanco Thank you Neo Castro DO
--- NOTE | 2016-10-27 11:48 | PN ---
Teaching Attending Note Name of Resident: Jono Penn ATTENDING PHYSICIAN STATEMENT I saw and evaluated the patient. I reviewed the resident's note and discussed the case with the resident. I agree with the resident's findings and plan as documented. SUBJECTIVE: feels much better OBJECTIVE: Vital Signs Period Temp Pulse Resp BP Sys/Martinez Pulse Ox Last 24 Hr 97.4 F-99.2 F 85-98 18-22 118-133/70-84 97 cor-rrr lungs decreased bs at bases abd soft, nt ext less edema CBC, BMP 10/26/16 06:05 10/27/16 06:10 Microbiology 10/22/16 19:30 Blood - Peripheral Venous Blood Culture - Preliminary NO GROWTH OBTAINED AFTER 96 HOURS, INCUBATION TO CONTINUE FOR 1 DAYS. 10/22/16 19:30 Blood - Peripheral Venous Blood Culture - Preliminary NO GROWTH OBTAINED AFTER 96 HOURS, INCUBATION TO CONTINUE FOR 1 DAYS. 10/24/16 10:00 Sputum - Expectorated Gram Stain - Final 10/24/16 10:00 Sputum - Expectorated Sputum Culture - Final S Aureus 10/14/16 06:00 Sputum - Expectorated Gram Stain - Final 10/14/16 06:00 Sputum - Expectorated Sputum Culture - Final NORMAL RESPIRATORY YOKASTA 10/22/16 19:00 Urine - Urine Clean Catch Urine Culture - Final NO GROWTH OBTAINED 10/22/16 19:00 Urine For Antigen Detection Legionella Antigen - Final 10/22/16 19:00 Urine For Antigen Detection Streptococcus pneumoniae Antigen (M - Final Current Medications Acetaminophen (Tylenol -) 650 mg PO Q4H PRN PRN Reason: FEVER OR PAIN Albuterol Sulfate (Ventolin 0.083% Nebulizer Soln -) 1 amp NEB Q4H PRN PRN Reason: SHORT OF BREATH/WHEEZING Last Admin: 10/26/16 13:46 Dose: 1 amp Albuterol/Ipratropium (Duoneb -) 1 amp NEB QIDR [facility] Last Admin: 10/27/16 06:24 Dose: 1 amp Allopurinol (Zyloprim -) 100 mg PO DAILY [facility] Last Admin: 10/27/16 11:08 Dose: 100 mg Aspirin (Asa -) 81 mg PO DAILY [facility] Last Admin: 10/27/16 11:08 Dose: 81 mg Atorvastatin Calcium (Lipitor -) 20 mg PO HS [facility] Last Admin: 10/26/16 22:28 Dose: 20 mg Benzocaine/Menthol (Cepacol Lozenge -) 1 each MM PRN PRN PRN Reason: SORE THROAT Last Admin: 10/26/16 13:11 Dose: 1 each Calcium Carbonate (Calcium Carbonate -) 650 mg PO BID [facility] Last Admin: 10/27/16 11:10 Dose: 650 mg Furosemide (Lasix Injection -) 80 mg IVPUSH DAILY [facility] Last Admin: 10/27/16 11:02 Dose: 80 mg Furosemide (Lasix Injection -) 40 mg IVPUSH DAILY@1600 [facility] Last Admin: 10/26/16 16:12 Dose: 40 mg Guaifenesin/Codeine Phosphate (Robitussin Ac -) 5 ml PO Q4H PRN PRN Reason: COUGH Last Admin: 10/26/16 12:02 Dose: 5 ml Piperacillin Sod/Tazobactam Sod (Zosyn 3.375gm Ivpb (Pre-Docked)) 50 mls @ 100 mls/hr IVPB Q8H-IV [facility] PRN Reason: Protocol Last Admin: 10/27/16 11:12 Dose: 100 mls/hr Vancomycin HCl (Vancomycin (Pre-Docked)) 250 mls @ 166.667 mls/hr IVPB Q12H [facility] Last Admin: 10/26/16 22:27 Dose: 166.667 mls/hr Levothyroxine Sodium (Synthroid -) 100 mcg PO DAILY@0700 [facility] Last Admin: 10/27/16 06:29 Dose: 100 mcg Methylprednisolone Sodium Succinate (Solu-Medrol -) 40 mg IVPB Q8H-IV [facility] Last Admin: 10/27/16 11:05 Dose: 40 mg Metoprolol Succinate (Toprol Xl -) 25 mg PO [facility] Last Admin: 10/26/16 22:28 Dose: 25 mg Montelukast Sodium (Singulair -) 10 mg PO [facility] Last Admin: 10/26/16 22:28 Dose: 10 mg Pantoprazole Sodium (Protonix -) 40 mg PO DAILY [facility] Last Admin: 10/27/16 11:08 Dose: 40 mg Tamsulosin HCl (Flomax -) 0.4 mg PO DAILY@0830 [facility] Last Admin: 10/27/16 11:08 Dose: 0.4 mg Theophylline (Shai-24) 100 mg PO DAILY [facility] Last Admin: 10/27/16 11:09 Dose: 100 mg Warfarin Sodium (Coumadin -) 2.5 mg PO DAILY@1800 [facility] Last Admin: 10/26/16 18:03 Dose: 2.5 mg ASSESSMENT AND PLAN: pneumonia-sputum culture MRSA chf copd improving vancomycin day #2 zosyn day #5 check vancomycin trough before next dose Problem List - Problems (1) Pneumonia Code(s): J18.9 - PNEUMONIA, UNSPECIFIED ORGANISM (2) Acute CHF (congestive heart failure) Code(s): I50.9 - HEART FAILURE, UNSPECIFIED
[2016-10-27] MEDS: VANCOMYCIN 1 GRAM (PRE-DOCKED) 250 ML IVPB SCH ×2 (12:39→22:09)
[2016-10-27 15:44] LABS: ALLENS TEST POSITIVE; ARTERIAL BLD GAS O2 SATURATION 98.5 % (90-98.9); ARTERIAL BLOOD GAS BASE EXCESS 9.5 meq/l (-2-2); ARTERIAL BLOOD GAS HCO3 34.3 meq/L (22-26); ARTERIAL BLOOD GAS pH 7.47 (7.35-7.45)
[2016-10-27 15:45] LABS: ART PUNCT SITE RIGHT RADIAL; LPM/O2% 2L; PT. ON O2? YES; TYPE OF O2 N/C
--- NOTE | 2016-10-27 17:20 | PN ---
Progress Note, Physician History of Present Illness: Dyspnea and cough today. Pt had increased cough yesterday and required increasaed in steroid dosage. - Current Medication List Current Medications: Active Medications Acetaminophen (Tylenol -) 650 mg PO Q4H PRN PRN Reason: FEVER OR PAIN Albuterol Sulfate (Ventolin 0.083% Nebulizer Soln -) 1 amp NEB Q4H PRN PRN Reason: SHORT OF BREATH/WHEEZING Last Admin: 10/26/16 13:46 Dose: 1 amp Albuterol/Ipratropium (Duoneb -) 1 amp NEB QIDR [facility] Last Admin: 10/27/16 12:00 Dose: Not Given Allopurinol (Zyloprim -) 100 mg PO DAILY [facility] Last Admin: 10/27/16 11:08 Dose: 100 mg Aspirin (Asa -) 81 mg PO DAILY [facility] Last Admin: 10/27/16 11:08 Dose: 81 mg Atorvastatin Calcium (Lipitor -) 20 mg PO HS [facility] Last Admin: 10/26/16 22:28 Dose: 20 mg Benzocaine/Menthol (Cepacol Lozenge -) 1 each MM PRN PRN PRN Reason: SORE THROAT Last Admin: 10/26/16 13:11 Dose: 1 each Calcium Carbonate (Calcium Carbonate -) 650 mg PO BID [facility] Last Admin: 10/27/16 11:10 Dose: 650 mg Furosemide (Lasix Injection -) 80 mg IVPUSH DAILY [facility] Last Admin: 10/27/16 11:02 Dose: 80 mg Furosemide (Lasix Injection -) 40 mg IVPUSH DAILY@1600 [facility] Last Admin: 10/27/16 16:47 Dose: 40 mg Guaifenesin/Codeine Phosphate (Robitussin Ac -) 5 ml PO Q4H PRN PRN Reason: COUGH Last Admin: 10/26/16 12:02 Dose: 5 ml Piperacillin Sod/Tazobactam Sod (Zosyn 3.375gm Ivpb (Pre-Docked)) 50 mls @ 100 mls/hr IVPB Q8H-IV [facility] PRN Reason: Protocol Last Admin: 10/27/16 11:12 Dose: 100 mls/hr Vancomycin HCl (Vancomycin (Pre-Docked)) 250 mls @ 166.667 mls/hr IVPB Q12H [facility] Last Admin: 10/27/16 12:39 Dose: 166.667 mls/hr Levothyroxine Sodium (Synthroid -) 100 mcg PO DAILY@0700 [facility] Last Admin: 10/27/16 06:29 Dose: 100 mcg Methylprednisolone Sodium Succinate (Solu-Medrol -) 40 mg IVPB Q8H-IV [facility] Last Admin: 10/27/16 11:05 Dose: 40 mg Metoprolol Succinate (Toprol Xl -) 25 mg PO BID [facility] Montelukast Sodium (Singulair -) 10 mg PO HS [facility] Last Admin: 10/26/16 22:28 Dose: 10 mg Pantoprazole Sodium (Protonix -) 40 mg PO DAILY [facility] Last Admin: 10/27/16 11:08 Dose: 40 mg Tamsulosin HCl (Flomax -) 0.4 mg PO DAILY@0830 [facility] Last Admin: 10/27/16 11:08 Dose: 0.4 mg Theophylline (Shai-24) 100 mg PO DAILY [facility] Last Admin: 10/27/16 11:09 Dose: 100 mg Warfarin Sodium (Coumadin -) 2.5 mg PO DAILY@1800 [facility] Last Admin: 10/26/16 18:03 Dose: 2.5 mg - Objective Vital Signs: Vital Signs Temperature 97.7 F 10/27/16 15:00 Pulse Rate 83 10/27/16 15:00 Respiratory Rate 20 10/27/16 15:00 Blood Pressure 112/73 10/27/16 15:00 O2 Sat by Pulse Oximetry (%) 97 10/26/16 21:00 Constitutional: Yes: No Distress, Calm Eyes: No: Sclera Icterus HENT: Yes: Atraumatic, Normocephalic, Tonsillar Exudate Neck: Yes: Trachea Midline Cardiovascular: Yes: Regular Rate and Rhythm. No: JVD Respiratory: Yes: CTA Bilaterally Gastrointestinal: Yes: Soft Extremities: No: Calf Tenderness Edema: No Edema: LLE: 2+, RLE: 2+ Neurological: Yes: Alert, Oriented Labs: CBC, BMP 10/26/16 06:05 10/27/16 06:10 INR, PTT INR 2.21 (0.82-1.09) H 10/27/16 06:10 Assessment/Plan Assessment: Pt's respiratory status somewhat improved post change in antibiotic and increased dosage diuretic. Plan: Steroids Bronchodilators O2 to maintain SaO2>90 Antibiotics Diuretic CXR Repeat theophylline level
[2016-10-27] MEDS: WARFARIN NA 2.5 MG TABLET (FP) PO SCH (18:05)
[2016-10-27] MEDS ORDERED: PT OWN MED DRAWER 7, Y5N ONE (21:55)
[2016-10-27] MEDS: MONTELUKAST NA 10 MG TABLET PO SCH (22:11)
[2016-10-27] MEDS: ATORVASTATIN CA 20 MG TABLET (FP) PO SCH (22:11)
[2016-10-27] MEDS: METOPROLOL SUCCINATE 25 MG TAB.SR.24H (FP) PO SCH (22:11)
[2016-10-28] MEDS: methylPREDNISolone NA SUCC 40 MG/1 ML VIAL IVPB SCH ×3 (01:45→17:53)
[2016-10-28] MEDS: PIPERACILLIN/TAZOB 3.375 GM 50 ML IVPB SCH ×3 (01:45→17:52)
[2016-10-28] MEDS: LEVOTHYROXINE NA 100 MCG TABLET (FP) PO SCH (06:07)
[2016-10-28] MEDS: ALBUTEROL SO4 2.5/IPRATROPIUM 0.5 INH SOL 3 ML VIAL.NEB. NEB SCH ×5 (06:58→23:04)
[2016-10-28 07:36] LABS: BASOPHIL 0.1 % (0-2.0); MCH 27.3 pg (25.7-33.7); MCHC 31.9 g/dl (32.0-35.9); MEAN CELL VOLUME 85.5 fl (80-96); MEAN PLT VOLUME 9.6 fl (7.5-11.1); NEUTROPHILS 94.5 % (42.8-82.8); PLATELET COUNT 150 K/MM3 (134-434); RDW 18.8 % (11.9-15.9); WHITE BLOOD COUNT 16.5 K/mm3 (4.0-10.0)
--- NOTE | 2016-10-28 07:57 | PN ---
Physical Exam: SUBJECTIVE: Patient to be seen by me - WBC count uptrending (14.2 -> 16.5). However, pt taking steroids for respiratory condition. - ABG yesterday w/ hypercarbia/alkalemia - Remains afebrile. Denies fever, chills, CP, abdominal pain, rashes, dysuria. Endorses improving exercise tolerance, no cough and improved breathing. - No major complaints. No overnight events. No recent episodes of SOB. OBJECTIVE: Vital Signs Period Temp Pulse Resp BP Sys/Martinez Pulse Ox Last 24 Hr 97.6 F-98.2 F 80-92 20-22 110-122/62-79 100-100 GENERAL: Awake, alert, and fully oriented, in no acute distress. Seated on NC. HEAD: Normal with no signs of trauma. EYES: extraocular movements intact, sclera anicteric, conjunctiva clear. No lid lag. Arcus senilis noted. NECK: lymphadenopathy, JVD, or masses. LUNGS: SLight decrease in breath sounds at bases. Trace midline expiratory wheeze noted in upper lung rader. No crackles. No accessory muscle use. No tactile fremitus. HEART: Grade 2/6 systolic blowing murmur at RUSB. Regular rate and rhythm, normal S1 and S2 without rub or gallop. ABDOMEN: Soft, nontender, significantly distended. Umbilical hernia noted. Normoactive bowel sounds, no guarding, no masses. No hepatomegaly or splenomegaly. UPPER EXTREMITIES: 2+ pulses, warm, well-perfused. No cyanosis. No clubbing. Cap refill <2 seconds. No peripheral edema. LOWER EXTREMITIES: 2+ pulses, warm, well-perfused. No calf tenderness. 2+ pitting edema BL up to knee with accompanying stasis dermatitis. No significant interval change. NEUROLOGICAL: Cranial nerves II-XII grossly intact. Normal speech. Gait not evaluated. PSYCHIATRIC: Cooperative. Good eye contact. Appropriate mood and affect. SKIN: Warm, dry, normal turgor. Laboratory Results - last 24 hr CBC, BMP 10/28/16 05:35 10/27/16 10/27/16 10/27/16 06:10 06:10 15:40 WBC RBC Hgb Hct MCV MCH MCHC RDW Plt Count MPV Neutrophils % Lymphocytes % Monocytes % Eosinophils % Basophils % INR 2.21 H Puncture Site Right radial ABG pH 7.47 H ABG pCO2 at Pt Temp 47.9 H D ABG pO2 at Pt Temp 108.0 H ABG HCO3 34.3 H ABG O2 Sat (Measured) 98.5 ABG O2 Content 16.2 ABG Base Excess 9.5 H Kalen Test Positive O2 Delivery Device N/c Oxygen Flow Rate 2l PEEP 0.0 Sodium 143 Potassium 4.0 Chloride 96 L Carbon Dioxide 37 H Anion Gap 10 BUN 44 H Creatinine 1.4 H Random Glucose 176 H Calcium 7.2 L 10/28/16 05:35 WBC 16.5 H RBC 4.36 Hgb 11.9 Hct 37.3 MCV 85.5 MCH 27.3 MCHC 31.9 L RDW 18.8 H Plt Count 150 MPV 9.6 Neutrophils % 94.5 H Lymphocytes % 2.2 L Monocytes % 3.2 L Eosinophils % 0.0 Basophils % 0.1 INR Puncture Site ABG pH ABG pCO2 at Pt Temp ABG pO2 at Pt Temp ABG HCO3 ABG O2 Sat (Measured) ABG O2 Content ABG Base Excess Kalen Test O2 Delivery Device Oxygen Flow Rate PEEP Sodium Potassium Chloride Carbon Dioxide Anion Gap BUN Creatinine Random Glucose Calcium Microbiology 10/22/16 19:30 Blood - Peripheral Venous Blood Culture - Final NO GROWTH AFTER 5 DAYS INCUBATION 10/22/16 19:30 Blood - Peripheral Venous Blood Culture - Final NO GROWTH AFTER 5 DAYS INCUBATION 10/24/16 10:00 Sputum - Expectorated Gram Stain - Final 10/24/16 10:00 Sputum - Expectorated Sputum Culture - Final S Aureus 10/14/16 06:00 Sputum - Expectorated Gram Stain - Final 10/14/16 06:00 Sputum - Expectorated Sputum Culture - Final NORMAL RESPIRATORY YOKASTA 10/22/16 19:00 Urine - Urine Clean Catch Urine Culture - Final NO GROWTH OBTAINED 10/22/16 19:00 Urine For Antigen Detection Legionella Antigen - Final 10/22/16 19:00 Urine For Antigen Detection Streptococcus pneumoniae Antigen (M - Final CXR (10/28): - minimal interval change. Slightly decreased vascular congestion. No evidence of focal consolidations. Active Medications Generic Name Dose Route Start Last Admin Trade Name Freq PRN Reason Stop Dose Admin Acetaminophen 650 mg 10/10/16 14:55 Tylenol - PO Q4H PRN FEVER OR PAIN Albuterol Sulfate 1 amp 10/13/16 14:18 10/26/16 13:46 Ventolin 0.083% Nebulizer Soln - NEB 1 amp Q4H PRN Administration SHORT OF BREATH/WHEEZING Albuterol/Ipratropium 1 amp 10/23/16 07:51 10/28/16 06:58 Duoneb - NEB 1 amp QIDR [facility] Administration Allopurinol 100 mg 10/11/16 10:00 10/27/16 11:08 Zyloprim - PO 100 mg DAILY [facility] Administration Aspirin 81 mg 10/11/16 10:00 10/27/16 11:08 Asa - PO 81 mg DAILY [facility] Administration Atorvastatin Calcium 20 mg 10/10/16 22:00 10/27/16 22:11 Lipitor - PO 20 mg HS [facility] Administration Benzocaine/Menthol 1 each 10/19/16 10:20 10/26/16 13:11 Cepacol Lozenge - MM 1 each PRN PRN Administration SORE THROAT Calcium Carbonate 650 mg 10/24/16 12:30 10/27/16 22:11 Calcium Carbonate - PO 650 mg BID [facility] Administration Furosemide 80 mg 10/22/16 10:30 10/27/16 11:02 Lasix Injection - IVPUSH 80 mg DAILY [facility] Administration Furosemide 40 mg 10/26/16 16:00 10/27/16 16:47 Lasix Injection - IVPUSH 40 mg DAILY@1600 [facility] Administration Guaifenesin/Codeine Phosphate 5 ml 10/17/16 09:22 10/26/16 12:02 Robitussin Ac - PO 5 ml Q4H PRN Administration COUGH Piperacillin Sod/Tazobactam Sod 50 mls @ 100 mls/hr 10/23/16 02:00 10/28/16 01: 45 Zosyn 3.375gm Ivpb (Pre-Docked) IVPB 100 mls/hr Q8H-IV [facility] Administration Protocol Vancomycin HCl 250 mls @ 166.667 mls/hr 10/26/16 10:00 10/27/16 22:09 Vancomycin (Pre-Docked) IVPB 166.667 mls/hr Q12H [facility] Administration Levothyroxine Sodium 100 mcg 10/15/16 07:00 10/28/16 06:07 Synthroid - PO 100 mcg DAILY@0700 [facility] Administration Methylprednisolone Sodium Succinate 40 mg 10/26/16 18:00 10/28/16 01:45 Solu-Medrol - IVPB 40 mg Q8H-IV [facility] Administration Metoprolol Succinate 25 mg 10/27/16 22:00 10/27/16 22:11 Toprol Xl - PO 25 mg BID [facility] Administration Montelukast Sodium 10 mg 10/14/16 22:00 10/27/16 22:11 Singulair - PO 10 mg HS [facility] Administration Pantoprazole Sodium 40 mg 10/11/16 10:00 10/27/16 11:08 Protonix - PO 40 mg DAILY [facility] Administration Tamsulosin HCl 0.4 mg 10/19/16 08:30 10/27/16 11:08 Flomax - PO 0.4 mg DAILY@0830 [facility] Administration Theophylline 100 mg 10/20/16 10:00 10/27/16 11:09 Shai-24 PO 100 mg DAILY [facility] Administration Warfarin Sodium 2.5 mg 10/20/16 18:00 10/27/16 18:05 Coumadin - PO 2.5 mg DAILY@1800 [facility] Administration ASSESSMENT/PLAN: Assessment: Pt is an 80 yo man w/ pmh of COPD (on home O2), CAD (s/p PCI; 3 stents), R lobectomy for lung abscess, GERD, HTN, HLD, who initially presented 12 days ago due with symptomatic bradycardia during pulmonary rehab session, now with worsening respiratory status and suspected PNA. Pt continue to improve clinical , endorses no cough and improving exercise tolerance. Remains afebrile, now with elevated WBC on steroids. Abx course expanded to Vanc/zosyn for MRSA coverage. Problem List: Pneumonia Acute on chronic COPD exacerbation CHF exacerbation Plan: #Pneumonia - Sputum cx + for MRSA (10/24) - blood, urine cx neg - urine legionella ag, pneumoncoccal ag neg - Vanc trough 20. Dose held - Day 6 of 7 day course of Zosyn for suspected MRSA PNA, Day 3 of Vanc course. - Last dose of Zosyn tomorrow - Continue to trend fever curve, WBC count - Serial CXRs - Daily Wts, vitals, CBC Jono Penn MD, PGY1 Plan discussed with attending, Dr. Graham Problem List - Problems (1) Acute CHF (congestive heart failure) Code(s): I50.9 - HEART FAILURE, UNSPECIFIED (2) Bronchiectasis with (acute) exacerbation Code(s): J47.1 - BRONCHIECTASIS WITH (ACUTE) EXACERBATION (3) COPD exacerbation Code(s): J44.1 - CHRONIC OBSTRUCTIVE PULMONARY DISEASE W (ACUTE) EXACERBATION (4) Pneumonia Code(s): J18.9 - PNEUMONIA, UNSPECIFIED ORGANISM Visit type - Emergency Visit Emergency Visit: No - New Patient This patient is new to me today: No - Critical Care Critical Care patient: No
[2016-10-28 08:05] LABS: INR 2.68 (0.82-1.09); PROTHROMBIN TIME (PATIENT) 30.1 SEC (9.98-11.88)
[2016-10-28 08:10] LABS: ANION GAP 10 (8-16); CO2 38 mmol/L (21-32); GLUCOSE,RANDOM 169 mg/dL (74-106)
[2016-10-28 08:12] LABS: CALCIUM 7.3 mg/dL (8.5-10.1); CREATININE 1.3 mg/dL (0.7-1.3); MAGNESIUM 2.9 mg/dL (1.8-2.4); PHOSPHOROUS 4.3 mg/dL (2.5-4.9)
[2016-10-28] MEDS: PANTOPRAZOLE 40 MG TABLET (FP) PO SCH (10:02)
[2016-10-28] MEDS: ASPIRIN 81 MG CHEWABLE TABLETS PO SCH (10:02)
[2016-10-28] MEDS: ALLOPURINOL 100 MG TABLET (FP) PO SCH (10:02)
[2016-10-28] MEDS: TAMSULOSIN HCL 0.4 MG CAP.ER.24H (FP) PO SCH (10:02)
[2016-10-28] MEDS: METOPROLOL SUCCINATE 25 MG TAB.SR.24H (FP) PO SCH ×2 (10:03→21:51)
[2016-10-28] MEDS: FUROSEMIDE 40 MG/4 ML INJECTABLE VIAL IVPUSH SCH ×2 (10:03→16:53)
[2016-10-28] MEDS: CALCIUM CARBONATE 650 MG TABLET PO SCH ×2 (10:24→21:50)
[2016-10-28] MEDS: THEOPHYLLINE ANHYDROUS 100 MG CAP.ER.24H PO SCH (10:24)
--- NOTE | 2016-10-28 11:01 | PN ---
Progress Note (short form) - Note Progress Note: Renal Follow up for MARIAM Pt seen and examined at the bedside no acute complaints no chest pain, SOB is improved no abd pain, N/V/D Vital Signs Temperature 97.7 F 10/28/16 06:00 Pulse Rate 82 10/28/16 06:00 Respiratory Rate 20 10/28/16 06:00 Blood Pressure 112/79 10/28/16 06:00 O2 Sat by Pulse Oximetry (%) 100 10/27/16 22:00 Intake & Output 10/25/16 10/26/16 10/27/16 10/28/16 23:59 23:59 23:59 23:59 Intake Total 1230 1020 1440 110 Output Total 2680 3050 1100 700 Balance -1449 -2029 340 -590 Weight 210 lb 209 lb 208 lb 209 lb Gen: NAD CVS: RRR Lungs: CTA Abd: soft NT/ND, No bladder distension Ext:1+ LE edema CBC, BMP 10/28/16 05:35 10/28/16 05:35 Laboratory Tests 10/28/16 10/28/16 05:35 08:45 Calcium 7.3 L Phosphorus 4.3 Magnesium 2.9 H Vancomycin Pre-Dose 20.777 H* Current Medications Acetaminophen (Tylenol -) 650 mg PO Q4H PRN PRN Reason: FEVER OR PAIN Albuterol Sulfate (Ventolin 0.083% Nebulizer Soln -) 1 amp NEB Q4H PRN PRN Reason: SHORT OF BREATH/WHEEZING Last Admin: 10/26/16 13:46 Dose: 1 amp Albuterol/Ipratropium (Duoneb -) 1 amp NEB QIDR [facility] Last Admin: 10/28/16 10:45 Dose: 1 amp Allopurinol (Zyloprim -) 100 mg PO DAILY [facility] Last Admin: 10/28/16 10:02 Dose: 100 mg Aspirin (Asa -) 81 mg PO DAILY [facility] Last Admin: 10/28/16 10:02 Dose: 81 mg Atorvastatin Calcium (Lipitor -) 20 mg PO HS [facility] Last Admin: 10/27/16 22:11 Dose: 20 mg Benzocaine/Menthol (Cepacol Lozenge -) 1 each MM PRN PRN PRN Reason: SORE THROAT Last Admin: 10/26/16 13:11 Dose: 1 each Calcium Carbonate (Calcium Carbonate -) 650 mg PO BID [facility] Last Admin: 10/28/16 10:24 Dose: 650 mg Furosemide (Lasix Injection -) 80 mg IVPUSH DAILY [facility] Last Admin: 10/28/16 10:03 Dose: 80 mg Furosemide (Lasix Injection -) 40 mg IVPUSH DAILY@1600 [facility] Last Admin: 10/27/16 16:47 Dose: 40 mg Guaifenesin/Codeine Phosphate (Robitussin Ac -) 5 ml PO Q4H PRN PRN Reason: COUGH Last Admin: 10/26/16 12:02 Dose: 5 ml Piperacillin Sod/Tazobactam Sod (Zosyn 3.375gm Ivpb (Pre-Docked)) 50 mls @ 100 mls/hr IVPB Q8H-IV [facility] PRN Reason: Protocol Last Admin: 10/28/16 10:03 Dose: 100 mls/hr Vancomycin HCl (Vancomycin (Pre-Docked)) 250 mls @ 166.667 mls/hr IVPB Q12H [facility] Last Admin: 10/27/16 22:09 Dose: 166.667 mls/hr Levothyroxine Sodium (Synthroid -) 100 mcg PO DAILY@0700 [facility] Last Admin: 10/28/16 06:07 Dose: 100 mcg Methylprednisolone Sodium Succinate (Solu-Medrol -) 40 mg IVPB Q8H-IV [facility] Last Admin: 10/28/16 10:03 Dose: 40 mg Metoprolol Succinate (Toprol Xl -) 25 mg PO BID [facility] Last Admin: 10/28/16 10:03 Dose: 25 mg Montelukast Sodium (Singulair -) 10 mg PO HS [facility] Last Admin: 10/27/16 22:11 Dose: 10 mg Pantoprazole Sodium (Protonix -) 40 mg PO DAILY [facility] Last Admin: 10/28/16 10:02 Dose: 40 mg Tamsulosin HCl (Flomax -) 0.4 mg PO DAILY@0830 [facility] Last Admin: 10/28/16 10:02 Dose: 0.4 mg Theophylline (Shai-24) 100 mg PO DAILY [facility] Last Admin: 10/28/16 10:24 Dose: 100 mg Warfarin Sodium (Coumadin -) 2.5 mg PO DAILY@1800 [facility] Last Admin: 10/27/16 18:05 Dose: 2.5 mg A/P 80 year old gentleman with PMhx of severe COPD, Coronary artery disease, HLD, Pneumonia, Lung abscess, s/p Pulmonary lobectomy, Pulmonary Embolism, Hypothyroidism p/w sob secondary to COPD/CHF with MARIAM with Cr 1.6 #MARIAM Renal function stable on IV diuretics continue to trend BUN/Cr and electrolytes #Elevated serum bicarb ABD showed elevated ph and CO2 and thus is consistent with a metabolic alkalosis Check Urine electrolytes #Hypocalcemia Continue oral Ca #Dyspnea/COPD/PNA on Zosyn and Vanco Thank you Neo Castro DO
--- NOTE | 2016-10-28 11:30 | PN ---
Progress Note (short form) - Note Progress Note: History of Present Illness: sob persists but better no cp, no palps no dizzy le edema better as well Current Medications Generic Name Dose Route Start Last Admin Trade Name Freq PRN Reason Stop Dose Admin Acetaminophen 650 mg 10/10/16 14:55 Tylenol - PO Q4H PRN FEVER OR PAIN Albuterol Sulfate 1 amp 10/13/16 14:18 10/26/16 13:46 Ventolin 0.083% Nebulizer Soln - NEB 1 amp Q4H PRN Administration SHORT OF BREATH/WHEEZING Albuterol/Ipratropium 1 amp 10/23/16 07:51 10/28/16 11:06 Duoneb - NEB 1 amp QIDR FAM Administration Allopurinol 100 mg 10/11/16 10:00 10/28/16 10:02 Zyloprim - PO 100 mg DAILY FAM Administration Aspirin 81 mg 10/11/16 10:00 10/28/16 10:02 Asa - PO 81 mg DAILY FAM Administration Atorvastatin Calcium 20 mg 10/10/16 22:00 10/27/16 22:11 Lipitor - PO 20 mg HS FAM Administration Benzocaine/Menthol 1 each 10/19/16 10:20 10/26/16 13:11 Cepacol Lozenge - MM 1 each PRN PRN Administration SORE THROAT Calcium Carbonate 650 mg 10/24/16 12:30 10/28/16 10:24 Calcium Carbonate - PO 650 mg BID FAM Administration Furosemide 80 mg 10/22/16 10:30 10/28/16 10:03 Lasix Injection - IVPUSH 80 mg DAILY FAM Administration Furosemide 40 mg 10/26/16 16:00 10/27/16 16:47 Lasix Injection - IVPUSH 40 mg DAILY@1600 [facility] Administration Guaifenesin/Codeine Phosphate 5 ml 10/17/16 09:22 10/26/16 12:02 Robitussin Ac - PO 5 ml Q4H PRN Administration COUGH Piperacillin Sod/Tazobactam Sod 50 mls @ 100 mls/hr 10/23/16 02:00 10/28/16 10: 03 Zosyn 3.375gm Ivpb (Pre-Docked) IVPB 100 mls/hr Q8H-IV FAM Administration Protocol Vancomycin HCl 250 mls @ 166.667 mls/hr 10/26/16 10:00 07/24/17 22:09 Vancomycin (Pre-Docked) IVPB 166.667 mls/hr Q12H FAM Administration Levothyroxine Sodium 100 mcg 10/15/16 07:00 10/28/16 06:07 Synthroid - PO 100 mcg DAILY@0700 FAM Administration Methylprednisolone Sodium Succinate 40 mg 10/26/16 18:00 10/28/16 10:03 Solu-Medrol - IVPB 40 mg Q8H-IV FAM Administration Metoprolol Succinate 25 mg 10/27/16 22:00 10/28/16 10:03 Toprol Xl - PO 25 mg BID FAM Administration Montelukast Sodium 10 mg 10/14/16 22:00 10/27/16 22:11 Singulair - PO 10 mg HS FAM Administration Pantoprazole Sodium 40 mg 10/11/16 10:00 10/28/16 10:02 Protonix - PO 40 mg DAILY FAM Administration Tamsulosin HCl 0.4 mg 10/19/16 08:30 10/28/16 10:02 Flomax - PO 0.4 mg DAILY@0830 FAM Administration Theophylline 100 mg 10/20/16 10:00 10/28/16 10:24 Shai-24 PO 100 mg DAILY FAM Administration Warfarin Sodium 2.5 mg 10/20/16 18:00 10/27/16 18:05 Coumadin - PO 2.5 mg DAILY@1800 FAM Administration Vital Signs Period Temp Pulse Resp BP Sys/Martinez Pulse Ox Last 24 Hr 97.6 F-98.2 F 80-92 20-22 110-122/62-79 98-100 NAD, calm jvd flat, neck supple diminished breath sounds/mild exp wheezes, nl effort rrr nl s1, s2 2/6 murmur at sternal border and apex + bs soft nt nd trace le edema bl aaox3 no jaundice, diaphoresis CBC, BMP 10/28/16 05:35 10/28/16 05:35 EKG: Other (tele: SR, pvcs, brief PAT) EKG: sr, 97 bpm. anterolateral twi. Previously twi more prominent in lateral leads. Echo 09/2016 office: Moderate global HK, EF 40%. nl rv. mod mr, LHC 05/2016 at [facility]--per dc summary, patent prior stents and non obs residual dz. LHC/PCI 2010: prox RCA NICOLE, residual OM1 50-60%, patent mid LAD stent, normal right heart pressures, normal LVF Dobut Stress MPI 08/2010: small, mild apical anterior and LV apex ischemia--( PCI after this) MIBI 12/13: small/mild infer ischemia vs GI tracer confounding, EF 41% ct chest 02/2016: ascd aorta 4.3 cm a/p: 80 yo with h/o CAD (s/p PCI), systolic cardiomyopathy, mild asc ao dilation, mod mr, htn, hl, hypothyroid, COPD, Pneumonia (s/p lobectomy for lung abscess), Pulmonary Embolus on coumadin p/w bradycardia. bradycardia - no ekg documentation of episodes. (on routine vitals prior to starting P.T. he was noted to have HR's in the 30's-40's-->to ER where normal HR. per family on telemetry in ER, HR's intermittently were reading 30's -50's for seconds at a time and then going back up to 70's-100's.) - ? artifactual has known h/o sinus tach and has remained in sinus tach here. - he had no sx's at home or here of presyncope/syncope (generalized weakness on DOA is apparently a chronic, stable condition which improves acutely with PT) - recent cath unremarkable, echo in september EF 40%, stable vs priors apparently - no bradyarrhythmia on telemetry here for many days. - home metoprolol continued in hospital. acute on chronic syst chf: - Over the years his echos have shown variations in lvef, at times reduced. Recent echo at [facility] 05/2016 reports lvef 20% (per dc summary). During that admit he was seen by cardio and had repeat cath showing patent stents and non obs residual dz. He was noted to have NSVT on tele there and given lifevest but pt/ declined. Was started on toprol as well. He has been on bb/arb for several mos now --> improvement in EF --> cont - wt 203 yest, 206 today (office wts vary 195-210 since 04/22). - lasix held here over weekend for + orthostatics - 10/13 JVD noted on exam --> lasix 40 mg IV x 1 - 10/14-: resumed po lasix as above - 10/17: wt rising and starting to develop le edema. Got lasix 40 iv yesterday and today still vol up and cr bumped up. Given that he appears volume up he may need more iv lasix which may help cr as well. Renal consulted today, will discuss. -10/18: seen by renal, rec'd stopping arb and monitoring for now w/o aggressive diuresis. Today le edema improved and cr improved. Cont with po lasix for now. -10/19: cr continues to improve, back to baseline. Given that his cr bumped up after iv lasix and then improved after stopping iv lasix, it seems that he does not need aggressive diuresis at this time. Cont po lasix for maintenance. Now that off iv steroids le edema should improve. -10/21: back on iv steroids and wt up still so given test dose of iv lasix yesterday. Today cr stable and diuresed well so will cont with lasix 40 iv qd for now -10/22: still with vol overload and wt up so will increase lasix to 80 iv qd -10/23: still vol up, cr stable. Needs further diuresis. Discussed with renal and plan will be to continue lasix 80 iv daily but give additional evening dose of 40 iv and monitor response tomorrow. -10/24: seemed to respond well to lasix iv 80/40 yesterday with stable cr and wt down, will cont same today. - cont home metoprolol 25mg 10/25: Improving with furosemide. Renal function improved weight down to 210 ( from 216). Will continue Lasix 80/40 IV. Will need K replacement (3.4) 10/26: Stable, still seems volume overloaded, weight continnues to decrease to 209. Continue lasix 80/40. Improved K. -10/27-: bun/creat improved with diuresis. wt declining. dry wt uncertain here (office wts range 195-210, pt thinks baseline is close to 190--??). will cont same lasix until bun/creat starts trending up, if he continues to look euvolemic PAT: -brief runs on tele -cont bb, monitor tele a.e. COPD, PNA: - on home o2 and theophylline - on steroids, pulm following - abx per ID CAD (s/p PCI) - Con't medical therapy with ASA, statin. Stable. No angina. CE's negative here and recent cath in may with no residual disease HTN: - stable Hyperlipdemia, - con't statin PE 2010 - on coumadin from before. dosing per inr. hgb stable even with additional asa. ascending thoracic aneurysm, small: - Stable on CT here (4.2cm). - bp control, BB as doing -outpt monitoring trop elevation: -borderline trop elevation with flat trend and nl ckmb fraction, not consistent with acs. Likely due to alon/pna/chf
[2016-10-28] MEDS: VANCOMYCIN 1 GRAM (PRE-DOCKED) 250 ML IVPB SCH (11:57)
--- NOTE | 2016-10-28 12:30 | PN ---
Teaching Attending Note Name of Resident: Jono Penn ATTENDING PHYSICIAN STATEMENT I saw and evaluated the patient. I reviewed the resident's note and discussed the case with the resident. I agree with the resident's findings and plan as documented. SUBJECTIVE: feels better less sob weight unchanged today OBJECTIVE: Vital Signs Period Temp Pulse Resp BP Sys/Martinez Pulse Ox Last 24 Hr 97.6 F-98.2 F 80-92 20-20 110-122/62-79 98-100 cor-rrr lungs scattered wheeze abd soft,nt ext +edema CBC, BMP 10/28/16 05:35 10/28/16 05:35 Microbiology 10/22/16 19:30 Blood - Peripheral Venous Blood Culture - Final NO GROWTH AFTER 5 DAYS INCUBATION 10/22/16 19:30 Blood - Peripheral Venous Blood Culture - Final NO GROWTH AFTER 5 DAYS INCUBATION 10/24/16 10:00 Sputum - Expectorated Gram Stain - Final 10/24/16 10:00 Sputum - Expectorated Sputum Culture - Final S Aureus 10/14/16 06:00 Sputum - Expectorated Gram Stain - Final 10/14/16 06:00 Sputum - Expectorated Sputum Culture - Final NORMAL RESPIRATORY YOKASTA 10/22/16 19:00 Urine - Urine Clean Catch Urine Culture - Final NO GROWTH OBTAINED 10/22/16 19:00 Urine For Antigen Detection Legionella Antigen - Final 10/22/16 19:00 Urine For Antigen Detection Streptococcus pneumoniae Antigen (M - Final vancomycin trough 20 ASSESSMENT AND PLAN: pneumonia chf copd hold vancomycin today, high trough suspect leukocytosis secondary to steroids repeat vanco level in am continue zosyn to complete 7 days Problem List - Problems (1) Pneumonia Code(s): J18.9 - PNEUMONIA, UNSPECIFIED ORGANISM (2) Acute CHF (congestive heart failure) Code(s): I50.9 - HEART FAILURE, UNSPECIFIED
--- NOTE | 2016-10-28 16:06 | PN ---
Progress Note, Physician History of Present Illness: Dyspnea decreased. No chest pain or palpitations - Current Medication List Current Medications: Active Medications Acetaminophen (Tylenol -) 650 mg PO Q4H PRN PRN Reason: FEVER OR PAIN Albuterol Sulfate (Ventolin 0.083% Nebulizer Soln -) 1 amp NEB Q4H PRN PRN Reason: SHORT OF BREATH/WHEEZING Last Admin: 10/26/16 13:46 Dose: 1 amp Albuterol/Ipratropium (Duoneb -) 1 amp NEB QIDR [facility] Last Admin: 10/28/16 11:06 Dose: 1 amp Allopurinol (Zyloprim -) 100 mg PO DAILY [facility] Last Admin: 10/28/16 10:02 Dose: 100 mg Aspirin (Asa -) 81 mg PO DAILY [facility] Last Admin: 10/28/16 10:02 Dose: 81 mg Atorvastatin Calcium (Lipitor -) 20 mg PO HS [facility] Last Admin: 10/27/16 22:11 Dose: 20 mg Benzocaine/Menthol (Cepacol Lozenge -) 1 each MM PRN PRN PRN Reason: SORE THROAT Last Admin: 10/26/16 13:11 Dose: 1 each Calcium Carbonate (Calcium Carbonate -) 650 mg PO BID [facility] Last Admin: 10/28/16 10:24 Dose: 650 mg Furosemide (Lasix Injection -) 80 mg IVPUSH DAILY [facility] Last Admin: 10/28/16 10:03 Dose: 80 mg Furosemide (Lasix Injection -) 40 mg IVPUSH DAILY@1600 [facility] Last Admin: 10/27/16 16:47 Dose: 40 mg Guaifenesin/Codeine Phosphate (Robitussin Ac -) 5 ml PO Q4H PRN PRN Reason: COUGH Last Admin: 10/26/16 12:02 Dose: 5 ml Piperacillin Sod/Tazobactam Sod (Zosyn 3.375gm Ivpb (Pre-Docked)) 50 mls @ 100 mls/hr IVPB Q8H-IV FAM PRN Reason: Protocol Last Admin: 10/28/16 10:03 Dose: 100 mls/hr Levothyroxine Sodium (Synthroid -) 100 mcg PO DAILY@0700 [facility] Last Admin: 10/28/16 06:07 Dose: 100 mcg Methylprednisolone Sodium Succinate (Solu-Medrol -) 40 mg IVPB Q8H-IV FAM Last Admin: 10/28/16 10:03 Dose: 40 mg Metoprolol Succinate (Toprol Xl -) 25 mg PO BID [facility] Last Admin: 10/28/16 10:03 Dose: 25 mg Montelukast Sodium (Singulair -) 10 mg PO HS [facility] Last Admin: 10/27/16 22:11 Dose: 10 mg Pantoprazole Sodium (Protonix -) 40 mg PO DAILY [facility] Last Admin: 10/28/16 10:02 Dose: 40 mg Tamsulosin HCl (Flomax -) 0.4 mg PO DAILY@0830 [facility] Last Admin: 10/28/16 10:02 Dose: 0.4 mg Warfarin Sodium (Coumadin -) 2.5 mg PO DAILY@1800 [facility] Last Admin: 10/27/16 18:05 Dose: 2.5 mg - Objective Vital Signs: Vital Signs Temperature 97.9 F 10/28/16 14:37 Pulse Rate 78 10/28/16 14:37 Respiratory Rate 20 10/28/16 14:37 Blood Pressure 122/67 10/28/16 14:37 O2 Sat by Pulse Oximetry (%) 98 10/28/16 10:40 Constitutional: Yes: No Distress Eyes: No: Sclera Icterus HENT: Yes: Atraumatic, Normocephalic Neck: Yes: Supple, Trachea Midline Cardiovascular: Yes: Regular Rate and Rhythm. No: JVD Respiratory: Yes: CTA Bilaterally Gastrointestinal: Yes: Soft. No: Tenderness Edema: No Neurological: Yes: Alert, Oriented Labs: CBC, BMP 10/28/16 05:35 10/28/16 05:35 INR, PTT INR 2.68 (0.82-1.09) H 10/28/16 05:35 - ....Imaging Chest X-ray: Report Reviewed, Image Reviewed (improved compared to previous cxer with less promoinent markings RLL) Assessment/Plan Assessment: Pt's respiratory status improved. CHF improved. Plan: Steroids-will start to taper tomorrow if resp. status stays stable Bronchodilators O2 to maintain SaO2>90 Antibiotics Diuretic DC theophylline
--- NOTE | 2016-10-28 16:36 | PN ---
Progress Note, Physician Chief Complaint: Mr Rodriguez continues to improve. Says his cough has resolved. No cp, sob, n/v. - Current Medication List Current Medications: Active Medications Acetaminophen (Tylenol -) 650 mg PO Q4H PRN PRN Reason: FEVER OR PAIN Albuterol Sulfate (Ventolin 0.083% Nebulizer Soln -) 1 amp NEB Q4H PRN PRN Reason: SHORT OF BREATH/WHEEZING Last Admin: 10/26/16 13:46 Dose: 1 amp Albuterol/Ipratropium (Duoneb -) 1 amp NEB QIDR [facility] Last Admin: 10/28/16 11:06 Dose: 1 amp Allopurinol (Zyloprim -) 100 mg PO DAILY [facility] Last Admin: 10/28/16 10:02 Dose: 100 mg Aspirin (Asa -) 81 mg PO DAILY [facility] Last Admin: 10/28/16 10:02 Dose: 81 mg Atorvastatin Calcium (Lipitor -) 20 mg PO HS [facility] Last Admin: 10/27/16 22:11 Dose: 20 mg Benzocaine/Menthol (Cepacol Lozenge -) 1 each MM PRN PRN PRN Reason: SORE THROAT Last Admin: 10/26/16 13:11 Dose: 1 each Calcium Carbonate (Calcium Carbonate -) 650 mg PO BID [facility] Last Admin: 10/28/16 10:24 Dose: 650 mg Furosemide (Lasix Injection -) 80 mg IVPUSH DAILY [facility] Last Admin: 10/28/16 10:03 Dose: 80 mg Furosemide (Lasix Injection -) 40 mg IVPUSH DAILY@1600 [facility] Last Admin: 10/27/16 16:47 Dose: 40 mg Guaifenesin/Codeine Phosphate (Robitussin Ac -) 5 ml PO Q4H PRN PRN Reason: COUGH Last Admin: 10/26/16 12:02 Dose: 5 ml Piperacillin Sod/Tazobactam Sod (Zosyn 3.375gm Ivpb (Pre-Docked)) 50 mls @ 100 mls/hr IVPB Q8H-IV FAM PRN Reason: Protocol Last Admin: 10/28/16 10:03 Dose: 100 mls/hr Levothyroxine Sodium (Synthroid -) 100 mcg PO DAILY@0700 [facility] Last Admin: 10/28/16 06:07 Dose: 100 mcg Methylprednisolone Sodium Succinate (Solu-Medrol -) 40 mg IVPB Q8H-IV [facility] Last Admin: 10/28/16 10:03 Dose: 40 mg Metoprolol Succinate (Toprol Xl -) 25 mg PO BID [facility] Last Admin: 10/28/16 10:03 Dose: 25 mg Montelukast Sodium (Singulair -) 10 mg PO HS [facility] Last Admin: 10/27/16 22:11 Dose: 10 mg Pantoprazole Sodium (Protonix -) 40 mg PO DAILY [facility] Last Admin: 10/28/16 10:02 Dose: 40 mg Tamsulosin HCl (Flomax -) 0.4 mg PO DAILY@0830 [facility] Last Admin: 10/28/16 10:02 Dose: 0.4 mg Warfarin Sodium (Coumadin -) 2.5 mg PO DAILY@1800 [facility] Last Admin: 10/27/16 18:05 Dose: 2.5 mg - Objective Vital Signs: Vital Signs Temperature 97.9 F 10/28/16 14:37 Pulse Rate 78 10/28/16 14:37 Respiratory Rate 20 10/28/16 14:37 Blood Pressure 122/67 10/28/16 14:37 O2 Sat by Pulse Oximetry (%) 98 10/28/16 10:40 Constitutional: Yes: Well Nourished, No Distress, Calm Cardiovascular: Yes: Regular Rate and Rhythm. No: Gallop, Murmur, Rub Respiratory: Yes: Regular, Rhonchi (minimal), Wheezes. No: CTA Bilaterally, Rales Gastrointestinal: Yes: Normal Bowel Sounds, Soft. No: Distention, Tenderness Extremities: Yes: WNL Edema: Yes Edema: LLE: Trace, RLE: Trace Labs: CBC, BMP 10/28/16 05:35 10/28/16 05:35 INR, PTT INR 2.68 (0.82-1.09) H 10/28/16 05:35 Problem List - Problems (1) Bradycardia Code(s): R00.1 - BRADYCARDIA, UNSPECIFIED (2) Coronary artery disease Code(s): I25.10 - ATHSCL HEART DISEASE OF [place] CORONARY ARTERY W/O ANG PCTRS (3) GERD (gastroesophageal reflux disease) Code(s): K21.9 - GASTRO-ESOPHAGEAL REFLUX DISEASE WITHOUT ESOPHAGITIS (4) HTN (hypertension) Code(s): I10 - ESSENTIAL (PRIMARY) HYPERTENSION (5) Pulmonary embolism Code(s): I26.99 - OTHER PULMONARY EMBOLISM WITHOUT ACUTE COR PULMONALE (6) Renal insufficiency, mild Code(s): N28.9 - DISORDER OF KIDNEY AND URETER, UNSPECIFIED (7) COPD (chronic obstructive pulmonary disease) Code(s): 496 - CHR AIRWAY OBSTRUCT NEC (8) Hypothyroid Code(s): E03.9 - HYPOTHYROIDISM, UNSPECIFIED Assessment/Plan (1) Pneumonia Assessment/Plan: -holding vancomycin secondary to elevated trough -continue zosyn day 6 Code(s): J18.9 - PNEUMONIA, UNSPECIFIED ORGANISM (2) Acute LV systolic CHF (congestive heart failure) Assessment/Plan: -patient feeling much improved -diuresing well -continue IV lasix per cardiology Code(s): I50.9 - HEART FAILURE, UNSPECIFIED (3) COPD (chronic obstructive pulmonary disease) Assessment/Plan: -pulmonary following -on solumedrol, defer taper to pulmonary -continue bronchodilators Code(s): 496 - CHR AIRWAY OBSTRUCT NEC (4) Bronchiectasis with (acute) exacerbation Assessment/Plan: -as above Code(s): J47.1 - BRONCHIECTASIS WITH (ACUTE) EXACERBATION (5) HTN (hypertension) Assessment/Plan: -stable -continue current management Code(s): I10 - ESSENTIAL (PRIMARY) HYPERTENSION (6) Murali-tachy syndrome -continue telemetry monitoring Code(s): I49.5 - SICK SINUS SYNDROME (7) Cough Assessment/Plan: -improving Code(s): R05 - COUGH (8) Renal failure (ARF), acute on chronic -nephrology following -renal function stable -cardiorenal, improved with diuresis Code(s): N17.9 - ACUTE KIDNEY FAILURE, UNSPECIFIED N18.9 - CHRONIC KIDNEY DISEASE, UNSPECIFIED
[2016-10-28] MEDS: WARFARIN NA 2.5 MG TABLET (FP) PO SCH (17:52)
[2016-10-28] MEDS ORDERED: PT OWN MED DRAWER 7, Y5N ONE (21:37)
[2016-10-28] MEDS: MONTELUKAST NA 10 MG TABLET PO SCH (21:51)
[2016-10-28] MEDS: ATORVASTATIN CA 20 MG TABLET (FP) PO SCH (21:51)
[2016-10-29] MEDS: PIPERACILLIN/TAZOB 3.375 GM 50 ML IVPB SCH ×3 (01:50→17:50)
[2016-10-29] MEDS: methylPREDNISolone NA SUCC 40 MG/1 ML VIAL IVPB SCH ×3 (01:50→17:50)
[2016-10-29] MEDS: ALBUTEROL SO4 2.5/IPRATROPIUM 0.5 INH SOL 3 ML VIAL.NEB. NEB SCH ×3 (06:15→17:10)
[2016-10-29] MEDS: LEVOTHYROXINE NA 100 MCG TABLET (FP) PO SCH (06:30)
[2016-10-29 09:00] LABS: ANION GAP 12 (8-16); CALCIUM 7.3 mg/dL (8.5-10.1); CO2 39 mmol/L (21-32); CREATININE 1.5 mg/dL (0.7-1.3); GLUCOSE,RANDOM 149 mg/dL (74-106); MAGNESIUM 2.8 mg/dL (1.8-2.4); PHOSPHOROUS 4.7 mg/dL (2.5-4.9)
[2016-10-29] MEDS: ALBUTEROL SO4 0.083% IH SOL 2.5 MG/3 ML VIAL.NEB. NEB PRN (09:25)
[2016-10-29] MEDS: FUROSEMIDE 40 MG/4 ML INJECTABLE VIAL IVPUSH SCH ×2 (09:42→17:04)
[2016-10-29] MEDS: PANTOPRAZOLE 40 MG TABLET (FP) PO SCH (09:43)
[2016-10-29] MEDS: ALLOPURINOL 100 MG TABLET (FP) PO SCH (09:43)
[2016-10-29] MEDS: TAMSULOSIN HCL 0.4 MG CAP.ER.24H (FP) PO SCH (09:43)
[2016-10-29] MEDS: CALCIUM CARBONATE 650 MG TABLET PO SCH ×2 (09:43→22:39)
[2016-10-29] MEDS: ASPIRIN 81 MG CHEWABLE TABLETS PO SCH (09:44)
[2016-10-29] MEDS: METOPROLOL SUCCINATE 25 MG TAB.SR.24H (FP) PO SCH ×2 (09:44→22:39)
--- NOTE | 2016-10-29 11:07 | PN ---
Progress Note (short form) - Note Progress Note: History of Present Illness: sob persists but better no cp, no palps no dizzy le edema better as well Current Medications Generic Name Dose Route Start Last Admin Trade Name Freq PRN Reason Stop Dose Admin Acetaminophen 650 mg 10/10/16 14:55 Tylenol - PO Q4H PRN FEVER OR PAIN Albuterol Sulfate 1 amp 10/13/16 14:18 10/29/16 09:25 Ventolin 0.083% Nebulizer Soln - NEB 1 amp Q4H PRN Administration SHORT OF BREATH/WHEEZING Albuterol/Ipratropium 1 amp 10/23/16 07:51 10/29/16 06:15 Duoneb - NEB 1 amp QIDR FAM Administration Allopurinol 100 mg 10/11/16 10:00 10/29/16 09:43 Zyloprim - PO 100 mg DAILY FAM Administration Aspirin 81 mg 10/11/16 10:00 10/29/16 09:44 Asa - PO 81 mg DAILY FAM Administration Atorvastatin Calcium 20 mg 10/10/16 22:00 10/28/16 21:51 Lipitor - PO 20 mg HS FAM Administration Benzocaine/Menthol 1 each 10/19/16 10:20 10/26/16 13:11 Cepacol Lozenge - MM 1 each PRN PRN Administration SORE THROAT Calcium Carbonate 650 mg 10/24/16 12:30 10/29/16 09:43 Calcium Carbonate - PO 650 mg BID FAM Administration Furosemide 80 mg 10/22/16 10:30 10/29/16 09:42 Lasix Injection - IVPUSH 80 mg DAILY FAM Administration Furosemide 40 mg 10/26/16 16:00 10/28/16 16:53 Lasix Injection - IVPUSH 40 mg DAILY@1600 FAM Administration Guaifenesin/Codeine Phosphate 5 ml 10/17/16 09:22 10/26/16 12:02 Robitussin Ac - PO 5 ml Q4H PRN Administration COUGH Piperacillin Sod/Tazobactam Sod 50 mls @ 100 mls/hr 10/23/16 02:00 10/29/16 09: 42 Zosyn 3.375gm Ivpb (Pre-Docked) IVPB 100 mls/hr Q8H-IV FAM Administration Protocol Levothyroxine Sodium 100 mcg 10/15/16 07:00 10/29/16 06:30 Synthroid - PO 100 mcg DAILY@0700 FAM Administration Methylprednisolone Sodium Succinate 40 mg 10/26/16 18:00 10/29/16 09:42 Solu-Medrol - IVPB 40 mg Q8H-IV FAM Administration Metoprolol Succinate 25 mg 10/27/16 22:00 10/29/16 09:44 Toprol Xl - PO 25 mg BID FAM Administration Montelukast Sodium 10 mg 10/14/16 22:00 10/28/16 21:51 Singulair - PO 10 mg HS FAM Administration Pantoprazole Sodium 40 mg 10/11/16 10:00 10/29/16 09:43 Protonix - PO 40 mg DAILY FAM Administration Tamsulosin HCl 0.4 mg 10/19/16 08:30 10/29/16 09:43 Flomax - PO 0.4 mg DAILY@0830 FAM Administration Warfarin Sodium 2.5 mg 10/20/16 18:00 10/28/16 17:52 Coumadin - PO 2.5 mg DAILY@1800 FAM Administration Vital Signs Period Temp Pulse Resp BP Sys/Martinez Pulse Ox Last 24 Hr 97.5 F-98.8 F 78-88 16-20 103-133/56-97 97-98 NAD, calm jvd flat, neck supple diminished breath sounds/mild exp wheezes, nl effort rrr nl s1, s2 2/6 murmur at sternal border and apex + bs soft nt nd trace le edema bl aaox3 no jaundice, diaphoresis CBC, BMP 10/28/16 05:35 10/29/16 06:40 EKG: Other (tele: SR, pvcs) EKG: sr, 97 bpm. anterolateral twi. Previously twi more prominent in lateral leads. Echo 09/2016 office: Moderate global HK, EF 40%. nl rv. mod mr, LHC 05/2016 at [facility]--per dc summary, patent prior stents and non obs residual dz. LHC/PCI 2010: prox RCA NICOLE, residual OM1 50-60%, patent mid LAD stent, normal right heart pressures, normal LVF Dobut Stress MPI 08/2010: small, mild apical anterior and LV apex ischemia--( PCI after this) MIBI 12/13: small/mild infer ischemia vs GI tracer confounding, EF 41% ct chest 02/2016: ascd aorta 4.3 cm a/p: 80 yo with h/o CAD (s/p PCI), systolic cardiomyopathy, mild asc ao dilation, mod mr, htn, hl, hypothyroid, COPD, Pneumonia (s/p lobectomy for lung abscess), Pulmonary Embolus on coumadin p/w bradycardia. bradycardia - no ekg documentation of episodes. (on routine vitals prior to starting P.T. he was noted to have HR's in the 30's-40's-->to ER where normal HR. per family on telemetry in ER, HR's intermittently were reading 30's -50's for seconds at a time and then going back up to 70's-100's.) - ? artifactual has known h/o sinus tach and has remained in sinus tach here. - he had no sx's at home or here of presyncope/syncope (generalized weakness on DOA is apparently a chronic, stable condition which improves acutely with PT) - recent cath unremarkable, echo in september EF 40%, stable vs priors apparently - no bradyarrhythmia on telemetry here for many days. - home metoprolol continued in hospital. acute on chronic syst chf: - Over the years his echos have shown variations in lvef, at times reduced. Recent echo at [facility] 05/2016 reports lvef 20% (per dc summary). During that admit he was seen by cardio and had repeat cath showing patent stents and non obs residual dz. He was noted to have NSVT on tele there and given lifevest but pt/ declined. Was started on toprol as well. He has been on bb/arb for several mos now --> improvement in EF --> cont - wt 203 yest, 206 today (office wts vary 195-210 since 04/22). - lasix held here over weekend for + orthostatics - 10/13 JVD noted on exam --> lasix 40 mg IV x 1 - 10/14-13: resumed po lasix as above - 10/17: wt rising and starting to develop le edema. Got lasix 40 iv yesterday and today still vol up and cr bumped up. Given that he appears volume up he may need more iv lasix which may help cr as well. Renal consulted today, will discuss. -10/18: seen by renal, rec'd stopping arb and monitoring for now w/o aggressive diuresis. Today le edema improved and cr improved. Cont with po lasix for now. -10/19: cr continues to improve, back to baseline. Given that his cr bumped up after iv lasix and then improved after stopping iv lasix, it seems that he does not need aggressive diuresis at this time. Cont po lasix for maintenance. Now that off iv steroids le edema should improve. -10/21: back on iv steroids and wt up still so given test dose of iv lasix yesterday. Today cr stable and diuresed well so will cont with lasix 40 iv qd for now -10/22: still with vol overload and wt up so will increase lasix to 80 iv qd -10/23: still vol up, cr stable. Needs further diuresis. Discussed with renal and plan will be to continue lasix 80 iv daily but give additional evening dose of 40 iv and monitor response tomorrow. -10/24: seemed to respond well to lasix iv 80/40 yesterday with stable cr and wt down, will cont same today. - cont home metoprolol 25mg 10/25: Improving with furosemide. Renal function improved weight down to 210 ( from 216). Will continue Lasix 80/40 IV. Will need K replacement (3.4) 10/26: Stable, still seems volume overloaded, weight continnues to decrease to 209. Continue lasix 80/40. Improved K. -10/27-: bun/creat improved with diuresis. wt declining. dry wt uncertain here (office wts range 195-210, pt thinks baseline is close to 190--??). will cont same lasix until bun/creat starts trending up PAT: -brief runs on tele while here, none recently -cont bb a.e. COPD, PNA: - on home o2 and theophylline - on steroids, pulm following - abx per ID CAD (s/p PCI) - Con't medical therapy with ASA, statin. Stable. No angina. CE's negative here and recent cath in may with no residual disease HTN: - stable Hyperlipdemia, - con't statin PE 2010 - on coumadin from before. dosing per inr. hgb stable even with additional asa. ascending thoracic aneurysm, small: - Stable on CT here (4.2cm). - bp control, BB as doing -outpt monitoring trop elevation: -borderline trop elevation with flat trend and nl ckmb fraction, not consistent with acs. Likely due to alon/pna/chf
--- NOTE | 2016-10-29 11:40 | PN ---
Progress Note (short form) - Note Progress Note: Renal Follow up for MARIAM Pt seen and examined at the bedside no acute complaints SOB is much improved no cough denies any cp, abd zepeda, N/V/D on IV Lasix BID Vital Signs Temperature 98.8 F 10/29/16 09:55 Pulse Rate 84 10/29/16 09:55 Respiratory Rate 19 10/29/16 09:55 Blood Pressure 104/56 10/29/16 09:55 O2 Sat by Pulse Oximetry (%) 98 10/29/16 09:05 Intake & Output 10/26/16 10/27/16 10/28/16 10/29/16 23:59 23:59 23:59 23:59 Intake Total 1020 1440 360 180 Output Total 3050 6463 297 6172 -2029 340 -340 -1570 Weight 209 lb 208 lb 209 lb 206 lb 3.2 oz Gen: NAD CVS: RRR Lungs: CTA Abd: soft NT/ND, No bladder distension Ext:1+ LE edema CBC, BMP 10/28/16 05:35 10/29/16 06:40 Current Medications Acetaminophen (Tylenol -) 650 mg PO Q4H PRN PRN Reason: FEVER OR PAIN Albuterol Sulfate (Ventolin 0.083% Nebulizer Soln -) 1 amp NEB Q4H PRN PRN Reason: SHORT OF BREATH/WHEEZING Last Admin: 10/29/16 09:25 Dose: 1 amp Albuterol/Ipratropium (Duoneb -) 1 amp NEB QIDR [facility] Last Admin: 10/29/16 06:15 Dose: 1 amp Allopurinol (Zyloprim -) 100 mg PO DAILY [facility] Last Admin: 10/29/16 09:43 Dose: 100 mg Aspirin (Asa -) 81 mg PO DAILY [facility] Last Admin: 10/29/16 09:44 Dose: 81 mg Atorvastatin Calcium (Lipitor -) 20 mg PO HS [facility] Last Admin: 10/28/16 21:51 Dose: 20 mg Benzocaine/Menthol (Cepacol Lozenge -) 1 each MM PRN PRN PRN Reason: SORE THROAT Last Admin: 10/26/16 13:11 Dose: 1 each Calcium Carbonate (Calcium Carbonate -) 650 mg PO BID [facility] Last Admin: 10/29/16 09:43 Dose: 650 mg Furosemide (Lasix Injection -) 80 mg IVPUSH DAILY [facility] Last Admin: 10/29/16 09:42 Dose: 80 mg Furosemide (Lasix Injection -) 40 mg IVPUSH DAILY@1600 [facility] Last Admin: 10/28/16 16:53 Dose: 40 mg Guaifenesin/Codeine Phosphate (Robitussin Ac -) 5 ml PO Q4H PRN PRN Reason: COUGH Last Admin: 10/26/16 12:02 Dose: 5 ml Piperacillin Sod/Tazobactam Sod (Zosyn 3.375gm Ivpb (Pre-Docked)) 50 mls @ 100 mls/hr IVPB Q8H-IV FAM PRN Reason: Protocol Last Admin: 10/29/16 09:42 Dose: 100 mls/hr Levothyroxine Sodium (Synthroid -) 100 mcg PO DAILY@0700 [facility] Last Admin: 10/29/16 06:30 Dose: 100 mcg Methylprednisolone Sodium Succinate (Solu-Medrol -) 40 mg IVPB Q8H-IV [facility] Last Admin: 10/29/16 09:42 Dose: 40 mg Metoprolol Succinate (Toprol Xl -) 25 mg PO BID [facility] Last Admin: 10/29/16 09:44 Dose: 25 mg Montelukast Sodium (Singulair -) 10 mg PO HS [facility] Last Admin: 10/28/16 21:51 Dose: 10 mg Pantoprazole Sodium (Protonix -) 40 mg PO DAILY [facility] Last Admin: 10/29/16 09:43 Dose: 40 mg Tamsulosin HCl (Flomax -) 0.4 mg PO DAILY@0830 [facility] Last Admin: 10/29/16 09:43 Dose: 0.4 mg Warfarin Sodium (Coumadin -) 2.5 mg PO DAILY@1800 [facility] Last Admin: 10/28/16 17:52 Dose: 2.5 mg A/P 80 year old gentleman with PMhx of severe COPD, Coronary artery disease, HLD, Pneumonia, Lung abscess, s/p Pulmonary lobectomy, Pulmonary Embolism, Hypothyroidism p/w sob secondary to COPD/CHF with MARIAM with Cr 1.6 #MARIAM Cr sightly up today to 1.5 likely due to mild intravascular volume depletion in setting of IV diuretics Fluid status is clinically improved and can plan to switch to oral diuretics when appropriate by cardiology continue to trend BUN/Cr and electrolytes no APOORVA/ARB at this time until off IV Lasix and BUN/C stable #Elevated serum bicarb ABD showed elevated ph and CO2 and thus is consistent with a metabolic alkalosis Urine Cl was high (in setting of diuretics and thus difficult to interpret) no indication for diamox continue to trend serum bicabr levels #Hypocalcemia Continue oral Ca #Dyspnea/COPD/PNA on Zosyn and Vanco Thank you Neo Castro DO
--- NOTE | 2016-10-29 11:52 | PN ---
Physical Exam: SUBJECTIVE: Patient seen and examined by me in PM - Last day of zosyn - Uptrending WBC 16.5 on steroids - No major complaints. Less SOB and cough. Respiratory status continues to improve. Denies fevers, chills, abdominal pain, CP, palpitations, back pain, dysuria, diarrhea. - Endorses improved exercise tolerance and continually improving LE edema. Other updates: - Vanc level ~12 OBJECTIVE: Vital Signs Period Temp Pulse Resp BP Sys/Martinez Pulse Ox Last 24 Hr 97.5 F-98.8 F 78-88 16-20 103-133/56-97 97-98 GENERAL: Awake, alert, and fully oriented, in no acute distress. Seated on NC. HEAD: Normal with no signs of trauma. EYES: extraocular movements intact, sclera anicteric, conjunctiva clear. No lid lag. Arcus senilis noted. NECK: lymphadenopathy, JVD, or masses. LUNGS: slight decrease in breath sounds at bases. Diffuse rhonchi in upper lobes. Mild midline expiratory wheeze still noted in upper lung rader. No crackles. No accessory muscle use. No tactile fremitus. HEART: Grade 2/6 systolic blowing murmur at RUSB. Regular rate and rhythm, normal S1 and S2 without rub or gallop. ABDOMEN: Soft, nontender, significantly distended. Umbilical hernia noted. Normoactive bowel sounds, no guarding, no masses. No hepatomegaly or splenomegaly. UPPER EXTREMITIES: 2+ pulses, warm, well-perfused. No cyanosis. No clubbing. Cap refill <2 seconds. No peripheral edema. LOWER EXTREMITIES: 2+ pulses, warm, well-perfused. No calf tenderness. 2+ pitting edema BL up to knee with accompanying stasis dermatitis. No significant interval change. NEUROLOGICAL: Cranial nerves II-XII grossly intact. Normal speech. Gait not evaluated. PSYCHIATRIC: Cooperative. Good eye contact. Appropriate mood and affect. SKIN: Warm, dry, normal turgor. Laboratory Results - last 24 hr CBC, BMP 10/28/16 05:35 10/29/16 06:40 10/28/16 10/29/16 10/29/16 12:00 06:40 06:40 Sodium 142 Potassium 3.8 Chloride 91 L Carbon Dioxide 39 H Anion Gap 12 BUN 46 H Creatinine 1.5 H Random Glucose 149 H Calcium 7.3 L Phosphorus 4.7 Magnesium 2.8 H Ur Random Sodium 73 Ur Random Potassium 29.0 Ur Random Chloride 75 Random Vancomycin 11.998 Microbiology 10/22/16 19:30 Blood - Peripheral Venous Blood Culture - Final NO GROWTH AFTER 5 DAYS INCUBATION 10/22/16 19:30 Blood - Peripheral Venous Blood Culture - Final NO GROWTH AFTER 5 DAYS INCUBATION 10/24/16 10:00 Sputum - Expectorated Gram Stain - Final 10/24/16 10:00 Sputum - Expectorated Sputum Culture - Final S Aureus 10/14/16 06:00 Sputum - Expectorated Gram Stain - Final 10/14/16 06:00 Sputum - Expectorated Sputum Culture - Final NORMAL RESPIRATORY YOKASTA 10/22/16 19:00 Urine - Urine Clean Catch Urine Culture - Final NO GROWTH OBTAINED 10/22/16 19:00 Urine For Antigen Detection Legionella Antigen - Final 10/22/16 19:00 Urine For Antigen Detection Streptococcus pneumoniae Antigen (M - Final Active Medications Generic Name Dose Route Start Last Admin Trade Name Freq PRN Reason Stop Dose Admin Acetaminophen 650 mg 10/10/16 14:55 Tylenol - PO Q4H PRN FEVER OR PAIN Albuterol Sulfate 1 amp 10/13/16 14:18 10/29/16 09:25 Ventolin 0.083% Nebulizer Soln - NEB 1 amp Q4H PRN Administration SHORT OF BREATH/WHEEZING Albuterol/Ipratropium 1 amp 10/23/16 07:51 10/29/16 11:46 Duoneb - NEB 1 amp QIDR FAM Administration Allopurinol 100 mg 10/11/16 10:00 10/29/16 09:43 Zyloprim - PO 100 mg DAILY FAM Administration Aspirin 81 mg 10/11/16 10:00 10/29/16 09:44 Asa - PO 81 mg DAILY FAM Administration Atorvastatin Calcium 20 mg 10/10/16 22:00 10/28/16 21:51 Lipitor - PO 20 mg HS FAM Administration Benzocaine/Menthol 1 each 10/19/16 10:20 10/26/16 13:11 Cepacol Lozenge - MM 1 each PRN PRN Administration SORE THROAT Calcium Carbonate 650 mg 10/24/16 12:30 10/29/16 09:43 Calcium Carbonate - PO 650 mg BID FAM Administration Furosemide 80 mg 10/22/16 10:30 10/29/16 09:42 Lasix Injection - IVPUSH 80 mg DAILY FAM Administration Furosemide 40 mg 10/26/16 16:00 10/28/16 16:53 Lasix Injection - IVPUSH 40 mg DAILY@1600 FAM Administration Guaifenesin/Codeine Phosphate 5 ml 10/17/16 09:22 10/26/16 12:02 Robitussin Ac - PO 5 ml Q4H PRN Administration COUGH Piperacillin Sod/Tazobactam Sod 50 mls @ 100 mls/hr 10/23/16 02:00 10/29/16 09: 42 Zosyn 3.375gm Ivpb (Pre-Docked) IVPB 100 mls/hr Q8H-IV FAM Administration Protocol Levothyroxine Sodium 100 mcg 10/15/16 07:00 10/29/16 06:30 Synthroid - PO 100 mcg DAILY@0700 FAM Administration Methylprednisolone Sodium Succinate 40 mg 10/26/16 18:00 10/29/16 09:42 Solu-Medrol - IVPB 40 mg Q8H-IV FAM Administration Metoprolol Succinate 25 mg 10/27/16 22:00 10/29/16 09:44 Toprol Xl - PO 25 mg BID FAM Administration Montelukast Sodium 10 mg 10/14/16 22:00 10/28/16 21:51 Singulair - PO 10 mg HS FAM Administration Pantoprazole Sodium 40 mg 10/11/16 10:00 10/29/16 09:43 Protonix - PO 40 mg DAILY FAM Administration Tamsulosin HCl 0.4 mg 10/19/16 08:30 10/29/16 09:43 Flomax - PO 0.4 mg DAILY@0830 FAM Administration Vancomycin HCl 1,000 mg 10/29/16 12:00 Vancomycin (Pre-Docked) IVPB DAILY FAM Protocol Warfarin Sodium 2.5 mg 10/20/16 18:00 10/28/16 17:52 Coumadin - PO 2.5 mg DAILY@1800 FAM Administration CXR (10/28) - No significant interval change ASSESSMENT/PLAN: Assessment: Pt is an 80 yo man w/ pmh of COPD (on home O2), CAD (s/p PCI; 3 stents), R lobectomy for lung abscess, GERD, HTN, HLD, who initially presented 12 days ago due with symptomatic bradycardia during pulmonary rehab session, current course notable for worsening respiratory status and suspected PNA. Pt continue to improve clinical, endorses less SOB/cough and improving exercise tolerance. Remains afebrile, now with elevated WBC on steroids. Abx course expanded to Vanc /zosyn for MRSA coverage. Problem List: Pneumonia Acute on chronic COPD exacerbation CHF exacerbation Plan: #Pneumonia - Sputum cx + for MRSA (10/24) - blood, urine cx neg - urine legionella ag, pneumoncoccal ag neg - Vanc trough 12 - Last day of 7-day zosyn course. D/c tomorrow - Last dose of Zosyn tomorrow - Serial CXRs - Daily Wts, vitals, CBC Jono Penn MD, PGY1 Plan to be discussed with attending Problem List - Problems (1) Acute CHF (congestive heart failure) Code(s): I50.9 - HEART FAILURE, UNSPECIFIED (2) Bronchiectasis with (acute) exacerbation Code(s): J47.1 - BRONCHIECTASIS WITH (ACUTE) EXACERBATION (3) COPD exacerbation Code(s): J44.1 - CHRONIC OBSTRUCTIVE PULMONARY DISEASE W (ACUTE) EXACERBATION (4) Pneumonia Code(s): J18.9 - PNEUMONIA, UNSPECIFIED ORGANISM Visit type - Emergency Visit Emergency Visit: No - New Patient This patient is new to me today: No - Critical Care Critical Care patient: No
[2016-10-29] MEDS: VANCOMYCIN 1 GRAM (PRE-DOCKED) 1,000 MG/250 ML BAG IVPB SCH (12:26)
--- NOTE | 2016-10-29 13:14 | PN ---
Teaching Attending Note Name of Resident: Jono Penn ATTENDING PHYSICIAN STATEMENT I saw and evaluated the patient. I reviewed the resident's note and discussed the case with the resident. I agree with the resident's findings and plan as documented. SUBJECTIVE: doing well less sob OBJECTIVE: Vital Signs Period Temp Pulse Resp BP Sys/Martinez Pulse Ox Last 24 Hr 97.5 F-98.8 F 78-88 16-20 103-133/56-97 97-98 cor-rrr lungs decreased bs at bases abd soft,nt ext less edema CBC, BMP 10/28/16 05:35 10/29/16 06:40 Microbiology 10/22/16 19:30 Blood - Peripheral Venous Blood Culture - Final NO GROWTH AFTER 5 DAYS INCUBATION 10/22/16 19:30 Blood - Peripheral Venous Blood Culture - Final NO GROWTH AFTER 5 DAYS INCUBATION 10/24/16 10:00 Sputum - Expectorated Gram Stain - Final 10/24/16 10:00 Sputum - Expectorated Sputum Culture - Final Mr S Aureus 10/14/16 06:00 Sputum - Expectorated Gram Stain - Final 10/14/16 06:00 Sputum - Expectorated Sputum Culture - Final NORMAL RESPIRATORY YOKASTA 10/22/16 19:00 Urine - Urine Clean Catch Urine Culture - Final NO GROWTH OBTAINED 10/22/16 19:00 Urine For Antigen Detection Legionella Antigen - Final 10/22/16 19:00 Urine For Antigen Detection Streptococcus pneumoniae Antigen (M - Final ASSESSMENT AND PLAN: pneumonia chf copd day #7 zosyn, will d/c vanco level 11.85 resume vancomycin 1 gram daily plan to treat another 24-48 hours suspect leukocytosis seconary to steroids Problem List - Problems (1) Pneumonia Code(s): J18.9 - PNEUMONIA, UNSPECIFIED ORGANISM (2) Acute CHF (congestive heart failure) Code(s): I50.9 - HEART FAILURE, UNSPECIFIED
--- NOTE | 2016-10-29 15:42 | PN ---
Progress Note, Physician Chief Complaint: Mr Rodriguez continues to improve. Says his cough has resolved. No cp, sob, n/v. - Current Medication List Current Medications: Active Medications Acetaminophen (Tylenol -) 650 mg PO Q4H PRN PRN Reason: FEVER OR PAIN Albuterol Sulfate (Ventolin 0.083% Nebulizer Soln -) 1 amp NEB Q4H PRN PRN Reason: SHORT OF BREATH/WHEEZING Last Admin: 10/29/16 09:25 Dose: 1 amp Albuterol/Ipratropium (Duoneb -) 1 amp NEB QIDR [facility] Last Admin: 10/29/16 11:46 Dose: 1 amp Allopurinol (Zyloprim -) 100 mg PO DAILY [facility] Last Admin: 10/29/16 09:43 Dose: 100 mg Aspirin (Asa -) 81 mg PO DAILY [facility] Last Admin: 10/29/16 09:44 Dose: 81 mg Atorvastatin Calcium (Lipitor -) 20 mg PO HS [facility] Last Admin: 10/28/16 21:51 Dose: 20 mg Benzocaine/Menthol (Cepacol Lozenge -) 1 each MM PRN PRN PRN Reason: SORE THROAT Last Admin: 10/26/16 13:11 Dose: 1 each Calcium Carbonate (Calcium Carbonate -) 650 mg PO BID [facility] Last Admin: 10/29/16 09:43 Dose: 650 mg Furosemide (Lasix Injection -) 80 mg IVPUSH DAILY [facility] Last Admin: 10/29/16 09:42 Dose: 80 mg Furosemide (Lasix Injection -) 40 mg IVPUSH DAILY@1600 [facility] Last Admin: 10/28/16 16:53 Dose: 40 mg Guaifenesin/Codeine Phosphate (Robitussin Ac -) 5 ml PO Q4H PRN PRN Reason: COUGH Last Admin: 10/26/16 12:02 Dose: 5 ml Piperacillin Sod/Tazobactam Sod (Zosyn 3.375gm Ivpb (Pre-Docked)) 50 mls @ 100 mls/hr IVPB Q8H-IV FAM PRN Reason: Protocol Last Admin: 10/29/16 09:42 Dose: 100 mls/hr Levothyroxine Sodium (Synthroid -) 100 mcg PO DAILY@0700 [facility] Last Admin: 10/29/16 06:30 Dose: 100 mcg Methylprednisolone Sodium Succinate (Solu-Medrol -) 40 mg IVPB Q8H-IV [facility] Last Admin: 10/29/16 09:42 Dose: 40 mg Metoprolol Succinate (Toprol Xl -) 25 mg PO BID [facility] Last Admin: 10/29/16 09:44 Dose: 25 mg Montelukast Sodium (Singulair -) 10 mg PO HS [facility] Last Admin: 10/28/16 21:51 Dose: 10 mg Pantoprazole Sodium (Protonix -) 40 mg PO DAILY [facility] Last Admin: 10/29/16 09:43 Dose: 40 mg Tamsulosin HCl (Flomax -) 0.4 mg PO DAILY@0830 [facility] Last Admin: 10/29/16 09:43 Dose: 0.4 mg Vancomycin HCl (Vancomycin (Pre-Docked)) 1,000 mg IVPB DAILY@1200 [facility] PRN Reason: Protocol Last Admin: 10/29/16 12:26 Dose: 1,000 mg Warfarin Sodium (Coumadin -) 2.5 mg PO DAILY@1800 [facility] Last Admin: 10/28/16 17:52 Dose: 2.5 mg - Objective Vital Signs: Vital Signs Temperature 98.1 F 10/29/16 14:00 Pulse Rate 84 10/29/16 14:00 Respiratory Rate 20 10/29/16 14:00 Blood Pressure 103/68 10/29/16 14:00 O2 Sat by Pulse Oximetry (%) 98 10/29/16 15:31 Constitutional: Yes: No Distress, Calm, Obese Cardiovascular: Yes: Regular Rate and Rhythm. No: Gallop, Murmur, Rub Respiratory: Yes: Regular, CTA Bilaterally. No: Rales, Rhonchi, Wheezes Gastrointestinal: Yes: Normal Bowel Sounds, Soft. No: Distention, Tenderness Extremities: Yes: WNL Edema: No Labs: CBC, BMP 10/28/16 05:35 10/29/16 06:40 INR, PTT INR 2.68 (0.82-1.09) H 10/28/16 05:35 Problem List - Problems (1) Bradycardia Code(s): R00.1 - BRADYCARDIA, UNSPECIFIED (2) Coronary artery disease Code(s): I25.10 - ATHSCL HEART DISEASE OF [place] CORONARY ARTERY W/O ANG PCTRS (3) GERD (gastroesophageal reflux disease) Code(s): K21.9 - GASTRO-ESOPHAGEAL REFLUX DISEASE WITHOUT ESOPHAGITIS (4) HTN (hypertension) Code(s): I10 - ESSENTIAL (PRIMARY) HYPERTENSION (5) Pulmonary embolism Code(s): I26.99 - OTHER PULMONARY EMBOLISM WITHOUT ACUTE COR PULMONALE (6) Renal insufficiency, mild Code(s): N28.9 - DISORDER OF KIDNEY AND URETER, UNSPECIFIED (7) COPD (chronic obstructive pulmonary disease) Code(s): 496 - CHR AIRWAY OBSTRUCT NEC (8) Hypothyroid Code(s): E03.9 - HYPOTHYROIDISM, UNSPECIFIED Assessment/Plan (1) Pneumonia Assessment/Plan: -holding vancomycin secondary to elevated trough -continue zosyn day 7, stop today per ID note -defer continued vancomycin per ID Code(s): J18.9 - PNEUMONIA, UNSPECIFIED ORGANISM (2) Acute LV systolic CHF (congestive heart failure) Assessment/Plan: -patient feeling much improved -diuresing well -continue IV lasix per cardiology Code(s): I50.9 - HEART FAILURE, UNSPECIFIED (3) COPD (chronic obstructive pulmonary disease) Assessment/Plan: -pulmonary following -on solumedrol, defer taper to pulmonary -continue bronchodilators Code(s): 496 - CHR AIRWAY OBSTRUCT NEC (4) Bronchiectasis with (acute) exacerbation Assessment/Plan: -as above Code(s): J47.1 - BRONCHIECTASIS WITH (ACUTE) EXACERBATION (5) HTN (hypertension) Assessment/Plan: -stable -continue current management Code(s): I10 - ESSENTIAL (PRIMARY) HYPERTENSION (6) Murali-tachy syndrome -continue telemetry monitoring Code(s): I49.5 - SICK SINUS SYNDROME (7) Cough Assessment/Plan: -improving Code(s): R05 - COUGH (8) Renal failure (ARF), acute on chronic -nephrology following -renal function stable -cardiorenal, improved with diuresis Code(s): N17.9 - ACUTE KIDNEY FAILURE, UNSPECIFIED N18.9 - CHRONIC KIDNEY DISEASE, UNSPECIFIED
--- NOTE | 2016-10-29 16:50 | PN ---
Progress Note, Physician History of Present Illness: Dyspnea decreased. No chest pain or palpitations - Current Medication List Current Medications: Active Medications Acetaminophen (Tylenol -) 650 mg PO Q4H PRN PRN Reason: FEVER OR PAIN Albuterol Sulfate (Ventolin 0.083% Nebulizer Soln -) 1 amp NEB Q4H PRN PRN Reason: SHORT OF BREATH/WHEEZING Last Admin: 10/29/16 09:25 Dose: 1 amp Albuterol/Ipratropium (Duoneb -) 1 amp NEB QIDR [facility] Last Admin: 10/29/16 11:46 Dose: 1 amp Allopurinol (Zyloprim -) 100 mg PO DAILY [facility] Last Admin: 10/29/16 09:43 Dose: 100 mg Aspirin (Asa -) 81 mg PO DAILY [facility] Last Admin: 10/29/16 09:44 Dose: 81 mg Atorvastatin Calcium (Lipitor -) 20 mg PO HS [facility] Last Admin: 10/28/16 21:51 Dose: 20 mg Benzocaine/Menthol (Cepacol Lozenge -) 1 each MM PRN PRN PRN Reason: SORE THROAT Last Admin: 10/26/16 13:11 Dose: 1 each Calcium Carbonate (Calcium Carbonate -) 650 mg PO BID [facility] Last Admin: 10/29/16 09:43 Dose: 650 mg Furosemide (Lasix Injection -) 80 mg IVPUSH DAILY [facility] Last Admin: 10/29/16 09:42 Dose: 80 mg Furosemide (Lasix Injection -) 40 mg IVPUSH DAILY@1600 [facility] Last Admin: 10/28/16 16:53 Dose: 40 mg Guaifenesin/Codeine Phosphate (Robitussin Ac -) 5 ml PO Q4H PRN PRN Reason: COUGH Last Admin: 10/26/16 12:02 Dose: 5 ml Piperacillin Sod/Tazobactam Sod (Zosyn 3.375gm Ivpb (Pre-Docked)) 50 mls @ 100 mls/hr IVPB Q8H-IV [facility] PRN Reason: Protocol Last Admin: 10/29/16 09:42 Dose: 100 mls/hr Levothyroxine Sodium (Synthroid -) 100 mcg PO DAILY@0700 [facility] Last Admin: 10/29/16 06:30 Dose: 100 mcg Methylprednisolone Sodium Succinate (Solu-Medrol -) 40 mg IVPB Q8H-IV [facility] Last Admin: 10/29/16 09:42 Dose: 40 mg Metoprolol Succinate (Toprol Xl -) 25 mg PO BID [facility] Last Admin: 10/29/16 09:44 Dose: 25 mg Montelukast Sodium (Singulair -) 10 mg PO HS [facility] Last Admin: 10/28/16 21:51 Dose: 10 mg Pantoprazole Sodium (Protonix -) 40 mg PO DAILY [facility] Last Admin: 10/29/16 09:43 Dose: 40 mg Tamsulosin HCl (Flomax -) 0.4 mg PO DAILY@0830 [facility] Last Admin: 10/29/16 09:43 Dose: 0.4 mg Vancomycin HCl (Vancomycin (Pre-Docked)) 1,000 mg IVPB DAILY@1200 [facility] PRN Reason: Protocol Last Admin: 10/29/16 12:26 Dose: 1,000 mg Warfarin Sodium (Coumadin -) 2.5 mg PO DAILY@1800 [facility] Last Admin: 10/28/16 17:52 Dose: 2.5 mg - Objective Vital Signs: Vital Signs Temperature 98.1 F 10/29/16 14:00 Pulse Rate 84 10/29/16 14:00 Respiratory Rate 20 10/29/16 14:00 Blood Pressure 103/68 10/29/16 14:00 O2 Sat by Pulse Oximetry (%) 98 10/29/16 15:31 Constitutional: Yes: No Distress Eyes: No: Sclera Icterus HENT: Yes: Atraumatic, Normocephalic Neck: Yes: Supple, Trachea Midline Cardiovascular: Yes: Regular Rate and Rhythm Respiratory: Yes: CTA Bilaterally Gastrointestinal: Yes: Soft. No: Tenderness Extremities: No: Calf Tenderness Edema: LLE: Trace, RLE: Trace Neurological: Yes: Alert, Oriented Labs: CBC, BMP 10/28/16 05:35 10/29/16 06:40 INR, PTT INR 2.68 (0.82-1.09) H 10/28/16 05:35 Assessment/Plan Assessment: COPD:Pt's respiratory status improving CHF improved. Plan: Steroids-will start to taper Bronchodilators O2 to maintain SaO2>90 Antibiotics Diuretic
[2016-10-29] MEDS: WARFARIN NA 2.5 MG TABLET (FP) PO SCH (17:50)
[2016-10-29] MEDS ORDERED: PT OWN MED DRAWER 7, Y5N ONE (22:26)
[2016-10-29] MEDS: MONTELUKAST NA 10 MG TABLET PO SCH (22:39)
[2016-10-29] MEDS: ATORVASTATIN CA 20 MG TABLET (FP) PO SCH (22:39)
[2016-10-30] MEDS: ALBUTEROL SO4 2.5/IPRATROPIUM 0.5 INH SOL 3 ML VIAL.NEB. NEB SCH ×5 (00:05→23:31)
[2016-10-30] MEDS: PIPERACILLIN/TAZOB 3.375 GM 50 ML IVPB SCH (01:35)
[2016-10-30] MEDS: methylPREDNISolone NA SUCC 40 MG/1 ML VIAL IVPB SCH ×2 (01:35→09:46)
[2016-10-30] MEDS: LEVOTHYROXINE NA 100 MCG TABLET (FP) PO SCH (06:31)
[2016-10-30 07:44] LABS: BASOPHIL 0.1 % (0-2.0); MCH 27.1 pg (25.7-33.7); MCHC 31.4 g/dl (32.0-35.9); MEAN CELL VOLUME 86.3 fl (80-96); MEAN PLT VOLUME 9.8 fl (7.5-11.1); NEUTROPHILS 94.7 % (42.8-82.8); PLATELET COUNT 138 K/MM3 (134-434); RDW 18.9 % (11.9-15.9); WHITE BLOOD COUNT 16.5 K/mm3 (4.0-10.0)
--- NOTE | 2016-10-30 07:57 | PN ---
Physical Exam: SUBJECTIVE: Patient seen and examined by me this AM - No major complaints or overnight events. Coughing, SOB continually improving. Exercise status improved, able to ambulate w/ less dyspnea. - Denies fever, chills, N/V, chest pain, rashes, BARNES. LE edema improving per patient. - Finished 7 day zosyn course. Plan to d/c tomorrow. OBJECTIVE: Vital Signs Period Temp Pulse Resp BP Sys/Martinez Pulse Ox Last 24 Hr 97.2 F-98.8 F 42-92 19-22 102-132/56-93 97-99 GENERAL: Awake, alert, and fully oriented, in no acute distress. Seated on NC. HEAD: Normal with no signs of trauma. EYES: extraocular movements intact, sclera anicteric, conjunctiva clear. No lid lag. Arcus senilis noted. NECK: lymphadenopathy, JVD, or masses. LUNGS: slight decrease in breath sounds at bases. Mild rhonchi in upper lobes. Mild midline expiratory wheeze still noted in upper lung rader. No crackles. No accessory muscle use. No tactile fremitus. HEART: Grade 2/6 systolic blowing murmur at RUSB. Regular rate and rhythm, normal S1 and S2 without rub or gallop. ABDOMEN: Soft, nontender, significantly distended. Umbilical hernia noted. Normoactive bowel sounds, no guarding, no masses. No hepatomegaly or splenomegaly. UPPER EXTREMITIES: 2+ pulses, warm, well-perfused. No cyanosis. No clubbing. Cap refill <2 seconds. No peripheral edema. LOWER EXTREMITIES: 2+ pulses, warm, well-perfused. No calf tenderness. 2+ pitting edema BL up to knee with accompanying stasis dermatitis, improving steadily NEUROLOGICAL: Cranial nerves II-XII grossly intact. Normal speech. Gait not evaluated. PSYCHIATRIC: Cooperative. Good eye contact. Appropriate mood and affect. SKIN: Warm, dry, normal turgor. Laboratory Results - last 24 hr CBC, BMP 10/30/16 05:35 10/29/16 10/29/16 10/30/16 06:40 06:40 05:35 WBC 16.5 H RBC 4.39 Hgb 11.9 Hct 37.8 MCV 86.3 MCH 27.1 MCHC 31.4 L RDW 18.9 H Plt Count 138 MPV 9.8 Neutrophils % 94.7 H Lymphocytes % 1.4 L D Monocytes % 3.8 Eosinophils % 0.0 Basophils % 0.1 Sodium 142 Potassium 3.8 Chloride 91 L Carbon Dioxide 39 H Anion Gap 12 BUN 46 H Creatinine 1.5 H Random Glucose 149 H Calcium 7.3 L Phosphorus 4.7 Magnesium 2.8 H Random Vancomycin 11.998 Microbiology 10/22/16 19:30 Blood - Peripheral Venous Blood Culture - Final NO GROWTH AFTER 5 DAYS INCUBATION 10/22/16 19:30 Blood - Peripheral Venous Blood Culture - Final NO GROWTH AFTER 5 DAYS INCUBATION 10/24/16 10:00 Sputum - Expectorated Gram Stain - Final 10/24/16 10:00 Sputum - Expectorated Sputum Culture - Final Mr S Aureus 10/14/16 06:00 Sputum - Expectorated Gram Stain - Final 10/14/16 06:00 Sputum - Expectorated Sputum Culture - Final NORMAL RESPIRATORY YOKASTA 10/22/16 19:00 Urine - Urine Clean Catch Urine Culture - Final NO GROWTH OBTAINED 10/22/16 19:00 Urine For Antigen Detection Legionella Antigen - Final 10/22/16 19:00 Urine For Antigen Detection Streptococcus pneumoniae Antigen (M - Final Active Medications Generic Name Dose Route Start Last Admin Trade Name Freq PRN Reason Stop Dose Admin Acetaminophen 650 mg 10/10/16 14:55 Tylenol - PO Q4H PRN FEVER OR PAIN Albuterol Sulfate 1 amp 10/13/16 14:18 10/29/16 09:25 Ventolin 0.083% Nebulizer Soln - NEB 1 amp Q4H PRN Administration SHORT OF BREATH/WHEEZING Albuterol/Ipratropium 1 amp 10/23/16 07:51 10/30/16 06:57 Duoneb - NEB 1 amp QIDR FAM Administration Allopurinol 100 mg 10/11/16 10:00 10/29/16 09:43 Zyloprim - PO 100 mg DAILY FAM Administration Aspirin 81 mg 10/11/16 10:00 10/29/16 09:44 Asa - PO 81 mg DAILY FAM Administration Atorvastatin Calcium 20 mg 10/10/16 22:00 10/29/16 22:39 Lipitor - PO 20 mg HS FAM Administration Benzocaine/Menthol 1 each 10/19/16 10:20 10/26/16 13:11 Cepacol Lozenge - MM 1 each PRN PRN Administration SORE THROAT Calcium Carbonate 650 mg 10/24/16 12:30 10/29/16 22:39 Calcium Carbonate - PO 650 mg BID FAM Administration Furosemide 80 mg 10/22/16 10:30 10/29/16 09:42 Lasix Injection - IVPUSH 80 mg DAILY FAM Administration Furosemide 40 mg 10/26/16 16:00 10/29/16 17:04 Lasix Injection - IVPUSH 40 mg DAILY@1600 FAM Administration Guaifenesin/Codeine Phosphate 5 ml 10/17/16 09:22 10/26/16 12:02 Robitussin Ac - PO 5 ml Q4H PRN Administration COUGH Levothyroxine Sodium 100 mcg 10/15/16 07:00 10/30/16 06:31 Synthroid - PO 100 mcg DAILY@0700 FAM Administration Methylprednisolone Sodium Succinate 30 mg 10/29/16 18:00 10/30/16 01:35 Solu-Medrol - IVPB 30 mg Q8H-IV FAM Administration Metoprolol Succinate 25 mg 10/27/16 22:00 10/29/16 22:39 Toprol Xl - PO 25 mg BID FAM Administration Montelukast Sodium 10 mg 10/14/16 22:00 10/29/16 22:39 Singulair - PO 10 mg HS AFM Administration Pantoprazole Sodium 40 mg 10/11/16 10:00 10/29/16 09:43 Protonix - PO 40 mg DAILY FAM Administration Tamsulosin HCl 0.4 mg 10/19/16 08:30 10/29/16 09:43 Flomax - PO 0.4 mg DAILY@0830 FAM Administration Vancomycin HCl 1,000 mg 10/29/16 12:00 10/29/16 12:26 Vancomycin (Pre-Docked) IVPB 1,000 mg DAILY@1200 FAM Administration Protocol Warfarin Sodium 2.5 mg 10/20/16 18:00 10/29/16 17:50 Coumadin - PO 2.5 mg DAILY@1800 FAM Administration ASSESSMENT/PLAN: Assessment: Pt is an 80 yo man w/ pmh of COPD (on home O2), CAD (s/p PCI; 3 stents), R lobectomy for lung abscess, GERD, HTN, HLD, who initially presented 12 days ago due with symptomatic bradycardia during pulmonary rehab session, current course notable for worsening respiratory status and suspected PNA. Pt continue to improve clinical, endorses less SOB/cough and improving exercise tolerance. Remains afebrile w/ no other infectious symptoms. Seven day Abx course (vanc/ zosyn) completed. Plan for d/c tomorrow. Will received dose of vanc today and tomorrow. Problem List: Pneumonia Acute on chronic COPD exacerbation CHF exacerbation Plan: #Pneumonia - Much improved clinically. Plan for d/c tomorrow. - Sputum cx + for MRSA (10/24) - blood, urine cx neg - urine legionella ag, pneumoncoccal ag neg - 7 day zosyn course completed. - Plan for dose of vanc today and tomorrow before d/c - Outpt f/u w/ director digital marketing Jono Penn MD, PGY1 Plan discussed w/ attending, Dr. Graham Problem List - Problems (1) Acute CHF (congestive heart failure) Code(s): I50.9 - HEART FAILURE, UNSPECIFIED (2) Bronchiectasis with (acute) exacerbation Code(s): J47.1 - BRONCHIECTASIS WITH (ACUTE) EXACERBATION (3) COPD exacerbation Code(s): J44.1 - CHRONIC OBSTRUCTIVE PULMONARY DISEASE W (ACUTE) EXACERBATION (4) Pneumonia Code(s): J18.9 - PNEUMONIA, UNSPECIFIED ORGANISM Visit type - Emergency Visit Emergency Visit: No - New Patient This patient is new to me today: No - Critical Care Critical Care patient: No
[2016-10-30 08:33] LABS: INR 2.62 (0.82-1.09); PROTHROMBIN TIME (PATIENT) 29.4 SEC (9.98-11.88)
[2016-10-30 08:35] LABS: ANION GAP 10 (8-16); CO2 39 mmol/L (21-32); CREATININE 1.1 mg/dL (0.7-1.3); GLUCOSE,RANDOM 169 mg/dL (74-106); MAGNESIUM 2.8 mg/dL (1.8-2.4); PHOSPHOROUS 4.3 mg/dL (2.5-4.9)
[2016-10-30] MEDS: ALLOPURINOL 100 MG TABLET (FP) PO SCH (09:46)
[2016-10-30] MEDS: ASPIRIN 81 MG CHEWABLE TABLETS PO SCH (09:47)
[2016-10-30] MEDS: PANTOPRAZOLE 40 MG TABLET (FP) PO SCH (09:47)
[2016-10-30] MEDS: TAMSULOSIN HCL 0.4 MG CAP.ER.24H (FP) PO SCH (09:47)
[2016-10-30] MEDS: METOPROLOL SUCCINATE 25 MG TAB.SR.24H (FP) PO SCH ×2 (09:47→21:11)
[2016-10-30] MEDS: FUROSEMIDE 40 MG/4 ML INJECTABLE VIAL IVPUSH SCH ×2 (09:47→16:30)
--- NOTE | 2016-10-30 10:57 | PN ---
Progress Note (short form) - Note Progress Note: History of Present Illness: sob better no cp, no palps no dizzy le edema better as well Current Medications Generic Name Dose Route Start Last Admin Trade Name Freq PRN Reason Stop Dose Admin Acetaminophen 650 mg 10/10/16 14:55 Tylenol - PO Q4H PRN FEVER OR PAIN Albuterol Sulfate 1 amp 10/13/16 14:18 10/29/16 09:25 Ventolin 0.083% Nebulizer Soln - NEB 1 amp Q4H PRN Administration SHORT OF BREATH/WHEEZING Albuterol/Ipratropium 1 amp 10/23/16 07:51 10/30/16 06:57 Duoneb - NEB 1 amp QIDR FAM Administration Allopurinol 100 mg 10/11/16 10:00 10/30/16 09:46 Zyloprim - PO 100 mg DAILY FAM Administration Aspirin 81 mg 10/11/16 10:00 10/30/16 09:47 Asa - PO 81 mg DAILY FAM Administration Atorvastatin Calcium 20 mg 10/10/16 22:00 10/29/16 22:39 Lipitor - PO 20 mg HS FAM Administration Benzocaine/Menthol 1 each 10/19/16 10:20 10/26/16 13:11 Cepacol Lozenge - MM 1 each PRN PRN Administration SORE THROAT Calcium Carbonate 650 mg 10/24/16 12:30 10/29/16 22:39 Calcium Carbonate - PO 650 mg BID FAM Administration Furosemide 80 mg 10/22/16 10:30 10/30/16 09:47 Lasix Injection - IVPUSH 80 mg DAILY FAM Administration Furosemide 40 mg 10/26/16 16:00 10/29/16 17:04 Lasix Injection - IVPUSH 40 mg DAILY@1600 FAM Administration Guaifenesin/Codeine Phosphate 5 ml 10/17/16 09:22 10/26/16 12:02 Robitussin Ac - PO 5 ml Q4H PRN Administration COUGH Levothyroxine Sodium 100 mcg 10/15/16 07:00 10/30/16 06:31 Synthroid - PO 100 mcg DAILY@0700 FAM Administration Methylprednisolone Sodium Succinate 30 mg 10/29/16 18:00 10/30/16 09:46 Solu-Medrol - IVPB 30 mg Q8H-IV FAM Administration Metoprolol Succinate 25 mg 10/27/16 22:00 07/27/17 09:47 Toprol Xl - PO 25 mg BID FAM Administration Montelukast Sodium 10 mg 10/14/16 22:00 10/29/16 22:39 Singulair - PO 10 mg HS FAM Administration Pantoprazole Sodium 40 mg 10/11/16 10:00 10/30/16 09:47 Protonix - PO 40 mg DAILY FAM Administration Tamsulosin HCl 0.4 mg 10/19/16 08:30 10/30/16 09:47 Flomax - PO 0.4 mg DAILY@0830 FAM Administration Vancomycin HCl 1,000 mg 10/29/16 12:00 10/29/16 12:26 Vancomycin (Pre-Docked) IVPB 1,000 mg DAILY@1200 FAM Administration Protocol Warfarin Sodium 2.5 mg 10/20/16 18:00 10/29/16 17:50 Coumadin - PO 2.5 mg DAILY@1800 FAM Administration Vital Signs Temp 98.2 F 10/30/16 09:30 Pulse 81 10/30/16 09:30 Resp 20 10/30/16 09:30 BP 105/62 10/30/16 09:30 Pulse Ox 97 10/29/16 20:57 Intake & Output 10/29/16 10/29/16 10/30/16 11:59 23:59 11:59 Intake Total 180 400 50 Output Total 3988 327 4602 Balance -1570 -250 -1500 Weight 206 lb 3.2 oz 205 lb 6 oz Intake: IVPB 80 50 Oral 100 400 Output: Urine 2916 412 3156 Void 9680 953 2497 Other: Voiding Method Toilet Toilet Bowel Movement No No Weight Measurement Method Standing Scale Built in Bedscale NAD, calm jvd flat, neck supple diminished breath sounds/mild exp wheezes, nl effort rrr nl s1, s2 2/6 murmur at sternal border and apex + bs soft nt nd trace le edema bl aaox3 no jaundice, diaphoresis CBC, BMP 10/30/16 05:35 10/30/16 05:35 EKG: Other (tele: SR, pvcs, brief pat) EKG: sr, 97 bpm. anterolateral twi. Previously twi more prominent in lateral leads. Echo 09/2016 office: Moderate global HK, EF 40%. nl rv. mod mr, LHC 05/2016 at [facility]--per dc summary, patent prior stents and non obs residual dz. LHC/PCI 2010: prox RCA NICOLE, residual OM1 50-60%, patent mid LAD stent, normal right heart pressures, normal LVF Dobut Stress MPI 08/2010: small, mild apical anterior and LV apex ischemia--( PCI after this) MIBI 12/13: small/mild infer ischemia vs GI tracer confounding, EF 41% ct chest 02/2016: ascd aorta 4.3 cm a/p: 80 yo with h/o CAD (s/p PCI), systolic cardiomyopathy, mild asc ao dilation, mod mr, htn, hl, hypothyroid, COPD, Pneumonia (s/p lobectomy for lung abscess), Pulmonary Embolus on coumadin p/w bradycardia. bradycardia - no ekg documentation of episodes. (on routine vitals prior to starting P.T. he was noted to have HR's in the 30's-40's-->to ER where normal HR. per family on telemetry in ER, HR's intermittently were reading 30's -50's for seconds at a time and then going back up to 70's-100's.) - ? artifactual has known h/o sinus tach and has remained in sinus tach here. - he had no sx's at home or here of presyncope/syncope (generalized weakness on DOA is apparently a chronic, stable condition which improves acutely with PT) - recent cath unremarkable, echo in september EF 40%, stable vs priors apparently - no bradyarrhythmia on telemetry here for many days. - home metoprolol continued in hospital. acute on chronic syst chf: - Over the years his echos have shown variations in lvef, at times reduced. Recent echo at [facility] 05/2016 reports lvef 20% (per dc summary). During that admit he was seen by cardio and had repeat cath showing patent stents and non obs residual dz. He was noted to have NSVT on tele there and given lifevest but pt/ declined. Was started on toprol as well. He has been on bb/arb for several mos now --> improvement in EF --> cont - wt 203 yest, 206 today (office wts vary 195-210 since 04/22). - lasix held here over weekend for + orthostatics - 10/13 JVD noted on exam --> lasix 40 mg IV x 1 - 10/14-: resumed po lasix as above - 10/17: wt rising and starting to develop le edema. Got lasix 40 iv yesterday and today still vol up and cr bumped up. Given that he appears volume up he may need more iv lasix which may help cr as well. Renal consulted today, will discuss. -10/18: seen by renal, rec'd stopping arb and monitoring for now w/o aggressive diuresis. Today le edema improved and cr improved. Cont with po lasix for now. -10/19: cr continues to improve, back to baseline. Given that his cr bumped up after iv lasix and then improved after stopping iv lasix, it seems that he does not need aggressive diuresis at this time. Cont po lasix for maintenance. Now that off iv steroids le edema should improve. -10/21: back on iv steroids and wt up still so given test dose of iv lasix yesterday. Today cr stable and diuresed well so will cont with lasix 40 iv qd for now -10/22: still with vol overload and wt up so will increase lasix to 80 iv qd -10/23: still vol up, cr stable. Needs further diuresis. Discussed with renal and plan will be to continue lasix 80 iv daily but give additional evening dose of 40 iv and monitor response tomorrow. -10/24: seemed to respond well to lasix iv 80/40 yesterday with stable cr and wt down, will cont same today. - cont home metoprolol 25mg 10/25: Improving with furosemide. Renal function improved weight down to 210 ( from 216). Will continue Lasix 80/40 IV. Will need K replacement (3.4) 10/26: Stable, still seems volume overloaded, weight continnues to decrease to 209. Continue lasix 80/40. Improved K. -10/27-: bun/creat improved with diuresis. wt declining. dry wt uncertain here (office wts range 195-210, pt thinks baseline is close to 190--??). will cont same lasix until bun/creat starts trending up PAT: -brief runs on tele while here, benign -cont bb a.e. COPD, PNA: - on home o2 and theophylline - on steroids, pulm following - abx per ID CAD (s/p PCI) - Con't medical therapy with ASA, statin. Stable. No angina. CE's negative here and recent cath in may with no residual disease HTN: - stable Hyperlipdemia, - con't statin PE 2010 - on coumadin from before. dosing per inr. hgb stable even with additional asa. ascending thoracic aneurysm, small: - Stable on CT here (4.2cm). - bp control, BB as doing -outpt monitoring trop elevation: -borderline trop elevation with flat trend and nl ckmb fraction, not consistent with acs. Likely due to alon/pna/chf
[2016-10-30] MEDS ORDERED: PT OWN MED DRAWER 7, Y5N ONE ×3 (10:58→21:06)
[2016-10-30] MEDS: VANCOMYCIN 1 GRAM (PRE-DOCKED) 1,000 MG/250 ML BAG IVPB SCH (11:13)
[2016-10-30] MEDS: CALCIUM CARBONATE 650 MG TABLET PO SCH ×2 (11:14→21:10)
--- NOTE | 2016-10-30 12:38 | PN ---
Progress Note, Physician Chief Complaint: Mr Rodriguez continues to improve. Says his cough has resolved. No cp, sob, n/v. Asking if can go home tomorrow. - Current Medication List Current Medications: Active Medications Acetaminophen (Tylenol -) 650 mg PO Q4H PRN PRN Reason: FEVER OR PAIN Albuterol Sulfate (Ventolin 0.083% Nebulizer Soln -) 1 amp NEB Q4H PRN PRN Reason: SHORT OF BREATH/WHEEZING Last Admin: 10/29/16 09:25 Dose: 1 amp Albuterol/Ipratropium (Duoneb -) 1 amp NEB QIDR [facility] Last Admin: 10/30/16 11:04 Dose: 1 amp Allopurinol (Zyloprim -) 100 mg PO DAILY [facility] Last Admin: 10/30/16 09:46 Dose: 100 mg Aspirin (Asa -) 81 mg PO DAILY [facility] Last Admin: 10/30/16 09:47 Dose: 81 mg Atorvastatin Calcium (Lipitor -) 20 mg PO HS [facility] Last Admin: 10/29/16 22:39 Dose: 20 mg Benzocaine/Menthol (Cepacol Lozenge -) 1 each MM PRN PRN PRN Reason: SORE THROAT Last Admin: 10/26/16 13:11 Dose: 1 each Calcium Carbonate (Calcium Carbonate -) 650 mg PO BID [facility] Last Admin: 10/30/16 11:14 Dose: 650 mg Furosemide (Lasix Injection -) 80 mg IVPUSH DAILY [facility] Last Admin: 10/30/16 09:47 Dose: 80 mg Furosemide (Lasix Injection -) 40 mg IVPUSH DAILY@1600 [facility] Last Admin: 10/29/16 17:04 Dose: 40 mg Guaifenesin/Codeine Phosphate (Robitussin Ac -) 5 ml PO Q4H PRN PRN Reason: COUGH Last Admin: 10/26/16 12:02 Dose: 5 ml Levothyroxine Sodium (Synthroid -) 100 mcg PO DAILY@0700 [facility] Last Admin: 10/30/16 06:31 Dose: 100 mcg Methylprednisolone Sodium Succinate (Solu-Medrol -) 30 mg IVPB Q8H-IV [facility] Last Admin: 10/30/16 09:46 Dose: 30 mg Metoprolol Succinate (Toprol Xl -) 25 mg PO BID [facility] Last Admin: 10/30/16 09:47 Dose: 25 mg Montelukast Sodium (Singulair -) 10 mg PO HS [facility] Last Admin: 10/29/16 22:39 Dose: 10 mg Pantoprazole Sodium (Protonix -) 40 mg PO DAILY [facility] Last Admin: 10/30/16 09:47 Dose: 40 mg Tamsulosin HCl (Flomax -) 0.4 mg PO DAILY@0830 [facility] Last Admin: 10/30/16 09:47 Dose: 0.4 mg Vancomycin HCl (Vancomycin (Pre-Docked)) 1,000 mg IVPB DAILY@1200 [facility] PRN Reason: Protocol Last Admin: 10/30/16 11:13 Dose: 1,000 mg Warfarin Sodium (Coumadin -) 2.5 mg PO DAILY@1800 [facility] Last Admin: 10/29/16 17:50 Dose: 2.5 mg - Objective Vital Signs: Vital Signs Temperature 98.2 F 10/30/16 09:30 Pulse Rate 81 10/30/16 11:06 Respiratory Rate 20 10/30/16 09:30 Blood Pressure 105/62 10/30/16 09:30 O2 Sat by Pulse Oximetry (%) 94 L 10/30/16 11:06 Constitutional: Yes: Well Nourished, No Distress, Calm Cardiovascular: Yes: Regular Rate and Rhythm. No: Gallop, Murmur, Rub Respiratory: Yes: Regular, CTA Bilaterally. No: Rales, Rhonchi, Wheezes Gastrointestinal: Yes: Normal Bowel Sounds, Soft. No: Distention, Tenderness Extremities: Yes: WNL Edema: No Labs: CBC, BMP 10/30/16 05:35 10/30/16 05:35 INR, PTT INR 2.62 (0.82-1.09) H 10/30/16 05:35 Problem List - Problems (1) Bradycardia Code(s): R00.1 - BRADYCARDIA, UNSPECIFIED (2) Coronary artery disease Code(s): I25.10 - ATHSCL HEART DISEASE OF [place] CORONARY ARTERY W/O ANG PCTRS (3) GERD (gastroesophageal reflux disease) Code(s): K21.9 - GASTRO-ESOPHAGEAL REFLUX DISEASE WITHOUT ESOPHAGITIS (4) HTN (hypertension) Code(s): I10 - ESSENTIAL (PRIMARY) HYPERTENSION (5) Pulmonary embolism Code(s): I26.99 - OTHER PULMONARY EMBOLISM WITHOUT ACUTE COR PULMONALE (6) Renal insufficiency, mild Code(s): N28.9 - DISORDER OF KIDNEY AND URETER, UNSPECIFIED (7) COPD (chronic obstructive pulmonary disease) Code(s): 496 - CHR AIRWAY OBSTRUCT NEC (8) Hypothyroid Code(s): E03.9 - HYPOTHYROIDISM, UNSPECIFIED Assessment/Plan (1) Pneumonia Assessment/Plan: -finished full course of zosyn -last dose of vancomycin tomorrow -safe for d/c home tomorrow from this standpoint Code(s): J18.9 - PNEUMONIA, UNSPECIFIED ORGANISM (2) Acute LV systolic CHF (congestive heart failure) Assessment/Plan: -patient feeling much improved -diuresing well -continue IV lasix per cardiology -will d/w cardiology changing to oral lasix or torsemide Code(s): I50.9 - HEART FAILURE, UNSPECIFIED (3) COPD (chronic obstructive pulmonary disease) Assessment/Plan: -pulmonary following -change to prednisone tomorrow Code(s): 496 - CHR AIRWAY OBSTRUCT NEC (4) Bronchiectasis with (acute) exacerbation Assessment/Plan: -as above Code(s): J47.1 - BRONCHIECTASIS WITH (ACUTE) EXACERBATION (5) HTN (hypertension) Assessment/Plan: -stable -continue current management Code(s): I10 - ESSENTIAL (PRIMARY) HYPERTENSION (6) Murali-tachy syndrome -continue telemetry monitoring Code(s): I49.5 - SICK SINUS SYNDROME (7) Cough Assessment/Plan: -improving Code(s): R05 - COUGH (8) Renal failure (ARF), acute on chronic -nephrology following -renal function stable -cardiorenal, improved with diuresis Code(s): N17.9 - ACUTE KIDNEY FAILURE, UNSPECIFIED N18.9 - CHRONIC KIDNEY DISEASE, UNSPECIFIED
--- NOTE | 2016-10-30 13:53 | PN ---
Progress Note (short form) - Note Progress Note: Renal Follow up for MARIAM Pt seen and examined at the bedside no acute complaints feels much better no cough still on NC O2 getting IV lasix Vital Signs Temperature 98.2 F 10/30/16 09:30 Pulse Rate 81 10/30/16 11:06 Respiratory Rate 20 10/30/16 09:30 Blood Pressure 105/62 10/30/16 09:30 O2 Sat by Pulse Oximetry (%) 94 L 10/30/16 11:06 Intake & Output 10/27/16 10/28/16 10/29/16 10/30/16 23:59 23:59 23:59 23:59 Intake Total 1440 360 580 50 Output Total 2613 816 9317 1550 Balance 340 -340 -1820 -1500 Weight 208 lb 209 lb 206 lb 3.2 oz 205 lb 6 oz Gen: NAD CVS: RRR Lungs: CTA Abd: soft NT/ND, No bladder distension Ext:1+ LE edema CBC, BMP 10/30/16 05:35 10/30/16 05:35 Current Medications Acetaminophen (Tylenol -) 650 mg PO Q4H PRN PRN Reason: FEVER OR PAIN Albuterol Sulfate (Ventolin 0.083% Nebulizer Soln -) 1 amp NEB Q4H PRN PRN Reason: SHORT OF BREATH/WHEEZING Last Admin: 10/29/16 09:25 Dose: 1 amp Albuterol/Ipratropium (Duoneb -) 1 amp NEB QIDR [facility] Last Admin: 10/30/16 11:04 Dose: 1 amp Allopurinol (Zyloprim -) 100 mg PO DAILY [facility] Last Admin: 10/30/16 09:46 Dose: 100 mg Aspirin (Asa -) 81 mg PO DAILY [facility] Last Admin: 10/30/16 09:47 Dose: 81 mg Atorvastatin Calcium (Lipitor -) 20 mg PO HS [facility] Last Admin: 10/29/16 22:39 Dose: 20 mg Benzocaine/Menthol (Cepacol Lozenge -) 1 each MM PRN PRN PRN Reason: SORE THROAT Last Admin: 10/26/16 13:11 Dose: 1 each Calcium Carbonate (Calcium Carbonate -) 650 mg PO BID [facility] Last Admin: 10/30/16 11:14 Dose: 650 mg Furosemide (Lasix Injection -) 80 mg IVPUSH DAILY [facility] Last Admin: 10/30/16 09:47 Dose: 80 mg Furosemide (Lasix Injection -) 40 mg IVPUSH DAILY@1600 [facility] Last Admin: 10/29/16 17:04 Dose: 40 mg Guaifenesin/Codeine Phosphate (Robitussin Ac -) 5 ml PO Q4H PRN PRN Reason: COUGH Last Admin: 10/26/16 12:02 Dose: 5 ml Levothyroxine Sodium (Synthroid -) 100 mcg PO DAILY@0700 [facility] Last Admin: 10/30/16 06:31 Dose: 100 mcg Methylprednisolone Sodium Succinate (Solu-Medrol -) 30 mg IVPB Q8H-IV [facility] Last Admin: 10/30/16 09:46 Dose: 30 mg Metoprolol Succinate (Toprol Xl -) 25 mg PO BID [facility] Last Admin: 10/30/16 09:47 Dose: 25 mg Montelukast Sodium (Singulair -) 10 mg PO HS [facility] Last Admin: 10/29/16 22:39 Dose: 10 mg Pantoprazole Sodium (Protonix -) 40 mg PO DAILY [facility] Last Admin: 10/30/16 09:47 Dose: 40 mg Tamsulosin HCl (Flomax -) 0.4 mg PO DAILY@0830 [facility] Last Admin: 10/30/16 09:47 Dose: 0.4 mg Vancomycin HCl (Vancomycin (Pre-Docked)) 1,000 mg IVPB DAILY@1200 [facility] PRN Reason: Protocol Last Admin: 10/30/16 11:13 Dose: 1,000 mg Warfarin Sodium (Coumadin -) 2.5 mg PO DAILY@1800 [facility] Last Admin: 10/29/16 17:50 Dose: 2.5 mg A/P 80 year old gentleman with PMhx of severe COPD, Coronary artery disease, HLD, Pneumonia, Lung abscess, s/p Pulmonary lobectomy, Pulmonary Embolism, Hypothyroidism p/w sob secondary to COPD/CHF with MARIAM with Cr 1.6 #MARIAM in setting of volume overload and CHF Renal function improved today good urine production continue IV Lasix as needed per cardiology to achieve evolemia trend BUN/Cr and electrolytes #Elevated serum bicarb ABD showed elevated ph and CO2 and thus is consistent with a metabolic alkalosis Urine Cl was high (in setting of diuretics and thus difficult to interpret) no indication for diamox continue to trend serum bicarb levels #Hypocalcemia Continue oral Ca #Dyspnea/COPD/PNA on Zosyn and Eulalia Thank you Neo Castro DO
--- NOTE | 2016-10-30 15:03 | PN ---
Teaching Attending Note Name of Resident: Jono Penn ATTENDING PHYSICIAN STATEMENT I saw and evaluated the patient. I reviewed the resident's note and discussed the case with the resident. I agree with the resident's findings and plan as documented. SUBJECTIVE: doing well no complaints still on iv steroids OBJECTIVE: Vital Signs Period Temp Pulse Resp BP Sys/Martinez Pulse Ox Last 24 Hr 97.2 F-98.6 F 42-92 20-22 102-132/62-93 90-98 cor-rrr lungs clear abd soft,nt ext less edema CBC, BMP 10/30/16 05:35 10/30/16 05:35 Microbiology 10/22/16 19:30 Blood - Peripheral Venous Blood Culture - Final NO GROWTH AFTER 5 DAYS INCUBATION 10/22/16 19:30 Blood - Peripheral Venous Blood Culture - Final NO GROWTH AFTER 5 DAYS INCUBATION 10/24/16 10:00 Sputum - Expectorated Gram Stain - Final 10/24/16 10:00 Sputum - Expectorated Sputum Culture - Final Mr S Aureus 10/14/16 06:00 Sputum - Expectorated Gram Stain - Final 10/14/16 06:00 Sputum - Expectorated Sputum Culture - Final NORMAL RESPIRATORY YOKASTA 10/22/16 19:00 Urine - Urine Clean Catch Urine Culture - Final NO GROWTH OBTAINED 10/22/16 19:00 Urine For Antigen Detection Legionella Antigen - Final 10/22/16 19:00 Urine For Antigen Detection Streptococcus pneumoniae Antigen (M - Final ASSESSMENT AND PLAN: pneumonia-doing well plan to d/c antibioitics in am chf/copd improved Problem List - Problems (1) Pneumonia Code(s): J18.9 - PNEUMONIA, UNSPECIFIED ORGANISM (2) Acute CHF (congestive heart failure) Code(s): I50.9 - HEART FAILURE, UNSPECIFIED
--- NOTE | 2016-10-30 16:42 | PN ---
Progress Note, Physician History of Present Illness: Dyspnea decreased. No chest pain or palpitations - Current Medication List Current Medications: Active Medications Acetaminophen (Tylenol -) 650 mg PO Q4H PRN PRN Reason: FEVER OR PAIN Albuterol Sulfate (Ventolin 0.083% Nebulizer Soln -) 1 amp NEB Q4H PRN PRN Reason: SHORT OF BREATH/WHEEZING Last Admin: 10/29/16 09:25 Dose: 1 amp Albuterol/Ipratropium (Duoneb -) 1 amp NEB QIDR [facility] Last Admin: 10/30/16 11:04 Dose: 1 amp Allopurinol (Zyloprim -) 100 mg PO DAILY [facility] Last Admin: 10/30/16 09:46 Dose: 100 mg Aspirin (Asa -) 81 mg PO DAILY [facility] Last Admin: 10/30/16 09:47 Dose: 81 mg Atorvastatin Calcium (Lipitor -) 20 mg PO HS [facility] Last Admin: 10/29/16 22:39 Dose: 20 mg Benzocaine/Menthol (Cepacol Lozenge -) 1 each MM PRN PRN PRN Reason: SORE THROAT Last Admin: 10/26/16 13:11 Dose: 1 each Calcium Carbonate (Calcium Carbonate -) 650 mg PO BID [facility] Last Admin: 10/30/16 11:14 Dose: 650 mg Furosemide (Lasix Injection -) 80 mg IVPUSH DAILY [facility] Last Admin: 10/30/16 09:47 Dose: 80 mg Furosemide (Lasix Injection -) 40 mg IVPUSH DAILY@1600 [facility] Last Admin: 10/29/16 17:04 Dose: 40 mg Guaifenesin/Codeine Phosphate (Robitussin Ac -) 5 ml PO Q4H PRN PRN Reason: COUGH Last Admin: 10/26/16 12:02 Dose: 5 ml Levothyroxine Sodium (Synthroid -) 100 mcg PO DAILY@0700 [facility] Last Admin: 10/30/16 06:31 Dose: 100 mcg Methylprednisolone Sodium Succinate (Solu-Medrol -) 30 mg IVPB Q8H-IV [facility] Stop: 10/30/16 18:00 Last Admin: 10/30/16 09:46 Dose: 30 mg Metoprolol Succinate (Toprol Xl -) 25 mg PO BID [facility] Last Admin: 10/30/16 09:47 Dose: 25 mg Montelukast Sodium (Singulair -) 10 mg PO HS [facility] Last Admin: 10/29/16 22:39 Dose: 10 mg Pantoprazole Sodium (Protonix -) 40 mg PO DAILY [facility] Last Admin: 10/30/16 09:47 Dose: 40 mg Prednisone (Deltasone -) 40 mg PO DAILY [facility] Tamsulosin HCl (Flomax -) 0.4 mg PO DAILY@0830 [facility] Last Admin: 10/30/16 09:47 Dose: 0.4 mg Vancomycin HCl (Vancomycin (Pre-Docked)) 1,000 mg IVPB DAILY@1200 [facility] PRN Reason: Protocol Last Admin: 10/30/16 11:13 Dose: 1,000 mg Warfarin Sodium (Coumadin -) 2.5 mg PO DAILY@1800 [facility] Last Admin: 10/29/16 17:50 Dose: 2.5 mg - Objective Vital Signs: Vital Signs Temperature 98 F 10/30/16 14:28 Pulse Rate 91 H 10/30/16 14:28 Respiratory Rate 20 10/30/16 14:28 Blood Pressure 108/75 10/30/16 14:28 O2 Sat by Pulse Oximetry (%) 96 10/30/16 13:30 Constitutional: Yes: No Distress Eyes: No: Sclera Icterus HENT: Yes: Atraumatic, Normocephalic Neck: Yes: Supple, Trachea Midline Cardiovascular: Yes: Regular Rate and Rhythm, JVD Respiratory: Yes: CTA Bilaterally Gastrointestinal: Yes: Soft. No: Palpable Mass, Tenderness Extremities: No: Calf Tenderness Edema: LLE: Trace, RLE: Trace Neurological: Yes: Alert, Oriented Labs: CBC, BMP 10/30/16 05:35 10/30/16 05:35 INR, PTT INR 2.62 (0.82-1.09) H 10/30/16 05:35 - ....Imaging Chest X-ray: Report Reviewed, Image Reviewed (JOAO) Assessment/Plan Assessment: COPD:Pt's respiratory status improved. CHF improved. Plan: Change to Prednisone Bronchodilators O2 to maintain SaO2>90 Antibiotics Diuretic Discharge planning in progress.
[2016-10-30] MEDS ORDERED: methylPREDNISolone NA SUCC 40 MG/1 ML VIAL IVPB SCH (16:51)
[2016-10-30] MEDS: WARFARIN NA 2.5 MG TABLET (FP) PO SCH (17:35)
[2016-10-30] MEDS: MONTELUKAST NA 10 MG TABLET PO SCH (21:10)
[2016-10-30] MEDS: ATORVASTATIN CA 20 MG TABLET (FP) PO SCH (21:11)
[2016-10-31] MEDS: LEVOTHYROXINE NA 100 MCG TABLET (FP) PO SCH (06:15)
[2016-10-31 06:19] VITALS: TEMP 97.9
[2016-10-31] MEDS: ALBUTEROL SO4 2.5/IPRATROPIUM 0.5 INH SOL 3 ML VIAL.NEB. NEB SCH ×2 (06:48→11:09)
[2016-10-31 07:02] LABS: BASOPHIL 0.2 % (0-2.0); MCHC 31.2 g/dl (32.0-35.9); MEAN CELL VOLUME 86.5 fl (80-96); MEAN PLT VOLUME 9.8 fl (7.5-11.1); PLATELET COUNT 129 K/MM3 (134-434); RDW 18.6 % (11.9-15.9); WHITE BLOOD COUNT 14.9 K/mm3 (4.0-10.0)
--- NOTE | 2016-10-31 07:18 | PN ---
Physical Exam: SUBJECTIVE: Patient seen by me this AM - Last dose of vanc today. Plan for d/c w/o PO abx - Much improved clinically. Minimal cough, SOB and significantly improved exercise tolerance - Will f/u w/ outpatient antique furniture reproducer, Dr. Franco OBJECTIVE: Vital Signs Period Temp Pulse Resp BP Sys/Martinez Pulse Ox Last 24 Hr 97.4 F-98.3 F 75-91 18-22 99-126/58-84 90-96 GENERAL: Awake, alert, and fully oriented, in no acute distress. Seated on NC. HEAD: Normal with no signs of trauma. EYES: clera anicteric, conjunctiva clear. No lid lag. Arcus senilis noted. NECK: lymphadenopathy, JVD, or masses. LUNGS: Mild midline expiratory wheeze still noted in upper lung rader. No crackles. No accessory muscle use. No tactile fremitus. HEART: Grade 2/6 systolic blowing murmur at RUSB. Regular rate and rhythm, normal S1 and S2 without rub or gallop. ABDOMEN: Soft, nontender, significantly distended. Normoactive bowel sounds, no guarding, no masses. No hepatomegaly or splenomegaly. NEUROLOGICAL: Cranial nerves II-XII grossly intact. Normal speech. Gait not evaluated. Laboratory Results - last 24 hr 10/30/16 10/30/16 10/30/16 05:35 05:35 05:35 WBC 16.5 H RBC 4.39 Hgb 11.9 Hct 37.8 MCV 86.3 MCH 27.1 MCHC 31.4 L RDW 18.9 H Plt Count 138 MPV 9.8 Neutrophils % 94.7 H Lymphocytes % 1.4 L D Monocytes % 3.8 Eosinophils % 0.0 Basophils % 0.1 INR 2.62 H Sodium 142 Potassium 3.7 Chloride 93 L Carbon Dioxide 39 H Anion Gap 10 BUN 42 H Creatinine 1.1 D Random Glucose 169 H Calcium 7.0 L Phosphorus 4.3 Magnesium 2.8 H Microbiology 10/22/16 19:30 Blood - Peripheral Venous Blood Culture - Final NO GROWTH AFTER 5 DAYS INCUBATION 10/22/16 19:30 Blood - Peripheral Venous Blood Culture - Final NO GROWTH AFTER 5 DAYS INCUBATION 10/24/16 10:00 Sputum - Expectorated Gram Stain - Final 10/24/16 10:00 Sputum - Expectorated Sputum Culture - Final S Aureus 10/14/16 06:00 Sputum - Expectorated Gram Stain - Final 10/14/16 06:00 Sputum - Expectorated Sputum Culture - Final NORMAL RESPIRATORY YOKASTA 10/22/16 19:00 Urine - Urine Clean Catch Urine Culture - Final NO GROWTH OBTAINED 10/22/16 19:00 Urine For Antigen Detection Legionella Antigen - Final 10/22/16 19:00 Urine For Antigen Detection Streptococcus pneumoniae Antigen (M - Final Active Medications Generic Name Dose Route Start Last Admin Trade Name Freq PRN Reason Stop Dose Admin Acetaminophen 650 mg 10/10/16 14:55 Tylenol - PO Q4H PRN FEVER OR PAIN Albuterol Sulfate 1 amp 10/13/16 14:18 10/29/16 09:25 Ventolin 0.083% Nebulizer Soln - NEB 1 amp Q4H PRN Administration SHORT OF BREATH/WHEEZING Albuterol/Ipratropium 1 amp 10/23/16 07:51 10/31/16 06:48 Duoneb - NEB 1 amp QIDR [facility] Administration Allopurinol 100 mg 10/11/16 10:00 10/30/16 09:46 Zyloprim - PO 100 mg DAILY [facility] Administration Aspirin 81 mg 10/11/16 10:00 10/30/16 09:47 Asa - PO 81 mg DAILY [facility] Administration Atorvastatin Calcium 20 mg 10/10/16 22:00 10/30/16 21:11 Lipitor - PO 20 mg HS [facility] Administration Benzocaine/Menthol 1 each 10/19/16 10:20 10/26/16 13:11 Cepacol Lozenge - MM 1 each PRN PRN Administration SORE THROAT Calcium Carbonate 650 mg 10/24/16 12:30 10/30/16 21:10 Calcium Carbonate - PO 650 mg BID [facility] Administration Furosemide 80 mg 10/22/16 10:30 10/30/16 09:47 Lasix Injection - IVPUSH 80 mg DAILY [facility] Administration Furosemide 40 mg 10/26/16 16:00 10/30/16 16:30 Lasix Injection - IVPUSH 40 mg DAILY@1600 [facility] Administration Guaifenesin/Codeine Phosphate 5 ml 10/17/16 09:22 10/26/16 12:02 Robitussin Ac - PO 5 ml Q4H PRN Administration COUGH Levothyroxine Sodium 100 mcg 10/15/16 07:00 10/31/16 06:15 Synthroid - PO 100 mcg DAILY@0700 [facility] Administration Metoprolol Succinate 25 mg 10/27/16 22:00 10/30/16 21:11 Toprol Xl - PO 25 mg BID [facility] Administration Montelukast Sodium 10 mg 10/14/16 22:00 10/30/16 21:10 Singulair - PO 10 mg HS [facility] Administration Pantoprazole Sodium 40 mg 10/11/16 10:00 10/30/16 09:47 Protonix - PO 40 mg DAILY [facility] Administration Prednisone 40 mg 10/31/16 10:00 Deltasone - PO DAILY [facility] Tamsulosin HCl 0.4 mg 10/19/16 08:30 10/30/16 09:47 Flomax - PO 0.4 mg DAILY@0830 [facility] Administration Vancomycin HCl 1,000 mg 10/29/16 12:00 10/30/16 11:13 Vancomycin (Pre-Docked) IVPB 1,000 mg DAILY@1200 [facility] Administration Protocol Warfarin Sodium 2.5 mg 10/20/16 18:00 10/30/16 17:35 Coumadin - PO 2.5 mg DAILY@1800 [facility] Administration ASSESSMENT/PLAN: Assessment: Pt is an 80 yo man w/ pmh of COPD (on home O2), CAD (s/p PCI; 3 stents), R lobectomy for lung abscess, GERD, HTN, HLD, who initially presented 12 days ago due with symptomatic bradycardia during pulmonary rehab session, current course notable for worsening respiratory status and suspected PNA. Pt much improved clinicallly, endorses less SOB/cough and improving exercise tolerance. Remains afebrile w/ no other infectious symptoms. Seven day Abx course of zosyn completed. Last dose of vanc this AM. D/c today. Problem List: Pneumonia Acute on chronic COPD exacerbation CHF exacerbation Plan: #Pneumonia - Much improved clinically. Plan for d/c today - Sputum cx + for MRSA (10/24) - blood, urine cx neg - urine legionella ag, pneumoncoccal ag neg - Received dose of vanc this AM. No PO meds on d/c - Outpt f/u w/ antique furniture reproducer Jono Penn MD, PGY1 Plan per attending, Dr. Graham Problem List - Problems (1) Acute CHF (congestive heart failure) Code(s): I50.9 - HEART FAILURE, UNSPECIFIED (2) Bronchiectasis with (acute) exacerbation Code(s): J47.1 - BRONCHIECTASIS WITH (ACUTE) EXACERBATION (3) COPD exacerbation Code(s): J44.1 - CHRONIC OBSTRUCTIVE PULMONARY DISEASE W (ACUTE) EXACERBATION (4) Pneumonia Code(s): J18.9 - PNEUMONIA, UNSPECIFIED ORGANISM Visit type - Emergency Visit Emergency Visit: No - New Patient This patient is new to me today: No - Critical Care Critical Care patient: No
[2016-10-31 07:43] LABS: INR 2.65 (0.82-1.09); PROTHROMBIN TIME (PATIENT) 29.7 SEC (9.98-11.88)
[2016-10-31 08:09] LABS: ANION GAP 8 (8-16); CO2 41 mmol/L (21-32); CREATININE 1.1 mg/dL (0.7-1.3); GLUCOSE,RANDOM 162 mg/dL (74-106); MAGNESIUM 2.7 mg/dL (1.8-2.4)
[2016-10-31 08:27] LABS: CALCIUM 6.8 mg/dL (8.5-10.1)
[2016-10-31] MEDS ORDERED: PT OWN MED DRAWER 7, Y5N ONE (09:07)
[2016-10-31] MEDS: METOPROLOL SUCCINATE 25 MG TAB.SR.24H (FP) PO SCH (09:15)
[2016-10-31] MEDS: PANTOPRAZOLE 40 MG TABLET (FP) PO SCH (09:15)
[2016-10-31] MEDS: CALCIUM CARBONATE 650 MG TABLET PO SCH (09:16)
[2016-10-31] MEDS: ALLOPURINOL 100 MG TABLET (FP) PO SCH (09:16)
[2016-10-31] MEDS: ASPIRIN 81 MG CHEWABLE TABLETS PO SCH (09:16)
[2016-10-31] MEDS: TAMSULOSIN HCL 0.4 MG CAP.ER.24H (FP) PO SCH (09:16)
[2016-10-31] MEDS: FUROSEMIDE 40 MG TABLET (FP) PO SCH ×2 (09:22→13:13)
--- NOTE | 2016-10-31 09:40 | PN ---
Progress Note (short form) - Note Progress Note: History of Present Illness: sob better no cp, no palps no dizzy le edema better as well Current Medications Generic Name Dose Route Start Last Admin Trade Name Freq PRN Reason Stop Dose Admin Acetaminophen 650 mg 10/10/16 14:55 Tylenol - PO Q4H PRN FEVER OR PAIN Albuterol Sulfate 1 amp 10/13/16 14:18 10/29/16 09:25 Ventolin 0.083% Nebulizer Soln - NEB 1 amp Q4H PRN Administration SHORT OF BREATH/WHEEZING Albuterol/Ipratropium 1 amp 10/23/16 07:51 10/31/16 06:48 Duoneb - NEB 1 amp QIDR FAM Administration Allopurinol 100 mg 10/11/16 10:00 10/31/16 09:16 Zyloprim - PO 100 mg DAILY FAM Administration Aspirin 81 mg 10/11/16 10:00 10/31/16 09:16 Asa - PO 81 mg DAILY FAM Administration Atorvastatin Calcium 20 mg 10/10/16 22:00 10/30/16 21:11 Lipitor - PO 20 mg HS FAM Administration Benzocaine/Menthol 1 each 10/19/16 10:20 10/26/16 13:11 Cepacol Lozenge - MM 1 each PRN PRN Administration SORE THROAT Calcium Carbonate 650 mg 10/24/16 12:30 10/31/16 09:16 Calcium Carbonate - PO 650 mg BID FAM Administration Furosemide 40 mg 10/31/16 14:00 10/31/16 09:22 Lasix - PO 40 mg BID@0600,1400 FAM Administration Guaifenesin/Codeine Phosphate 5 ml 10/17/16 09:22 10/26/16 12:02 Robitussin Ac - PO 5 ml Q4H PRN Administration COUGH Levothyroxine Sodium 100 mcg 10/15/16 07:00 10/31/16 06:15 Synthroid - PO 100 mcg DAILY@0700 FAM Administration Metoprolol Succinate 25 mg 10/27/16 22:00 10/31/16 09:15 Toprol Xl - PO 25 mg BID FAM Administration Montelukast Sodium 10 mg 10/14/16 22:00 10/30/16 21:10 Singulair - PO 10 mg HS FAM Administration Pantoprazole Sodium 40 mg 10/11/16 10:00 10/31/16 09:15 Protonix - PO 40 mg DAILY FAM Administration Prednisone 40 mg 10/31/16 10:00 10/31/16 09:15 Deltasone - PO 40 mg DAILY FAM Administration Tamsulosin HCl 0.4 mg 10/19/16 08:30 10/31/16 09:16 Flomax - PO 0.4 mg DAILY@0830 FAM Administration Vancomycin HCl 1,000 mg 10/29/16 12:00 10/30/16 11:13 Vancomycin (Pre-Docked) IVPB 1,000 mg DAILY@1200 FAM Administration Protocol Warfarin Sodium 2.5 mg 10/20/16 18:00 10/30/16 17:35 Coumadin - PO 2.5 mg DAILY@1800 FAM Administration Vital Signs Period Temp Pulse Resp BP Sys/Martinez Pulse Ox Last 24 Hr 97.4 F-98.3 F 75-91 18-22 99-126/58-84 90-96 NAD, calm jvd flat, neck supple diminished breath sounds/mild exp wheezes, nl effort rrr nl s1, s2 2/6 murmur at sternal border and apex + bs soft nt nd trace le edema bl aaox3 no jaundice, diaphoresis CBC, BMP 10/31/16 06:00 10/31/16 06:00 EKG: Other (tele: SR, pvcs) EKG: sr, 97 bpm. anterolateral twi. Previously twi more prominent in lateral leads. Echo 09/2016 office: Moderate global HK, EF 40%. nl rv. mod mr, LHC 05/2016 at [facility]--per dc summary, patent prior stents and non obs residual dz. LHC/PCI 2010: prox RCA NICOLE, residual OM1 50-60%, patent mid LAD stent, normal right heart pressures, normal LVF Dobut Stress MPI 08/2010: small, mild apical anterior and LV apex ischemia--( PCI after this) MIBI 12/13: small/mild infer ischemia vs GI tracer confounding, EF 41% ct chest 02/2016: ascd aorta 4.3 cm a/p: 80 yo with h/o CAD (s/p PCI), systolic cardiomyopathy, mild asc ao dilation, mod mr, htn, hl, hypothyroid, COPD, Pneumonia (s/p lobectomy for lung abscess), Pulmonary Embolus on coumadin p/w bradycardia. bradycardia - no ekg documentation of episodes. (on routine vitals prior to starting P.T. he was noted to have HR's in the 30's-40's-->to ER where normal HR. per family on telemetry in ER, HR's intermittently were reading 30's -50's for seconds at a time and then going back up to 70's-100's.) - ? artifactual has known h/o sinus tach and has remained in sinus tach here. - he had no sx's at home or here of presyncope/syncope (generalized weakness on DOA is apparently a chronic, stable condition which improves acutely with PT) - recent cath unremarkable, echo in september EF 40%, stable vs priors apparently - no bradyarrhythmia on telemetry here for many days. - home metoprolol continued in hospital. acute on chronic syst chf: - Over the years his echos have shown variations in lvef, at times reduced. Recent echo at [facility] 05/2016 reports lvef 20% (per dc summary). During that admit he was seen by cardio and had repeat cath showing patent stents and non obs residual dz. He was noted to have NSVT on tele there and given lifevest but pt/ declined. Was started on toprol as well. He has been on bb/arb for several mos now --> improvement in EF --> cont - wt 203 yest, 206 today (office wts vary 195-210 since 04/22). - lasix held here over weekend for + orthostatics - 10/13 JVD noted on exam --> lasix 40 mg IV x 1 - 10/14-13: resumed po lasix as above - 10/17: wt rising and starting to develop le edema. Got lasix 40 iv yesterday and today still vol up and cr bumped up. Given that he appears volume up he may need more iv lasix which may help cr as well. Renal consulted today, will discuss. -10/18: seen by renal, rec'd stopping arb and monitoring for now w/o aggressive diuresis. Today le edema improved and cr improved. Cont with po lasix for now. -10/19: cr continues to improve, back to baseline. Given that his cr bumped up after iv lasix and then improved after stopping iv lasix, it seems that he does not need aggressive diuresis at this time. Cont po lasix for maintenance. Now that off iv steroids le edema should improve. -10/21: back on iv steroids and wt up still so given test dose of iv lasix yesterday. Today cr stable and diuresed well so will cont with lasix 40 iv qd for now -10/22: still with vol overload and wt up so will increase lasix to 80 iv qd -10/23: still vol up, cr stable. Needs further diuresis. Discussed with renal and plan will be to continue lasix 80 iv daily but give additional evening dose of 40 iv and monitor response tomorrow. -10/24: seemed to respond well to lasix iv 80/40 yesterday with stable cr and wt down, will cont same today. - cont home metoprolol 25mg 10/25: Improving with furosemide. Renal function improved weight down to 210 ( from 216). Will continue Lasix 80/40 IV. Will need K replacement (3.4) 10/26: Stable, still seems volume overloaded, weight continnues to decrease to 209. Continue lasix 80/40. Improved K. -10/27-: bun/creat improved with diuresis. wt declining. dry wt uncertain here (office wts range 195-210, pt thinks baseline is close to 190--??). will cont same lasix until bun/creat starts trending up -10/31: vol stable, seems to be at baseline, change to lasix 40 po bid. PAT: -brief runs on tele while here, benign -cont bb a.e. COPD, PNA: - on home o2 and theophylline - on steroids, pulm following - abx per ID CAD (s/p PCI) - Con't medical therapy with ASA, statin. Stable. No angina. CE's negative here and recent cath in may with no residual disease HTN: - stable Hyperlipdemia, - con't statin PE 2010 - on coumadin from before. dosing per inr. hgb stable even with additional asa. ascending thoracic aneurysm, small: - Stable on CT here (4.2cm). - bp control, BB as doing -outpt monitoring trop elevation: -borderline trop elevation with flat trend and nl ckmb fraction, not consistent with acs. Likely due to alon/pna/chf cardiac thapa stable for dc
--- NOTE | 2016-10-31 09:47 | PN ---
Teaching Attending Note Name of Resident: Jono Penn ATTENDING PHYSICIAN STATEMENT I saw and evaluated the patient. I reviewed the resident's note and discussed the case with the resident. I agree with the resident's findings and plan as documented. SUBJECTIVE: feels well no complaints OBJECTIVE: Vital Signs Period Temp Pulse Resp BP Sys/Martinez Pulse Ox Last 24 Hr 97.4 F-98.3 F 75-91 18-22 99-126/58-84 90-96 cor-rrr lungs clear abd soft,nt ext less edema CBC, BMP 10/31/16 06:00 10/31/16 06:00 Current Medications Acetaminophen (Tylenol -) 650 mg PO Q4H PRN PRN Reason: FEVER OR PAIN Albuterol Sulfate (Ventolin 0.083% Nebulizer Soln -) 1 amp NEB Q4H PRN PRN Reason: SHORT OF BREATH/WHEEZING Last Admin: 10/29/16 09:25 Dose: 1 amp Albuterol/Ipratropium (Duoneb -) 1 amp NEB QIDR [facility] Last Admin: 10/31/16 06:48 Dose: 1 amp Allopurinol (Zyloprim -) 100 mg PO DAILY [facility] Last Admin: 10/31/16 09:16 Dose: 100 mg Aspirin (Asa -) 81 mg PO DAILY [facility] Last Admin: 10/31/16 09:16 Dose: 81 mg Atorvastatin Calcium (Lipitor -) 20 mg PO HS [facility] Last Admin: 10/30/16 21:11 Dose: 20 mg Benzocaine/Menthol (Cepacol Lozenge -) 1 each MM PRN PRN PRN Reason: SORE THROAT Last Admin: 10/26/16 13:11 Dose: 1 each Calcium Carbonate (Calcium Carbonate -) 650 mg PO BID [facility] Last Admin: 10/31/16 09:16 Dose: 650 mg Furosemide (Lasix -) 40 mg PO BID@0600,1400 [facility] Last Admin: 10/31/16 09:22 Dose: 40 mg Guaifenesin/Codeine Phosphate (Robitussin Ac -) 5 ml PO Q4H PRN PRN Reason: COUGH Last Admin: 10/26/16 12:02 Dose: 5 ml Levothyroxine Sodium (Synthroid -) 100 mcg PO DAILY@0700 [facility] Last Admin: 10/31/16 06:15 Dose: 100 mcg Metoprolol Succinate (Toprol Xl -) 25 mg PO BID [facility] Last Admin: 10/31/16 09:15 Dose: 25 mg Montelukast Sodium (Singulair -) 10 mg PO HS [facility] Last Admin: 10/30/16 21:10 Dose: 10 mg Pantoprazole Sodium (Protonix -) 40 mg PO DAILY [facility] Last Admin: 10/31/16 09:15 Dose: 40 mg Prednisone (Deltasone -) 40 mg PO DAILY [facility] Last Admin: 10/31/16 09:15 Dose: 40 mg Tamsulosin HCl (Flomax -) 0.4 mg PO DAILY@0830 [facility] Last Admin: 10/31/16 09:16 Dose: 0.4 mg Vancomycin HCl (Vancomycin (Pre-Docked)) 1,000 mg IVPB DAILY@1200 [facility] PRN Reason: Protocol Last Admin: 10/30/16 11:13 Dose: 1,000 mg Warfarin Sodium (Coumadin -) 2.5 mg PO DAILY@1800 [facility] Last Admin: 10/30/16 17:35 Dose: 2.5 mg ASSESSMENT AND PLAN: pneumonia/chf/copd- doing well doing well d/w Dr Diaz and Dr Fung last evening can d/c iv vancomycin after todays dose no need for po antibiotics f/u with PMD please call back if needed Problem List - Problems (1) Pneumonia Code(s): J18.9 - PNEUMONIA, UNSPECIFIED ORGANISM (2) Acute CHF (congestive heart failure) Code(s): I50.9 - HEART FAILURE, UNSPECIFIED
[2016-10-31] MEDS ORDERED: predniSONE 20 MG TABLET (UD) PO SCH (10:00)
[2016-10-31] MEDS ORDERED: POTASSIUM CHLORIDE TABS 20 MEQ TABLET.ER (FP) PO ONE (10:30)
[2016-10-31 10:35] VITALS: BP 127/72
[2016-10-31] MEDS ORDERED: CALCITRIOL 0.25 MCG CAPSULE (FP) PO SCH (11:00)
[2016-10-31 11:10] VITALS: PULSE 54
[2016-10-31] MEDS: VANCOMYCIN 1 GRAM (PRE-DOCKED) 1,000 MG/250 ML BAG IVPB SCH (11:11)
--- NOTE | 2016-10-31 11:13 | PN ---
Progress Note (short form) - Note Progress Note: Renal Follow up for MARIAM Pt seen and examined at the bedside no complaints sob has improved considerably Edema has resolved Vital Signs Temperature 97.9 F 10/31/16 10:00 Pulse Rate 54 L 10/31/16 11:10 Respiratory Rate 20 10/31/16 10:00 Blood Pressure 127/72 10/31/16 10:00 O2 Sat by Pulse Oximetry (%) 98 10/31/16 11:10 Intake & Output 10/28/16 10/29/16 10/30/16 10/31/16 23:59 23:59 23:59 23:59 Intake Total 360 580 470 Output Total 700 2400 1950 900 Balance -011 -1822 -1630 -900 Weight 209 lb 206 lb 3.2 oz 205 lb 6 oz 206 lb 12.8 oz Gen: NAD CVS: RRR Lungs: CTA Abd: soft NT/ND, No bladder distension Ext:1+ LE edema CBC, BMP 10/31/16 06:00 10/31/16 06:00 Laboratory Tests 10/28/16 10/28/16 10/29/16 05:35 12:00 06:40 Carbon Dioxide 39 H Creatinine 1.5 H Calcium 7.3 L Phosphorus 4.3 Magnesium 2.9 H 2.8 H Ur Random Sodium 73 Ur Random Potassium 29.0 Ur Random Chloride 75 10/31/16 06:00 Carbon Dioxide Creatinine Calcium 6.8 L* Phosphorus 4.0 Magnesium 2.7 H Ur Random Sodium Ur Random Potassium Ur Random Chloride Current Medications Acetaminophen (Tylenol -) 650 mg PO Q4H PRN PRN Reason: FEVER OR PAIN Albuterol Sulfate (Ventolin 0.083% Nebulizer Soln -) 1 amp NEB Q4H PRN PRN Reason: SHORT OF BREATH/WHEEZING Last Admin: 10/29/16 09:25 Dose: 1 amp Albuterol/Ipratropium (Duoneb -) 1 amp NEB QIDR [facility] Last Admin: 10/31/16 11:09 Dose: 1 amp Allopurinol (Zyloprim -) 100 mg PO DAILY [facility] Last Admin: 10/31/16 09:16 Dose: 100 mg Aspirin (Asa -) 81 mg PO DAILY [facility] Last Admin: 10/31/16 09:16 Dose: 81 mg Atorvastatin Calcium (Lipitor -) 20 mg PO HS [facility] Last Admin: 10/30/16 21:11 Dose: 20 mg Benzocaine/Menthol (Cepacol Lozenge -) 1 each MM PRN PRN PRN Reason: SORE THROAT Last Admin: 10/26/16 13:11 Dose: 1 each Calcitriol (Rocaltrol -) 0.25 mcg PO DAILY [facility] Calcium Carbonate (Calcium Carbonate -) 650 mg PO BID [facility] Last Admin: 10/31/16 09:16 Dose: 650 mg Furosemide (Lasix -) 40 mg PO BID@0600,1400 [facility] Last Admin: 10/31/16 09:22 Dose: 40 mg Guaifenesin/Codeine Phosphate (Robitussin Ac -) 5 ml PO Q4H PRN PRN Reason: COUGH Last Admin: 10/26/16 12:02 Dose: 5 ml Levothyroxine Sodium (Synthroid -) 100 mcg PO DAILY@0700 [facility] Last Admin: 10/31/16 06:15 Dose: 100 mcg Metoprolol Succinate (Toprol Xl -) 25 mg PO BID [facility] Last Admin: 10/31/16 09:15 Dose: 25 mg Montelukast Sodium (Singulair -) 10 mg PO HS [facility] Last Admin: 10/30/16 21:10 Dose: 10 mg Pantoprazole Sodium (Protonix -) 40 mg PO DAILY [facility] Last Admin: 10/31/16 09:15 Dose: 40 mg Prednisone (Deltasone -) 40 mg PO DAILY [facility] Last Admin: 10/31/16 09:15 Dose: 40 mg Tamsulosin HCl (Flomax -) 0.4 mg PO DAILY@0830 [facility] Last Admin: 10/31/16 09:16 Dose: 0.4 mg Vancomycin HCl (Vancomycin (Pre-Docked)) 1,000 mg IVPB DAILY@1200 [facility] PRN Reason: Protocol Last Admin: 10/30/16 11:13 Dose: 1,000 mg Warfarin Sodium (Coumadin -) 2.5 mg PO DAILY@1800 [facility] Last Admin: 10/30/16 17:35 Dose: 2.5 mg A/P 80 year old gentleman with PMhx of severe COPD, Coronary artery disease, HLD, Pneumonia, Lung abscess, s/p Pulmonary lobectomy, Pulmonary Embolism, Hypothyroidism p/w sob secondary to COPD/CHF with MARIAM with Cr 1.6 #MARIAM in setting of volume overload and CHF Renal function improved and stable continue oral lasix as per cardiology recs #Elevated serum bicarb trend serum bicarb at home, likely will have some improvement off IV diuretics #Hypocalcemia Corrected Ca is 7.68 Will need to check PTH start Calcitriol 0.25mcg daily continue oral calcium carbonate #Dyspnea/COPD/PNA Completed course of Abx as per ID Thank you Neo Castro DO
--- NOTE | 2016-10-31 13:15 | DS ---
Physical Examination Vital Signs: Vital Signs Temperature 97.9 F 10/31/16 10:00 Pulse Rate 54 L 10/31/16 11:10 Respiratory Rate 20 10/31/16 10:00 Blood Pressure 127/72 10/31/16 10:00 O2 Sat by Pulse Oximetry (%) 98 10/31/16 11:10 Labs: CBC, BMP 10/31/16 06:00 10/31/16 06:00 Discharge Summary Reason For Visit: BRADYCARDIA Current Active Problems Acute CHF (congestive heart failure) (Acute) Acute kidney failure (Acute) Aspergillosis (Acute) Murali-tachy syndrome (Acute) Bradycardia (Acute) Bronchiectasis with (acute) exacerbation (Acute) COPD exacerbation (Acute) Coronary artery disease (Acute) Cough (Acute) GERD (gastroesophageal reflux disease) (Acute) HTN (hypertension) (Acute) Hypothyroid (Acute) Obstructive uropathy (Acute) Pneumonia (Acute) Pulmonary embolism (Acute) Renal failure (ARF), acute on chronic (Acute) Renal insufficiency, mild (Acute) Viral syndrome (Acute) Condition: Stable - Instructions Diet, Activity, Other Instructions: No added salt. Followup with medical and pulmonary MD's. INR weekly. [facility] will come to see you. Referrals: Marimar Mcguire MD [Staff Physician] - Boris Perez MD [Primary Care Provider] - Po Franco MD [Staff Physician] - Disposition: [facility]/HOME HEALTH CARE - Home Medications Comprehensive Discharge Medication List: Ambulatory Orders Albuterol 2.5/Ipratropium 0.5 [Duoneb -] 1 neb IH QID 09/06/13 Aspirin [ASA -] 81 mg PO DAILY 09/06/13 Potassium Chloride [K-Dur] 20 meq PO BID 09/06/13 Allopurinol [Zyloprim -] 100 mg PO DAILY 01/21/14 Esomeprazole Mag Trihydrate [Nexium] 40 mg PO DAILY 01/21/14 Simvastatin [Zocor -] 40 mg PO HS 01/21/14 Montelukast Na [Singulair -] 10 mg PO HS 10/10/16 Calcitriol [Calcitriol -] 0.25 mcg PO DAILY #30 cap 10/31/16 Calcium Carbonate - 650 mg PO BID #60 tablet 10/31/16 Furosemide [Lasix -] 40 mg PO BID@0600,1400 #60 tablet 10/31/16 Levothyroxine [Synthroid -] 100 mcg PO DAILY@0700 #30 tablet 10/31/16 Metoprolol Succinate [Toprol XL -] 25 mg PO BID #60 tab.sr 10/31/16 Prednisone [Deltasone -] 40 mg PO DAILY #90 tablet 10/31/16 Tamsulosin HCl [Flomax -] 0.4 mg PO DAILY@0830 #30 cap.sr 10/31/16 Warfarin Na [Coumadin -] 2.5 mg PO DAILY@1800 #30 tablet 10/31/16
== END 2016-10-31 15:08 | disposition home or self-care (01) | DRG 308 ==
LOC: JER 08:58 → JERBED 14:18 → J4S 15:39 → OBSVTOIN 18:47
PROVIDERS: ADMIT Internal Medicine; ATTEND Internal Medicine
DX: I49.5 Sick sinus syndrome (principal); J18.9 Pneumonia, unspecified organism; I50.33 Acute on chronic diastolic (congestive) heart failure; I25.810 Atherosclerosis of coronary artery bypass graft(s) without angina pectoris; I50.20 Unspecified systolic (congestive) heart failure; J47.1 Bronchiectasis with (acute) exacerbation; N17.9 Acute kidney failure, unspecified; I42.8 Other cardiomyopathies; Z79.01 Long term (current) use of anticoagulants; Z95.5 Presence of coronary angioplasty implant and graft; Z95.1 Presence of aortocoronary bypass graft; Z87.891 Personal history of nicotine dependence; Z96.659 Presence of unspecified artificial knee joint; K21.9 Gastro-esophageal reflux disease without esophagitis; E03.9 Hypothyroidism, unspecified; I12.9 Hypertensive chronic kidney disease with stage 1 through stage 4 chronic kidney disease, or unspecified chronic kidney disease; N18.9 Chronic kidney disease, unspecified; E78.5 Hyperlipidemia, unspecified; Z99.81 Dependence on supplemental oxygen; I71.2 Thoracic aortic aneurysm, without rupture; R09.02 Hypoxemia
CPT/HCPCS: 36415; 36600; 71010-TC; 71020-TC; 71250-TC; 76856-TC; 80048; 80053; 80076; 80198; 82436; 82550; 82553; 82803; 83036; 83735; 83880; 84100; 84133; 84300; 84439; 84442; 84443; 84481; 84484; 84550; 85025; 85027; 85610; 85651; 85730; 87040; 87070; 87086; 87186; 87205; 87899; 93005; 93010; 93225; 93226; 94640; 99284-25; G0378; G0480

== ENCOUNTER 2017-03-16 12:04 | Emergency (ER) | payer OTHER, MEDICARE ==
[2017-03-16 12:18] VITALS: BP 128/78; PULSE 99; TEMP 98; BMI 29.3
--- NOTE | 2017-03-16 13:22 | PDOC ---
History of Present Illness - General Chief Complaint: Wound Infection Stated Complaint: WOUND INFECTION Time Seen by Provider: 03/16/17 12:37 Past History - Past Medical History Allergies/Adverse Reactions: Allergies Allergy/AdvReac Type Severity Reaction Status Date / Time No Known Allergies Allergy Verified 03/16/17 12:11 Home Medications: Ambulatory Orders Albuterol 2.5/Ipratropium 0.5 [Duoneb -] 1 neb IH QID 09/06/13 Aspirin [ASA -] 81 mg PO DAILY 09/06/13 Potassium Chloride [K-Dur] 20 meq PO BID 09/06/13 Allopurinol [Zyloprim -] 100 mg PO DAILY 01/21/14 Esomeprazole Mag Trihydrate [Nexium] 40 mg PO DAILY 01/21/14 Simvastatin [Zocor -] 40 mg PO HS 01/21/14 Montelukast Na [Singulair -] 10 mg PO HS 10/10/16 Calcitriol [Calcitriol -] 0.25 mcg PO DAILY #30 cap 10/31/16 Calcium Carbonate - 650 mg PO BID #60 tablet 10/31/16 Levothyroxine [Synthroid -] 100 mcg PO DAILY@0700 #30 tablet 10/31/16 Metoprolol Succinate [Toprol XL -] 25 mg PO BID #60 tab.sr 10/31/16 Prednisone [Deltasone -] 40 mg PO DAILY #90 tablet 10/31/16 Tamsulosin HCl [Flomax -] 0.4 mg PO DAILY@0830 #30 cap.sr 10/31/16 Warfarin Na [Coumadin -] 2.5 mg PO DAILY@1800 #30 tablet 10/31/16 Clindamycin [Cleocin -] 300 mg PO TID 03/16/17 Furosemide [Lasix -] 80 mg PO BID@0600,1400 03/16/17 Asthma: Yes Cardiac Disorders: Yes (CAD, S/P PTCI,a.fib) COPD: Yes (2LPM N/C CONTINUOUS.) GI Disorders: Yes (GERD) HTN: Yes Hypercholesterolemia: Yes Other medical history: s.dural hematoma,p.embolism - Surgical History Abdominal Surgery: Yes (h.hernia, ing.hernia with a mass) Cardiac Surgery: Yes (angioplasty with stent 2003) Lung Surgery: Yes (rt upper LOBECTOMY) Orthopedic Surgery: Yes (right total knee replacement) - Suicide/Smoking/Psychosocial Hx Smoking History: Never smoked Have you smoked in the past 12 months: No Number of Cigarettes Smoked Daily: 0 If you are a former smoker, when did you quit?: 1980 Information on smoking cessation initiated: No 'Breaking Loose' booklet given: 09/08/13 Hx Alcohol Use: No Drug/Substance Use Hx: No Hx Substance Use Treatment: No *Physical Exam - Vital Signs Last Vital Signs Temp Pulse Resp BP Pulse Ox 98.0 F 99 H 18 128/78 100 03/16/17 12:12 03/16/17 12:12 03/16/17 12:12 03/16/17 12:12 03/16/17 12:12 Medical Decision Making - Medical Decision Making 03/16/17 13:18 81 years old with small ulcer to left calf. No streaking red lines no fluctuance small amount of drainage at the openingStatus post I&D. Culture MRSA positive currently on clindamycin Patient seen and evaluated by infectious disease, Dr. Graham no indication for IV antibiotics. We'll continue clindamycin patient will follow-up in wound care in 1-2 days Findings, need for follow-up, strict return instructions discussed with patient. *DC/Admit/Observation/Transfer Diagnosis at time of Disposition: Cellulitis Qualifiers: Site of cellulitis: extremity Site of cellulitis of extremity: lower extremity Laterality: left Qualified Code(s): L03.116 - Cellulitis of left lower limb - Discharge Dispostion Disposition: HOME Admit: No - Referrals Referrals: Boris Perez MD [Primary Care Provider] - - Patient Instructions Printed Discharge Instructions: DI for Wound Infection Additional Instructions: Continue clindamycin as prescribed. Follow-up with wound care in 1-2 days. Take [id number] probiotic as directed. Return to the ED for any fever streaking red lines worsening redness worsening pain worsening discharge or for any concerns. Follow-up with next week - Post Discharge Activity
== END 2017-03-16 13:39 | disposition home or self-care (01) ==
LOC: JER 12:04
DX: L03.116 Cellulitis of left lower limb (principal); J45.909 Unspecified asthma, uncomplicated; I25.10 Atherosclerotic heart disease of native coronary artery without angina pectoris; I10 Essential (primary) hypertension; E78.00 Pure hypercholesterolemia, unspecified; K21.9 Gastro-esophageal reflux disease without esophagitis; Z87.891 Personal history of nicotine dependence
CPT/HCPCS: 99282-25

== ENCOUNTER 2019-03-22 12:09 | Day surgery (SDC) | payer OTHER, MEDICARE ==
[2019-03-21 18:22] VITALS: BMI 31.1
--- NOTE | 2019-03-22 12:55 | HP ---
Satellite [facility] - Chief Complaint Chief Complaint: right shoulder mass - Past Medical History Allergies/Adverse Reactions: Allergies Allergy/AdvReac Type Severity Reaction Status Date / Time No Known Allergies Allergy Verified 03/21/19 18:17 Cardiovascular: Yes: CAD (s/p PTCI), HTN, Hyperlipdemia Pulmonary: Yes: COPD, Pneumonia (s/p lobectomy for lung abscess), Pulmonary Embolus Gastrointestinal: Yes: GERD, Other (Feeling of fullness) Infectious Disease: Yes: Other - Current Medications Current Medications: Home Medications Medication Instructions Recorded Albuterol 2.5/Ipratropium 0.5 1 neb IH QID 09/06/13 [Duoneb -] Aspirin [ASA -] 81 mg PO DAILY 09/06/13 Allopurinol [Zyloprim -] 100 mg PO DAILY 01/21/14 Esomeprazole Mag Trihydrate 40 mg PO DAILY 01/21/14 [Nexium] Simvastatin [Zocor -] 40 mg PO HS 01/21/14 Montelukast Na [Singulair -] 10 mg PO HS 10/10/16 Calcitriol [Calcitriol -] 0.25 mcg PO DAILY #30 cap 10/31/16 Metoprolol Succinate [Toprol XL -] 25 mg PO BID #60 tab.sr 10/31/16 Tamsulosin HCl [Flomax -] 0.4 mg PO DAILY@0830 #30 cap.sr 10/31/16 Warfarin Na [Coumadin -] 2.5 mg PO DAILY@1800 #30 tablet 10/31/16 Furosemide [Lasix -] 40 mg PO BID@0600,1400 03/16/17 Advair 250-50 Diskus 1 inh IN ONCE 03/21/19 Ascorbic Acid [Vitamin C -] 1 tab PO DAILY 03/21/19 Cholecalciferol (Vitamin D3) 1 iu OD DAILY 03/21/19 [Vitamin D3] Entresto 24 mg-26 mg Tablet 1 tab PO BID 03/21/19 Erythromycin [Jose-Tab -] 500 mg PO DAILY 03/21/19 Levothyroxine [Synthroid -] 112 mcg PO DAILY@0700 03/21/19 predniSONE [Deltasone -] 10 mg PO DAILY 03/21/19 Hydrocodone/Acetaminophen 1 each PO Q6H #20 tablet MDD 4 03/22/19 [Hydrocodone-Acetamin 5-325 mg] Satellite Physical Exam - Physical Examination Vital Signs: Vital Signs Period Temp Pulse Resp BP Sys/Martinez Pulse Ox Last 24 Hr 99 General Appearance: Well Nourished, Well Developed, Alert & Oriented x3 ENT: Clear Lung: Normal air movement Extremities: Other (right shoulder- + mass over ac jt, nvi) Neurological: Intact, Alert, Oriented Satellite Impression/Plan - Impression/Plan Impression: right shoulder ganglion cyst Operative Procedure: right shoulder ganglion cyst excision Date to be Performed: 03/22/19
[2019-03-22] MEDS ORDERED: ceFAZolin SODIUM 1 GM VIAL IVPB ONE ×2 (14:07→15:25)
[2019-03-22] MEDS ORDERED: MIDAZOLAM HCL 2 MG/2 ML SINGLE DOSE VIAL ONE (14:16)
[2019-03-22] MEDS ORDERED: oxyCODONE HCL 5 MG TABLET PO PRN (15:24)
[2019-03-22] MEDS ORDERED: ONDANSETRON 4 MG/2 ML VIAL IVPUSH PRN (15:24)
--- NOTE | 2019-03-22 16:08 | OP ---
Operative Note - Note: Operative Date: 03/22/19 ([facility]) Pre-Operative Diagnosis: right shoulder ganglion cyst Operation: right shoulder ganglion cyst excision Post-Operative Diagnosis: Same as Pre-op Surgeon: Ryan Whitt Chief Medical Director: Colin Gong Anesthesia: Local Specimens Removed: ganglion cyst Estimated Blood Loss (mls): 10
--- NOTE | 2019-03-22 16:51 | OP ---
DATE OF OPERATION: DATE OF DICTATION: 03/22/2019 PREOPERATIVE DIAGNOSIS: Right acromioclavicular joint cyst. POSTOPERATIVE DIAGNOSIS: Right acromioclavicular joint cyst. PROCEDURE: Excision, right acromioclavicular joint cyst. SURGEON: Ryan Whitt MD [employer] SAL[employer] CONSULTANT: FRANCES Carreon ANESTHESIA: Right interscalene block. DRAINS: None. COMPLICATIONS: None. SPECIMEN: Right AC joint cyst. BLOOD LOSS: Minimal. BLOOD GIVEN: None. FLUID REPLACEMENT: 500 mL Plasma-Lyte. DESCRIPTION OF PROCEDURE: This patient is an 83-year-old male with a preoperative diagnosis of a right, very large, recurring, draining AC joint cyst. After understanding the potential risks, complications, alternatives, and benefits to surgery versus nonsurgical treatment, the patient elected to undergo this procedure. The patient understands there is a small risk of recurrence of the cyst. We are not addressing his other shoulder problems. The patient was brought to the operating room. Peripheral IV place. IV sedation given. Right interscalene block was performed. No other anesthesia was used during this case. He was placed in the beach chair position with ample padding throughout. The right upper extremity was prepped and draped in a sterile fashion. An incision was marked out with a marking pen and made with a No. 15 scalpel blade. The cyst popped, and very thick ganglion cyst fluid was expressed. It was quite large, approximately the size of a lemon. I then took care to dissect between the outer capsule of the cyst and the deep dermal layer. There were several points where it communicated to the skin and poked through the skin. Allis clamps were placed on the mass for retraction. It was decapitated at its base off of the AC joint in the distal clavicle and the acromion. There was no obvious sinus tract point of connection with the AC joint except for posteriorly where some synovial fluid continued to come out. This area was cauterized, and a window was opened. As the superior AC joint ligament looked to be intact and, overall, was quite good, I decided to leave the AC joint alone after using a rongeur to take off 1 sharp spur and cauterize posteriorly, as mentioned. I then did not see or feel any other abnormal sinus tracts. We achieved complete hemostasis. The area was copiously irrigated and washed out again inspected visually. I did not see any other points of connection. The deep dermal layer was closed with 2-0 Vicryl sutures including 4 sutures through the deep dermal layer and through the periosteum on the top surface of the acromion and the clavicle to eliminate the potential space for recurrence of the ganglion cyst. I then used nylon sutures to repair the small additional openings that were made during the excision of the ganglion cyst. Some redundant tissue was plicated, and final skin reapproximation was done with a row of debora. The area was washed, dried, covered with Aquacel dressing. Total surgical time was about 40 minutes. There were no complications during the case. The patient tolerated the procedure quite well. He was completely stable from a cardiovascular point of view. Blood loss was minimal. Fluid replacement was about 500 mL. He was brought to the ambulatory recovery room in stable condition in just a sling. He was awake throughout the case and talking throughout the case. Chris [id number]
[2019-03-22 17:28] VITALS: BP 134/81; PULSE 78; TEMP 97.7
--- NOTE | 2019-03-25 16:46 | PATH ---
Surgical Pathology Report Patient Name: RHIANNON SELLERS [facility]. Rec. #: [id number] /Age/Gender: 1935 (Age: 83) / M Account: [id number] Location: [facility] Taken: 03/22/2019 Received: 03/23/2019 Reported: 03/25/2019 Physicians: Ryan Whitt M.D. Specimen(s) Received RIGHT ACROMIO CLAVICULAR JOINT CYST Clinical History Right a.c. joint cyst Final Diagnosis ACROMIOCLAVICULAR JOINT CYST, RIGHT, EXCISION: FIBROADIPOSE, DENSE FIBROUS, AND FIBROCONNECTIVE TISSUE WITH DEGENERATIVE/MYXOID CHANGE COMPATIBLE WITH GANGLION CYST. Electronically Signed Maria Victoria Saleem M.D. Gross Description Received in formalin labeled "right acromioclavicular joint cyst," is a 5.8 x 3.5 x 1.4 cm strange-yellow portion of soft tissue with an exposed disrupted cystic structure. Automation Developer sections are submitted in 2 cassettes. /03/24/2019 [facility]03/24/2019
== END 2019-03-22 17:35 | disposition home or self-care (01) ==
LOC: JASU-SURG 12:09
PROVIDERS: ATTEND Orthopaedic Surgery
PROC: 0KB50ZZ Excision of Right Shoulder Muscle, Open Approach (ICD-10-PCS; principal; 2019-03-22 14:30)
DX: M67.411 Ganglion, right shoulder (principal)
CPT/HCPCS: 88304-TC; 94760